=== PATIENT | female | born 1940 | race Caucasian/White ===

== ENCOUNTER 2018-04-26 06:10 | Day surgery (SDC) | payer MEDICARE, BC, SELFPAY ==
[2018-04-26] VITALS (10 sets, daily range): BP systolic 113–137; BP diastolic 56–103; PULSE 56–65; RESP 14–16; TEMP 36.3–37.1; O2SAT 93–100; BMI 11.2
[2018-04-26] MEDS: Cefazolin 2 GM in 0.9% Normal Saline 100 ML IV (07:30)
--- NOTE | 2018-04-26 07:42 | RAD_ITS ---
STUDY: X-RAY - RIGHT ANKLE REASON FOR EXAM: Female, 77 years old. [Reduction and internal fixation of the distal fibular fracture. TECHNIQUE: 8 intraoperative coned down view(s) of the ankle. COMPARISON: None. FINDINGS: Intraoperative fluoroscopic imaging provided for open reduction and fixation of the distal fibular fracture utilizing screws and sideplate fixation device. RAD/Ankle min 3 Views IMPRESSION: Status post open reduction and internal fixation of the distal fibular fracture with screw and sideplate fixation device. There is good alignment. Electronically Signed: Parminder Olivier MD at 10:58 EST Tel [phone], Service support ,
--- NOTE | 2018-04-26 09:19 | EKG12_ITS ---
Test Reason : PRE OP Blood Pressure : / mmHG Vent. Rate : 057 BPM Atrial Rate : 057 BPM P-R Int : 160 ms QRS Dur : 074 ms QT Int : 472 ms P-R-T Axes : 062 005 -07 degrees QTc Int : 459 ms Sinus bradycardia Nonspecific T wave abnormality Abnormal ECG When compared with ECG of 24-JAN-2004 13:45, No significant change was found Confirmed by ANUSHKA BUCK, BELKIS ([id number]), dictionary editor FREDDIE FERRERA ([id number]) on 04/29/2018 2:28:04 PM Referred By: Lavern Davis Confirmed By:BELKIS REVELES MD
--- NOTE | 2018-04-26 09:44 | PCM.IMDPSTOP ---
Immediate Post-Op Note Date of Procedure: 04/26/18 Primary Surgeon/Physician: Lavern Davis DPM honeycomb decapper: Marjan Anders Pre-Operative Diagnosis: R distal fibula fracture with syndesmotic dysruption Post-Operative Diagnosis: same Surgery/Procedure Performed:: R distal fibula ORIF and transyndesmotic fixation Description of Surgical Findings:: see dictation Estimated Blood Loss: minimal Specimen's removed: none Type of Anesthesia:: Spinal/Supplemental - Admit VTE Documentation VTE Present on Admission: No VTE Mechan Device Prophylaxis: SCD's, Knee High DIANE Hose VTE Pharm Prophylaxis ordered?: Yes
--- NOTE | 2018-04-26 09:50 | PCM.DC.ORTHO ---
Discharge Activity: May Not Drive, May Not Shower, Use Walker, Use Crutches Weight Bearing Status: No weight bearing Keep extremity elevated above heart level: Operative Extremity Call your doctor if your incision/area has: Sudden Increased Bleeding Call your doctor if you observe: Fever of 101 or Higher, Numbness or Tingling, Shortness of breath, Chest pain, Calf discomfort, Uncontrolled pain Cleanse incision/area with: Keep Dressing Clean & Dry Additional Dressing/Incision Instructions:: Will check in one week if still in-house, Acute REhab or TCU Additional Instructions: Strict NWB RLE, pt has dementia and forgets this. Has had difficulty remaining NWB RLE since injury, fell once per family. Ice behind R knee 20 minutes of each hour while awake, elevation when in bed/recliner. I will see her in one week in Acute Rehab or TCU. Recommend Lovenox for dvt prophylaxis, pain medication and bowel regimen per medicine. Please call with questions or concerns. Allergies/Adverse Reactions: Allergies No Known Allergies Allergy (Verified 04/22/18 13:09) Medications to take at Discharge Bupropion HCl [Bupropion HCl Sr] 150 mg PO DAILY 06/12/15 Duloxetine Hcl [Cymbalta] 20 mg PO DAILY 06/12/15 Gabapentin 100 mg PO DAILY 06/12/15 Lovastatin [Mevacor] 10 mg PO QHS 06/12/15 Acetaminophen [Tylenol Tablet] 650 mg PO Q6H PRN PRN #0 tablet 06/14/15 Aspirin 325 mg PO DAILY@0800 04/22/18 Famotidine [Pepcid] 20 mg PO BID 04/22/18 Metoprolol Succinate [Toprol Xl] 50 mg PO DAILY 04/22/18 Oxybutynin [Ditropan] 5 mg PO DAILY 04/22/18 levETIRAcetam tablet [Keppra tablet] 500 mg PO BID 04/22/18 Orders to be completed after discharge: 12 Lead EKG [CVS] Time Frame: 04/26/18, Location: None Selected Primary Care Physician: Pinky Smith [Primary Care Provider] - Test Results: Test results from this visit will be discussed in further detail at your follow-up appointment, if applicable. Proposed Discharge Date: 04/26/18
--- NOTE | 2018-04-26 09:54 | DCINST_ITS ---
Discharge Activity: May Not Drive, May Not Shower, Use Walker, Use Crutches Weight Bearing Status: No weight bearing Keep extremity elevated above heart level: Operative Extremity Call your doctor if your incision/area has: Sudden Increased Bleeding Call your doctor if you observe: Fever of 101 or Higher, Numbness or Tingling, Shortness of breath, Chest pain, Calf discomfort, Uncontrolled pain Cleanse incision/area with: Keep Dressing Clean & Dry Additional Dressing/Incision Instructions:: Will check in one week if still in- house, Acute REhab or TCU Additional Instructions: Strict NWB RLE, pt has dementia and forgets this. Has had difficulty remaining NWB RLE since injury, fell once per family. Ice behind R knee 20 minutes of each hour while awake, elevation when in bed/recliner. I will see her in one week in Acute Rehab or TCU. Recommend Lovenox for dvt prophylaxis, pain medication and bowel regimen per medicine. Please call with questions or concerns. Allergies/Adverse Reactions: Allergies No Known Allergies Allergy (Verified 04/22/18 13:09) Medications to take at Discharge Bupropion HCl [Bupropion HCl Sr] 150 mg PO DAILY 06/12/15 Duloxetine Hcl [Cymbalta] 20 mg PO DAILY 06/12/15 Gabapentin 100 mg PO DAILY 06/12/15 Lovastatin [Mevacor] 10 mg PO QHS 06/12/15 Acetaminophen [Tylenol Tablet] 650 mg PO Q6H PRN PRN #0 tablet 06/14/15 Aspirin 325 mg PO DAILY@0800 04/22/18 Famotidine [Pepcid] 20 mg PO BID 04/22/18 Metoprolol Succinate [Toprol Xl] 50 mg PO DAILY 04/22/18 Oxybutynin [Ditropan] 5 mg PO DAILY 04/22/18 levETIRAcetam tablet [Keppra tablet] 500 mg PO BID 04/22/18 Orders to be completed after discharge: 12 Lead EKG [CVS] Time Frame: 04/26/18, Location: None Selected Primary Care Physician: Pinky Smith [Primary Care Provider] - Test Results: Test results from this visit will be discussed in further detail at your follow- up appointment, if applicable. Proposed Discharge Date: 04/26/18
--- NOTE | 2018-04-26 10:05 | RAD_ITS ---
STUDY: X-RAY - RIGHT ANKLE REASON FOR EXAM: Female, 77 years old. ORIF of the distal fibula. TECHNIQUE: 3 view(s) of the ankle. COMPARISON: Comparison is made with prior study done earlier in the day. FINDINGS: The patient is status post open reduction and internal fixation of the distal fibular fracture with screws and sideplate fixation device. There is good alignment. Plantar spur. The visualized subtalar, talonavicular, calcaneocuboid and tarsal articulations are normal. Postoperative soft tissue swelling. RAD/Ankle min 3 Views IMPRESSION: Status post ORIF of the distal fibula. There is good alignment. Postoperative soft tissue changes. Electronically Signed: Parminder Olivier MD at 13:53 EST Tel [phone], Service support ,
--- NOTE | 2018-04-26 10:05 | PCM.OPRPT ---
Report of Operation Date of Procedure: 04/26/18 Pre-Operative Diagnosis: R distal fibula fracture with syndesmotic dysruption Post-Operative Diagnosis: same Surgery/Procedure Performed:: R distal fibula ORIF and transyndesmotic fixation, stress views of Right ankle Description of Surgical Findings:: see dictation underwriting service representative: Marjan Anders Type of Anesthesia:: Spinal/Supplemental Specimen's removed: none Estimated Blood Loss (mL): minimal Description of Procedure: Indications: Patient is a 77 yo F w/ PMH significant for dementia, who fell 04/16/2018 at the [facility] where she resides. She was seen in the [place] ER and radiograph revealed a Right distal fibula fracture. She presented to my office on 04/20/2018 for evaluation, stress gravity views demonstrated increased medial clear space and tibiofibular joint gapping. Surgical intervention was decided upon with her daughter present for an unstable ankle fracture. She was seen by the PCP at her community home. Per her daughter she has had difficulty remaining NWB RLE with a posterior splint since our office appointment and fell once. She will be admitted to the [facility] Acute Rehab post operatively. All risks, complications and alternatives were discussed with the patient and her family. An informed consent was signed for right ankle ORIF with possible external fixation application. No guarantees were given. Procedure: On 04/26/18, Ange Flores was visually and verbally identified in the pre operative holding area. Her son and daughter were both present. The consent form was again reviewed as were all risks, complications and alternatives. They wished to proceed with the proposed surgery. Given that she will be admitted to the Acute Rehab post operatively I felt that we should be able to proceed without external fixation and the need for a second surgery for removal. Everyone agreed with the surgical plan and post operative plan. The right ankle was marked as the correct operative extremity. The patient was brought to the operating room and placed on the operating room table. After spinal anesthesia was administered the patient was placed in a lazy lateral position. A surgical time out was performed and all present were in agreement. A well padded pneumatic thigh tourniquet was then placed to the E. The right lower extremity was the prepped and draped in the normal sterile fashion. After elevation an esmarch was applied and the tourniquet was inflated to 300mmHg. At this time attention was turned to the right ankle. Intraoperative fluoroscopy was utilized to obtain a new AP of the ankle given her fall since examination. The distal fibula fracture looked to have increased displacement but no new fractures were seen. Attention was then turned to the distal fibula where a #15 blade was used to make a curvilinear incision of the fracture. Blunt dissection was carried deep with careful attention paid to al bleeders which were tied or bovied as necessary. The peroneal tendons were retracted. The fracture line was visualized and using a #15 blade and curettes all soft tissue and hematoma was removed. The fracture was reduced and held in place with a bone reduction clamp. This was confirmed by direct visualization and intra operative fluoroscopy. A Adriana 2.7 interfragmentary screw was then placed perpendicular to the fracture per AO technique. Satisfactory placement of the screw was noted on intraoperative fluoroscopy and the bone reduction clamp was removed. A distal fibular plate was then placed with positioning and length of the plate and screws confirmed by direct visualization and on intraoperative fluoroscopy. An external rotation and cotton bone hook test was then performed under intra operative fluoroscopy, the stress views revealed increased medial clear space and syndesmotic gapping. A malleolar reduction clamp was then placed. A syndesmotic screw was then placed from the lateral fibula to the medial cortex of the tibia and parallel to the tibiotalar joint. The screw was placed as part of the plate construct. The malleolar reduction clamp was then removed and the stress exams were then repeated under intraoperative fluoroscopy. The medial clear space appeared to be within normal limits and there was no syndesmotic gapping noted. A second transyndesmotic screw not placed secondary to the fracture pattern and I felt the reduction was well maintained with one screw. The incision was then flushed with copious amounts of normal sterile saline and closure was initiated. 2.0 vicryl was used for deep tissue, 3. Vicryl for subcutaneous sutures and 3.0 prolene for skin. Adaptic and dry sterile dressings were applied along with a multilayer compressive dressing and a well padded posterior splint. Total tourniquet time was 72 minutes with immediate capillary refill noted to the all digits upon deflation. The patient tolerated the procedure and anesthesia well. The patient was transported to the post anesthesia care unit by myself and a member of the anesthesia team with all vital signs stable and with the RLE neurovascular status equal to pre-operative levels. Anesthesia will perform a R lower sciatic block in pacu once her spinal anesthesia begins to wear off. She will be admitted to Acute Rehab at [facility] post operatively. At the end of the case all sponges, needle and instrument counts were found to be correct. Intraoperative fluoroscopy was utilized throughout the procedure,for > 1 hours. Interpretation of the images was vital to my decision making process including fracture reduction, screw and plate placement and length, along with stress views. Grafts/Implants Used: Adriana Variax plate and screws - Complications none - Admit VTE Documentation VTE Present on Admission: No VTE Mechan Device Prophylaxis: SCD's, Knee High DIANE Hose VTE Pharm Prophylaxis ordered?: Yes
--- NOTE | 2018-04-26 10:11 | NURSING ---
toes warm with good cap refill, RLE, spinal anesthesia. not moving legs at this time
--- NOTE | 2018-04-26 10:35 | OP.PCM_ITS ---
Report of Operation Date of Procedure: 04/26/18 Pre-Operative Diagnosis: R distal fibula fracture with syndesmotic dysruption Post-Operative Diagnosis: same Surgery/Procedure Performed:: R distal fibula ORIF and transyndesmotic fixation, stress views of Right ankle Description of Surgical Findings:: see dictation field service consultant: Marjan Anders Type of Anesthesia:: Spinal/Supplemental Specimen's removed: none Estimated Blood Loss (mL): minimal Description of Procedure: Indications: Patient is a 77 yo F w/ PMH significant for dementia, who fell 04/16/2018 at the [facility] where she resides. She was seen in the [place] ER and radiograph revealed a Right distal fibula fracture. She presented to my office on 04/20/2018 for evaluation, stress gravity views demonstrated increased medial clear space and tibiofibular joint gapping. Surgical intervention was decided upon with her daughter present for an unstable ankle fracture. She was seen by the PCP at her community home. Per her daughter she has had difficulty remaining NWB RLE with a posterior splint since our office appointment and fell once. She will be admitted to the [facility] Acute Rehab post operatively. All risks, complications and alternatives were discussed with the patient and her family. An informed consent was signed for right ankle ORIF with possible external fixation application. No guarantees were given. Procedure: On 04/26/18, Ange Flores was visually and verbally identified in the pre operative holding area. Her son and daughter were both present. The consent form was again reviewed as were all risks, complications and alternatives. They wished to proceed with the proposed surgery. Given that she will be admitted to the Acute Rehab post operatively I felt that we should be able to proceed without external fixation and the need for a second surgery for removal. Everyone agreed with the surgical plan and post operative plan. The right ankle was marked as the correct operative extremity. The patient was brought to the operating room and placed on the operating room table. After spinal anesthesia was administered the patient was placed in a lazy lateral position. A surgical time out was performed and all present were in agreement. A well padded pneumatic thigh tourniquet was then placed to the E. The right lower extremity was the prepped and draped in the normal sterile fashion. After elevation an esmarch was applied and the tourniquet was inflated to 300mmHg. At this time attention was turned to the right ankle. Intraoperative fluoroscopy was utilized to obtain a new AP of the ankle given her fall since examination. The distal fibula fracture looked to have increased displacement but no new fractures were seen. Attention was then turned to the distal fibula where a #15 blade was used to make a curvilinear incision of the fracture. Blunt dissection was carried deep with careful attention paid to al bleeders which were tied or bovied as necessary. The peroneal tendons were retracted. The fracture line was visualized and using a #15 blade and curettes all soft tissue and hematoma was removed. The fracture was reduced and held in place with a bone reduction clamp. This was confirmed by direct visualization and intra operative fluoroscopy. A Adriana 2.7 interfragmentary screw was then placed perpendicular to the fracture per AO technique. Satisfactory placement of the screw was noted on intraoperative fluoroscopy and the bone reduction clamp was removed. A distal fibular plate was then placed with positioning and length of the plate and screws confirmed by direct visualization and on intraoperative fluoroscopy. An external rotation and cotton bone hook test was then performed under intra operative fluoroscopy, the stress views revealed increased medial clear space and syndesmotic gapping. A malleolar reduction clamp was then placed. A syndesmotic screw was then placed from the lateral fibula to the medial cortex of the tibia and parallel to the tibiotalar joint. The screw was placed as part of the plate construct. The malleolar reduction clamp was then removed and the stress exams were then repeated under intraoperative fluoroscopy. The medial clear space appeared to be within normal limits and there was no syndesmotic gapping noted. A second transyndesmotic screw not placed secondary to the fracture pattern and I felt the reduction was well maintained with one screw. The incision was then flushed with copious amounts of normal sterile saline and closure was initiated. 2.0 vicryl was used for deep tissue, 3. Vicryl for subcutaneous sutures and 3.0 prolene for skin. Adaptic and dry sterile dressings were applied along with a multilayer compressive dressing and a well padded posterior splint. Total tourniquet time was 72 minutes with immediate capillary refill noted to the all digits upon deflation. The patient tolerated the procedure and anesthesia well. The patient was transported to the post anesthesia care unit by myself and a member of the anesthesia team with all vital signs stable and with the RLE neurovascular status equal to pre-operative levels. Anesthesia will perform a R lower sciatic block in pacu once her spinal anesthesia begins to wear off. She will be admitted to Acute Rehab at [facility] post operatively. At the end of the case all sponges, needle and instrument counts were found to be correct. Intraoperative fluoroscopy was utilized throughout the procedure,for > 1 hours. Interpretation of the images was vital to my decision making process including fracture reduction, screw and plate placement and length, along with stress views. Grafts/Implants Used: Adriana Variax plate and screws - Complications none - Admit VTE Documentation VTE Present on Admission: No VTE Mechan Device Prophylaxis: SCD's, Knee High DIANE Hose VTE Pharm Prophylaxis ordered?: Yes
--- OUTSIDE RECORDS SUMMARY | 2018-07-28 11:20 | XMS RPT_ITS ---
:1940 Author Organization OHIP Support Name Relationship Address Phone RAMONAGREG ASHLEY Unavailable Unavailable + NOT GIVEN Unavailable Unavailable Unavailable BOALS, GREG Unavailable Unavailable + NOT GIVEN Unavailable Unavailable Unavailable BOALS, GREG Unavailable [id number] + [place] [address] BOALS MADDIE Unavailable [id number] + [place] [address] R Unavailable Unavailable Unavailable BOALS, GREG Unavailable [phone] + [place] [address] BOALS, MADDIE Unavailable [phone] + [place] [address] R Unavailable Unavailable Unavailable BOALS, GREG Unavailable [phone] + [place] [address] BOALS, MADDIE Unavailable [id number] + [place] [address] R Unavailable Unavailable Unavailable BOALS, GREG Unavailable [phone] + [place] [address] BOALS, MADDIE Unavailable [address] + [place] [address] R Unavailable Unavailable Unavailable BOALS, GREG Unavailable [phone] + [place] [address] BOALS, MADDIE Unavailable [address] + [place] [address] R Unavailable Unavailable Unavailable BOALS, GREG Unavailable [phone] + [place] [address] BOALS, MADDIE Unavailable [phone] + [place] [address] R Unavailable Unavailable Unavailable BOALS, GREG Unavailable Unavailable + NOT GIVEN Unavailable Unavailable Unavailable BOALS, GREG Unavailable Unavailable + NOT GIVEN Unavailable Unavailable Unavailable BOALS, GREG Unavailable Unavailable + NOT GIVEN Unavailable Unavailable Unavailable NOT GIVEN Unavailable Unavailable Unavailable BOALS, GREG Unavailable Unavailable + NOT GIVEN Unavailable Unavailable Unavailable Care Team Providers Name Role Phone EL HITTI, WASSIM A Admitting Unavailable EL HITTI, WASSIM A Attending Unavailable EL HITTI, WASSIM A Consulting Unavailable PINKY QUINN MD Admitting Unavailable PINKY QUINN MD Attending Unavailable PINKY QUINN MD Primary Care Unavailable PINKY QUINN MD Consulting Unavailable PROVIDER, UNKNOWN Consulting Unavailable PROVIDER, UNKNOWN Consulting Unavailable PROVIDER, UNKNOWN Consulting Unavailable PINKY QUINN MD Admitting Unavailable PINKY QUINN MD Attending Unavailable PINKY QUINN MD Primary Care Unavailable PINKY QUINN MD Consulting Unavailable PROVIDER, UNKNOWN Consulting Unavailable PROVIDER, UNKNOWN Consulting Unavailable PROVIDER, UNKNOWN Consulting Unavailable PINKY QUINN MD Admitting Unavailable PINKY QUINN MD Attending Unavailable PINKY QUINN MD Primary Care Unavailable PINKY QUINN MD Consulting Unavailable PROVIDER, UNKNOWN Consulting Unavailable PROVIDER, UNKNOWN Consulting Unavailable PROVIDER, UNKNOWN Consulting Unavailable PINKY QUINN MD Admitting Unavailable PINKY QUINN MD Attending Unavailable PINKY QUINN MD Primary Care Unavailable PINKY QUINN MD Consulting Unavailable PROVIDER, UNKNOWN Consulting Unavailable PROVIDER, UNKNOWN Consulting Unavailable PROVIDER, UNKNOWN Consulting Unavailable KATINA MONROY DO Admitting Unavailable KATINA MONROY DO Attending Unavailable PINKY QUINN MD Referring Unavailable KATINA MONROY DO Primary Care Unavailable PINKY QUINN MD Consulting Unavailable PROVIDER, UNKNOWN Consulting Unavailable PROVIDER, UNKNOWN Consulting Unavailable PROVIDER, UNKNOWN Consulting Unavailable LAVERN JONES DPM Admitting Unavailable LAVERN JONES DPM Attending Unavailable LAVERN JONESM Primary Care Unavailable PINKY QUINN MD Consulting Unavailable PROVIDER, UNKNOWN Consulting Unavailable PROVIDER, UNKNOWN Consulting Unavailable PROVIDER, UNKNOWN Consulting Unavailable ABDIRASHID AMBROSE MD Admitting Unavailable ABDIRASHID AMBROSE MD Attending Unavailable ABDIRASHID AMBROSE MD Primary Care Unavailable PINKY QUINN MD Consulting Unavailable PROVIDER, UNKNOWN Consulting Unavailable PROVIDER, UNKNOWN Consulting Unavailable PROVIDER, UNKNOWN Consulting Unavailable LAILA MORALES (WAVE SOLDERING MACHINE OPERATOR) Attending Unavailable Lavern Jones Attending Unavailable Lavern Jones Referring Unavailable OMRAN, YASSER Primary Care Unavailable Fabi, Oscar S. Admitting Unavailable Fabi, Oscar S. Referring Unavailable OMRAN, YASSER Primary Care Unavailable Leo Juarez Consulting Unavailable Anuel Doll Attending Unavailable Fabi, Oscar S. Admitting Unavailable Dallas Hazel Attending Unavailable Fabi, Oscar S. Referring Unavailable OMRAN, YASSER Primary Care Unavailable Leo Juarez Consulting Unavailable Fabi, Oscar S. Consulting Unavailable Fabi, Oscar S. Admitting Unavailable Anuel Doll Attending Unavailable Fabi, Oscar S. Referring Unavailable OMRAN, YASSER Primary Care Unavailable Leo Juarez Consulting Unavailable Anuel Doll Consulting Unavailable Fabi, Oscar S. Admitting Unavailable Anuel Doll Attending Unavailable Fabi, Oscar S. Referring Unavailable OMRAN, YASSER Primary Care Unavailable Leo Juarez Consulting Unavailable Anuel Doll Consulting Unavailable Thai Hines Attending Unavailable Lavern Jones Referring Unavailable PROBLEMS PROBLEMS DATE TYPE CONDITION / CODE ATTENDING STATUS SOURCE Admitting Other difficulties LATOUF, BUTROS Active Jun [place] 8 Diagnosis with micturition / [facility] [id number](ICD-10) Hospital Repository Principle Other difficulties LATOUF, BUTROS Active Jun [place] 8 Diagnosis with micturition / [facility] A81030(ICD-10) Hospital Repository Unknown R94.31 - Abnormal FloraCallum grecoril Active [place] 9 electrocardiogram Community [ECG] [EKG] / Hospital R94.31(ICD-10) Repository Principle Essential (primary) OMRAN YASSER Active Jun [place] 8 Diagnosis hypertension / [facility] I10(ICD-10) Hospital Repository Admitting Essential (primary) OMRAN, YASSER Active Jun [place] 8 Diagnosis hypertension / [facility] I10(ICD-10) Hospital Repository Secondary Hyperlipidemia, OMRAN, YASSER Active Jun [place] 8 Diagnosis unspecified / [facility] E785(ICD-10) Hospital Repository Secondary Dysuria / R300(ICD-10) OMTARIK NOLASCOER Active Jun [place] 8 Diagnosis [facility] Repository Active Disorientation, EL HITTI, Active [place] 8 unspecified / [facility] Other R41.0(ICD-10) [place] Repository Active Abnormal findings on EL CHELSEYTI, Active [place] 8 diagnostic imaging of [facility] Other skull and head, not [place] elsewhere classified / Repository 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, 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 / [facility] Other I63.8(ICD-10) [place] Repository Active Other speech EL HITTI, Active [place] 8 disturbances / [facility] Other R47.89(ICD-10) [place] Repository Active Essential (primary) EL HITTI, Active [place] 8 hypertension / [facility] Other I10(ICD-10) [place] Repository Active Encephalopathy, EL HITTI, Active [place] 8 unspecified / [facility] Other G93.40(ICD-10) [place] Repository Principle Pure PINKY QUINN Active Jun [place] 8 Diagnosis hypercholesterolemia, [facility] unspecified / Hospital E7800(ICD-10) Repository Secondary Hyperglycemia, PINKY QUINN Active Jun Menezes Diagnosis unspecified / [facility] R739(ICD-10) Hospital Repository PROCEDURES PROCEDURES No Procedure Records FoundRESULTS RESULTS URINALYSIS Collected: 05/08/2018 Status: F Source: JUN [place] 9:00 PM [facility] REPOSITORY TYPE CODE TESTS RESULT OUT OF REFERENCE UNITS RANGE LAB URINALYSIS (LOINC) URINALYSIS Result Comment: URINALYSIS LAB Specimen Type(LOINC) Specimen Type Clean catch LAB Color(LOINC) NORMAL: YELLOW Color alexey LAB Clarity(LOINC) NORMAL: CLEAR Clarity clear LAB ph(LOINC) NORMAL: 5.0-8.0 ph 5 LAB Protein(LOINC) NORMAL: NEGATIVE Protein Abnormal 15 LAB Glucose(LOINC) NORMAL: NORMAL Glucose NORM LAB Ketone(LOINC) NORMAL: NEGATIVE Ketone NEG LAB Bilirubin(LOINC) NORMAL: NEGATIVE Bilirubin NEG LAB Blood(LOINC) NORMAL: NEGATIVE Blood NEG LAB Urobilinog(LOINC) NORMAL: NORMAL Urobilinog NORM LAB Sp [place](LOINC) NORMAL: 1.010-1.030 Sp [place] 1.030 LAB Nitrite(LOINC) NORMAL: NEGATIVE Nitrite NEG LAB Leukocytes(LOINC) NORMAL: NEGATIVE Leukocytes Abnormal 25 LAB Microscopic(LOINC ) Microscopic SEE BELOW Result Comment: MICROSCOPIC LAB Wbc(LOINC) 0-5/hpf Wbc 1-5 LAB Rbc(LOINC) 0-3/hpf Rbc NONE LAB Casts(LOINC) Casts NONE LAB Crystals(LOINC) Crystals SEE BELOW LAB Calcium Ox(LOINC) NORMAL: NONE Calcium Ox 2+ LAB Amorphous(LOINC) Amorphous NONE LAB Bacteria(LOINC) Bacteria NONE LAB Epi Cells(LOINC) Epi Cells NONE LAB Mucous(LOINC) Mucous NONE LAB Yeast(LOINC) Yeast NONE Performed By: #### [id number] #### [facility],[address] [place] [address] Observed: 05/08/2018 Status: F Source: [facility] CULTURE URINE 9:00 PM [facility] REPOSITORY CULTURE URINE _URINE CULTURE_ M I C R O B I O L O G Y R E P O R T FINAL Antimicrobial Susceptibility and Organism Identification Report Specimen Number : [id number] Requested : 05/08/18 Specimen Source : URINE Collected : 05/08/18 21:00 Antoine of Isolation : Christos Denney Received : 05/08/18 21:00 Requesting Physician : ARNOL Patient/Specimen Tests and Comments Specimen Comments FINAL REPORT: NO GROWTH AT 48 HOURS Tech : Source : URINE ID # : [id number] FINAL Report Date : / / : Collected : 05/08/18 21:00 05/11/18.1000.BKO. 05/10/18.1033.BKO. 05/11/18.1000.BKO.COMPLETE Performed By: #### [id number] #### Jun [facility],[address] [place] [id number] DISCHARGE SUMMARY Observed: 04/29/2018 Status: C Source: [place] 3:36 PM [facility] REPOSITORY [facility] Medical Records Department [address] [place] [address] Discharge Summary 04/29/18 0911 MR#: [id number] Acct: [id number] Name: VIVIANA FLORES Rep #: [id number] : 1940 77 From: Nikki PORTILLO PCP: Pinky Quinn Status: DIS IN Y Location: [id number] ADDENDUM by Alyssa Dunlap MD on 04/29/18 at 1536 I have personally examined the patient at bedside. Please see WAVE SOLDERING MACHINE OPERATOR Nikki Alicea's note as below for further complete details. I have discussed the management plan for the patient in detail with KAEL Alicea and please see the plan as noted below. 77 yr CF with PMH HTN, HLD, Dementia, H/O seizure, Depression, macular degeneration, NH resident admitted to [facility] with debility s/p mechanical fall, closed right ankle fracture, s/p ORIF on 04/26/[address] Jones, for > 3 hrs therapy daily with a goal of returning back home/NH at or near her prior level of functional independence. Patient's course complicated by dementia, has episodes of confusion, had a fall following rehab admission, had right ankle xray following the fall which was reported stable, seen by her surgeon DR. Jones, Xray hip did not show any fracture, On Keppra for seizures, was treated at [facility] few months ago when she had initial seizures, is on Keppra with no further seizures per family, no records available, is on Wellbutrin for depression, discussed about avoiding the same due to possibility of lowering seizure threshold, but per family it is being given to her by her PCP who knows the patient for a long time and they do not want to make any changes to medications at present, again the seizure risk of Wellbutrin discussed in detail and family aware of the same. Will defer to PCP for making adjustments to her antidepressants. Recommend avoid using medications that can potentially lower seizure threshold. PT/OT, GI/DVT prophylaxis. Fall precautions. Further medical management per hospitalist recommendations. Patient being transferred to SNF. 04/29/18 1536 <Electronically signed by Oscar Dunlap MD> Date Oscar Dunlap MD cc: KAEL Alicea; Alyssa Dunlap MD; Pinky Quinn * Addendum Rehab Discharge Summary DATE OF ADMISSION: 04/26/18 DATE OF DISCHARGE: 04/29/18 - Rehab Diagnosis Right Ankle Fracture Patient Problems: Active and Suspected Problems Other specified noninfective disorders of lymphatic vessels and lymph nodes (Acute) Hx of falling (Acute) Localized edema (Acute) Closed right ankle fracture (Acute) - Physical Exam General: Alert, Oriented x3, Cooperative HEENT: Atraumatic, PERRLA, EOMI, Normocephalic Neck: Supple, No JVD, Negative Carotid Bruits Lungs: Clear to auscultation, Normal air movement Cardiovascular: Regular rate, No murmurs Abdomen: Bowel Sounds Present, Soft, Non Tender Extremities: No edema, Capillary Refill Less than 3 Seconds Skin: No rashes, No breakdown Musculoskeletal: No Tenderness to Palpation of Joints or Extremities Neurological: Cranial nerves II-XII grossly intact Psych/Mental Status: Normal Affect, Appropriate Comment: Alert and oriented to self, and place only Vital Signs Temp Pulse Resp BP Pulse Ox 98.4 F 90 18 114/75 96 04/29/18 07:26 04/29/18 08:58 04/29/18 07:26 04/29/18 07:26 04/29/18 07:26 Oxygen Delivery Method Room Air Weight: 61.689 kg Body Mass Index (BMI) 27.4 Intake and Output for Last 24 Hours Intake Total 940 / 940 720 / 720 240 / 240 Output Total 600 / 600 300 / 300 Balance 340 / 340 420 / 420 240 / 240 Active Medications Acetaminophen (Tylenol) 1,000 mg PO Q8 [facility] Last Admin: 04/29/18 06:56 Dose: 1,000 mg Aspirin (Aspirin) 325 mg PO DAILY@0800 [facility] Last Admin: 04/29/18 08:56 Dose: 325 mg Atorvastatin Calcium (Lipitor) 5 mg PO QHS [facility] Last Admin: 04/28/18 22:25 Dose: 5 mg Bisacodyl (Dulcolax) 10 mg RECTAL .PRN X 1 PRN PRN Reason: Constipation Bupropion HCl (Wellbutrin Sr (150mg Tablets)) 150 mg PO DAILY [facility] Last Admin: 04/29/18 08:56 Dose: 150 mg Duloxetine HCl (Cymbalta) 20 mg PO DAILY [facility] Last Admin: 04/29/18 08:57 Dose: 20 mg Enoxaparin Sodium (Lovenox) 40 mg SC DAILY@0600 [facility] Last Admin: 04/29/18 06:57 Dose: 40 mg Famotidine (Pepcid) 20 mg PO BID [facility] Last Admin: 04/29/18 08:56 Dose: 20 mg Gabapentin (Neurontin) 100 mg PO DAILY@0800 [facility] Last Admin: 04/29/18 08:56 Dose: 100 mg Levetiracetam (Keppra Tablet) 500 mg PO BID [facility] Last Admin: 04/29/18 08:56 Dose: 500 mg Magnesium Hydroxide (Milk Of Magnesia) 30 ml PO .PRN X 1 PRN PRN Reason: Constipation Melatonin (Melatonin) 3 mg PO QHS [facility] Last Admin: 04/28/18 22:25 Dose: 3 mg Metoprolol Succinate (Toprol Xl (Beta Rene)) 50 mg PO DAILY [facility] Last Admin: 04/29/18 08:58 Dose: 50 mg Nutritional Formula (Lactose Free) (Ensure Enlive) 120 ml PO 4X/DAY [facility] Last Admin: 04/28/18 22:25 Dose: 120 ml Senna/Docusate Sodium (Senokot-S, Una-Colace) 2 tablet PO BID [facility] Last Admin: 04/29/18 09:08 Dose: Not Given Tolterodine Tartrate (Detrol La) 2 mg PO DAILY [facility] Last Admin: 04/29/18 08:56 Dose: 2 mg Discharge Diet: No Restrictions Discharge Activity: May Not Drive, May Shower - cover the right ankle with a garbage bag to protect the soft cast, Use Walker, - - not soak in a Bath Tub Weight Bearing Status: No weight bearing Keep extremity elevated above heart level: Right Leg Call your doctor if your incision/area has: Increased Pain/ Swelling, Increased Redness, Foul Smelling Discharge, Swelling at the incision site Call your doctor if you observe: Fever of 101 or Higher, Coldness, Increased Pain, Numbness or Tingling, Change in Color, Inability to urinate, Inability to have a bowel movement, Using more than one pad per hour, Shortness of breath, Dizziness, Fainting spells, Swelling in the ankles, Chest pain, Prolonged hiccoughing, Increased palpitations (irregular heartbeat), Calf discomfort, Uncontrolled pain Home Medications: Medications to take at Discharge Bupropion HCl [Bupropion HCl Sr] 150 mg PO DAILY 06/12/15 Duloxetine Hcl [Cymbalta] 20 mg PO DAILY 06/12/15 Aspirin 325 mg PO DAILY@0800 04/22/18 Famotidine [Pepcid] 20 mg PO BID 04/22/18 Metoprolol Succinate [Toprol Xl] 50 mg PO DAILY 04/22/18 Oxybutynin [Ditropan] 5 mg PO DAILY 04/22/18 levETIRAcetam tablet [Keppra tablet] 500 mg PO BID 04/22/18 Acetaminophen [Tylenol] 1,000 mg PO Q8 tablet 04/28/18 Atorvastatin Calcium [Lipitor] 5 mg PO QHS tablet 04/28/18 Ensure Enlive 120 ml PO 4X/DAY liquid 04/28/18 Gabapentin [Neurontin] 100 mg PO DAILY@0800 #30 cap 04/28/18 Melatonin 3 mg PO QHS tablet 04/28/18 Following Prescrptions Were Given to Patient: Gabapentin [Neurontin] 100 mg PO DAILY@0800 #30 cap Primary Care Physician: Pinky Quinn [Primary Care Provider] - Please Follow Up With: Lavern Jones DPM Disposition: [facility] facility Minutes spent on discharge:: 40 Patient Condition:: Stable Rehab Course This is a 77-year-old right handed female who was admitted to the rehab unit for rehabilitation after under going a right ORIF and transsyndesmotic fixation on 04/26/[address] Jones, with no post-op complications noted. She has a PMH: of dementia, HTN, macular degeneration, depression, and seizure disorder currently she is controlled on Keppra. She is non-weight bearing on the right LE, has a splint in place which is C/D/I. She lives in a [place] [facility], she was able to do some of her personal care, but required assistance at times. She is alert and oriented x1, has difficulty remembering to follow her weight bearing instructions without cues. She is admitted to the unit in order to restore her previous level of functional independence. While in the Rehab unit (RU) her other medical conditions were monitored. While in the RU she improved with therapy and gained strength. During her stay she had a fall, x-rays where obtained of her hip and pelvics which showed no acute injury, and a repeat x-ray of her right ankle was done which showed the hardware was aligned and no fractures where noted. The following day she became very agitated and required a sitter at all times, the Hospitalist ordered Haldol which seem to help and she was able to get some rest. The rest of her stay on the unit was uncomplicated and she was able to be discharged on 04/29/18 to a [facility] Facility where she will complete the remainder of her therapy care. Summary of care: - Physical therapy for gait and balance - Occupational Therapy for ADLs - As needed analgesics - per family request they would like us to use Tylenol as the first line pain medication, narcotic causes confusion in the patient - Bowel protocol - DVT prophylaxis: SCDs, Diane hoses and Lovenox - Hx of Seizures continue on Keppra - Hx of depression - currently on Wellbutrin, was discussed with the family that this medication could lower the patient seizure threshold, the family would like for her to continue on the medication until she is able to follow up with her primary care doctor who started her on the medication. - HTN - stable,continue metoprolol - HLD - continue home dose of Lipitor - Hx of Dementia with acute agitation - baseline A AND O x1. - Fall risk - Patient requiring 1:1 sitter at all times, was given a dose of Haldol by the Hospitalist on 04/27 - Plan is for patient to transition [place] [facility] on 04/29 Meaningful Use Info Meaningful Use Diagnoses (Choose all that apply): None applicable 04/29/18 1157 <Electronically signed by Nikki Alicea WAVE SOLDERING MACHINE OPERATOR-C> Date Nikki Alicea WAVE SOLDERING MACHINE OPERATOR-C 04/29/18 1531<Electronically signed by Oscar Dunlap MD> Cosigner Signature (if applicable): Date Oscar Dunlap MD CC: WAVE SOLDERING MACHINE OPERATOR Nikki Alicea; Alyssa Dunlap MD; Pinky Quinn Addendum TRANSFER TO [facility] Observed: 04/29/2018 Status: F Source: [facility] 3:30 PM [facility] REPOSITORY [facility] Medical Records Department [address] [place] [address] Transfer to [facility] Care MR#: [id number] Acct: [id number] Name: VIVIANA FLORES Rep #: [id number] : 1940 77 From: Nikki PORTILLO PCP: Pinky Quinn Status: DIS IN VIVIANA FLORES [id number] (Patient) (Health Ins. Claim No.) (Day of Discharge to Facility) Certification of patient admission REQUIRED AT TIME OF ADMISSION. I CERTIFY THAT POST-HOSPITAL ECF SERVICES ARE REQUIRED TO BE GIVEN ON AN IN-PATIENT BASIS BECAUSE OF THE ABOVE NAMED PATIENT'S NEED FOR SNF CARE ON A CONTINUING BASIS FOR THE CONDITION(S) FOR WHICH HE/SHE WAS RECEIVING IN-PATIENT HOSPITAL SERVICES PRIOR TO HIS/HER TRANSFER TO THE F. 04/28/181643 <Electronically signed by Nikki PORTILLO> Date Nikki PORTILLO - Diet 04/26/18 14:26 Diet: Regular Diet - Wound(s) right ankle Wound Type: Surgical Incision - Therapies Weight Bearing: Non weight bearing Extremity Affected:: Right Lower Physical Therapy: Eval and Treat Occupational Therapy: Eval and Treat - Allergies/Procedures Done in Hospital Allergies/Adverse Reactions: Allergies No Known Allergies Allergy (Verified 04/22/18 13:09) - Type of Care/Length of Stay Estimated LOS: More Than 30 Days Type of Care Needed: Skilled Rehab Potential: Fair Prognosis: Fair - Additional Orders/Day of Discharge Day of Discharge: 04/29/18 - Follow Up Care Primary Care Physician: Pinky Quinn [Primary Care Provider] - Please Follow Up With: Lavern Jones DPM 04/28/181643 <Electronically signed by Nikki PORTILLO> Date Nikki PORTILLO CC: Leo Juarez DO; Pinky Quinn Signed 12 LEAD ELECTROCARDIOGRAM Observed: 04/29/2018 Status: F Source: [place] 2:28 PM [facility] REPOSITORY [facility] Cardiovascular Services [address] [place] [address] 12 Lead EKG 04/26/18 0643 MR#: [id number] Acct: [id number] Name: VIVIANA FLORES Rep #: [id number] : 1940 77 From: Thai Hines MD Attending Dr: Lavern Jones DPM Status: DEP SDC Ordering Dr: Austen Hess MD Date: 04/26/18 Location: [facility] – [place] Sex: F C Admitted: Test Reason : PRE OP Blood Pressure : / mmHG Vent. Rate : 057 BPM Atrial Rate : 057 BPM P-R Int : 160 ms QRS Dur : 074 ms QT Int : 472 ms P-R-T Axes : 062 005 -07 degrees QTc Int : 459 ms Sinus bradycardia Nonspecific T wave abnormality Abnormal ECG When compared with ECG of 24-JAN-2004 13:45, No significant change was found Confirmed by FLORA BUCK, THAI ([id number]), online content editor FREDDIE FERRERA ([id number]) on 04/29/2018 2:28:04 PM Referred By: Lavern Jones Confirmed By:THAI HINES MD 04/29/18 1428 Date Thai Hines MD CC: SHELBY Jones; Austen Hess MD; Pinky Quinn Signed DISCHARGE INSTRUCTION Observed: 04/29/2018 Status: F Source: [place] 11:56 AM COUNT INCLUDES THE [facility] REPOSITORY [facility] Medical Records Department [address] [place] [address] Instructions for Home/Discharge Instructions 04/29/18 0916 MR#: [id number] Acct: [id number] Name: VIVIANA FLORES Rep #: [id number] : 1940 77 From: Nikki Alicea WAVE SOLDERING MACHINE OPERATOR-C PCP: Pinky Quinn Status: ADM IN - Discharge Diagnoses Current Active Problems: Current Active and Chronic Problems Other specified noninfective disorders of lymphatic vessels and lymph nodes (Acute) Hx of falling (Acute) Localized edema (Acute) Closed right ankle fracture (Acute) Reason(s) for Visit for Discharge Instructions: Right Ankle Fracture You will use the following diet at home:: Regular Your food should be the consistency of: Regular Your liquids should be the consistency of: Regular/Thin Discharge Activity: May Not Drive, May Shower - cover the right ankle with a garbage bag to protect the soft cast, Use Walker, - - not soak in a Bath Tub Weight Bearing Status: No weight bearing Keep extremity elevated above heart level: Right Leg Call your doctor if your incision/area has: Increased Pain/ Swelling, Increased Redness, Foul Smelling Discharge, Swelling at the incision site Call your doctor if you observe: Fever of 101 or Higher, Coldness, Increased Pain, Numbness or Tingling, Change in Color, Inability to urinate, Inability to have a bowel movement, Using more than one pad per hour, Shortness of breath, Dizziness, Fainting spells, Swelling in the ankles, Chest pain, Prolonged hiccoughing, Increased palpitations (irregular heartbeat), Calf discomfort, Uncontrolled pain Allergies/Adverse Reactions: Allergies No Known Allergies Allergy (Verified 04/22/18 13:09) Medications to take at Discharge Bupropion HCl [Bupropion HCl Sr] 150 mg PO DAILY 06/12/15 Duloxetine Hcl [Cymbalta] 20 mg PO DAILY 06/12/15 Aspirin 325 mg PO DAILY@0800 04/22/18 Famotidine [Pepcid] 20 mg PO BID 04/22/18 Metoprolol Succinate [Toprol Xl] 50 mg PO DAILY 04/22/18 Oxybutynin [Ditropan] 5 mg PO DAILY 04/22/18 levETIRAcetam tablet [Keppra tablet] 500 mg PO BID 04/22/18 Acetaminophen [Tylenol] 1,000 mg PO Q8 tablet 04/28/18 Atorvastatin Calcium [Lipitor] 5 mg PO QHS tablet 04/28/18 Ensure Enlive 120 ml PO 4X/DAY liquid 04/28/18 Gabapentin [Neurontin] 100 mg PO DAILY@0800 #30 cap 04/28/18 Melatonin 3 mg PO QHS tablet 04/28/18 The following prescriptions were given: Gabapentin [Neurontin] 100 mg PO DAILY@0800 #30 cap Primary Care Physician: Pinky Quinn [Primary Care Provider] - Test Results: Test results from this visit will be discussed in further detail at your follow-up appointment, if applicable. Please Follow Up With: Lavern Jones DPM Proposed Discharge Date: 04/29/18 04/29/18 1156 <Electronically signed by Nikki Alicea WAVE SOLDERING MACHINE OPERATORZoila> Date Nikki SALAMANCAC CC: Leo Juarez DO; Pinky Quinn Signed H AND P W/ COSIGN Observed: 04/28/2018 Status: F Source: [place] 1:03 PM [facility] REPOSITORY [facility] Medical Records Department [address] [place] [address] H AND P w/ Cosign 04/26/18 1553 MR#: [id number] Acct: [id number] Name: VIVIANA FLORES Rep #: [id number] : 1940 77 From: Nikki PORTILLO PCP: Pinky Quinn Status: ADM IN Y Location: [place] [id number] ADDENDUM by Alyssa Dunlap MD on 04/28/18 at 1303 Code Visit I have personally examined the patient at bedside. Please see KAEL Alicea's note as below for further complete details. I have discussed the management plan for the patient in detail with KAEL Alicea and please see the plan as noted below. 77 yr CF with PMH HTN, HLD, Dementia, H/O seizure, Depression, macular degeneration, NH resident admitted to [facility] with debility s/p mechanical fall, closed right ankle fracture, s/p ORIF on 04/26/[address] Jones, for > 3 hrs therapy daily with a goal of returning back home/NH at or near her prior level of functional independence. Patient's course complicated by dementia, has episodes of confusion, had a fall following rehab admission, had right ankle xray following the fall which was reported stable, seen by her surgeon DR. Jones, Xray hip/plevis also done but reported awaited, On Keppra for seizures, was treated at [facility] few months ago when she had initial seizures, is on Keppra with no further seizures per family, no records available, is on Wellbutrin for depression, discussed about avoiding the same due to possibility of lowering seizure threshold, but per family it is being given to her by her PCP who knows the patient for a long time and they do not want to make any changes to medications at present, again the seizure risk of Wellbutrin discussed in detail and family aware of the same. Will defer to PCP for making adjustments to her antidepressants. Recommend avoid using medications that can potentially lower seizure threshold. PT/OT, GI/DVT prophylaxis. Fall precautions. Further medical management per hospitalist recommendations. Inpatient E AND M: [id number] Init Hosp L3 04/28/18 1303 <Electronically signed by Oscar Dunlap MD> Date Oscar Dunlap MD cc: KAEL Alicea; Alyssa Dunlap MD; Pinky Quinn * Signed History of Present Illness Date of Admission: 04/26/18 Chief Complaint: Right ORIF ankle This is a 77-year-old right handed female who was admitted to the rehab unit for rehabilitation after under going a right ORIF and transsyndesmotic fixation on 04/26/[address] Jones, with no post-op complications noted. She has a PMH: of dementia, HTN, macular degeneration, depression, and seizure disorder currently she is controlled on Keppra. She is non-weight bearing on the right LE, has a splint in place which is C/D/I. She lives in [place] [facility] [place], she was able to do some of her personal care, but required assistance at times. She is alert and oriented x1, has difficulty remembering to follow her weight bearing instructions without cues. She is admitted to the unit in order to restore her previous level of functional independence. Past Medical History Allergies No Known Allergies Allergy (Verified 04/22/18 13:09) Home Medications: Ambulatory Orders Medication Instructions Recorded Bupropion HCl [Bupropion HCl Sr] 150 mg PO DAILY 06/12/15 Duloxetine Hcl [Cymbalta] 20 mg PO DAILY 06/12/15 Gabapentin 100 mg PO DAILY 06/12/15 Surgical History: no surgical history Psychiatric History: Depression [facility] Smoking Status: Never smoker Alcohol: None Drugs: None Review of Systems Constitutional: Denies: Chills, Fever, Weight Change HEENT: Denies: Head Aches, Sinus Congestion, Sinus Drainage Cardiovascular: Denies: Chest Pain, Palpitations Respiratory: Denies: Cough, Shortness of breath at rest, Sputum production Gastrointestinal: Denies: Abdominal Pain, Nausea, Vomiting Genitourinary: Denies: Dysuria Musculoskeletal: Denies: Joint Pain, Joint Tenderness Skin: Denies: Rash, Wounds Neurological: Denies: Numbness, Tingling, Focal weakness Psychiatric: Denies: Anxiety, Depression, Homicidal Ideations, Suicidal Ideations Hematologic/ Lymphatic: Denies: Easy Bruising, Easy Bleeding VTE Information - Inpt Only VTE Present on Admission: No VTE Mechan Device Prophylaxis: SCD's - left only, Knee High DIANE Hose VTE Pharm Prophylaxis ordered?: Yes - Physical Exam General: Alert, Oriented x3, Cooperative HEENT: Atraumatic, PERRLA, EOMI, Normocephalic Neck: Supple, No JVD, Negative Carotid Bruits Lungs: Clear to auscultation, Normal air movement Cardiovascular: Regular rate, No murmurs Abdomen: Bowel Sounds Present, Soft, Non Tender Extremities: No edema, Capillary Refill Less than 3 Seconds, - - Splint Right leg Skin: No rashes, No breakdown Musculoskeletal: No Tenderness to Palpation of Joints or Extremities Neurological: Cranial nerves II-XII grossly intact Psych/Mental Status: Normal Affect, Appropriate, Alert and oriented to time, place, person, mood and affect Weight: 61.689 kg Body Mass Index (BMI) 27.4 Active Medications Acetaminophen (Tylenol) 650 mg PO Q6H PRN PRN PRN Reason: PAIN Last Admin: 04/26/18 14:57 Dose: 650 mg Aspirin (Aspirin) 325 mg PO DAILY@0800 PATRICIA Atorvastatin Calcium (Lipitor) 5 mg PO QHS PATRICIA Bisacodyl (Dulcolax) 10 mg RECTAL .PRN X 1 PRN PRN Reason: Constipation Bupropion HCl (Wellbutrin Sr (150mg Tablets)) 150 mg PO DAILY PATRICIA Duloxetine HCl (Cymbalta) 20 mg PO DAILY PATRICIA Enoxaparin Sodium (Lovenox) 40 mg SC DAILY@0600 PATRICIA Famotidine (Pepcid) 20 mg PO BID PATRICIA Gabapentin (Neurontin) 100 mg PO DAILY@0800 PATRICIA Levetiracetam (Keppra Tablet) 500 mg PO BID PATRICIA Magnesium Hydroxide (Milk Of Magnesia) 30 ml PO .PRN X 1 PRN PRN Reason: Constipation Metoprolol Succinate (Toprol Xl (Beta Rene)) 50 mg PO DAILY PATRICIA Senna/Docusate Sodium (Senokot-S, Una-Colace) 2 tablet PO BID PATRICIA Tolterodine Tartrate (Detrol La) 2 mg PO DAILY PATRICIA Assessment/Plan Debility s/p ORIF right ankle, complicated by dementia, depression, and seizures. goal of rehab is confucianism of functional independence. Plan: - Physical therapy for gait and balance - Occupational Therapy for ADLs - As needed analgesics - per family request they would like us to use Tylenol as the first line pain medication, narcotic causes confusion in the patient - Bowel protocol - DVT prophylaxis: SCDs, Diane hoses and Lovenox - Hx of Seizures continue on Keppra - Hx of depression - currently on Wellbutrin, was discussed with the family that this medication could lower the patient seizure threshold, the family would like for her to continue on the medication until she is able to follow up with her primary care doctor who started her on the medication. - HTN - stable,continue metoprolol - HLD - continue home dose of Lipitor - Hx of Dementia with acute agitation - baseline A AND O x1. - Fall risk 04/27/18 1622 <Electronically signed by Nikki Alicea WAVE SOLDERING MACHINE OPERATOR-C> Date Nikki Alicea WAVE SOLDERING MACHINE OPERATOR-C 04/27/182043<Electronically signed by Oscar Dunlap MD> Cosigner Signature (if applicable): Date Oscar Dunlap MD CC: KAEL Alicea; Alyssa Dunlap MD; Pniky Quinn Signed ANKLE MIN 3 VIEWS Observed: 04/27/2018 Status: F Source: [place] 2:32 PM [facility] REPOSITORY [facility] Imaging Services [address] [place] [address] Ankle min 3 Views MR#: [id number] Acct: [id number] Name: VIVIANA FLORES Rep #: [id number] : 1940 F 77 From: Cyndie Nieto MD PCP: Pinky Quinn Status: ADM IN Study: Ankle min 3 Views Date of Exam: 04/27/18 Exam# [id number] Ordering Dr: Lavern Jones DPM STUDY: X-RAY - RIGHT ANKLE REASON FOR EXAM: Female, 77 years old. Pain after fall, recent surgery TECHNIQUE: Three view(s) of the ankle were obtained. COMPARISON: April 26, 2018 FINDINGS: Bones: A plate and screws are again seen over the distal fibula and lateral malleolus. A syndesmotic screw is again seen through the distal fibula and tibia. A moderate spur is again seen off the inferior calcaneus. Joints: The visualized joints are unremarkable. Soft tissues: Soft tissue swelling and soft tissue air are again seen laterally. RAD/Ankle min 3 Views IMPRESSION: There are stable surgical changes in the distal fibula and lateral malleolus. Hardware is intact. There are no acute fractures. Electronically Signed: Cyndie Nieto MD at 19:38 EST Tel Direct: [phone], Service support , CC: SHELBY Jones; Pinky Quinn Heeler Machine: Signed HIPS B/L MIN 2 Observed: 04/27/2018 Status: F Source: [place] VIEWS W/ PELVIS 12:36 PM [facility] REPOSITORY [facility] Imaging Services [address] [place] [address] Hips B/L min 2 views w/ Pelvis MR#: [id number] Acct: [id number] Name: VIVIANA FLORES Rep #: [id number] : 1940 F 77 From: Keith Patel MD PCP: Pinky Quinn Status: ADM IN Study: Hips B/L min 2 views w/ Pelvis Date of Exam: 04/27/18 Exam# [id number] Ordering Dr: Oscar Dunlap MD STUDY: X-RAY - BILATERAL HIPS WITHOUT PELVIS REASON FOR EXAM: Female, 77 years old. Fell and injured pelvis TECHNIQUE: 2 views of the right hip, and 2 views of the left hip were obtained. COMPARISON: None. FINDINGS: Right Hip: Normal right femoral head, neck, intertrochanteric region and visualized proximal femur. Normal right acetabulum. Normal right hip joint. Left Hip: Normal left femoral head, neck, intertrochanteric region and visualized proximal femur. Normal left acetabulum. Normal left hip joint. Normal bilateral superior and inferior pubic rami , ischial tuberosities and pubic symphysis. RAD/Hips B/L min 2 views w/ Pelvis IMPRESSION: Normal x-ray examination of the right hip. Normal x-ray examination of the left hip. Electronically Signed: Keith Patel MD at 17:10 EST , Service support , CC: Alyssa Dunlap MD; Pinky Quinn Heeler Machine: Signed CBC-COMPLETE BLOOD CNT Collected: 04/27/2018 Status: F Source: [place] NO DIFF 5:30 AM [facility] REPOSITORY TYPE CODE TESTS RESULT OUT OF RANGE REFERENCE UNITS LAB L100.1000 4.4-11.0 K/mm3 Normal WBC 7.1 LAB L100.1200 4.2-5.4 M/mm3 Low RBC 4.05 LAB L100.1300 12.0-15.0 g/dl Low HGB 11.9 LAB L100.1400 37-47 % Low HCT 36.3 LAB L100.1500 81-99 fL Normal MCV 89.6 LAB L100.1600 27.0-32.0 pg Normal MCH 29.4 LAB L100.1700 32-36 g/gl Normal MCHC 32.8 LAB L100.1810 11.6-14.6 % Normal RDW CV 13.2 LAB L100.1820 35.1-43.9 fl Normal RDW SD 42.7 LAB L100.1900 150-450 K/mm3 Normal PLT 227 LAB L100.2000 6.2-12.0 fl Normal MPV 9.7 Performed By: #### L100.0500 #### [facility] [place], [address] COMPREHENSIVE METABOLIC Collected: 04/27/2018 Status: F Source: [place] PEREZ 5:30 AM [facility] REPOSITORY TYPE CODE TESTS RESULT OUT OF RANGE REFERENCE UNITS LAB L501.0100 74-106 mg/dL High GLU 127 Result Comment: Fasting Glucose result greater than or equal to 126 mg/dL suggests DIABETES MELLITUS per A.D.A. criteria. Please note revised GLUCOSE reference range effective 2017. LAB L501.1000 7-18 mg/dL Normal BUN 7 LAB L501.1100 0.55-1.02 mg/dL Low CREAT,SERUM 0.48 Result Comment: The validity of the calculated GFR AND GFRAA in patients over 70 years has not been determined. Clinical correlation is essential. LAB L501.1110 >60 mL/min Normal EST GFR 132 Result Comment: Non- GFR Calc LAB L501.1115 >60 mL/min Normal EST GFR - AA 160 Result Comment: GFR Calc LAB L501.1255 ml/min Normal Estimated CRCL 20.45 LAB L501.1300 10-20 RATIO Normal BUN/CRE 14.5 LAB L501.1500 6.4-8. g/dL Normal 2 T PROT 6.5 LAB L501.1800 3.2-5. g/dL Low 0 ALB 3.0 LAB L501.1950 2.2-4. g/dL Normal 2 GLOB 3.5 LAB L501.2000 0.9-2. RATIO Normal 4 A/G 0.9 LAB L501.2200 8.5-10 mg/dL Normal .1 CA 8.8 LAB L501.4100 15-37 U/L Normal AST 18 LAB L501.4305 45-117 U/L Normal ALK P 77 LAB L501.4405 13-56 U/L Normal ALT 15 LAB L501.4600 0.20-1 mg/dL Normal .00 T BILI 0.80 LAB L501.5300 136-14 mmol/L Normal 5 NA 140 LAB L501.5600 3.5-5. mmol/L Normal 1 K 3.6 LAB L501.5900 98-107 mmol/L Normal CL 105 LAB L501.6100 21.0-3 mmol/L Normal 2.0 CO2 26.0 LAB L501.6200 5-15 Normal GAP 9 Performed By: #### L500.4050 #### [facility] [address] [place], [address] BEDSIDE GLUCOSE Collected: 04/27/2018 Status: F Source: [place] 1:51 AM [facility] REPOSITORY TYPE CODE TESTS RESULT OUT OF REFERENCE UNITS RANGE LAB L501.080 70-110 mg/dL High BEDSIDE GLU 127 Result Comment: MANAGEMENT OF PATIENT CARE PER NURSING PROTOCOL Performed By: #### L501.080 #### [facility] Point of Care [address] [place] [address] OPERATIVE REPORT Observed: 04/26/2018 Status: F Source: [place] 10:36 AM [facility] REPOSITORY [facility] Medical Records Department [address] [facility] [place] [address] Operative Report 04/26/18 1005 MR#: [id number] Acct: [id number] Name: VIVIANA FLORES Rep #: [id number] : 1940 77 From: Lavern Jones DPM PCP: Pinky Quinn Status: REG SDC Y Location: [place] [address] Report of Operation Date of Procedure: 04/26/18 Pre-Operative Diagnosis: R distal fibula fracture with syndesmotic dysruption Post-Operative Diagnosis: same Surgery/Procedure Performed:: R distal fibula ORIF and transyndesmotic fixation, stress views of Right ankle Description of Surgical Findings:: see dictation it senior software engineer java: Marjan Anders Type of Anesthesia:: Spinal/Supplemental Specimen's removed: none Estimated Blood Loss (mL): minimal Description of Procedure: Indications: Patient is a 77 yo F w/ PMH significant for dementia, who fell 04/16/2018 at the [facility] where she resides. She was seen in the [facility] and radiograph revealed a Right distal fibula fracture. She presented to my office on 04/20/2018 for evaluation, stress gravity views demonstrated increased medial clear space and tibiofibular joint gapping. Surgical intervention was decided upon with her daughter present for an unstable ankle fracture. She was seen by the PCP at her community home. Per her daughter she has had difficulty remaining NWB RLE with a posterior splint since our office appointment and fell once. She will be admitted to the [facility] Acute Rehab post operatively. All risks, complications and alternatives were discussed with the patient and her family. An informed consent was signed for right ankle ORIF with possible external fixation application. No guarantees were given. Procedure: On 04/26/18, Viviana Flores was visually and verbally identified in the pre operative holding area. Her son and daughter were both present. The consent form was again reviewed as were all risks, complications and alternatives. They wished to proceed with the proposed surgery. Given that she will be admitted to the Acute Rehab post operatively I felt that we should be able to proceed without external fixation and the need for a second surgery for removal. Everyone agreed with the surgical plan and post operative plan. The right ankle was marked as the correct operative extremity. The patient was brought to the operating room and placed on the operating room table. After spinal anesthesia was administered the patient was placed in a lazy lateral position. A surgical time out was performed and all present were in agreement. A well padded pneumatic thigh tourniquet was then placed to the RLE. The right lower extremity was the prepped and draped in the normal sterile fashion. After elevation an esmarch was applied and the tourniquet was inflated to 300mmHg. At this time attention was turned to the right ankle. Intraoperative fluoroscopy was utilized to obtain a new AP of the ankle given her fall since examination. The distal fibula fracture looked to have increased displacement but no new fractures were seen. Attention was then turned to the distal fibula where a #15 blade was used to make a curvilinear incision of the fracture. Blunt dissection was carried deep with careful attention paid to al bleeders which were tied or bovied as necessary. The peroneal tendons were retracted. The fracture line was visualized and using a #15 blade and curettes all soft tissue and hematoma was removed. The fracture was reduced and held in place with a bone reduction clamp. This was confirmed by direct visualization and intra operative fluoroscopy. A Adriana 2.7 interfragmentary screw was then placed perpendicular to the fracture per AO technique. Satisfactory placement of the screw was noted on intraoperative fluoroscopy and the bone reduction clamp was removed. A distal fibular plate was then placed with positioning and length of the plate and screws confirmed by direct visualization and on intraoperative fluoroscopy. An external rotation and cotton bone hook test was then performed under intra operative fluoroscopy, the stress views revealed increased medial clear space and syndesmotic gapping. A malleolar reduction clamp was then placed. A syndesmotic screw was then placed from the lateral fibula to the medial cortex of the tibia and parallel to the tibiotalar joint. The screw was placed as part of the plate construct. The malleolar reduction clamp was then removed and the stress exams were then repeated under intraoperative fluoroscopy. The medial clear space appeared to be within normal limits and there was no syndesmotic gapping noted. A second transyndesmotic screw not placed secondary to the fracture pattern and I felt the reduction was well maintained with one screw. The incision was then flushed with copious amounts of normal sterile saline and closure was initiated. 2.0 vicryl was used for deep tissue, 3. Vicryl for subcutaneous sutures and 3.0 prolene for skin. Adaptic and dry sterile dressings were applied along with a multilayer compressive dressing and a well padded posterior splint. Total tourniquet time was 72 minutes with immediate capillary refill noted to the all digits upon deflation. The patient tolerated the procedure and anesthesia well. The patient was transported to the post anesthesia care unit by myself and a member of the anesthesia team with all vital signs stable and with the RLE neurovascular status equal to pre- operative levels. Anesthesia will perform a R lower sciatic block in pacu once her spinal anesthesia begins to wear off. She will be admitted to Acute Rehab at [facility] post operatively. At the end of the case all sponges, needle and instrument counts were found to be correct. Intraoperative fluoroscopy was utilized throughout the procedure,for > 1 hours. Interpretation of the images was vital to my decision making process including fracture reduction, screw and plate placement and length, along with stress views. Grafts/Implants Used: [place] Variax plate and screws - Complications none - Admit VTE Documentation VTE Present on Admission: No VTE Mechan Device Prophylaxis: SCD's, Knee High DIANE Hose VTE Pharm Prophylaxis ordered?: Yes 04/26/18 1036 <Electronically signed by Lavern Jones DPM> Date Lavern Jones DPM CC: SHELBY Jones; Pinky Quinn Signed DISCHARGE INSTRUCTION Observed: 04/26/2018 Status: F Source: [place] 9:54 AM [facility] REPOSITORY [facility] Medical Records Department [address] [place] [address] Instructions for Home/Discharge Instructions 04/26/18 0950 MR#: [id number] Acct: [id number] Name: RAMONAGABIVIVIANA J Rep #: [id number] : 1940 77 From: Lavern Jones DPM PCP: Pinky Quinn Status: REG [facility] [place] Discharge Activity: May Not Drive, May Not Shower, Use Walker, Use Crutches Weight Bearing Status: No weight bearing Keep extremity elevated above heart level: Operative Extremity Call your doctor if your incision/area has: Sudden Increased Bleeding Call your doctor if you observe: Fever of 101 or Higher, Numbness or Tingling, Shortness of breath, Chest pain, Calf discomfort, Uncontrolled pain Cleanse incision/area with: Keep Dressing Clean AND Dry Additional Dressing/Incision Instructions:: Will check in one week if still in-house, Acute REhab or TCU Additional Instructions: Strict NWB RLE, pt has dementia and forgets this. Has had difficulty remaining NWB RLE since injury, fell once per family. Ice behind R knee 20 minutes of each hour while awake, elevation when in bed/recliner. I will see her in one week in Acute Rehab or TCU. Recommend Lovenox for dvt prophylaxis, pain medication and bowel regimen per medicine. Please call with questions or concerns. Allergies/Adverse Reactions: Allergies No Known Allergies Allergy (Verified 04/22/18 13:09) Medications to take at Discharge Bupropion HCl [Bupropion HCl Sr] 150 mg PO DAILY 06/12/15 Duloxetine Hcl [Cymbalta] 20 mg PO DAILY 06/12/15 Gabapentin 100 mg PO DAILY 06/12/15 Lovastatin [Mevacor] 10 mg PO QHS 06/12/15 Acetaminophen [Tylenol Tablet] 650 mg PO Q6H PRN PRN #0 tablet 06/14/15 Aspirin 325 mg PO DAILY@0800 04/22/18 Famotidine [Pepcid] 20 mg PO BID 04/22/18 Metoprolol Succinate [Toprol Xl] 50 mg PO DAILY 04/22/18 Oxybutynin [Ditropan] 5 mg PO DAILY 04/22/18 levETIRAcetam tablet [Keppra tablet] 500 mg PO BID 04/22/18 Orders to be completed after discharge: 12 Lead EKG [CVS] Time Frame: 04/26/18, Location: None Selected Primary Care Physician: Pinky Quinn [Primary Care Provider] - Test Results: Test results from this visit will be discussed in further detail at your follow-up appointment, if applicable. Proposed Discharge Date: 04/26/18 04/26/18 0954 <Electronically signed by Lavern Jones DPM> Date Lavern Jones DPM CC: Pinky Quinn ANKLE MIN 3 VIEWS Observed: 04/26/2018 Status: F Source: [place] 9:50 AM [facility] Imaging Services [address] [place] [address] Ankle min 3 Views MR#: [id number] Acct: [id number] Name: VIVIANA FLORES Rep #: [id number] : 1940 F 77 From: Parminder Olivier MD PCP: Pinky Quinn Status: REG [facility] [place] Study: Ankle min 3 Views Date of Exam: 04/26/18 Exam# [id number] Ordering Dr: Lavern Jones DPM STUDY: X-RAY - RIGHT ANKLE REASON FOR EXAM: Female, 77 years old. ORIF of the distal fibula. TECHNIQUE: 3 view(s) of the ankle. COMPARISON: Comparison is made with prior study done earlier in the day. FINDINGS: The patient is status post open reduction and internal fixation of the distal fibular fracture with screws and sideplate fixation device. There is good alignment. Plantar spur. The visualized subtalar, talonavicular, calcaneocuboid and tarsal articulations are normal. Postoperative soft tissue swelling. RAD/Ankle min 3 Views IMPRESSION: Status post ORIF of the distal fibula. There is good alignment. Postoperative soft tissue changes. Electronically Signed: Parminder Olivier MD at 13:53 EST Tel [phone], Service support , CC: SHELBY Quinn Heeler Machine: Signed ANKLE MIN 3 VIEWS Observed: 04/26/2018 Status: F Source: [place] 12:15 AM COUNT INCLUDES THE [facility] REPOSITORY [facility] Imaging Services [address] [place] [address] Ankle min 3 Views MR#: [id number] Acct: [id number] Name: VIVIANA FLORES Rep #: [id number] : 1940 F 77 From: Parminder Olivier MD PCP: Pinky Quinn Status: REG SDC Study: Ankle min 3 Views Date of Exam: 04/26/18 Exam# [id number] Ordering Dr: Lavern Jones DPM STUDY: X-RAY - RIGHT ANKLE REASON FOR EXAM: Female, 77 years old. [Reduction and internal fixation of the distal fibular fracture. TECHNIQUE: 8 intraoperative coned down view(s) of the ankle. COMPARISON: None. FINDINGS: Intraoperative fluoroscopic imaging provided for open reduction and fixation of the distal fibular fracture utilizing screws and sideplate fixation device. RAD/Ankle min 3 Views IMPRESSION: Status post open reduction and internal fixation of the distal fibular fracture with screw and sideplate fixation device. There is good alignment. Electronically Signed: Parminder Olivier MD at 10:58 EST Tel [phone], Service support , CC: SHELBY Jones; Pinky Quinn Heeler Machine: Signed CHEST 2 VIEWS Observed: 04/21/2018 Status: F Source: [facility] 10:58 [place] [id number] Patient: VIVIANA FLORES Phone#: : 1940 Age: 77 Gender: F Pt. Type: Out Account: [id number] Location: [facility] Ordering: LAVERN JONES Exam Date: 04/21/2018/10:31 Family Phys: PINKY QUINN Charge Code: [id number] Physician: Baraga Order #: [id number] DLP Dose#: PROCEDURE: X-RAY CHEST 2 VIEWS COMPARISON: [facility], CT, ABDOMEN/PELVIS W CON, 12/19/2016, 13:06. [facility], XR, CHEST 2 VIEWS, 04/17/2018, 7:05. INDICATIONS: Preoperative FINDINGS: LUNGS: Mild hyperaeration of the lung velarde. No significant pulmonary parenchymal abnormalities. VASCULATURE: Normal. Unremarkable pulmonary vasculature. CARDIAC: Normal. No cardiac silhouette abnormality or cardiomegaly. MEDIASTINUM: On the lateral view the ascending aorta appears enlarged measuring 4.6 cm. PLEURA: Normal. No effusion or pleural thickening. BONES: Degenerative changes of the spine. Vertebral body superior endplate lower thoracic spine. Degenerative changes of the acromioclavicular joint. OTHER: Negative. CONCLUSION: 1. Mild hyperaeration of the lung velarde, correlate for COPD. 2. Possible enlargement of the ascending aorta, seen on the lateral view. Dictated by: Cherise Bond MD on 04/21/2018 at 11:55 Approved by: Cherise Bond MD on 04/21/2018 at 11:55 CBC Collected: 04/21/2018 Status: F Source: [facility] 10:25 AM [facility] REPOSITORY TYPE CODE TESTS RESULT OUT OF RANGE REFERENCE UNITS LAB CBC(LOINC) CBC Result Comment: CBC-COMPLETE BLOOD COUNT LAB WBC(LOINC) 4.5 - 10.8 x 10EE3/UL WBC 7.5 LAB RBC(LOINC) 4.10 - x 10EE6/UL 5.30 RBC 4.66 LAB HEMOGLOBIN(LOINC) 12.0 - g/dl 16.0 HEMOGLOBIN 14.0 LAB HEMATOCRIT(LOINC) 34.0 - % 46.0 HEMATOCRIT 41.3 LAB MCV(LOINC) 80 - 99 fl MCV 89 LAB MCH(LOINC) 27 - 33 pg MCH 30 LAB MCHC(LOINC) 32 - 36 X10 3 MCHC 34 LAB RDW/CV(LOINC) 12.0 - % 15.6 RDW/CV 14.0 LAB PLATELET(LOINC) 150 - 450 x10EE3/UL PLATELET 285 LAB MPV(LOINC) 6.6 - 10.5 fl MPV 8.3 Result Comment: AUTOMATED DIFFERENTIAL LAB NEUT %(LOINC) 46.0 - 76.0 % NEUT % 57.3 LAB LYMPH %(LOINC) 20.0 - 45.0 % LYMPH % 32.9 LAB MONOS %(LOINC) 0.0 - 10.0 % MONOS % 6.9 LAB EO %(LOINC) 0.0 - 7.0 % EO % 2.1 LAB BASO %(LOINC) 0.0 - 2.0 % BASO % 0.8 LAB Lymph #(LOINC) 0.80 - 2.80 x10EE3/U L Lymph # 2.50 LAB Neut #(LOINC) 1.50 - 7.10 x10EE3/U L Neut # 4.30 LAB Yancey #(LOINC) 0.20 - 1.00 x10EE3/U L Yancey # 0.50 LAB EO #(LOINC) 0.00 - 0.50 x10EE3/U L EO # 0.20 LAB Baso #(LOINC) 0.00 - 0.10 x10EE3/U L Baso # 0.10 LAB MANUAL DIFF(LOINC) MANUAL DIFF N/A LAB MORPHOLOGY(INC ) MORPHOLOGY N/A Result Comment: {CD] Performed By: #### [id number] #### [place] [id number] APTT Collected: 04/21/2018 Status: F Source: [facility] 10:25 [facility] REPOSITORY TYPE CODE TESTS RESULT OUT OF RANGE REFERENCE UNITS LAB PTT(INC) 25.4 - 38.4 sec PTT 29.9 Performed By: #### [id number] #### [place] [id number] BMP WITH EGFR Collected: 04/21/2018 Status: F Source: [facility] 10:25 [facility] REPOSITORY TYPE CODE TESTS RESULT OUT OF RANGE REFERENCE UNITS LAB BMP with eGFR(LOINC) BMP with eGFR Result Comment: BASIC METABOLIC PANEL LAB SODIUM(LOINC) 136 - 145 mmol/l SODIUM 139 LAB POTASSIUM(LOINC) 3.5 - 5.1 mmol/L POTASSIUM 3.7 LAB CHLORIDE(LOINC) 98 - 107 mmol/L CHLORIDE 103 LAB CO2(LOINC) 21.0 - mmol/L 31.0 CO2 28.7 LAB GLUCOSE(LOINC) 74 - 106 mg/dl GLUCOSE 106 LAB BUN(LOINC) 6 - 20 mg/dl BUN 9 LAB CREATININE(LOINC) 0.6 - 1.2 mg/dl Low CREATININE 0.5 LAB CALCIUM(LOINC) 8.6 - mg/dl 10.2 CALCIUM 9.5 LAB ANION GAP(LOINC) 10 - 20 mmol/L ANION GAP 11 LAB AGE(LOINC) years AGE 77 LAB eGFR(LOINC) 60 - 999 ML/MINUTE eGFR >60 LAB eGFR(AA)(LOINC) 60 - 999 ML/MINUTE eGFR(AA) >60 Result Comment: ACCORDING TO THE NATIONAL KIDNEY DISEASE EDUCATION PROGRAM(NKDE), A NORMAL eGFR IS A VALUE GREATER THAN OR EQUAL TO 60 ML/MIN/1.73 SQ METERS. CHRONIC KIDNEY DISEASE: <60mL/MIN/1.73 SQ METERS KIDNEY FAILURE: <15mL/MIN/1.73 SQ METERS THIS TEST SHOULD ONLY BE USED FOR PATIENTS 18 YEARS OF AGE AND OLDER. Performed By: #### [id number] #### [facility],[address] [place] [address] CBC Collected: 04/21/2018 Status: F Source: [facility] 3:20 AM [facility] REPOSITORY TYPE CODE TESTS RESULT OUT OF RANGE REFERENCE UNITS LAB CBC(LOINC) CBC Result Comment: CBC-COMPLETE BLOOD COUNT LAB WBC(LOINC) 4.5 - 10.8 x 10EE3/UL WBC 6.4 LAB RBC(LOINC) 4.10 - x 10EE6/UL 5.30 RBC 4.43 LAB HEMOGLOBIN(LOINC) 12.0 - g/dl 16.0 HEMOGLOBIN 13.1 LAB HEMATOCRIT(LOINC) 34.0 - % 46.0 HEMATOCRIT 39.5 LAB MCV(LOINC) 80 - 99 fl MCV 89 LAB MCH(LOINC) 27 - 33 pg MCH 30 LAB MCHC(LOINC) 32 - 36 X10 3 MCHC 33 LAB RDW/CV(LOINC) 12.0 - % 15.6 RDW/CV 13.7 LAB PLATELET(LOINC) 150 - 450 x10EE3/UL PLATELET 253 LAB MPV(LOINC) 6.6 - 10.5 fl MPV 8.2 Result Comment: AUTOMATED DIFFERENTIAL LAB NEUT %(LOINC) 46.0 - 76.0 % NEUT % 47.5 LAB LYMPH %(LOINC) 20.0 - 45.0 % LYMPH % 39.3 LAB MONOS %(LOINC) 0.0 - 10.0 % MONOS % 8.9 LAB EO %(LOINC) 0.0 - 7.0 % EO % 3.5 LAB BASO %(LOINC) 0.0 - 2.0 % BASO % 0.8 LAB Lymph #(LOINC) 0.80 - 2.80 x10EE3/U L Lymph # 2.50 LAB Neut #(LOINC) 1.50 - 7.10 x10EE3/U L Neut # 3.00 LAB Yancey #(LOINC) 0.20 - 1.00 x10EE3/U L Yancey # 0.60 LAB EO #(LOINC) 0.00 - 0.50 x10EE3/U L EO # 0.20 LAB Baso #(LOINC) 0.00 - 0.10 x10EE3/U L Baso # 0.00 LAB MANUAL DIFF(LOINC) MANUAL DIFF N/A LAB MORPHOLOGY(INC ) MORPHOLOGY N/A Result Comment: {CD] Performed By: #### [id number] #### [place] [id number] APTT Collected: 04/21/2018 Status: F Source: [facility] 3:20 [facility] REPOSITORY TYPE CODE TESTS RESULT OUT OF RANGE REFERENCE UNITS LAB PTT(INC) 25.4 - 38.4 sec PTT 29.6 Performed By: #### [id number] #### [place] [address] BMP WITH EGFR Collected: 04/21/2018 Status: F Source: [facility] 3:20 [facility] REPOSITORY TYPE CODE TESTS RESULT OUT OF RANGE REFERENCE UNITS LAB BMP with eGFR(LOINC) BMP with eGFR Result Comment: BASIC METABOLIC PANEL LAB SODIUM(LOINC) 136 - 145 mmol/l SODIUM 140 LAB POTASSIUM(LOINC) 3.5 - 5.1 mmol/L POTASSIUM 4.2 LAB CHLORIDE(LOINC) 98 - 107 mmol/L CHLORIDE 105 LAB CO2(LOINC) 21.0 - mmol/L 31.0 CO2 28.2 LAB GLUCOSE(LOINC) 74 - 106 mg/dl GLUCOSE High 109 LAB BUN(LOINC) 6 - 20 mg/dl BUN 10 LAB CREATININE(LOINC) 0.6 - 1.2 mg/dl Low CREATININE 0.5 LAB CALCIUM(LOINC) 8.6 - mg/dl 10.2 CALCIUM 9.0 LAB ANION GAP(LOINC) 10 - 20 mmol/L ANION GAP 11 LAB AGE(LOINC) years AGE 77 LAB eGFR(LOINC) 60 - 999 ML/MINUTE eGFR >60 LAB eGFR(AA)(LOINC) 60 - 999 ML/MINUTE eGFR(AA) >60 Result Comment: ACCORDING TO THE NATIONAL KIDNEY DISEASE EDUCATION PROGRAM(NKDE), A NORMAL eGFR IS A VALUE GREATER THAN OR EQUAL TO 60 ML/MIN/1.73 SQ METERS. CHRONIC KIDNEY DISEASE: <60mL/MIN/1.73 SQ METERS KIDNEY FAILURE: <15mL/MIN/1.73 SQ METERS THIS TEST SHOULD ONLY BE USED FOR PATIENTS 18 YEARS OF AGE AND OLDER. Performed By: #### [id number] #### [facility],[address] [place] [address] Observed: 04/17/2018 Status: F Source: [facility] CULTURE URINE 8:14 AM [facility] REPOSITORY CULTURE URINE _URINE CULTURE_ M I C R O B I O L O G Y R E P O R T FINAL Antimicrobial Susceptibility and Organism Identification Report Specimen Number : [id number] Requested : 04/17/18 Specimen Source : URINE Collected : 04/17/18 08:14 Antoine of Isolation : Emergency Room Received : 04/17/18 08:14 Requesting Physician : PORFIRIO HALL Patient/Specimen Tests and Comments Specimen Comments FINAL REPORT: URINE COLONY COUNT: [id number] CFU/CC >OR=TO 3 COLONY TYPES PROBABLE CONTAMINATION Tech : Source : URINE ID # : [id number] FINAL Report Date : / / : Collected : 04/17/18 08:14 04/19/18.BKO. 04/18/18.BKO. 04/19/18.BKO.COMPLETE Performed By: #### [id number] #### [facility],[address] [place] [address] URINALYSIS Collected: 04/17/2018 Status: F Source: [facility] 8:09 AM [facility] REPOSITORY TYPE CODE TESTS RESULT OUT OF REFERENCE UNITS RANGE LAB URINALYSIS (LOINC) URINALYSIS Result Comment: URINALYSIS LAB Specimen Type(LOINC) Specimen Type Void LAB Color(LOINC) NORMAL: YELLOW Color p.yel LAB Clarity(LOINC) NORMAL: CLEAR Clarity clear LAB ph(LOINC) NORMAL: 5.0-8.0 ph 8 LAB Protein(LOINC) NORMAL: NEGATIVE Protein NEG LAB Glucose(LOINC) NORMAL: NORMAL Glucose NORM LAB Ketone(LOINC) NORMAL: NEGATIVE Ketone NEG LAB Bilirubin(LOINC) NORMAL: NEGATIVE Bilirubin NEG LAB Blood(LOINC) NORMAL: NEGATIVE Blood NEG LAB Urobilinog(LOINC) NORMAL: NORMAL Urobilinog NORM LAB Sp [place](LOINC) NORMAL: 1.010-1.030 Sp [place] 1.010 LAB Nitrite(LOINC) NORMAL: NEGATIVE Nitrite NEG LAB Leukocytes(LOINC) NORMAL: NEGATIVE Leukocytes Abnormal 100 LAB Microscopic(LOINC ) Microscopic SEE BELOW Result Comment: MICROSCOPIC LAB Wbc(LOINC) 0-5/hpf Wbc 6-10 LAB Rbc(LOINC) 0-3/hpf Rbc NONE LAB Casts(LOINC) Casts NONE LAB Crystals(LOINC) Crystals NONE LAB Amorphous(INC) Amorphous NONE LAB Bacteria(LOINC) Bacteria TRACE LAB Epi Cells(LOINC) Epi Cells OCC LAB Mucous(LOINC) Mucous NONE LAB Yeast(INC) Yeast NONE Performed By: #### [id number] #### [place] [id number] PELVIS 1 OR 2 VIEWS Observed: 04/17/2018 Status: F Source: [facility] 7:21 AM [place] [id number] Patient: VIVIANA FLORES Phone#: : [phone] Age: 77 Gender: F Pt. Type: ER Account: [id number] Location: [facility] Ordering: DR. KATINA MONROY Exam Date: 04/17/2018/7:03 Family Phys: PINKY QUINN Charge Code: [id number] Physician: Baraga Order #: [id number] DLP Dose#: PROCEDURE: X-RAY PELVIS AP COMPARISON: None. INDICATIONS: Pain. FINDINGS: BONES: Degenerative changes of both hips are present. The superior joint spaces are narrowed. There is no evidence of acute bone abnormality. SOFT TISSUES: Negative. No visible soft tissue swelling. EFFUSION: None visible. OTHER: Negative. CONCLUSION: 1. There is no evidence of acute abnormality. Mild degenerative changes are present. Dictated by: Juliana Dorsey MD on 04/17/2018 at 17:20 Approved by: Juliana Dorsey MD on 04/17/2018 at 17:20 CHEST 2 VIEWS Observed: 04/17/2018 Status: F Source: [facility] 7:20 AM [place] [id number] Patient: VIVIANA FLORES Phone#: : 1940 Age: 77 Gender: F Pt. Type: ER Account: [id number] Location: 052 Ordering: DR. KATINA MONROY Exam Date: 04/17/2018/7:05 Family Phys: PINKY QUINN Charge Code: [id number] Physician: Baraga Order #: [id number] DLP Dose#: PROCEDURE: X-RAY CHEST 2 VIEWS COMPARISON: [facility], XR, CHEST AP, 12/21/2016, 4:33. INDICATIONS: Cough. FINDINGS: LUNGS: The lungs are mildly hyperinflated. No significant pulmonary parenchymal abnormalities. VASCULATURE: Normal. Unremarkable pulmonary vasculature. CARDIAC: Normal. No cardiac silhouette abnormality or cardiomegaly. MEDIASTINUM: Aorta is ectatic. PLEURA: Normal. No effusion or pleural thickening. BONES: Degenerative changes of the spine and shoulders are present. Degenerative shoulder changes are greater on the right than the left. OTHER: Negative. CONCLUSION: No acute disease. No significant change has occurred. Dictated by: Juliana Dorsey MD on 04/17/2018 at 17:21 Approved by: Juliana Dorsey MD on 04/17/2018 at 17:21 ANKLE COMPLETE RT Observed: 04/17/2018 Status: F Source: [facility] 7:[address] [address] Patient: VIVIANA FLORES Phone#: : 1940 Age: 77 Gender: F Pt. Type: ER Account: [id number] Location: 052 Ordering: DR. KATINA MONROY Exam Date: 04/17/2018/6:55 Family Phys: PINKY KABARAN Charge Code: [id number] Physician: Baraga Order #: [id number] DLP Dose#: PROCEDURE: X-RAY ANKLE COMPLETE RT MIN 3 VIEWS COMPARISON: None. INDICATIONS: Swelling. FINDINGS: BONES: Minimally displaced oblique fracture of the distal fibula is present. The ankle mortise is maintained. Calcaneal spur is present. SOFT TISSUES: Negative. No visible soft tissue swelling. EFFUSION: None visible. OTHER: Negative. CONCLUSION: 1. Minimally displaced oblique fracture the distal fibula. Dictated by: Juliana Dorsey MD on 04/17/2018 at 17:19 Approved by: Juliana Dorsey MD on 04/17/2018 at 17:19 KNEE COMPLETE RT MIN Observed: 04/17/2018 Status: F [facility] 7:18 AM [place] [address] Patient: VIVIANA FLORES Phone#: : 1940 Age: 77 Gender: F Pt. Type: ER Account: [id number] Location: [facility] Ordering: DR. KATINA MONROY Exam Date: 04/17/2018/6:59 Family Phys: PINKY QUINN Charge Code: [id number] Physician: Baraga Order #: [id number] DLP Dose#: PROCEDURE: X-RAY KNEE RT COMPLETE 4 VIEWS COMPARISON: None. INDICATIONS: Pain. FINDINGS: BONES: Moderate degenerative changes of the knee are present SOFT TISSUES: Negative. No visible soft tissue swelling. EFFUSION: None visible. OTHER: Negative. CONCLUSION: 1. Moderate degenerative changes of the knee are present. There is no evidence of acute abnormality. Dictated by: Juliana Dorsey MD on 04/17/2018 at 17:19 Approved by: Juliana Dorsey MD on 04/17/2018 at 17:19 CT BRAIN W/O CONTRAST Observed: 04/17/2018 Status: F Source: [facility] 7:05 AM [place] [address] Patient: VIVIANA FLORES Phone#: : 1940 Age: 77 Gender: F Pt. Type: ER Account: [id number] Location: 052 Ordering: DR. KATINA MONROY Exam Date: 04/17/2018/6:56 Family Phys: PINKY QUINN Charge Code: [id number] Physician: Baraga Order #: [id number] DLP Dose#: 57.50 PROCEDURE: CT BRAIN WITHOUT CONTRAST COMPARISON: None. INDICATIONS: Confusion. TECHNIQUE: CT images were obtained without contrast material. All CT scans at this facility use dose modulation, iterative reconstruction, and/or weight based dosing when appropriate to reduce radiation dose to as low as reasonably achievable. IV CONTRAST: No IV contrast used,0ml TOTAL DOSE: 57.50 CTDIvol(mGy) FINDINGS: CEREBRUM: Age-appropriate atrophy is present, without visible acute hemorrhage or lesion. Deep white matter small vessel disease changes are present. Calcifications are present in the basal ganglia. Carotid artery calcifications are present.Remote left lacunar infarct is present CEREBELLUM: No edema, hemorrhage, mass, acute infarction, or inappropriate atrophy. BRAINSTEM: No edema, hemorrhage, mass, acute infarction, or inappropriate atrophy. CSF SPACES: Ventricles, cisterns, and sulci are appropriate for age. No hydrocephalus, subarachnoid hemorrhage, or mass. SKULL: No mass or other significant visible lesion. SINUSES: Fluid levels are present in the maxillary sinuses bilaterally. The right mastoid or cells are opacified. ORBITS: Limited views are unremarkable. OTHER: Negative. CONCLUSION: 1. Fluid is present in the maxillary sinuses. There is opacification of right mastoid air cells. Continued Report - Page 2 of 2 Patient: VIVIANA FLORES Phone#: : 1940 Age: 77 Gender: F Pt. Type: ER Account: [id number] Location: 052 Ordering: DR. KATINA MONROY Exam Date: 04/17/2018/6:56 Family Phys: PINKY QUINN Charge Code: [id number] Physician: Baraga Order #: [id number] DLP Dose#: 57.50 2. There is no evidence of acute intracranial abnormality. Dictated by: Juliana Dorsey MD on 04/17/2018 at 18:10 Approved by: Juliana Dorsey MD on 04/17/2018 at 18:10 CBC Collected: 04/17/2018 Status: F Source: [facility] 6:47 AM [facility] REPOSITORY TYPE CODE TESTS RESULT OUT OF RANGE REFERENCE UNITS LAB CBC(LOINC) CBC Result Comment: CBC-COMPLETE BLOOD COUNT LAB WBC(LOINC) 4.5 - 10.8 x 10EE3/UL WBC 7.1 LAB RBC(LOINC) 4.10 - x 10EE6/UL 5.30 RBC 4.34 LAB HEMOGLOBIN(LOINC) 12.0 - g/dl 16.0 HEMOGLOBIN 12.7 LAB HEMATOCRIT(LOINC) 34.0 - % 46.0 HEMATOCRIT 38.3 LAB MCV(LOINC) 80 - 99 fl MCV 88 LAB MCH(LOINC) 27 - 33 pg MCH 29 LAB MCHC(LOINC) 32 - 36 X10 3 MCHC 33 LAB RDW/CV(LOINC) 12.0 - % 15.6 RDW/CV 13.6 LAB PLATELET(LOINC) 150 - 450 x10EE3/UL PLATELET 221 LAB MPV(LOINC) 6.6 - 10.5 fl MPV 8.0 Result Comment: AUTOMATED DIFFERENTIAL LAB NEUT %(LOINC) 46.0 - 76.0 % NEUT % 66.2 LAB LYMPH %(LOINC) 20.0 - 45.0 % LYMPH % 21.8 LAB MONOS %(LOINC) 0.0 - 10.0 % MONOS % 7.8 LAB EO %(LOINC) 0.0 - 7.0 % EO % 3.2 LAB BASO %(LOINC) 0.0 - 2.0 % BASO % 1.0 LAB Lymph #(LOINC) 0.80 - 2.80 x10EE3/U L Lymph # 1.60 LAB Neut #(LOINC) 1.50 - 7.10 x10EE3/U L Neut # 4.70 LAB Yancey #(LOINC) 0.20 - 1.00 x10EE3/U L Yancey # 0.60 LAB EO #(LOINC) 0.00 - 0.50 x10EE3/U L EO # 0.20 LAB Baso #(LOINC) 0.00 - 0.10 x10EE3/U L Baso # 0.10 LAB MANUAL DIFF(LOINC) MANUAL DIFF N/A LAB MORPHOLOGY(LOINC ) MORPHOLOGY N/A Result Comment: {CD] Performed By: #### [id number] #### [facility],[address] [place], [place] [id number] CMP WITH EGFR Collected: 04/17/2018 Status: F Source: [facility] 6:47 AM [facility] REPOSITORY TYPE CODE TESTS RESULT OUT OF RANGE REFERENCE UNITS LAB CMP with eGFR(LOINC) CMP with eGFR Result Comment: COMPREHENSIVE METABOLIC PANEL LAB SODIUM(LOINC) 136 - 145 mmol/l SODIUM 141 LAB POTASSIUM(LOINC) 3.5 - 5.1 mmol/L POTASSIUM 4.3 LAB CHLORIDE(LOINC) 98 - 107 mmol/L CHLORIDE 105 LAB CO2(LOINC) 21.0 - mmol/L 31.0 CO2 28.5 LAB GLUCOSE(LOINC) 74 - 106 mg/dl GLUCOSE 99 LAB BUN(LOINC) 6 - 20 mg/dl BUN 9 LAB CREATININE(LOINC) 0.6 - 1.2 mg/dl Low CREATININE 0.5 LAB AST/SGOT(LOINC) 13 - 39 U/L AST/SGOT 14 LAB ALK PHOS(LOINC) 38 - 126 U/L ALK PHOS 64 LAB CALCIUM(LOINC) 8.6 - mg/dl 10.2 CALCIUM 8.9 LAB TOTAL PROTEIN(LOINC) 6.4 - 8.3 g/dl TOTAL PROTEIN 6.4 LAB ALBUMIN(LOINC) 3.4 - 4.8 g/dL ALBUMIN 3.8 LAB GLOBULIN(LOINC) 1.5 - 3.8 G/DL GLOBULIN 2.6 LAB A/G RATIO(LOINC) 0.9 - 1.6 A/G RATIO 1.5 LAB TOTAL BILI(LOINC) 0.0 - 1.5 mg/dl TOTAL BILI 0.6 LAB B/C RATIO(LOINC) 0 - 30 ratio B/C RATIO 18 LAB ALT/SGPT(LOINC) 8 - 35 U/L ALT/SGPT 9 LAB ANION GAP(LOINC) 10 - 20 mmol/L ANION GAP 12 LAB AGE(LOINC) years AGE 77 LAB eGFR(LOINC) 60 - 999 ML/MINUTE eGFR >60 LAB eGFR(AA)(LOINC) 60 - 999 ML/MINUTE eGFR(AA) >60 Result Comment: ACCORDING TO THE NATIONAL KIDNEY DISEASE EDUCATION PROGRAM(NKDE), A NORMAL eGFR IS A VALUE GREATER THAN OR EQUAL TO 60 ML/MIN/1.73 SQ METERS. CHRONIC KIDNEY DISEASE: <60mL/MIN/1.73 SQ METERS KIDNEY FAILURE: <15mL/MIN/1.73 SQ METERS THIS TEST SHOULD ONLY BE USED FOR PATIENTS 18 YEARS OF AGE AND OLDER. Performed By: #### [id number] #### [place] [id number] URINALYSIS Collected: 04/07/2018 Status: F Source: [facility] 1:00 PM [facility] REPOSITORY TYPE CODE TESTS RESULT OUT OF REFERENCE UNITS RANGE LAB URINALYSIS (LOINC) URINALYSIS Result Comment: URINALYSIS LAB Specimen Type(LOINC) Specimen Type Clean catch LAB Color(LOINC) NORMAL: YELLOW Color alexey LAB Clarity(LOINC) NORMAL: CLEAR Clarity clear LAB ph(LOINC) NORMAL: 5.0-8.0 ph 5 LAB Protein(LOINC) NORMAL: NEGATIVE Protein Abnormal 15 LAB Glucose(LOINC) NORMAL: NORMAL Glucose NORM LAB Ketone(LOINC) NORMAL: NEGATIVE Ketone NEG LAB Bilirubin(LOINC) NORMAL: NEGATIVE Bilirubin NEG LAB Blood(LOINC) NORMAL: NEGATIVE Blood Abnormal 25 LAB Urobilinog(LOINC) NORMAL: NORMAL Urobilinog NORM LAB Sp [place](LOINC) NORMAL: 1.010-1.030 Sp [place] 1.025 LAB Nitrite(LOINC) NORMAL: NEGATIVE Nitrite NEG LAB Leukocytes(LOINC) NORMAL: NEGATIVE Leukocytes Abnormal 100 LAB Microscopic(LOINC ) Microscopic SEE BELOW Result Comment: MICROSCOPIC LAB Wbc(LOINC) 0-5/hpf Wbc 6-10 LAB Rbc(LOINC) 0-3/hpf Rbc 0-5 LAB Casts(LOINC) Casts NONE LAB Crystals(LOINC) Crystals NONE LAB Amorphous(LOINC) Amorphous NONE LAB Bacteria(LOINC) Bacteria 1+ LAB Epi Cells(LOINC) Epi Cells NONE LAB Mucous(LOINC) Mucous NONE LAB Yeast(LOINC) Yeast NONE Performed By: #### [id number] #### [address] [address] Observed: 04/07/2018 Status: F Source: [facility] CULTURE URINE 1:00 PM [facility] REPOSITORY CULTURE URINE _URINE CULTURE_ M I C R O B I O L O G Y R E P O R T FINAL Antimicrobial Susceptibility and Organism Identification Report Specimen Number : [id number] Requested : 04/07/18 Specimen Source : URINE Collected : 04/07/18 13:00 Antoine of Isolation : [facility] Received : 04/07/18 13:00 Requesting Physician : DR. QUINN Patient/Specimen Tests and Comments Specimen Comments FINAL REPORT: NO GROWTH AT 48 HOURS Tech : Source : URINE ID # : [id number] FINAL Report Date : / / : Collected : 04/07/18 13:00 04/10/18.1047.KLS. 04/09/18.1501.KLS. 04/10/18.1048.KLS.COMPLETE Performed By: #### [id number] #### [facility],[address] [place] [address] CBC Collected: 02/08/2018 Status: F Source: [facility] 3:00 AM [facility] REPOSITORY TYPE CODE TESTS RESULT OUT OF RANGE REFERENCE UNITS LAB CBC(LOINC) CBC Result Comment: CBC-COMPLETE BLOOD COUNT LAB WBC(LOINC) 4.5 - 10.8 x 10EE3/UL WBC 5.4 LAB RBC(LOINC) 4.10 - x 10EE6/UL 5.30 RBC 4.11 LAB HEMOGLOBIN(LOINC) 12.0 - g/dl 16.0 HEMOGLOBIN 12.5 LAB HEMATOCRIT(LOINC) 34.0 - % 46.0 HEMATOCRIT 36.5 LAB MCV(LOINC) 80 - 99 fl MCV 89 LAB MCH(LOINC) 27 - 33 pg MCH 30 LAB MCHC(LOINC) 32 - 36 X10 3 MCHC 34 LAB RDW/CV(LOINC) 12.0 - % 15.6 RDW/CV 14.4 LAB PLATELET(LOINC) 150 - 450 x10EE3/UL PLATELET 189 LAB MPV(LOINC) 6.6 - 10.5 fl MPV 8.5 Result Comment: AUTOMATED DIFFERENTIAL LAB NEUT %(LOINC) 46.0 - 76.0 % NEUT % Low 42.8 LAB LYMPH %(LOINC) 20.0 - 45.0 % LYMPH % 44.0 LAB MONOS %(LOINC) 0.0 - 10.0 % MONOS % 8.8 LAB EO %(LOINC) 0.0 - 7.0 % EO % 3.3 LAB BASO %(LOINC) 0.0 - 2.0 % BASO % 1.1 LAB Lymph #(LOINC) 0.80 - 2.80 x10EE3/U L Lymph # 2.40 LAB Neut #(LOINC) 1.50 - 7.10 x10EE3/U L Neut # 2.30 LAB Yancey #(LOINC) 0.20 - 1.00 x10EE3/U L Yancey # 0.50 LAB EO #(LOINC) 0.00 - 0.50 x10EE3/U L EO # 0.20 LAB Baso #(LOINC) 0.00 - 0.10 x10EE3/U L Baso # 0.10 LAB MANUAL DIFF(LOINC) MANUAL DIFF N/A LAB MORPHOLOGY(INC ) MORPHOLOGY N/A Result Comment: {CD] Performed By: #### [id number] #### [facility],[address] [place] [address] CMP WITH EGFR Collected: 02/08/2018 Status: F Source: [facility] 3:00 AM [facility] REPOSITORY TYPE CODE TESTS RESULT OUT OF RANGE REFERENCE UNITS LAB CMP with eGFR(INC) CMP with eGFR Result Comment: COMPREHENSIVE METABOLIC PANEL LAB SODIUM(LOINC) 136 - 145 mmol/l SODIUM 143 LAB POTASSIUM(LOINC) 3.5 - 5.1 mmol/L POTASSIUM 3.9 LAB CHLORIDE(LOINC) 98 - 107 mmol/L CHLORIDE High 108 LAB CO2(LOINC) 21.0 - mmol/L 31.0 CO2 26.6 LAB GLUCOSE(LOINC) 74 - 106 mg/dl GLUCOSE 78 LAB BUN(LOINC) 6 - 20 mg/dl BUN 10 LAB CREATININE(LOINC) 0.6 - 1.2 mg/dl Low CREATININE 0.5 LAB AST/SGOT(LOINC) 13 - 39 U/L AST/SGOT 15 LAB ALK PHOS(LOINC) 38 - 126 U/L ALK PHOS 52 LAB CALCIUM(LOINC) 8.6 - mg/dl 10.2 CALCIUM 9.0 LAB TOTAL 6.4 - 8.3 g/dl PROTEIN(LOINC) TOTAL Low PROTEIN 6.2 LAB ALBUMIN(LOINC) 3.4 - 4.8 g/dL ALBUMIN 3.7 LAB GLOBULIN(LOINC) 1.5 - 3.8 G/DL GLOBULIN 2.5 LAB A/G RATIO(LOINC) 0.9 - 1.6 A/G RATIO 1.5 LAB TOTAL BILI(LOINC) 0.0 - 1.5 mg/dl TOTAL BILI 0.5 LAB B/C RATIO(LOINC) 0 - 30 ratio B/C RATIO 20 LAB ALT/SGPT(LOINC) 8 - 35 U/L ALT/SGPT 8 LAB ANION GAP(LOINC) 10 - 20 mmol/L ANION GAP 12 LAB AGE(LOINC) years AGE 77 LAB eGFR(LOINC) 60 - 999 ML/MINUTE eGFR >60 LAB eGFR(AA)(LOINC) 60 - 999 ML/MINUTE eGFR(AA) >60 Result Comment: ACCORDING TO THE NATIONAL KIDNEY DISEASE EDUCATION PROGRAM(NKDE), A NORMAL eGFR IS A VALUE GREATER THAN OR EQUAL TO 60 ML/MIN/1.73 SQ METERS. CHRONIC KIDNEY DISEASE: <60mL/MIN/1.73 SQ METERS KIDNEY FAILURE: <15mL/MIN/1.73 SQ METERS THIS TEST SHOULD ONLY BE USED FOR PATIENTS 18 YEARS OF AGE AND OLDER. Performed By: #### [id number] #### [place] [id number] LIPID PROFILE Collected: 02/08/2018 Status: F Source: [facility] 3:00 AM [facility] REPOSITORY TYPE CODE TESTS RESULT OUT OF REFERENCE UNITS RANGE LAB LIPID PROFILE(LOIN C) LIPID PROFILE Result Comment: LIPID PROFILE LAB TRIGLYCERIDE(LOINC) 0 - 150 mg/dl TRIGLYCERIDE 72 LAB CHOLESTEROL(LOINC) 0 - 200 mg/dl CHOLESTEROL 167 LAB HDL(LOINC) 40 - 60 mg/dl HDL 54 LAB CHOL/HDL(LOINC) 0.0 - 5.0 CHOL/HDL 3.1 LAB LDL(LOINC) 0 - 129 mg/dl LDL 99 Performed By: #### [id number] #### [place] [id number] NURSING PROG Observed: 12/03/2017 Status: COMPLETED Source: [facility] 4:52 PM CLINIC OTHER CAMPUS REPOSITORY O ID: [id number] Author: Bettie (Rn) Óscar RN Service: Nursing Author Type: Registered Nurse Type: Nursing Progress Note Filed: 12/03/2017 4:59 PM Note Text: Nursing Progress Note Patient Name: Viviana Flores Patient Location: [facility] Daily Note: 1647: Pt left unit and was discharge with [facility] in stable condition to [facility] ([facility]). Family to transport. Left with personal belongings and discharge instructions. No further needs at time of discharge. 1655: Called report to Earnestine at [facility]. Made aware that family was transporting and planning to stop for dinner before arriving. This note was completed by: Bettie Cantrell RN CASE MANAGEM Observed: 12/03/2017 Status: COMPLETED Source: [facility] 4:31 PM CLINIC OTHER CAMPUS REPOSITORY O ID: [id number] Author: Cyndie (Rn) CHICHO Maria Service: Care Management Author Type: Registered Nurse Type: Care Mgt Progress Note Filed: 12/03/2017 4:38 PM Note Text: CARE MANAGEMENT PROGRESS NOTE SERVICE DATE: 12/03/2017 SERVICE TIME: 4:31 PM LOS: 3 days Admission Date: 11/30/2017 DISCHARGE ARRANGEMENT (list agency and phone number) assisted facility: Was an expedited discharge program used? No Provider: [employer] CAREGIVER ASSESSMENT: Caregiver is ready, willing and able to meet the patient's needs as recommended by the inter-professional team? Yes Patient's transition needs and plan for meeting these needs: yes Does the patient have an acute stroke diagnosis, or has the patient had a stroke during this admission? Yes HANDOFF COMMUNICATION: RN to RN report TRANSPORTATION ARRANGEMENTS: Car family ADDITIONAL CONTACT RESOURCES: na Discharge Information Row Name ED to Hosp-Admission (Current) from 11/30/2017 in [facility] Facility Agency [facility] Rehab Needs Prior to Discharge: Ready for Discharge Patient medically cleared for discharge today to transition to [facility] in [place], [place]. Patient's sons Munir and Greg and dtr in law Maddie are here now. They have planned to transport patient to facility. fundraising coordinator, Rebeca at [facility] has been notified of 7:30pm arrival time. Bedside nurse given the report phone number. SIGNATURE: Cyndie Maria RN,BSN PATIENT NAME: Viviana Flores DATE: December 03, 2017 TIME: 4:31 PM PAGER/CONTACT #: [phone] CNDS Observed: 12/03/2017 Status: COMPLETED Source: [facility] 4:15 PM CLINIC OTHER CAMPUS REPOSITORY HNO ID: [id number] Author: Rubia Licea Service: General Internal Medicine Author Type: Physician Type: Discharge Summaries Filed: 12/10/2017 11:06 AM Note Text: DISCHARGE SUMMARY PATIENT NAME: Viviana Flores ADMISSION DATE: 11/30/2017 DISCHARGE DATE: 12/03/17 ATTENDING PHYSICIAN: Rubia Licea REASON FOR HOSPITALIZATION: confusion DIAGNOSIS: non-convulsive seizures OPERATIONS DURING HOSPITALIZATION: None PROCEDURES DURING HOSPITALIZATION: EEG HOSPITAL COURSE: Admitted with confusion, EEG shows cortical dysfunction in the left and right frontotemporal regions with potential epileptogenicities. Continuous video-EEG monitoring was suggestive of bilateral cortical dysfunction maximum in the left hemisphere. There is also evidence of a mild diffuse encephalopathy. No definite epileptiform discharges or EEG seizures were recorded. Patient was started on keppra 500mg id. LABS AND PROCEDURES PENDING AT DISCHARGE: No pending results. CONSULTING TEAMS DURING HOSPITALIZATION: Neurology: Kiya Awan PATIENT CONDITION AT DISCHARGE: Stable DISCHARGE DISPOSITION: [facility] Facility DISCHARGE MEDICATION: keppra 500mg po bid Aspirin 325mg po qday wellbutrin 150mg po qday oscal 1/2tablet po qday cymbalta 30mg po qday pepcid 20mg po bid neurontin 100mg po qday Ditropan cl 5mg po qday zocor 5mg po qhs FUTURE APPOINTMENTS: Follow Up with PCP: Pinky Quinn MD Discharge Information Row Name ED to Hosp-Admission (Current) from 11/30/2017 in [facility] Facility Agency [facility] TIME OF CARE (Use first blank if not applicable): TIME OF CARE: Discharge Management: I personally spent greater than 30 minutes involved in the discharge management of this patient. SIGNATURE: Rubia Licea MD PATIENT NAME: Viviana Flores DATE: December 03, 2017 TIME: 4:15 PM PAGER/CONTACT #: DISCHARGE SUMMARY PROGRESS Observed: 12/03/2017 Status: COMPLETED Source: [facility] 4:12 PM CLINIC OTHER CAMPUS REPOSITORY O ID: [id number] Author: Rubia Licea Service: General Internal Medicine Author Type: Physician Type: Progress Notes Filed: 12/03/2017 4:14 PM Note Text: CONSULT PROGRESS NOTE SERVICE DATE: 12/03/2017 SERVICE TIME: 4:12pm Subjective INTERVAL HPI: interval events reviewed, no new issues Current hospital medications: heparin 5,000 Units injection 5,000 Units SUBCUTANEOUS q 12 H famotidine 20 mg tab(s) (PEPCID) 20 mg ORAL BID perflutren lipid microspheres 1.1 mg/mL 1.3 mL injection (DEFINITY) 1.3 mL INTRAVENOUS PRN(NO DISPENSE) levETIRAcetam 500 mg tab(s) (KEPPRA) 500 mg ORAL BID simvastatin 5 mg tab(s) (ZOCOR) 5 mg ORAL AT BEDTIME twhyvpl-hedfmnuyi-wcucssf D3 500 mg(1,250mg) -200 unit 0.5 tablet 0.5 tablet ORAL DAILY buPROPion SR 150 mg tab(s) (ZYBAN SR; WELLBUTRIN SR) 150 mg ORAL DAILY oxybutynin XL 5 mg tab(s) (DITROPAN XL) 5 mg ORAL DAILY aspirin 325 mg tab(s) 325 mg ORAL/FEEDING TUBE DAILY aspirin 300 mg suppository 300 mg RECTAL DAILY labetalol 10 mg injection (NORMODYNE) 10 mg INTRAVENOUS q 10 MIN PRN acetaminophen 650 mg tab(s) (TYLENOL) 650 mg ORAL/FEEDING TUBE q 4 H PRN bisacodyl EC 10 mg tab(s) (DULCOLAX) 10 mg ORAL PRN gabapentin 100 mg cap(s) (NEURONTIN) 100 mg ORAL DAILY DULoxetine 30 mg cap(s) (CYMBALTA) 30 mg ORAL DAILY Objective PHYSICAL EXAM: Physical Exam Performed: Neck: supple Lung: no wheeze cV: [id number] Ext: no c/c BP 104/60 Pulse 75 Temp (Src) 97.5 (Temporal Artery) Resp 18 Ht 5' 0 (1.52m) Wt 132 lb 11.5 oz (60.2kg) SpO2 97% BMI 25.92 kg/(m2). DATA: Diagnostic tests reviewed for today's visit: CBC: Recent Labs 12/03/17 0617 WBC 5.95 RBC 4.51 HB 13.2 HCT 40.6 PLT 237 MCV 90.0 MCH 29.3 MPV 9.4 CMP: Recent Labs 12/03/17 0617 NA 142 K 3.9 CHLOR 105 CO2 23 BUN 14 CREAT 0.56* GLUC 102* CA 8.7 ANION 14 MG/PHOS: No results for input(s): MG, P in the last 24 hours. Impression/Recommendations 1. 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 Cognitive impairment 3. h/o HTN 4. h/o hyperlipidemia 5. dispo: plan for SNF SIGNATURE: Rubia Licea MD PATIENT NAME: Viviana Flores DATE: December 03, 2017 TIME: 4:12 PM PAGER: CASE MANAGEM Observed: 12/03/2017 Status: COMPLETED Source: [facility] 11:27 AM [facility] REPOSITORY HNO ID: [id number] Author: Cyndie KayRn) CHICHO Maria Service: Care Management Author Type: Registered Nurse Type: Care Mgt Progress Note Filed: 12/03/2017 11:30 AM Note Text: CARE MANAGEMENT PROGRESS NOTE SERVICE DATE: 12/03/2017 SERVICE TIME: 11:27 AM LOS: 3 days Needs Prior to Discharge: (medical clearance) Spoke to patient's son, Greg and his Maddie on phone and informed [facility] in [place]. Patient has traditional MCR and precert not needed. Family will transport when cleared for discharge. Bedside nurse updated. SIGNATURE: Cyndie Maria RN,BSN PATIENT NAME: Viviana Flores DATE: December 03, 2017 TIME: 11:27 AM PAGER/CONTACT #: [phone] NURSING PROG Observed: 12/03/2017 Status: COMPLETED Source: [facility] 10:08 AM [facility] REPOSITORY HNO ID: [id number] Author: Bettie KayRn) CHICHO Cantrell Service: Nursing Author Type: Registered Nurse Type: Nursing Progress Note Filed: 12/03/2017 10:21 AM Note Text: Nursing Progress Note Patient Name: Viviana Flores Patient Location: [place] [address]/[facility]-28 Daily Note: Patient a/ox2-3. Able to state name, , and that she is in a [facility] in [place]. Pt also stated the correct year. BEM was d/britta this morning. Assessment completed, see NPR flowsheet. Pt denies pain at this time. Call light within reach. Seizure precautions in place. Will continue to monitor. This note was completed by: Bettie Cantrell RN CONSULT PROG Observed: 12/03/2017 Status: COMPLETED Source: [facility] 8:47 AM [facility] OTHER CAMPUS REPOSITORY HNO ID: [id number] Author: Kiya Madison Service: Neurology Author Type: Physician Type: Consult Progress Note Filed: 12/03/2017 11:27 AM Note Text: [facility] Neurology Consult Progress Note Admitting Provider/Consulted by:Rubia Licea Time of Note:12/03/2017 Patient Name:Viviana Flores Admit Date:11/30/2017 Hospital Day:3 Subjectives Patient slept well. No more speech disturbances. Feels well. Current Inpatient Medications: Scheduled meds: Current Facility-Administered Medications: heparin 5,000 Units injection 5,000 Units SUBCUTANEOUS q 12 H Wassim A [place]itti 5,000 Units at 12/03/17 0843 famotidine 20 mg tab(s) (PEPCID) 20 mg ORAL BID Wassim A [place] 20 mg at 12/03/17 0843 perflutren lipid microspheres 1.1 mg/mL 1.3 mL injection (DEFINITY) 1.3 mL INTRAVENOUS PRN(NO DISPENSE) Kiya Madison levETIRAcetam 500 mg tab(s) (KEPPRA) 500 mg ORAL BID Kiya Madison 500 mg at 12/03/17 0843 simvastatin 5 mg tab(s) (ZOCOR) 5 mg ORAL AT BEDTIME Fatoumata Alcantar MD 5 mg at 12/03/17 0843 btncrca-gjmqcbubz-ctvbwxj D3 500 mg(1,250mg) -200 unit 0.5 tablet 0.5 tablet ORAL DAILY Fatoumata Alcantar MD 0.5 tablet at 12/03/17 08 buPROPion SR 150 mg tab(s) (ZYBAN SR; WELLBUTRIN SR) 150 mg ORAL DAILY Fatoumata Alcantar MD 150 mg at 12/03/17 08 oxybutynin XL 5 mg tab(s) (DITROPAN XL) 5 mg ORAL DAILY Fatoumata Alcantar MD 5 mg at 12/03/17 08 aspirin 325 mg tab(s) 325 mg ORAL/FEEDING TUBE DAILY Fatoumata Alcantar MD 325 mg at 12/03/17 08 Or aspirin 300 mg suppository 300 mg RECTAL DAILY Fatoumata Alcantar MD labetalol 10 mg injection (NORMODYNE) 10 mg INTRAVENOUS q 10 MIN PRN Fatoumata Alcantar MD acetaminophen 650 mg tab(s) (TYLENOL) 650 mg ORAL/FEEDING TUBE q 4 H PRN Fatoumata Alcantar MD bisacodyl EC 10 mg tab(s) (DULCOLAX) 10 mg ORAL PRN Fatoumata Alcantar MD gabapentin 100 mg cap(s) (NEURONTIN) 100 mg ORAL DAILY Cyndie (Matrix Supervisor) Shamhart 100 mg at 12/03/17 08 DULoxetine 30 mg cap(s) (CYMBALTA) 30 mg ORAL DAILY Cyndie (Matrix Supervisor) Shamhart 30 mg at 12/03/17 08 ALLERGIES No Known Allergies PHYSICAL EXAM: BP 101/63 Pulse 79 Temp 36.8 ?C (98.2 ?F) (Oral) Resp 16 Ht 152.4 cm (5') Wt 60.2 kg (132 lb 11.5 oz) SpO2 95% BMI 25.92 kg/m? General Appearance: Well appearing, alert, in no acute distress, well-hydrated, well nourished. Skin: Skin color, texture, turgor normal, no suspicious rashes or lesions Head: Normocephalic, no masses, lesions, tenderness or abnormalities Neck: Supple, no adenopathy; thyroid symmetric, normal size, no bruits Lhermitte's Phenomenon: Negative Lungs: Lungs clear to auscultation. No wheezing, rhonchi, rales Heart: RRR without murmur, gallop, or rubs. No ectopy Abdomen: Normal abdominal exam, Abdomen soft, non-tender. Bowel sounds normal. No masses, organomegaly Extremities: No deformities, edema, skin discoloration, clubbing or cyanosis. Good capillary refill. Musculoskeletal: No joint swelling, deformity, or tenderness Peripheral Pulses: Normal Neurological: ? Mental Status: Alert, with normal speech and language. Attention and concentration appeared normal. Oriented x 3. Cranial Nerves: CNII: Visual acuity normal, Visual velarde full to confrontation, Pupils OD 2-3mm, OS 2-3mm, equal, round and reactive to light, No APD noted on exam CNIII, IV, : full extraoccular movements, without nystagmus CN V: Facial sensation intact bilaterally to fine touch and pinprick, masseter 5/5 CN VII: Facial muscles symmetric and strong, No noted facial droop CN VIII: Hears finger rub well bilaterally CN IX: Gag Reflex Not examined CN X: Palate elevates symmetrically CN XI: Full strength shoulder shrug bilaterally CN XII: Tongue protrusion full and midline ? Motor Exam: Tone - Normal Bulk - no muscle atrophy Muscle strength medical research [place] scale MUSCLES Upper Extremity RIGHT LEFT Deltoid 5 5 Biceps 5 5 Triceps 5 5 Wrist Extension 5 5 Wrist Flexion 5 5 Finger Flexion 5 5 Finger Extension 5 5 MUSCLES Lower Extremity RIGHT LEFT Hip Flexion 5 5 Hip Extension 5 5 BiFem (Knee Flex) 5 5 Quads (Knee Ext) 5 5 Gastroc (Plantflx) 5 5 TibAnt (Dorsiflx) 5 5 ? Reflexes Right Left Bicep 2/4 2/4 Tricep 2/4 2/4 BrRad 2/4 2/4 Knee 2/4 2/4 Ankle 2/4 2/4 Clonus 0beats 0beats Plantar Response Downward response Downward response ? Complex motor and coordination: No resting, postural or action tremor. No asterixis. Finger-to- nose-finger intact bilaterally Errz-tn-hrps intact bilaterally. Rapid Alternating Movements: Normal bilaterally ? Sensory: Intact light touch/pin prick/ temperature/proprioception/vibration in upper and lower extremities bilaterally. Double simultaneous stimulation, graphesthesia and stereognosis intact. ? Gait: Normal base, stride, arm swing. 1 step to turn. Normal heel, toe and tandem gait. Rhomberg test negative, Pull Test negative. DATA: Diagnostic tests reviewed for today's visit, films/specimens were personally reviewed and interpreted by me: LABS: Lab Results Component Value Date PLT 270 12/01/2017 HB 12.8 12/01/2017 HCT 39.6 12/01/2017 ALB 3.7 12/01/2017 CA 9.2 12/01/2017 TBILI 0.8 12/01/2017 ALKPHOS 69 12/01/2017 AST 15 12/01/2017 GLUC 97 12/01/2017 BUN 7 12/01/2017 NA 142 12/01/2017 K 5.0 12/01/2017 CHLOR 106 12/01/2017 CO2 25 12/01/2017 ANION 11 12/01/2017 ALT 8 12/01/2017 WSR (mm/hr) Date Value 02/19/2012 19 CRP (mg/dL) Date Value 01/16/2013 0.5 No results found for: USCRP Cholesterol, Total (mg/dL) Date Value 12/01/2017 174 01/16/2013 229 09/29/2012 189 LDL Cholesterol (mg/dL) Date Value 01/16/2013 160 09/29/2012 120 LDL Calculated (mg/dL) Date Value 12/01/2017 107 HDL Cholesterol (mg/dL) Date Value 12/01/2017 53 01/16/2013 46 09/29/2012 47 Triglyceride (mg/dL) Date Value 12/01/2017 71 01/16/2013 117 09/29/2012 110 Hemoglobin A1C (%) Date Value 12/01/2017 5.7 IMAGING: MRI brain 12/02/2017 IMPRESSION: 1. ?No acute intracranial process 2. ?Grossly stable moderate nonspecific White matter change Portable EEG This EEG shows cortical dysfunction in the left and right frontotemporal ? regions with potential epileptogenicities. No EEG seizures were ? recorded. Seizure monitoring is needed in order to develop or modify ? treatment. [facility] Continuous video-EEG monitoring was reviewed from 05:38 on 12/01/17 until ? 05:39 on 12/02/17 and is suggestive of bilateral cortical dysfunction ? maximum in the left hemisphere. There is also evidence of a mild diffuse ? encephalopathy. No definite epileptiform discharges or EEG seizures were ? recorded. Assessment Viviana Flores is a 77 year old right handed female with a past medical history of hypertension, depression presented with spells of spells of confusion and speech disturbances. --Those spells could be nonconvulsive seizures. Started her on keppra 500mg bid. She tolerates it ok. --Cognitive impairment could be a contributing factor, in addition to medication that may have REFRACTORY TECHNICIAN suppression effect such as Wellbutrin, Cymbalta, and Neurontin. Wellbutrin may trigger seizure or lower seizure threshold Plan: 1. Recommend to discontinue wellbutrin 2. Continue keppra 500mg bid 3. discontinue EEG 4. Neuropsych evaluation as outpatient for cognitive function 5. Neurology will sign off for now. Please feel free to call us if needed. 6. Followup at neurology clinic 7. Seizure precaution: The patient should take the following precautions until at least 6 months seizure free: They should avoid all activities that may be hazardous to themselves or others in the context of a seizure, sudden loss of awareness or a fall, These include but are not limited to: No driving, no riding bicycles in traffic, no operating dangerous machinery,no engaging in activities at dangerous heights including using ladders , no taking baths unattended, no swimming, engaging in activities near fire unattended, caution or avoidance of cooking or using potentially dangerous objects such as knives. Thank you for allowing us to participate in this patient's care. To contact neurology consult service, please feel free to page [phone]. SIGNATURE: Kiya Madison MD PATIENT NAME: Viviana Flores DATE: December 02, 2017 TIME: 8:24 PM PAGER/CONTACT #: [phone] CBC Collected: 12/03/2017 Status: F Source: [facility] 6:17 AM CLINIC OTHER CAMPUS REPOSITORY TYPE CODE TESTS RESULT OUT OF REFERENCE UNITS RANGE LAB WBC 3.70-11.00 k/uL WBC 5.95 LAB RBC 3.90-5.20 m/uL RBC 4.51 LAB HGB 11.5-15.5 g/dL Hemoglobin 13.2 LAB HCT 36.0-46.0 % Hematocrit 40.6 LAB MCV 80.0-100.0 fL MCV 90.0 LAB MCH 26.0-34.0 pG MCH 29.3 LAB MCHC 30.5-36.0 g/dL MCHC 32.5 LAB RDWCV 11.5-15.0 % RDW-CV 14.0 LAB PLTCT 150-400 k/uL Platelet Count 237 LAB MPV 9.0-12.7 fL MPV 9.4 Performed By: #### ALICE, BMP #### [place] [id number] [place] [address] BASIC METABOLIC PANL Collected: 12/03/2017 Status: F Source: [facility] 6:17 AM [facility] REPOSITORY TYPE CODE TESTS RESULT OUT OF REFERENCE UNITS RANGE LAB GLU 65-100 mg/dL Glucose High 102 LAB BUN 8-25 mg/dL BUN 14 LAB CRET 0.70-1.40 mg/dL Low Creatinine 0.56 LAB NA 132-148 mmol/L Sodium 142 LAB K 3.5-5.0 mmol/L Potassium 3.9 LAB CL 98-110 mmol/L Chloride 105 LAB CO2 23-32 mmol/L CO2 23 LAB AGAP 9-18 mmol/L Anion Gap 14 LAB CA 8.5-10.5 mg/dL Calcium, Total 8.7 LAB GFRAA >60 eGFR- >60 Amer. LAB GFRNAA >60 . eGFR-All Other Races >60 Performed By: #### ALICE, BMP #### [place] [id number] [place] [address] NURSING PROG Observed: 12/02/2017 Status: COMPLETED Source: [facility] 11:00 PM [facility] REPOSITORY HNO ID: [id number] Author: Savannah (Rn) CHICHO Nguyen Service: Nursing Author Type: Registered Nurse Type: Nursing Progress Note Filed: 12/03/2017 5:59 AM Note Text: Nursing Progress Note Patient Name: Viviana Flores Patient Location: Daily Note: Seizure precautions in place. Instructed to call for assist when needed. Falls precautions in place. Call light within reach. Pt up with stand by assist to bathroom. Ongoing neuro assessment. BEM in place. Pt slept during night. This note was completed by: Savannah Nguyen RN CONSULT PROG Observed: 12/02/2017 Status: COMPLETED Source: [facility] 8:23 PM [facility] OTHER CAMPUS REPOSITORY HNO ID: [id number] Author: Kiya Madison Service: Neurology Author Type: Physician Type: Consult Progress Note Filed: 12/02/2017 8:34 PM Note Text: [facility] Neurology Consult Progress Note Admitting Provider/Consulted by:Rubia Licea Time of Note:12/02/2017 Patient Name:Viviana Flores Admit Date:11/30/2017 Hospital Day:2 Subjectives Patient slept well. No more speech disturbances. Feels well. Current Inpatient Medications: Scheduled meds: Current Facility-Administered Medications: heparin 5,000 Units injection 5,000 Units SUBCUTANEOUS q 12 H Wassim A [place] 5,000 Units at 12/02/17 1842 famotidine 20 mg tab(s) (PEPCID) 20 mg ORAL BID Wassim A [place] 20 mg at 12/02/172014 perflutren lipid microspheres 1.1 mg/mL 1.3 mL injection ([employer]) 1.3 mL INTRAVENOUS PRN(NO DISPENSE) Kiya Madison levETIRAcetam 500 mg tab(s) (KEPPRA) 500 mg ORAL BID Kiya Madison 500 mg at 12/02/172013 simvastatin 5 mg tab(s) (ZOCOR) 5 mg ORAL AT BEDTIME Fatoumata Alcantar MD 5 mg at 12/02/17 075 iideoda-zwnozboyr-yiufuzu D3 500 mg(1,250mg) -200 unit 0.5 tablet 0.5 tablet ORAL DAILY Fatoumata Alcantar MD 0.5 tablet at 12/02/17 075 buPROPion SR 150 mg tab(s) (ZYBAN SR; WELLBUTRIN SR) 150 mg ORAL DAILY Fatoumata Alcantar MD 150 mg at 12/02/17 075 oxybutynin XL 5 mg tab(s) (DITROPAN XL) 5 mg ORAL DAILY Fatoumataanthony Alcantar MD 5 mg at 12/02/17 075 aspirin 325 mg tab(s) 325 mg ORAL/FEEDING TUBE DAILY Fatoumata Alcantar MD 325 mg at 12/02/17749 Or aspirin 300 mg suppository 300 mg RECTAL DAILY Fatoumata Alcantar MD labetalol 10 mg injection (NORMODYNE) 10 mg INTRAVENOUS q 10 MIN PRN Fatoumata Alcantar MD acetaminophen 650 mg tab(s) (TYLENOL) 650 mg ORAL/FEEDING TUBE q 4 H PRN Fatoumata Alcantar MD bisacodyl EC 10 mg tab(s) (DULCOLAX) 10 mg ORAL PRN Fatoumata Alcantar MD gabapentin 100 mg cap(s) (NEURONTIN) 100 mg ORAL DAILY Cyndie (Matrix Supervisor) Shamhart 100 mg at 12/02/17750 DULoxetine 30 mg cap(s) (CYMBALTA) 30 mg ORAL DAILY Cyndie (Matrix Supervisor) Shamhart 30 mg at 12/02/17749 ALLERGIES No Known Allergies PHYSICAL EXAM: BP 112/59 Pulse 78 Temp 36.4 ?C (97.6 ?F) (Oral) Resp 16 Ht 152.4 cm (5') Wt 60.2 kg (132 lb 11.5 oz) SpO2 93% BMI 25.92 kg/m? General Appearance: Well appearing, alert, in no acute distress, well-hydrated, well nourished. Skin: Skin color, texture, turgor normal, no suspicious rashes or lesions Head: Normocephalic, no masses, lesions, tenderness or abnormalities Neck: Supple, no adenopathy; thyroid symmetric, normal size, no bruits Lhermitte's Phenomenon: Negative Lungs: Lungs clear to auscultation. No wheezing, rhonchi, rales Heart: RRR without murmur, gallop, or rubs. No ectopy Abdomen: Normal abdominal exam, Abdomen soft, non-tender. Bowel sounds normal. No masses, organomegaly Extremities: No deformities, edema, skin discoloration, clubbing or cyanosis. Good capillary refill. Musculoskeletal: No joint swelling, deformity, or tenderness Peripheral Pulses: Normal Neurological: ? Mental Status: Alert, with normal speech and language. Attention and concentration appeared normal. Oriented x 3. Cranial Nerves: CNII: Visual acuity normal, Visual velarde full to confrontation, Pupils OD 2-3mm, OS 2-3mm, equal, round and reactive to light, No APD noted on exam CNIII, IV, : full extraoccular movements, without nystagmus CN V: Facial sensation intact bilaterally to fine touch and pinprick, masseter 5/5 CN VII: Facial muscles symmetric and strong, No noted facial droop CN VIII: Hears finger rub well bilaterally CN IX: Gag Reflex Not examined CN X: Palate elevates symmetrically CN XI: Full strength shoulder shrug bilaterally CN XII: Tongue protrusion full and midline ? Motor Exam: Tone - Normal Bulk - no muscle atrophy Muscle strength medical research [place] scale MUSCLES Upper Extremity RIGHT LEFT Deltoid 5 5 Biceps 5 5 Triceps 5 5 Wrist Extension 5 5 Wrist Flexion 5 5 Finger Flexion 5 5 Finger Extension 5 5 MUSCLES Lower Extremity RIGHT LEFT Hip Flexion 5 5 Hip Extension 5 5 BiFem (Knee Flex) 5 5 Quads (Knee Ext) 5 5 Gastroc (Plantflx) 5 5 TibAnt (Dorsiflx) 5 5 ? Reflexes Right Left Bicep 2/4 2/4 Tricep 2/4 2/4 BrRad 2/4 2/4 Knee 2/4 2/4 Ankle 2/4 2/4 Clonus 0beats 0beats Plantar Response Downward response Downward response ? Complex motor and coordination: No resting, postural or action tremor. No asterixis. Finger-to- nose-finger intact bilaterally Wojx-kz-tllr intact bilaterally. Rapid Alternating Movements: Normal bilaterally ? Sensory: Intact light touch/pin prick/ temperature/proprioception/vibration in upper and lower extremities bilaterally. Double simultaneous stimulation, graphesthesia and stereognosis intact. ? Gait: Normal base, stride, arm swing. 1 step to turn. Normal heel, toe and tandem gait. Rhomberg test negative, Pull Test negative. DATA: Diagnostic tests reviewed for today's visit, films/specimens were personally reviewed and interpreted by me: LABS: Lab Results Component Value Date PLT 270 12/01/2017 HB 12.8 12/01/2017 HCT 39.6 12/01/2017 ALB 3.7 12/01/2017 CA 9.2 12/01/2017 TBILI 0.8 12/01/2017 ALKPHOS 69 12/01/2017 AST 15 12/01/2017 GLUC 97 12/01/2017 BUN 7 12/01/2017 NA 142 12/01/2017 K 5.0 12/01/2017 CHLOR 106 12/01/2017 CO2 25 12/01/2017 ANION 11 12/01/2017 ALT 8 12/01/2017 WSR (mm/hr) Date Value 02/19/2012 19 CRP (mg/dL) Date Value 01/16/2013 0.5 No results found for: USCRP Cholesterol, Total (mg/dL) Date Value 12/01/2017 174 01/16/2013 229 09/29/2012 189 LDL Cholesterol (mg/dL) Date Value 01/16/2013 160 09/29/2012 120 LDL Calculated (mg/dL) Date Value 12/01/2017 107 HDL Cholesterol (mg/dL) Date Value 12/01/2017 53 01/16/2013 46 09/29/2012 47 Triglyceride (mg/dL) Date Value 12/01/2017 71 01/16/2013 117 09/29/2012 110 Hemoglobin A1C (%) Date Value 12/01/2017 5.7 IMAGING: MRI brain 12/02/2017 IMPRESSION: 1. ?No acute intracranial process 2. ?Grossly stable moderate nonspecific White matter change Portable EEG This EEG shows cortical dysfunction in the left and right frontotemporal ? regions with potential epileptogenicities. No EEG seizures were ? recorded. Seizure monitoring is needed in order to develop or modify ? treatment. [facility] Continuous video-EEG monitoring was reviewed from 05:38 on 12/01/17 until ? 05:39 on 12/02/17 and is suggestive of bilateral cortical dysfunction ? maximum in the left hemisphere. There is also evidence of a mild diffuse ? encephalopathy. No definite epileptiform discharges or EEG seizures were ? recorded. Assessment Viviana Flores is a 77 year old right handed female with a past medical history of hypertension, depression presented with spells of spells of confusion and speech disturbances. --Those spells could be nonconvulsive seizures. Started her on keppra 500mg bid. She tolerates it ok. --Cognitive impairment could be a contributing factor, in addition to medication that may have REFRACTORY TECHNICIAN suppression effect such as Wellbutrin, Cymbalta, and Neurontin. Wellbutrin may trigger seizure or lower seizure threshold Plan: 1. Recommend to discontinue wellbutrin 2. May discontinue EEG tomorrow if no seizures overnight 3. Neuropsych evaluation as outpatient 4. Followup at neurology clinic Thank you for allowing us to participate in this patient's care. To contact neurology consult service, please feel free to page [phone]. SIGNATURE: Kiya Madison MD PATIENT NAME: Viviana Flores DATE: December 02, 2017 TIME: 8:24 PM PAGER/CONTACT #: [phone] PROGRESS Observed: 12/02/2017 Status: COMPLETED Source: [facility] 4:57 PM CLINIC OTHER CAMPUS REPOSITORY [facility] ID: [id number] Author: Rubia Licea Service: General Internal Medicine Author Type: Physician Type: Progress Notes Filed: 12/03/2017 4:14 PM Note Text: PROGRESS NOTE SERVICE DATE: 12/02/2017 SERVICE TIME: 4:58pm Subjective INTERVAL HPI: undergoig EEG, did not offer new comaplints Current hospital medications: perflutren lipid microspheres 1.1 mg/mL 1.3 mL injection (DEFINITY) 1.3 mL INTRAVENOUS PRN(NO DISPENSE) levETIRAcetam 500 mg tab(s) (KEPPRA) 500 mg ORAL BID simvastatin 5 mg tab(s) (ZOCOR) 5 mg ORAL AT BEDTIME tcayxeo-bzfywhkrr-asqzsbu D3 500 mg(1,250mg) -200 unit 0.5 tablet 0.5 tablet ORAL DAILY buPROPion SR 150 mg tab(s) (ZYBAN SR; WELLBUTRIN SR) 150 mg ORAL DAILY oxybutynin XL 5 mg tab(s) (DITROPAN XL) 5 mg ORAL DAILY aspirin 325 mg tab(s) 325 mg ORAL/FEEDING TUBE DAILY aspirin 300 mg suppository 300 mg RECTAL DAILY labetalol 10 mg injection (NORMODYNE) 10 mg INTRAVENOUS q 10 MIN PRN acetaminophen 650 mg tab(s) (TYLENOL) 650 mg ORAL/FEEDING TUBE q 4 H PRN bisacodyl EC 10 mg tab(s) (DULCOLAX) 10 mg ORAL PRN gabapentin 100 mg cap(s) (NEURONTIN) 100 mg ORAL DAILY DULoxetine 30 mg cap(s) (CYMBALTA) 30 mg ORAL DAILY Objective PHYSICAL EXAM: Physical Exam Performed: No edema BP 107/71 Pulse 68 Temp (Src) 97.5 (Temporal Artery) Resp 16 Ht 5' 0 (1.52m) Wt 132 lb 11.5 oz (60.2kg) SpO2 100% BMI 25.92 kg/(m2). DATA: Diagnostic tests reviewed for today's visit: CBC: No results for input(s): WBC, RBC, HB, HCT, PLT, MCV, MCH, MPV, RDW in the last 24 hours. CMP: No results for input(s): NA, K, CHLOR, CO2, BUN, CREAT, GLUC, TPROT, CA, MG, ALBUMIN, TBILI, ALKPHOS, ALT, AST, ANION in the last 24 hours. MG/PHOS: No results for input(s): MG, P in the last 24 hours. Impression/Recommendations 1. Confusion MRI did not reveal acute infarct EEG - started on keppra Appreciate neurology input 2. h/o HTN 3. Hyperlipidemia 4. DVT prophylaxis - hepairn subq 5. GI prophylaxis - pepcid SIGNATURE: Rubia Lieca MD PATIENT NAME: Viviana Flores DATE: December 02, 2017 TIME: 4:57 PM PAGER: CASE MANAGEM Observed: 12/02/2017 Status: COMPLETED Source: [facility] 4:18 PM CLINIC OTHER CAMPUS REPOSITORY [facility] ID: [id number] Author: Cyndie (Rn) CHICHO Maria Service: Care Management Author Type: Registered Nurse Type: Care Mgt Progress Note Filed: 12/02/2017 4:20 PM Note Text: CARE MANAGEMENT PROGRESS NOTE SERVICE DATE: 12/02/2017 SERVICE TIME: 4:18 PM LOS: 2 days FREEDOM OF CHOICE GIVEN: Yes patient and patient's family Financial Disclosure Provided The patient and/or family has been given the Provider List: Yes Provider List: [facility] Facility Preference: [facility] in [place], [place] Patient and patient's son Munir and Greg are requesting SNF for transtional care. Patient has traditional MCR. No precert needed. Referral sent to first choice SNF. SIGNATURE: Cyndie Maria RN,BSN PATIENT NAME: Viviana Flores DATE: December 02, 2017 TIME: 4:18 PM PAGER/CONTACT #: [phone] THERAPY NT Observed: 12/02/2017 Status: COMPLETED Source: [facility] 4:18 PM CLINIC OTHER CAMPUS REPOSITORY [facility] ID: [id number] Author: Essence Deal (Armor Reconnaissance Vehicle Crewman) Andrew Service: Speech/Swallow Author Type: Speech Language Pathologist Type: Therapy (PT/OT/Speech/Resp) Filed: 12/02/2017 4:29 PM Note Text: Speech Therapy Speech Evaluation SERVICE DATE: 12/02/2017 SERVICE TIME: 1508 to 1535 ROOM: [place] [address] Nursing Recommendations: Reinforce use of white board in room Results and Recommendations Discussed With: Patient;Nurse Recommended Discharge Disposition: Outpatient Speech Therapy IMPRESSION: Patient demonstrates cognitive linguistic deficits which are negatively impacting the patient's ability to effectively communicate basic ADL medical and social wants/needs with familiar and unfamiliar communication partners. MOCA administered with patient scoring 18/30 (normal score 26 or greater). Patient with most deficits in the areas of visuospatial/executive functioning, attention, language, and delayed recall. Patient recalled 0/5 words which improved to 1/5 given categorical cue and 2/5 given three choices. Patient with mild problem solving deficits during informal testing. Speech and language skills WFL. Recommend initiation of speech therapy for cognitive-linguistic skills for a safe return home with maximum independence. Rehabilitation Precautions: Cognitive Linguistics Deficits Precaution/Activity Restriction Comments: seizure monitoring ASSESSMENT: Tolerated Full Session Goals for Plan of Care: Cognitive Goals: Patient will improve cognitive skills to 90% accuracy given min cues for a safe and independent return home. (Treatment objectives to include immediate and short term memory, problem solving, attention, language.) Patient /Caregiver Goals: Go Home Rehab Potential: Good PLAN: Treatment Frequency (times per week): 2 Current admission Treatment Interventions: Cognitive-Linguistic Management Plan of Care Developed with: Patient TREATMENT INTERVENTIONS: Therapy Diagnosis: Unspecified symbolic dysfunctions Interventions Provided: Speech Language Eval (81371) $ Speech Language Eval (11395) Billed Units: 1 unit Total Treatment Time (minutes): 27 FUNCTIONAL G CODE: G Code Functional Limitations: Memory (12/02/17 1508) Memory Current Status (G9168): CK - At least 40 percent but less than 60 percent impaired, limited or restricted (12/02/17 1508) Memory Goal Status (G9169): CJ - At least 20 percent but less than 40 percent impaired, limited or restricted (12/02/17 1508) Based on clinical assessment and the score on the Functional Communication Measure (FCM), the G code and corresponding severity modifiers are documented above. SUBJECTIVE: Current Hospital Course: Chart reviewed; Patient admitted for AMS while in town visiting relatives. BEM showing frequent bursts of epileptic discharges. Reason for Speech Therapy Consult: Cognitive eval due to confusion Relevant Past Medical History: headaches Patient Report: Per chart cognitive decline prior to admission. Patient stated she stopped driving 6 months ago but her license was taken away 2 years ago. (driving without license) Home Environment Lives alone with hired cleaning and cooking assistance and assistance from sons Prior Functional Level: Required Assistance Assistance Available: time analysis clerk Please see discipline specific clinical documentation flowsheet for complete details for this therapy evaluation/treatment. SIGNATURE: Essence Morales LORRY WEIGHER PATIENT NAME: Viviana Flores DATE: December 02, 2017 TIME: 4:18 PM PAGER: [phone] CASE MANAGEM Observed: 12/02/2017 Status: COMPLETED Source: [facility] 4:12 PM [facility] REPOSITORY [facility] ID: [id number] Author: Cyndie Maria RN Service: Care Management Author Type: Registered Nurse Type: Care Mgt Progress Note Filed: 12/02/2017 4:15 PM Note Text: CARE MANAGEMENT PROGRESS NOTE SERVICE DATE: 12/02/2017 SERVICE TIME: 4:12 PM LOS: 2 days Advanced Directives received advanced directives by fax received from patients family Faxed copy to registration and placed copy on patient's chart. SIGNATURE: Cyndie Maria RN,BSN PATIENT NAME: Viviana Flores DATE: December 02, 2017 TIME: 4:12 PM PAGER/CONTACT #: [phone] THERAPY NT Observed: 12/02/2017 Status: COMPLETED Source: [facility] 11:52 AM [facility] OTHER [facility] REPOSITORY [facility]NO ID: [id number] Author: Jose Antonio Barrera Service: Physical Therapy Author Type: Physical Therapist Type: Therapy (PT/OT/Speech/Resp) Filed: 12/02/2017 11:55 AM Note Text: Physical Therapy Treatment SERVICE DATE: 12/02/2017 SERVICE TIME: 1045 to 1110 ROOM: [place] [address] Recommended Discharge Disposition: Home PT Anticipated Discharge Needs: Supervision at Home Physical Assist at Home for: Cleaning;Laundry;Meals;Medication Management;Safety;Shopping;Transportation Supervision at Home due to: Decreased safety awareness Recommended Discharge Equipment: Wheeled Walker PT Recommendations to Nursing: Ambulate with device Device: Wheeled Walker PT 6 Clicks Score: 20 Precautions/Activity Restrictions: Fall Risk;Lines/Tubes/Drains Precaution/Activity Restriction Comments: seizure monitoring ASSESSMENT : Patient Disposition at Start of Session: Bed Alarm Patient Disposition at End of Session: Chair Alarm Tolerated Full Session Physical Therapy Problem List: Safety Deficits;Education Deficit;Impaired Self Care;Decreased Activity Tolerance;Decreased Strength;Functional Mobility Impairment;Balance Impaired Patient /Caregiver Goals: Go Home Goals for Plan of Care: Able to perform HEP with: Independent Ambulate with: Modified Independent Distance: 200 Device: Wheeled Walker Ambulate up and down steps with: Modified Independent Number of steps: 10 Device: Rail Progress Toward Goals: Progressing as expected Rehab Potential: Fair PLAN: Treatment Frequency (times per week): 2 Current admission Treatment Interventions: Energy Conservation Training;Strengthening;Functional Mobility Training;Balance Training;Neuromuscular Re-education;Education Plan of Care developed with: Patient;Family TREATMENT INTERVENTIONS: Therapy Diagnosis: Reduced mobility-other;Decreased activities of daily living (ADL);Muscle Weakness (generalized);Unsteadiness on feet;Abnormalities of gait and mobility-other Interventions Provided: Therapeutic Exercise (81325);Therapeutic Activity (22031) Therapeutic Exercise (10869) Treatment Minutes: 13 1 unit Skilled Intervention(s): Instruction in therapeutic exercise bilat LE's for strengthening and endurance training Verbal and tactile cuing provided for proper technique and tempo. Education in purpose and frequency to complete exercises. Cues given to pt to perform at slower speed to optimize muscular strengthening. Educated pt regarding role of PT, potential discharge options, and reasoning for discharge recommendation. Pt sits in chair with alarm in place, call light and phone near pt post treatment. Therapeutic Activity (27650) Treatment Minutes: 10 1 unit Skilled Intervention(s): Instructed patient in supine to sit pushing with upper extremities to sit up Instructed patient in sit to supine using safe, effective technique Instruction in sit to stand technique with proper hand placement and body positioning at edge of bed/chair Instruction in stand to sit technique with lower extremities touching chair/bed and reaching back for surface Education with ambulation(to inhibit postural sway and increase safety preferably by introducing WW) Total Timed Code Treatment Minutes: 23 Total Treatment Time (minutes): 25 FUNCTIONAL G CODE: PT 6 Clicks Score: 20 (12/02/17 1045) Mobility: Walking and Moving Around Current Status (G8978): CJ (12/01/17 1450) Mobility: Walking and Moving Around Goal Status (G8979): (12/01/17 1450) Based on clinical assessment and the score on the 6 Clicks Functional Assessment Tool, the G code and corresponding severity modifiers are documented above. SUBJECTIVE: Current Hospital Course: Chart reviewed and no significant medical updates relevant to therapy were noted Reason for Physical Therapy Consult : CVA Relevant Past Medical History: HTN,hyperlipidemia Patient Report: I'm little tired and sleepy today Home Environment Patient Lives With: Self/Alone Assistance Available: time analysis clerk Entry To Home: Stairs;With Rail (has ZAPR alert device; son and neighbors come daily) Number Of Stairs Into Home: 10 Number Of Stairs To Bed/Bath: 0 Tub/Shower Type: tub shower Laundry: first floor Equipment Owned: Cane;Commode-Raised;Wheeled Walker;Shower Chair Prior Functional Level: Required Assistance Assistance Required With: Cleaning;Meals;Medication Management;Safety;Shopping;Transportation Prior Functional Level Comments: Pt was indep with self care OBJECTIVE: Mini Cog Score: 0 (12/01/17 1357) CURRENT FUNCTIONAL STATUS: Current Functional Mobility Assist Level Additional Information Rolling Supervision Supine to Sit Supervision Sit to Supine Supervision Scooting Supervision Sit to Stand Supervision Stand to Sit Supervision Bed to Chair Toilet/Commode Gait Minimal Assistance Gait Device: Hand Held Assist Gait Distance (feet): 45 (short distance 2* monitoring seizure activity) Stairs Curb Step Car Transfer General Gait Deviations: Vanessa decreased;Lateral sway increased;Step length decreased;Narrow Base of Support Balance: Dynamic Standing Dynamic Standing Balance: Minimal Assistance Activity Tolerance: Standing Activity Standing Activity: amb Standing Activity Tolerance (in minutes): 4 Please see discipline specific clinical documentation flowsheet for complete details for this therapy evaluation/treatment. SIGNATURE: Jose Antonio Barrera PT PATIENT NAME: Viviana Flores DATE: December 02, 2017 TIME: 11:52 AM NURSING PROG Observed: 12/02/2017 Status: COMPLETED Source: [facility] 11:17 AM [facility] REPOSITORY [facility] ID: [id number] Author: Qing KayRn) CHICHO Carvajal Service: (none) Author Type: Registered Nurse Type: Nursing Progress Note Filed: 12/02/2017 11:21 AM Note Text: Nursing Progress Note Patient Name: Viviana Flores Patient Location: /[facility] Daily Note: AANDOx3. BEM in progress. Denies pain. Safety and seizure precautions maintained, call light and possessions within reach. Will continue to monitor. This note was completed by: QING CARVAJAL RN NURSING PROG Observed: 12/01/2017 Status: COMPLETED Source: [facility] 10:01 PM [facility] REPOSITORY [facility] ID: [id number] Author: Bettie KayRn) CHICHO Armstrong Service: (none) Author Type: Registered Nurse Type: Nursing Progress Note Filed: 12/02/2017 6:55 AM Note Text: Nursing Progress Note Patient Name: Viviana Flores Patient Location: [facility]/ Daily Note:2144 Transfer Note: Patient transferred into room/unit [id number] in stable condition. Actions taken: Bed in low locked position, call light within reach with teaching, oriented pt to room and unit. Will continue to monitor. 2200 patient a/ox2, disoriented to place. Patient on the BEM, no activity noted at this time. No neuro deficits noted. Seizure precautions in place. Currently in bed, call light in reach, bed alarm on. This note was completed by: Bettie Armstrong RN NURSING PROG Observed: 12/01/2017 Status: COMPLETED Source: [facility] 8:34 PM [facility] REPOSITORY [facility] ID: [id number] Author: Sidra KayRn) Geoffrey, RN Service: (none) Author Type: Registered Nurse Type: Nursing Progress Note Filed: 12/01/2017 8:36 PM Note Text: Nursing Progress Note Patient Name: Viviana Flores Patient Location: /[facility]- Daily Note: Pt assessed, pt is A/Ox2, not oriented to place. Pt is denying pain at this time, stat Keppra given. Belongings and call light in reach, tele monitor applied, EEG applied. Will continue to monitor. This note was completed by: Sidra Hale RN CONSULT PROG Observed: 12/01/2017 Status: COMPLETED Source: [facility] 7:07 PM [facility] REPOSITORY [facility] ID: [id number] Author: Kiya Madison Service: Neurology Author Type: Physician Type: Consult Progress Note Filed: 12/01/2017 7:09 PM Note Text: I was paged by epilepsy fellow about the frequent burst of epileptic discharges on BEM. I will give keppra 1000mg iv stat now, followed by 500mg bid po from tomorrow. Kiya Madison MD NURSING PROG Observed: 12/01/2017 Status: COMPLETED Source: [facility] 6:40 PM [facility] REPOSITORY [facility] ID: [id number] Author: Carissa KayRn) CHICHO Raines Service: (none) Author Type: Registered Nurse Type: Nursing Progress Note Filed: 12/01/2017 6:44 PM Note Text: Nursing Progress Note Patient Name: Viviana Flores Patient Location: / Daily Note:AANDOx3 this morning. Speech clear. NIH 0. Family at bedside most of day. MRI and Echo completed. EEG electrodes placed late this afternoon. [address] and situation able to re-orient patient. Bed/chair alarm in place. Per family patient does have intermittent confusion. This note was completed by: Carissa Raines RN CASE MANAGEM Observed: 12/01/2017 Status: COMPLETED Source: [facility] 4:31 PM [facility] OTHER CAMPUS REPOSITORY [facility] ID: [id number] Author: Cyndie (Rn) CHICHO Maria Service: Care Management Author Type: Registered Nurse Type: Care Mgt Progress Note Filed: 12/01/2017 4:34 PM Note Text: CARE MANAGEMENT PROGRESS NOTE SERVICE DATE: 12/01/2017 SERVICE TIME: 1:30PM LOS: 1 day FREEDOM OF CHOICE GIVEN: Yes patient Financial Disclosure Provided The patient and/or family has been given the Provider List: Yes Provider List: Home Care Preference: [facility] Ne[facility] Prior to Discharge: Home Care Order OT recommends home therapy. Patient agrees and referral sent to first choice. Patient's PCP in [place] is Dr. Pinky Quinn. SIGNATURE: Cyndie Maria RN,BSN PATIENT NAME: Viviana Flores DATE: December 01, 2017 TIME: 4:31 PM PAGER/CONTACT #: [phone] MRI BRAIN WO IVCON Observed: 12/01/2017 Status: F Source: [facility] 3:50 PM [facility] OTHER CAMPUS REPOSITORY * * *Final Report* * * DATE OF EXAM: Dec 01 2017 3:50PM [facility] 0294 - MRI BRAIN WO IVCON / PROCEDURE REASON: Confusion, acute, unexplained * * * * Physician Interpretation * * * * EXAMINATION: MRI BRAIN WO IVCON CLINICAL HISTORY: Confusion, acute, unexplained TECHNIQUE: Routine noncontrast MRI protocol including diffusion images. MQ: [id number] COMPARISON: Brain attack CT yesterday 11/30/2017, with concern for infarction right internal capsule. Also CTA head and neck 11/30/2017, brain MRI 09/22/2012 RESULT: Acute Change: There is no evidence of restricted diffusion to suggest an acute infarct. Hemorrhage: No evidence of prior parenchymal hemorrhage on the gradient echo images. Mass Lesion/ Mass Effect: No evidence of an intracranial mass or extra-axial fluid collection. No significant mass effect. Chronic Change: Scattered patchy and confluent areas of increased T2 and FLAIR signal are present in the supratentorial white matter which is nonspecific but likely represents chronic microvascular ischemia, grossly unchanged since 2012. Parenchyma: No significant volume loss for age. The brain parenchyma is otherwise within normal limits of signal intensity and morphology. Ventricles: Normal caliber and morphology. Skull Base: Redemonstrated are remote postsurgical changes of a right mastoidectomy, unchanged since 2012. Hypothalamic and pituitary region are grossly normal. Craniocervical junction is normal. No significant marrow replacement process. Vasculature: Major intracranial arterial structures, and dural venous sinuses show typical flow void, suggesting patency by spin echo criteria. Other: The visualized paranasal sinuses and mastoid air cells are clear. The orbits and extracranial soft tissues are unremarkable. IMPRESSION: 1. No acute intracranial process 2. Grossly stable moderate nonspecific White matter change 3. Stable right mastoidectomy Heeler Machine: [facility] Transcribe Date/Time: Dec 01 2017 4:05P Dictated by : ANDREI MCCORD MD This examination was interpreted and the report reviewed and electronically signed by: ANDREI MCCORD MD on Dec 01 2017 4:11PM EST [id number] [id number] HEALTH Observed: 12/01/2017 Status: COMPLETED Source: [facility] 3:46 PM CLINIC OTHER CAMPUS REPOSITORY [facility] ID: [id number] Author: Jessica Arenas (Rt) Service: Radiology Author Type: Jewel Gauger Type: Allied Health Filed: 12/01/2017 3:47 PM Note Text: Radiology Service Progress Note PATIENT NAME: Viviana Flores DATE OF SERVICE: December 01, 2017 TIME: 3:46 PM PATIENT IDENTITY VERIFICATION COMPLETED USING TWO (2) METHODS: Patient confirmed name verbally and ID band matches.. PATIENT GENDER DATA: Female. status: : No status: NO. PATIENT RELEVANT IMPLANT DATA REVIEWED: Yes RADIOLOGY DEPARTMENT: MR; Exam(s) Completed: Head: Routine Brain PERIPHERAL IV DATA: Not applicable SIGNED BY: RT Deepa December 01, 2017 3:46 PM THERAPY NT Observed: 12/01/2017 Status: COMPLETED Source: [facility] 3:35 PM CLINIC OTHER CAMPUS REPOSITORY [facility] ID: [id number] Author: Jose Antonio (Pt) Holly Service: Physical Therapy Author Type: Physical Therapist Type: Therapy (PT/OT/Speech/Resp) Filed: 12/01/2017 3:39 PM Note Text: Physical Therapy Evaluation SERVICE DATE: 12/01/2017 SERVICE TIME: 1450 to 1505 ROOM: [place] [address] ([facility] MRI 2) Recommended Discharge Disposition: Home PT Anticipated Discharge Needs: Supervision at Home Physical Assist at Home for: Cleaning;Laundry;Meals;Medication Management;Safety;Shopping;Transportation Supervision at Home due to: Decreased safety awareness Recommended Discharge Equipment: Wheeled Walker PT Recommendations to Nursing: Ambulate with device Device: Wheeled Walker PT 6 Clicks Score: 20 Precautions/Activity Restrictions: Fall Risk;Lines/Tubes/Drains ASSESSMENT : 77 yo patient admitted to the hospital for increased confusion. Patient's pertinent PMHx includes HTN,hyperkalemia. Patient's impairments as related to PT include decreased strength/endurance, impaired balance, functional mobility and self care performance. Patient may benefit from Home PT in order to continue to progress functional mobility and ADL skills. Patient has adequate support and social structure for reasonably safe discharge home at current level. . Patient Disposition at Start of Session: Supine in Bed Patient Disposition at End of Session: Supine in Bed Tolerated Full Session Physical Therapy Problem List: Safety Deficits;Impaired Self Care;Decreased Activity Tolerance;Functional Mobility Impairment;Balance Impaired Patient /Caregiver Goals: Go Home Goals for Plan of Care: Able to perform HEP with: Independent Ambulate with: Modified Independent Distance: 200 Device: Wheeled Walker Ambulate up and down steps with: Modified Independent Number of steps: 10 Device: Rail Progress Toward Goals: Progressing as expected Rehab Potential: Fair PLAN: Treatment Frequency (times per week): 2 Current admission Treatment Interventions: Energy Conservation Training;Strengthening;Functional Mobility Training;Balance Training;Neuromuscular Re-education;Education Plan of Care developed with: Patient;Family TREATMENT INTERVENTIONS: Therapy Diagnosis: Reduced mobility-other;Decreased activities of daily living (ADL);Muscle Weakness (generalized);Unsteadiness on feet Interventions Provided: Evaluation $ Evaluation-Low (50756) Billed Units: 1 unit -pt exercises interrupted by transporter for MRI Total Treatment Time (minutes): 15 FUNCTIONAL G CODE: PT 6 Clicks Score: 20 (12/01/17 1450) Mobility: Walking and Moving Around Current Status (G8978): CJ (12/01/17 1450) Mobility: Walking and Moving Around Goal Status (G8979): CJ (12/01/17 1450) Based on clinical assessment and the score on the 6 Clicks Functional Assessment Tool, the G code and corresponding severity modifiers are documented above. 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 Entry To Home: Stairs;With Rail (has med alert device; son and neighbors come daily) Number Of Stairs Into Home: 10 Number Of Stairs To Bed/Bath: 0 Tub/Shower Type: tub shower Laundry: first floor Equipment Owned: Cane;Commode-Raised;Wheeled Walker;Shower Chair Prior Functional Level: Required Assistance Assistance Required With: Cleaning;Meals;Medication Management;Safety;Shopping;Transportation Prior Functional Level Comments: Pt was indep with self care OBJECTIVE: Mini Cog Score: 0 (12/01/17 4313) CURRENT FUNCTIONAL STATUS: Current Functional Mobility Assist Level Additional Information Rolling Supervision Supine to Sit Supervision Sit to Supine Supervision Scooting Supervision Sit to Stand Supervision Stand to Sit Supervision Bed to Chair Toilet/Commode Gait Contact Guard Assistance Gait Device: None Gait Distance (feet): 120 Stairs Curb Step Car Transfer General Gait Deviations: Lateral sway increased;Narrow Base of Support;Step length decreased Balance: Dynamic Standing Dynamic Standing Balance: Contact Guard Assistance Activity Tolerance: Standing Activity Standing Activity: amb Standing Activity Tolerance (in minutes): 5 Please see discipline specific clinical documentation flowsheet for complete details for this therapy evaluation/treatment. SIGNATURE: Jose Antonio Barrera PT PATIENT NAME: Viviana Flores DATE: December 01, 2017 TIME: 3:35 PM THERAPY NT Observed: 12/01/2017 Status: COMPLETED Source: [facility] 2:33 PM CLINIC OTHER CAMPUS REPOSITORY HNO ID: [id number] Author: Genevieve (Ot) DOUGLAS Moscoso Service: Occupational Therapy Author Type: Occupational Therapist Type: Therapy (PT/OT/Speech/Resp) Filed: 12/01/2017 2:36 PM Note Text: Occupational Therapy Evaluation SERVICE DATE: 12/01/2017 SERVICE TIME: 1357 to 1420 ROOM: [place] [address] Recommended Discharge Disposition: Home OT Recommended Discharge Disposition Comments: Home safety assessment Anticipated Discharge Needs: Physical Assist at Home;Supervision at Home Physical Assist at Home for: Cleaning;Laundry;Meals;Medication Management;Safety;Shopping;Transportation Supervision at Home due to: Impaired cognition OT Recommendations to Nursing: Passive lift to/from the chair OT 6 Clicks Score: 23 Precautions/Activity Restrictions: Fall Risk ASSESSMENT: 77 yo patient admitted to the hospital for TIA. Patient's impairments as related to Occupational Therapy include impaired balance, functional mobility and impaired cognition which could affect safety and independence with self care performance. Patient may benefit from Home OT in order to continue to progress functional mobility and ADL skills. Patient has adequate support and social structure for reasonably safe discharge home at current level. Patient Disposition at Start of Session: Supine in Bed;Family Present;Bed Alarm Patient Disposition at End of Session: OOB in Chair;Family Present Tolerated Full Session Occupational Therapy Problem List: Cognitive Deficit;Safety Deficits;Impaired Self Care;Functional Mobility Impairment Patient /Caregiver Goals: Go Home Goals for Plan of Care: Upper Body Dressing with: Modified Independent Lower Body Bathing with: Modified Independent Lower Body Dressing with: Modified Independent Toilet Hygiene with: Modified Independent Toilet Transfer with: Modified Independent Demonstrate Competence With Education with: Independent Progress Toward Goals: Progressing as expected Rehab Potential: Good PLAN: Treatment Frequency (times per week): 1 Current admission Treatment Interventions: Education;Self Care / Home Management;Functional Mobility Training;Balance Training Plan of Care developed with: Patient;Caregiver TREATMENT INTERVENTIONS: Therapy Diagnosis: Reduced mobility-other;Decreased activities of daily living (ADL) Interventions Provided: Evaluation;Therapeutic Activity (31301) $ Evaluation-Low (92436) Billed Units: 1 unit Therapeutic Activity (44213) Treatment Minutes: 8 1 unit Skilled Intervention(s): Instruction in sit to stand technique with proper hand placement and body positioning at edge of bed/chair Instruction in stand to sit technique with lower extremities touching chair/bed and reaching back for surface Education with safety recommendations for ambulation at home: using walker initially; slowing down movements, keeping pathways clear. Total Timed Code Treatment Minutes: 8 Total Treatment Time (minutes): 23 FUNCTIONAL G CODE: OT 6 Clicks Score: 23 (12/01/17 8829) Self Care Current Status (G8987): CI (12/01/17 276) Self Care Goal Status (G8988): CH (12/01/17 578) Based on clinical assessment and the score on the 6 Clicks Functional Assessment Tool, the G code and corresponding severity modifiers are documented above. SUBJECTIVE: Current Hospital Course: Chart reviewed; see below Reason for Occupational Therapy Consult: safety assessmwnt Relevant Past Medical History: TIA; OA; asthma and early onset dementia per dtr in laws report Patient Report: I feel good. Home Environment Patient Lives With: Self/Alone Assistance Available: time analysis clerk Entry To Home: Stairs;With Rail (has ZAPR alert device; son and neighbors come daily) Number Of Stairs Into Home: 10 Number Of Stairs To Bed/Bath: 0 Tub/Shower Type: tub shower Laundry: first floor Equipment Owned: Cane;Commode-Raised;Wheeled Walker;Shower Chair Prior Functional Level: Required Assistance Assistance Required With: Cleaning;Meals;Medication Management;Safety;Shopping;Transportation Prior Functional Level Comments: Pt was indep with self care OBJECTIVE: Orientation Deficits: Other: See Comment (pone episode of disorientation to place; redirected) Follows Commands: 1-step Commands;2-step Commands Memory Deficits: Short Term;Combat Information Center Officer Mini Cog Score: 0 (12/01/17 345) CURRENT FUNCTIONAL STATUS: Current Activities of Daily Living Assist Level Feeding Independent Grooming Independent Bathing Upper Body Independent Bathing Lower Body Set Up Dressing Upper Body Independent Dressing Lower Body Supervision Toileting Supervision Instrumental Activities of Daily Living Assist Level Meal/Beverage Prep Light Cleaning Laundry Medication Management with Strategies Functional Mobility Assist Level Rolling Supine to Sit Independent Sit to Supine Independent Scooting Sit to Stand Supervision Stand to Sit Supervision Bed to Chair Toilet/Commode Supervision Functional Mobility Balance: Static Standing;Dynamic Standing Static Standing Balance: Independent Dynamic Standing Balance: Stand By Assistance Please see discipline specific clinical documentation flowsheet for complete details for this therapy evaluation/treatment. SIGNATURE: Genevieve Moscoso OTR/L PATIENT NAME: Viviana Flores DATE: December 01, 2017 TIME: 2:33 PM CONSULT Observed: 12/01/2017 Status: COMPLETED Source: [facility] 2:29 PM CLINIC OTHER CAMPUS REPOSITORY HNO ID: [id number] Author: Kiya Madison Service: Neurology Author Type: Physician Type: Consults Filed: 12/01/2017 2:45 PM Note Text: [facility] Neurology Consult Note Admitting Provider/Consulted by:Rubia Licea Time of Note:12/01/2017 Patient Name:Viviana Flores Admit Date:11/30/2017 Hospital Day:1 CC: Episodes of Confusion History of Present Illness: Viviana Flores is a 77 year old right handed female with a past medical history of hypertension, depression presented with spells of confusion and speech disturbances. History was provided by the patient as well as her family at bedside. Per family, patient has been having episodes of speech disturbances and confusion quite frequently in the past a year. Patient has slow but progressive memory decline in the past a few years but still living alone. Family has her neighbors came in to check on her and help her every day. Yesterday she was talking with her family, she said something apparently inappropriate for the conversation which surprised her family and for which she was brought to the ER. It last for a few minutes. Her family said this has been occurring quite frequently in the past year including this morning. She Is asking for her purse despite that family has explained to her. Patient doesn't recall of these events but if she feels embarrassed with family described to her what happened. Family do not observe any seizure-like activities, staring, loss of consciousness, urinary incontinence or tongue biting. She did not have trouble walking during these spells. She denied focal weakness or numbness. patient's mother has Alzheimer's disease. Patient herself was not diagnosed right her cognition has been declining over time.. REVIEW OF SYSTEMS: GENERAL: Normal sleep, appetite and activity, No fevers. HEENT: Negative for headaches, No problems with hearing or vision, no nose bleeds or other nasal problems NECK: Negative for stiffness, lumps or significant neck swelling RESPIRATORY: Negative for cough, wheezing or respiratory distress CARDIOVASCULAR: Negative for chest pain, syncope, lightheadness or heart racing GI: No nausea, vomiting, or diarrhea : No history of dysuria, frequency or incontinence MUSCULOSKELETAL: Negative for joint pain or swelling, back pain or muscle pain SKIN: Negative for lesions, rash, and itching Depression or other psychiatric disease: yes NEURO: See HPI Prior to Admission medications : Medication metoprolol succinate ER (TOPROL XL) 50 mg 24 hr tablet, Sig Take 50 mg by mouth once daily., Start Date , End Date , Taking? Yes, Authorizing Provider [facility] Provider Medication DULoxetine (CYMBALTA) 30 mg capsule, Sig Take 30 mg by mouth once daily., Start Date , End Date , Taking? Yes, Authorizing Provider [facility] Provider Medication gabapentin (NEURONTIN) 100 mg capsule, Sig Take 100 mg by mouth once daily., Start Date , End Date , Taking? Yes, Authorizing Provider [facility] Provider Medication lovastatin (MEVACOR) 10 mg tablet, Sig Take 10 mg by mouth daily at bedtime., Start Date , End Date , Taking? Yes, Authorizing Provider [facility] Provider Medication oxybutynin XL (DITROPAN XL) 5 mg 24 hr tablet, Sig Take by mouth., Start Date 08/26/09, End Date , Taking? Yes, Authorizing Provider Rajinder Villareal Medication buPROPion SR (WELLBUTRIN SR) 150 mg ORAL 12 hr tablet, Sig Take 1 tablet by mouth once daily., Start Date 08/07/11, End Date , Taking? Yes, Authorizing Provider May Vides Current Inpatient Medications: Scheduled meds: Current Facility-Administered Medications: perflutren lipid microspheres 1.1 mg/mL 1.3 mL injection (DEFINITY) 1.3 mL INTRAVENOUS PRN(NO DISPENSE) Shumei Man iv contrast (radiology procedure) INTRAVENOUS DIRECTED PRN Trenton Engel (Pa-C) Dolenc simvastatin 5 mg tab(s) (ZOCOR) 5 mg ORAL AT BEDTIME Fatoumataanthony Alcantar MD 5 mg at 12/01/17 0815 ukzyvvu-zirvwbedv-wxsqdys D3 500 mg(1,250mg) -200 unit 0.5 tablet 0.5 tablet ORAL DAILY Fatoumata Alcantar MD 0.5 tablet at 12/01/17 0817 buPROPion SR 150 mg tab(s) (ZYBAN SR; WELLBUTRIN SR) 150 mg ORAL DAILY Fatoumata Alcantar MD 150 mg at 12/01/17 0815 oxybutynin XL 5 mg tab(s) (DITROPAN XL) 5 mg ORAL DAILY Fatoumataanthony Alcantar MD 5 mg at 12/01/17813 aspirin 325 mg tab(s) 325 mg ORAL/FEEDING TUBE DAILY Fatoumata Alcantar MD 325 mg at 12/01/17813 Or aspirin 300 mg suppository 300 mg RECTAL DAILY Fatoumata Alcantar MD labetalol 10 mg injection (NORMODYNE) 10 mg INTRAVENOUS q 10 MIN PRN Fatoumata Alcantar MD acetaminophen 650 mg tab(s) (TYLENOL) 650 mg ORAL/FEEDING TUBE q 4 H PRN Fatoumata Alcantar MD bisacodyl EC 10 mg tab(s) (DULCOLAX) 10 mg ORAL PRN Fatoumata Alcantar MD gabapentin 100 mg cap(s) (NEURONTIN) 100 mg ORAL DAILY Cyndie (Matrix Supervisor) Shamhart 100 mg at 12/01/17814 DULoxetine 30 mg cap(s) (CYMBALTA) 30 mg ORAL DAILY Cyndie (Matrix Supervisor) Shamhart 30 mg at 12/01/17814 PAST MEDICAL HISTORY Diagnosis Date - Abdominal pain, right upper quadrant - Acute gastritis without mention of hemorrhage - Asthma - Back pain - Benign neoplasm of colon - Blood in stool - Chest pain, unspecified - Chest pain, unspecified - Cramp of limb - Depression - Diarrhea - Essential hypertension, benign - Generalized osteoarthrosis, unspecified site - Headache(784.0) - Hemorrhage of gastrointestinal tract, unspecified - Hemorrhage of rectum and anus - Osteoarthrosis, unspecified whether generalized or localized, other specified sites - PMH - PAST MEDICAL HISTORY OF 04/14/07 broken left ankle - Pure hypercholesterolemia - Retinal hemorrhage of right eye - Stroke (HCC) 11/30/2017 - Ulcerative colitis, unspecified - Unspecified adjustment reaction PAST SURGICAL HISTORY Procedure Laterality Date - CARPAL TUNNEL RIGHT WRIST - COLONOSCOP W/ OR W/O [facility] SPEC 03/08/2002 Colonoscopy - COLONOSCOPY W/BX 07/20/06 - EGD W/O BRS SPECIMEN W/BX 05/31/09 - LIGATE FALLOPIAN TUBE - PAST SURGICAL HISTORY OF 1997 right ear canal - SIGMOIDOSCOPY FLEX DIAG 06/01/07 - VAGINAL HYSTERECTOMY Social History Marital status: Spouse name: Years of education: Number of children: 2 Occupational History Occupation Employer [employer] Social History Main Topics Smoking status: Never Smoker Smokeless tobacco: Never Used Alcohol use: No Drug use: No Sexual activity: No FAMILY HISTORY Problem Relation Age of Onset - Heart Father of heart attack/diabetic - Heart Brother diabetic - Heart Brother diabetic - None Mother ALLERGIES No Known Allergies PHYSICAL EXAM: BP 137/71 Pulse 64 Temp 37.4 ?C (99.3 ?F) (Temporal Artery) Resp 16 Ht 152.4 cm (5') Wt 60.2 kg (132 lb 11.5 oz) SpO2 96% BMI 25.92 kg/m? General Appearance: Well appearing, alert, in no acute distress, well-hydrated, well nourished. Skin: Skin color, texture, turgor normal, no suspicious rashes or lesions Head: Normocephalic, no masses, lesions, tenderness or abnormalities Ears: External ears normal, canals clear Nose/Sinuses: Nares normal, septum midline, mucosa normal, no drainage or sinus tenderness Oropharynx: Lips, mucosa, and tongue normal, teeth and gums normal, oropharynx normal Neck: Supple, no adenopathy; thyroid symmetric, normal size, no bruits Lhermitte's Phenomenon: Negative Lungs: Lungs clear to auscultation. No wheezing, rhonchi, rales Heart: RRR without murmur, gallop, or rubs. No ectopy Carotid Auscultation: Without bruits Abdomen: Normal abdominal exam, Abdomen soft, non-tender. Bowel sounds normal. No masses, organomegaly Extremities: No deformities, edema, skin discoloration, clubbing or cyanosis. Good capillary refill. Musculoskeletal: No joint swelling, deformity, or tenderness Peripheral Pulses: Normal Neurological: ? Mental Status: Alert, with normal speech and language. Attention and concentration appeared normal. Oriented x 3. Cranial Nerves: CNII: Visual acuity normal, Visual velarde full to confrontation, Pupils OD 2-3mm, OS 2-3mm, equal, round and reactive to light, No APD noted on exam CNIII, IV, : full extraoccular movements, without nystagmus CN V: Facial sensation intact bilaterally to fine touch and pinprick, masseter 5/5 CN VII: Facial muscles symmetric and strong, No noted facial droop CN VIII: Hears finger rub well bilaterally CN IX: Gag Reflex Not examined CN X: Palate elevates symmetrically CN XI: Full strength shoulder shrug bilaterally CN XII: Tongue protrusion full and midline ? Non-Dilated Fundiscopic Examination: Disc sharp bilaterally, no papilledema ? ? Motor Exam: Tone - Normal Bulk - no muscle atrophy Muscle strength medical research [place] scale MUSCLES Upper Extremity RIGHT LEFT Deltoid 5 5 Biceps 5 5 Triceps 5 5 Wrist Extension 5 5 Wrist Flexion 5 5 Finger Flexion 5 5 Finger Extension 5 5 MUSCLES Lower Extremity RIGHT LEFT Hip Flexion 5 5 Hip Extension 5 5 BiFem (Knee Flex) 5 5 Quads (Knee Ext) 5 5 Gastroc (Plantflx) 5 5 TibAnt (Dorsiflx) 5 5 ? Reflexes Right Left Bicep 2/ 2/ Tricep 2/ 2/4 BrRad 2/ 2/4 Knee 2/ 2/4 Ankle / 2/4 Clonus 0beats 0beats Plantar Response Downward response Downward response ? Complex motor and coordination: No resting, postural or action tremor. No asterixis. Finger-to- nose-finger intact bilaterally Zdiu-ku-yevo intact bilaterally. Rapid Alternating Movements: Normal bilaterally ? Sensory: Intact light touch/pin prick/ temperature/proprioception/vibration in upper and lower extremities bilaterally. Double simultaneous stimulation, graphesthesia and stereognosis intact. ? Gait: Normal base, stride, arm swing. 1 step to turn. Normal heel, toe and tandem gait. Rhomberg test negative, Pull Test negative. DATA: Diagnostic tests reviewed for today's visit, films/specimens were personally reviewed and interpreted by me: LABS: Lab Results Component Value Date PLT 270 12/01/2017 HB 12.8 12/01/2017 HCT 39.6 12/01/2017 ALB 3.7 12/01/2017 CA 9.2 12/01/2017 TBILI 0.8 12/01/2017 ALKPHOS 69 12/01/2017 AST 15 12/01/2017 GLUC 97 12/01/2017 BUN 7 12/01/2017 NA 142 12/01/2017 K 5.0 12/01/2017 CHLOR 106 12/01/2017 CO2 25 12/01/2017 ANION 11 12/01/2017 ALT 8 12/01/2017 WSR (mm/hr) Date Value 02/19/2012 19 CRP (mg/dL) Date Value 01/16/2013 0.5 No results found for: USCRP Cholesterol, Total (mg/dL) Date Value 12/01/2017 174 01/16/2013 229 09/29/2012 189 LDL Cholesterol (mg/dL) Date Value 01/16/2013 160 09/29/2012 120 HDL Cholesterol (mg/dL) Date Value 01/16/2013 46 09/29/2012 47 Triglyceride (mg/dL) Date Value 12/01/2017 71 01/16/2013 117 09/29/2012 110 No results found for: HBA1C IMAGING: Ct Brain Attack Wo Ivcon Result Date: 11/30/2017 IMPRESSION: 1. Interval progression of chronic senescent changes. 2. Concerning for acute/subacute right anterior limb internal capsule nonhemorrhagic lacunar infarct. 3. No transcortical infarct or intracranial hemorrhage. CRITICAL TEST/RESULTS: Notification initiated at 3:[address] Emelia MD on 11/30/2017 at 3:25 PM. CR_1 Heeler Machine: [facility] Transcribe Date/Time: Nov 30 2017 3:26P Dictated by : BILLY MINER MD This examination was interpreted and the report reviewed and electronically signed by: BILLY MINER MD on Nov 30 2017 3:30PM EST Cta Head Wo/w Ivcon Result Date: 11/30/2017 IMPRESSION: No evidence of arterial occlusion or significant stenosis in the head or neck. Heeler Machine: [facility] Transcribe Date/Time: Nov 30 2017 3:37P Dictated by : ALLI HERNANDEZ MD This examination was interpreted and the report reviewed and electronically signed by: ALLI HERNANDEZ MD on Nov 30 2017 3:41PM EST Cta Neck W Ivcon Result Date: 11/30/2017 IMPRESSION: No evidence of arterial occlusion or significant stenosis in the head or neck. Heeler Machine: [facility] Transcribe Date/Time: Nov 30 2017 3:37P Dictated by : ALLI HERNANDEZ MD This examination was interpreted and the report reviewed and electronically signed by: ALLI HERNANDEZ MD on Nov 30 2017 3:41PM EST Assessment Viviana Flores is a 77 year old right handed female with a past medical history of hypertension, depression presented with spells of spells of confusion and speech disturbances. --spells of confusion and speech disturbances: This occurs in the elderly who has been having memory and cognitive decline, depression, now multiple medications for her depression. I suspect that this is multifactorial: Underlying dementia, medication that may have REFRACTORY TECHNICIAN suppression effect such as Wellbutrin, Cymbalta, and Neurontin. We'll do continuous EEG to capture one of these spells to rule out seizures. Wellbutrin may trigger seizures. Plan: 1. MRI brain 2. Check a vitamin B1 and B12 level 3. Continuous EEG 4. Recommend primary team and PCP to reduce medications that may cause altered mental status or trigger seizures 5. PT/OT/and cognitive evaluation Thank you for allowing us to participate in this patient's care. To contact neurology consult service, please feel free to page [phone]. SIGNATURE: Kiya Madison MD PATIENT NAME: Viviana Flores DATE: December 01, 2017 TIME: 2:29 PM PAGER/CONTACT #: [id number] VITAMIN B12 Collected: 12/01/2017 Status: F Source: [facility] 2:18 PM CLINIC OTHER CAMPUS REPOSITORY TYPE CODE TESTS RESULT OUT OF REFERENCE UNITS RANGE LAB B12 232-1245 pg/mL Vitamin B12 570 Performed By: #### B12 #### [facility] [address] [address] #### PVITB1 #### [facility] [address] [place] [id number] [phone] VITAMIN B1, PLASMA Collected: 12/01/2017 Status: F Source: [facility] 2:18 PM [facility] OTHER [facility] REPOSITORY TYPE CODE TESTS RESULT OUT OF REFERENCE UNITS RANGE LAB B1PLS 4-15 nmol/L Vitamin B1, 6 plasma Result Comment: (NOTE) INTERPRETIVE DATA: Vitamin B1, Plasma Thiamine (vitamin B1) is reported. However, thiamine diphosphate (TDP), the biologically active form of thiamine, is not found in measurable concentrations in plasma, and is best determined in whole blood specimens. Plasma thiamine concentration reflects recent intake rather than body stores. Test developed and characteristics determined by [facility]. See Compliance Statement B: [facility] Performed by [facility], [address] [place] [id number] [email or web address], Brent Cornejo MD, Lab. Director Performed By: #### B12 #### [facility] [address] [place], [place] [address] #### PVITB1 #### [facility] [address] [place] [address] [phone] CASE MGT INIT Observed: 12/01/2017 Status: COMPLETED [facility] HNO ID: [id number] Author: Cyndie (Rn) CHICHO Maria Service: Care Management Author Type: Registered Nurse Type: Care Mgt Initial Assessment Filed: 12/01/2017 1:46 PM Note Text: CARE MANAGEMENT: ASSESSMENT AND DISCHARGE PLAN SERVICE DATE: 12/01/2017 SERVICE TIME: 11:30AM PRIMARY CARE PHYSICIAN: Pinky Quinn MD ADMISSION STATUS: Inpatient Needs Prior to Discharge: None 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 Health Issues Impacting Discharge Plan: Newly diagnosed lacunar infarct Last Admission Date: Previous admit date: 02/22/2009 Is this Within the Past 30 days? No Advance Directive:no Health Literacy: 1. How often do you need to have someone help you when you read instructions, pamphlets, or other written material from your doctor or pharmacy? Sometimes - 3 2. How confident are you filling out medical forms by yourself? A little bit - 4 If Patient scores > 3 on either question, the following interventions were put into place: Use of plain language and active listening with Patient and family, Teach back methods employed to ensure comprehension, Sit with Patient and Gave Patient the opportunity to ask questions FUNCTIONAL AND COGNITIVE/BEHAVIORAL PRIOR TO ADMISSION: Baseline Mental Status: Alert AND Oriented, Person, Place , Time and Situation Functional Status: Needs Assistance Does Patient Currently Receive Any Community Services or Home Care? None house cleaning 2x weekly for 3 hours Equipment Prior to Admission: Tub bench/chair Has the Patient Been in a [facility] Facility in the Past 30 days? No SOCIAL: Living Arrangement: Home Lives With: Alone Financial Resources: Retired Primary Contact: Extended Emergency Contact Information Primary Emergency Contact: Greg Flores Mobile Relation: Son Secondary Emergency Contact: Munir Flores Relation: Son Supportive: Yes Other Important Patient Contacts: None Caregiver Assessment: Caregiver is ready, willing and able to meet the patient's needs as recommended by the inter-professional team? Yes Patient's transition needs and plan for meeting these needs: follow appt with PCP Does the patient have an acute stroke diagnosis, or has the patient had a stroke during this admission? Yes Medication Adherence: I am convinced of the importance of my prescription medication: Agree completely - 0 I worry that my prescription medication will do more harm than good to me Disagree completely - 0 I feel financially burdened by my [id number] expenses for my prescription medication: Disagree completely - 0 Patient is categorized as low risk < 2 Are you interested in bedside delivery of your medications? No Food Concerns: In the Last Month, Have You had Trouble Getting Food? No trouble getting food During the Last Month, Have You Worried Whether Your Food Would Run Out Before You Had Enough Money to Buy More? No Is the Patient Psychosocially Complex? No ASSESSMENT AND PLAN: Medical Needs: 2 or more chronic diseases asthma, HTN, GI hemorrhage OA Psychosocial Needs: None FREEDOM OF CHOICE EXPLAINED: N/A POTENTIAL TRANSITION PLANS Home TCC met with patient at bedside, pleasant alert and oriented x3. Presented to ER accompanied with family who stated patient was acting confused and having inappropriate speech. CT shows lacunar infarct. Patient reports her confusion has resolved. She states she is ready to go home. She lives alone in her own home in [place] near [place], [place]. She states she is independent with her IADL's and relies on her crop puller 2x a week for 3 hours to assist with cleaning and meals. Both of her sons live within a mile from her home and they assist with transportation to shopping and medical appt.'s. Her son, Greg entered the room at the end of my interview and he said his , Maddie will remember the patient's PCP's name in [place]. Patient feels she is safe at home. She does not have an assistive device and feels she ambulates steady and denies falls. She has grab bars in her home. She wants to return home and declines any need for therapy or services at this time. TCC will continue to follow as needs arise. SIGNATURE: Cyndie Maria RN,BSN PATIENT NAME: Viivana Flores DATE: December 01, 2017 TIME: 1:30 PM PAGER/CONTACT #: [phone] HISTORY PHYSICAL Observed: 12/01/2017 Status: COMPLETED Source: [facility] 10:15 AM [facility] OTHER CAMPUS REPOSITORY HNO ID: [id number] Author: Rubia Licea Service: General Internal Medicine Author Type: Physician Type: HANDP Filed: 12/01/2017 10:20 AM Note Text: HANDP NOTE SERVICE DATE: 12/01/2017 SERVICE TIME: 10:16am Patient seen and examined, note dictated#[id number] Assessment 1. TIA/CVA 2. Confusion 3. h/o HTN 4. Hyperlipidemia Plan Neurology eval MRI PT/OT/speech eval SIGNATURE: Rubia Licea MD PATIENT NAME: Viviana Flores DATE: December 01, 2017 TIME: 10:15 AM PAGER: CBC AND DIFFERENTIAL Collected: 12/01/2017 Status: F Source: [facility] 6:53 AM [facility] OTHER CAMPUS REPOSITORY TYPE CODE TESTS RESULT OUT OF REFERENCE UNITS RANGE LAB WBC 3.70-11.00 k/uL WBC 6.23 LAB RBC 3.90-5.20 m/uL RBC 4.38 LAB HGB 11.5-15.5 g/dL Hemoglobin 12.8 LAB HCT 36.0-46.0 % Hematocrit 39.6 LAB MCV 80.0-100.0 fL MCV 90.4 LAB MCH 26.0-34.0 pG MCH 29.2 LAB MCHC 30.5-36.0 g/dL MCHC 32.3 LAB RDWCV 11.5-15.0 % RDW-CV 13.8 LAB PLTCT 150-400 k/uL Platelet Count 270 LAB MPV 9.0-12.7 fL MPV 9.5 LAB NEUTS % Neut% 53.9 LAB AANEUT 1.45-7.50 k/uL Abs Neut 3.36 LAB LYMPHS % Lymph% 35.5 LAB AALYMP 1.00-4.00 k/uL Abs Lymph 2.21 LAB MONOS % Yancey% 8.2 LAB AAMONO <0.87 k/uL Abs Yancey 0.51 LAB EOS % Eosin% 1.6 LAB AAEOS <0.46 k/uL Abs Eosin 0.10 LAB BASOS % Baso% 0.8 LAB AABASO <0.11 k/uL Abs Baso 0.05 LAB DTYP DTYPE Auto Diff Performed By: #### CBCDIF, CMP, MG1, TSH #### [place] [phone] #### HBA1C, LIPB #### [facility] [address] [id number] COMP METABOLIC PANEL Collected: 12/01/2017 Status: F Source: [facility] 6:53 AM [facility] OTHER CAMPUS REPOSITORY TYPE CODE TESTS RESULT OUT OF REFERENCE UNITS RANGE LAB TP 6.0-8.4 g/dL Protein, Total 6.9 LAB ALB 3.5-5.0 g/dL Albumin 3.7 LAB CA 8.5-10.5 mg/dL Calcium, Total 9.2 LAB TBIL 0.0-1.5 mg/dL Bilirubin, Total 0.8 LAB ALKP 40-150 U/L Alkaline Phosphatase 69 LAB AST 7-40 U/L AST 15 LAB GLU 65-100 mg/dL Glucose 97 LAB BUN 8-25 mg/dL Low BUN 7 LAB CRET 0.70-1.40 mg/dL Low Creatinine 0.56 LAB NA 132-148 mmol/L Sodium 142 LAB K 3.5-5.0 mmol/L Potassium 5.0 Result Comment: Reviewed LAB CL 98-110 mmol/L Chloride 106 LAB CO2 23-32 mmol/L CO2 25 LAB AGAP 9-18 mmol/L Anion Gap 11 LAB ALT 0-45 U/L ALT 8 LAB GFRAA >60 eGFR- >60 Amer. LAB GFRNAA >60 . eGFR-All Other Races >60 Performed By: #### CBCDIF, CMP, MG1, TSH #### [place] [address] #### HBA1C, LIPB #### [facility] [address] [id number] MAGNESIUM Collected: 12/01/2017 Status: F Source: [facility] 6:53 AM [facility] REPOSITORY TYPE CODE TESTS RESULT OUT OF REFERENCE UNITS RANGE LAB MG 1.7-2.6 mg/dL Magnesium 2.1 Performed By: #### CBCDIF, CMP, MG1, TSH #### [place] [phone] #### HBA1C, LIPB #### [place] [phone] TSH Collected: 12/01/2017 Status: F Source: [facility] 6:53 AM [facility] OTHER CAMPUS REPOSITORY TYPE CODE TESTS RESULT OUT OF RANGE REFERENCE UNITS LAB TSH 0.400-5.500 uU/mL TSH 1.460 Performed By: #### CBCDIF, CMP, MG1, TSH #### [place] [phone] #### HBA1C, LIPB #### [place] [phone] HEMOGLOBIN A1C Collected: 12/01/2017 Status: F Source: [facility] 6:53 AM [facility] REPOSITORY TYPE CODE TESTS RESULT OUT OF REFERENCE UNITS RANGE LAB HGBA1C 4.3-5.6 % High Hemoglobin A1c 5.7 LAB HBA0 mg/dL Est. Average Glucose 117 Result Comment: eAG: (Estimated average glucose) is a calculated value from HgbA1c and is real estate representative of the average blood glucose level in the last 2-3 month period. Performed By: #### CBCDIF, CMP, MG1, TSH #### [place] [phone] #### HBA1C, LIPB #### [place] [phone] LIPID PANEL, BASIC Collected: 12/01/2017 Status: F Source: [facility] 6:53 AM [facility] REPOSITORY TYPE CODE TESTS RESULT OUT OF REFERENCE UNITS RANGE LAB CHOL <200 mg/dL Cholesterol 174 Result Comment: <200 mg/dL, Desirable 200-239 mg/dL, Borderline high >239 mg/dL, High LAB TRIGLY <150 mg/dL Triglyceride 71 Result Comment: <150 mg/dL, Normal 150-199 mg/dL, Borderline high 200-499 mg/dL, High >499 mg/dL, Very high LAB HDL >39 mg/dL HDL-Cholesterol 53 Result Comment: 40-59 mg/dL, Acceptable >59 mg/dL, High: Negative risk factor for coronary heart disease <40 mg/dL, Low: Positive risk factor for coronary heart disease LAB LDL <100 mg/dL LDL-Cholesterol High 107 Result Comment: <100 mg/dL, Optimal 100-129 mg/dL, Near optimal/above optimal 130-159 mg/dL, Borderline high 160-189 mg/dL, High >189 mg/dL, Very high Secondary prevention optimal LDL Cholesterol levels are recommended to be < 70 mg/dL LAB NONHDL <130 mg/dL Non HDL Cholesterol 121 Result Comment: <130 mg/dL, Optimal 130-159 mg/dL, Near optimal/above optimal 160-189 mg/dL, Borderline high 190-219 mg/dL, High >219 mg/dL, Very high Secondary prevention optimal non HDL Cholesterol levels are recommended to be < 100 mg/dL LAB VLDL <30 mg/dL VLDL Cholesterol 14 LAB TCHDL <5.10 TC:HDL Ratio 3.28 LAB LDLHDL <2.54 LDL:HDL Ratio 2.02 Result Comment: Reference: 1. National Cholesterol Education Program ATP III Guideline At-A-Glance Quick Desk Reference: National Heart, Lung, and Blood [place]. National Institutes of Health. 2001: NIH Publication No. 01-3305. 2. An International Atherosclerosis Society position paper: global recommendations for the management of dyslipidemia: executive summary, Atherosclerosis. 2014: 232(2):410-413. Performed By: #### CBCDIF, CMP, MG1, TSH #### [place] [address] #### HBA1C, LIPB #### [facility] [address] [place], [place] [address] TROPONIN T Collected: 11/30/2017 Status: F Source: [facility] 8:57 PM [facility] OTHER CAMPUS REPOSITORY TYPE CODE TESTS RESULT OUT OF REFERENCE UNITS RANGE LAB TROPT 0.000-0.029 ng/mL Troponin T <0.010 Performed By: #### LAKEISHA #### [place] [address] PROGRESS Observed: 11/30/2017 Status: COMPLETED Source: [facility] 7:56 PM [facility] REPOSITORY HNO ID: [id number] Author: Ab Ren Service: (none) Author Type: Physician Type: Progress Notes Filed: 11/30/2017 8:02 PM Note Text: TELESTROKE DOCUMENTATION Name: Viviana Flores : 1940 Site: [facility] Dr. Gerardo Last Known Well (Date/Time): 11/30/17 1045 Neurologist Evaluation (Date/Time): 11/30/17 1530 Chief Complaint: Confusion HPI: 77 year old female,Noted by family to be confused, making nonsence words this morning at 10:45 AM. She is visiting her niece here in [place]. History of UTI w/ confusion. Family took her to urgent care to be assessed for UTI. She was then sent to the ED to be assessed for stroke Pertinent History ? Stroke Risk Factors Hypertension ? Current Anticoagulant Not Applicable Vitals BP: 140/72 HR: NIHSS Site Reported NIHSS: 1 (Missing 1 orientation questions) Neurologist Performed NIHSS Details Total Score: N/A LOC N/A LOC Questions N/A LOC Commands N/A Horizontal Gaze N/A Visual Velarde N/A Facial Palsy N/A Motor Left Arm N/A Motor Right Arm N/A Motor Left Leg N/A Motor Right Leg N/A Limb Ataxia N/A Sensory N/A Langauge N/A Dysarthria N/A Extinction/Neglect N/A Labs Glucose: [address] Imaging reviewed, NO acute infarct/hemorrhage seen on my review. Report: concerning for acute/subacute anterior limb internal capsule no hemorrhagic lacunar infarcts. CTA Imaging reviewed, NO large vessel occlusion or severe stenosis seen Summary Suspected TIA or non-disabling stroke - the risks of IV tPA outweigh the benefits of treatment Disposition Thank you for contacting the [facility]. I appreciate the opportunity for allowing me to participate in Viviana Flores's care. Please feel free to contact me and/or the [facility] at any time if you have any further questions or need additional assistance. Ab Ren MD November 30, 2017 7:56 PM NURSING PROG Observed: 11/30/2017 Status: COMPLETED Source: [facility] 7:42 PM [facility] OTHER [facility]AMP[facility] REPOSITORY HNO ID: [id number] Author: Otis KayRn) CHICHO Witt Service: Nursing Author Type: Registered Nurse Type: Nursing Progress Note Filed: 12/01/2017 1:52 AM Note Text: Nursing Progress Note Patient Name: Viviana Flores Patient Location: / Daily Note: 1940 Patient sitting up in bed eating dinner. Admitted for: Stroke History of: Asthma, Back pain, Depression, Osteoarthritis, Rectum/Anus hemorrhage, Retinal hemorrhage R eye, Ulcerative colitis Nursing Focus Today: Neuromonitoring ? Neuro- AO x 1-2 Speech - Clear and coherent Numbness, Tingling - Denies Mood - Pleasant but mildly anxious Headache? Denies Dizziness? Denies Skin- Edema - N/a Wounds - N/a Turns - Independent w/ turning Lungs - Clear, no spontaneous cough O2 - RA GI - Meds - Pills whole with water Feed - Independent with food and ordering Abdomen - Soft/nontender BM - No BM this admission thus far - Continent Musculoskeletal - Up with 1 assist and a walker Therapy - No orders Compression stockings - Applied Cardiac - SR On tele, denies CP Safety - Call light within reach, side rails up x 3, bed locked and low, bed alarm on. Precautions - Falls, Aspiration Pain - Denies Lines - 18 R AC, flushed AND patent IV meds - Normal Saline Telemetry - SR Labs and Tests - CT concerning for acute/subacute R anterior limb internal capsule nonhemorrhagic lacunar infarct. CBC, CMP, Lipid Panel, A1c, MG, TSH in AM. Code status: Full Code Discharge plan: TBD This note was completed by: Otis Witt RN NURSING PROG Observed: 11/30/2017 Status: COMPLETED Source: [facility] 7:33 PM [facility] OTHER [facility] REPOSITORY HNO ID: [id number] Author: Janet KayRn) CHICHO Kramer Service: (none) Author Type: Registered Nurse Type: Nursing Progress Note Filed: 11/30/2017 7:34 PM Note Text: Nursing Progress Note Patient Name: Viviana Flores Patient Location: / Transfer Note: Patient transferred into room/unit Pkt11 @ 1815 in stable condition. Actions taken: Pt assisted to bathroom, ua/ culture obtained. Pt is a/ox1-2. Medications updated with daughter in law, maddie who manages medications at home. Falls precautions in place, safety maintained. This note was completed by: Janet Kramer RN TROPONIN T Collected: 11/30/2017 Status: F Source: [facility] 6:58 PM [facility] REPOSITORY TYPE CODE TESTS RESULT OUT OF REFERENCE UNITS RANGE LAB TROPT 0.000-0.029 ng/mL Troponin T <0.010 Performed By: #### LAKEISHA #### [place] [address] URINALYSIS WITH Collected: 11/30/2017 Status: F Source: [facility] 6:45 PM CLINIC OTHER CAMPUS REPOSITORY TYPE CODE TESTS RESULT OUT OF RANGE REFERENCE UNITS LAB UCOL Yellow Color Abnormal Straw Alert LAB [facility] Clear Clarity Clear LAB UGLUC Negative mg/dL Glucose, Urine Negative LAB UBIL Negative Bilirubin, Urine Negative LAB UKET Negative Ketones, Abnormal Urine Trace Alert LAB USPG 1.005-1.030 Specific [place], Ur 1.030 LAB UHGB Negative Abnormal Hemoglobin/Blood, Small Alert Ur LAB UPH 5.0-8.0 pH 8.0 LAB UPROT Negative mg/dL Protein, Urine Negative LAB UUROB <2.0 Urobilinogen <2.0 LAB UNITR Negative Nitrites Negative LAB ULKEST Negative Leukest Abnormal Trace Alert LAB UCOM Comments SEE COMMENT Result Comment: Microscopic Examination Performed LAB UWBC Negative /HPF Abnormal WBC Alert 0-5 LAB URBC Negative /HPF Abnormal RBC Alert 0-5 LAB UBACT Negative /HPF Abnormal Bacteria Alert Rare LAB UEPI Negative /HPF Abnormal Alert Epithelial Cells SEE COMMENT Result Comment: Rare Squamous Epithelial Cells Performed By: #### UAWMIC #### [place] [id number] [place] [address] Observed: 11/30/2017 Status: F Source: [facility]INE CULT[facility] 6:45 PM [facility] REPOSITORY Sp. Request/Comment: - Specimen received in preservative Culture Result - <10,000 CFU/ml Lactose positive gram negative bacilli --> ABNORMAL ALERT Insignificant colony count. No further workup. --> ABNORMAL ALERT Performed By: #### URCUL #### [place] [address] [facility] [address] [place] [address] ED NOTE Observed: 11/30/2017 Status: COMPLETED Source: [facility] 5:15 PM [facility] REPOSITORY HNO ID: [id number] Author: Leonarda Lovell (Pharmacist) Service: Pharmacy Author Type: Pharmacist Type: ED Notes Filed: 11/30/2017 5:16 PM Note Text: Pharmacy Brain Attack Review PATIENT NAME: Viviana Flores SERVICE DATE: 11/30/2017 SERVICE TIME: 5:15 PM Pharmacy was notified of a Brain Attack on 11/30/2017 at 1509. I arrived to the ED and began reviewing Ms. Flores's history to determine the eligibility to receive thrombolytic therapy. The case was discussed with Dr. Gerardo. The time of last known well was 104 and the NIH Stroke Scale score was determined to be 1. Alteplase was not given due to duration since onset of symptoms. No additional recommendations at this time. Please call with any further issues or questions. Electronic Signature: Leonarda Lovell Pharmacist Pager/Extension: [phone] [facility] Observed: 11/30/2017 Status: COMPLETED Source: [facility] 3:48 PM [facility] REPOSITORY HNO ID: [id number] Author: Veronica (Rt) Jessica Schultz Service: Radiology Author Type: Jewel Gauger Type: Allied Health Filed: 11/30/2017 3:48 PM Note Text: Radiology Service Progress Note PATIENT NAME: Viviana Flores DATE OF SERVICE: November 30, 2017 TIME: 3:48 PM PATIENT IDENTITY VERIFICATION COMPLETED USING TWO (2) METHODS: Patient confirmed name verbally and ID band matches.. PATIENT GENDER DATA: Female. status: : No status: N/A PATIENT RELEVANT IMPLANT DATA REVIEWED: Not Applicable RADIOLOGY DEPARTMENT: General X-ray: Exam(s) Completed: Chest X-Ray PERIPHERAL IV DATA: Not applicable SIGNED BY: RT Charleen November 30, 2017 3:48 PM XR CHEST 1V FRONTAL Observed: 11/30/2017 Status: F Source: [facility] 3:46 PM [facility] REPOSITORY * * *Final Report* * * DATE OF EXAM: Nov 30 2017 3:46PM FVX [id number] - XR CHEST 1V FRONTAL PORT / PROCEDURE REASON: Fatigue and malaise * * * * Physician Interpretation * * * * EXAMINATION: CHEST RADIOGRAPH (PORTABLE SINGLE VIEW AP) Exam Date/Time: 11/30/2017 3:46 PM Clinical History: Fatigue and malaise MQ: XCPR_5 Comparison: None RESULT: Lines, tubes, and devices: None. Lungs and pleura: Mild hyperinflation. No acute process Cardiomediastinal silhouette: Normal Other: . IMPRESSION: MILD HYPERINFLATION, NO ACUTE PROCESS Heeler Machine: MARCO Transcribe Date/Time: Nov 30 2017 3:54P Dictated by : DAYNE CARO MD This examination was interpreted and the report reviewed and electronically signed by: DAYNE CARO MD on Nov 30 2017 3:55PM EST [id number] ED NOTE Observed: 11/30/2017 Status: COMPLETED Source: [facility] 3:38 PM [facility] HNO ID: [id number] Author: Stephania (Ct) BLAINE Chicas Service: (none) Author Type: Clinical Jewel Gauger Type: ED Notes Filed: 11/30/2017 3:38 PM Note Text: Glucose 80 CTA HEAD WO/W IVCON Observed: 11/30/2017 Status: F Source: [facility] 3:37 PM [facility] REPOSITORY * * *Final Report* * * DATE OF EXAM: Nov 30 2017 3:37PM FVC 0023 - CTA HEAD WO/W IVCON / PROCEDURE REASON: Focal neuro deficit, new, fixed or worsening, <6 hours * * * * Physician Interpretation * * * * EXAMINATION: CTA NECK W IVCON, CTA HEAD WO/W IVCON CLINICAL HISTORY: TIA, initial exam. Aphasia. TECHNIQUE: Spiral high resolution axial images were obtained through the head, neck and superior mediastinum following bolus administration of intravenous contrast for CT angiography. The data was subsequently post-processed utilizing 3D multi-planar reconstructions, 3D maximum intensity projections, and a tissue segmentation algorithm at a separate workstation under physician supervision. MQ: CTAHN_3 Contrast: 80 mL Omnipaque 350 IV Dose-Length Product (DLP): 576 mGy*cm. CT Dose Reduction Employed: Automated exposure control (AEC) COMPARISON: None. RESULT: BRAIN: Noncontrast CT brain is dictated separately. Evaluation of the individual slices of the CTA demonstrates no evidence of an acute stroke. ASPECT Score = 10 Hemorrhage: No evidence of acute intracranial hemorrhage. ECASS hemorrhagic transformation score: Not Applicable Spot Sign Presence: Not Applicable Spot Sign Number: Not Applicable NECK: Soft tissues: The soft tissue planes are maintained throughout. No evidence of a soft tissue mass in the neck or superior mediastinum. No significant lymphadenopathy is seen. Spine: Alignment is normal. Mild degenerative changes are present. Lung apices: The visualized lung apices are clear. Degenerative changes of the right glenohumeral and acromioclavicular joints. CT ARTERIOGRAM: Extracranial Circulation: Aortic Arch: There is a normal branching pattern from the aortic arch.. There is no significant stenosis in the proximal brachiocephalic vessels. Carotid Stenosis: Right Common: No significant stenosis. Right Internal Carotid Plaque: No significant plaque formation. Right Internal Carotid Stenosis (% by NASCET Criteria): 0 Left Common: No significant stenosis. Left Internal Carotid Plaque: No significant plaque formation. Left Internal Carotid Stenosis (% by NASCET Criteria): 0 Cervical Vertebral Arteries: Patency: Bilateral Dominance: Codominant CTA HEAD: Relatively prominent caliber of the intracranial arterial system could reflect chronic hypertension, in the appropriate clinical setting. Anterior Circulation: The internal carotid arteries, anterior cerebral arteries, and middle cerebral arteries are patent. There is no evidence of significant stenosis or arterial occlusion. There is no evidence of aneurysm or vascular malformation. Hypoplastic right A1 segment. Vertebrobasilar Circulation: Mild atherosclerotic irregularity of the left vertebral artery without significant stenosis. The bilateral vertebral arteries, basilar artery and branches and posterior cerebral arteries are patent. There is no evidence of significant stenosis or arterial occlusion. There is no evidence of aneurysm or vascular malformation. IMPRESSION: No evidence of arterial occlusion or significant stenosis in the head or neck. Heeler Machine: MARCO Transcribe Date/Time: Nov 30 2017 3:37P Dictated by : ALLI HERNANDEZ MD This examination was interpreted and the report reviewed and electronically signed by: ALLI HERNANDEZ MD on Nov 30 2017 3:41PM EST [id number] CTA NECK W IVCON Observed: 11/30/2017 Status: F Source: [facility] 3:37 PM [facility] OTHER CAMPUS REPOSITORY * * *Final Report* * * DATE OF EXAM: Nov 30 2017 3:37PM FVC 0024 - CTA NECK W IVCON / PROCEDURE REASON: TIA, initial exam * * * * Physician Interpretation * * * * EXAMINATION: CTA NECK W IVCON, CTA HEAD WO/W IVCON CLINICAL HISTORY: TIA, initial exam. Aphasia. TECHNIQUE: Spiral high resolution axial images were obtained through the head, neck and superior mediastinum following bolus administration of intravenous contrast for CT angiography. The data was subsequently post-processed utilizing 3D multi-planar reconstructions, 3D maximum intensity projections, and a tissue segmentation algorithm at a separate workstation under physician supervision. MQ: CTAHN_3 Contrast: 80 mL Omnipaque 350 IV Dose-Length Product (DLP): 576 mGy*cm. CT Dose Reduction Employed: Automated exposure control (AEC) COMPARISON: None. RESULT: BRAIN: Noncontrast CT brain is dictated separately. Evaluation of the individual slices of the CTA demonstrates no evidence of an acute stroke. ASPECT Score = 10 Hemorrhage: No evidence of acute intracranial hemorrhage. ECASS hemorrhagic transformation score: Not Applicable Spot Sign Presence: Not Applicable Spot Sign Number: Not Applicable NECK: Soft tissues: The soft tissue planes are maintained throughout. No evidence of a soft tissue mass in the neck or superior mediastinum. No significant lymphadenopathy is seen. Spine: Alignment is normal. Mild degenerative changes are present. Lung apices: The visualized lung apices are clear. Degenerative changes of the right glenohumeral and acromioclavicular joints. CT ARTERIOGRAM: Extracranial Circulation: Aortic Arch: There is a normal branching pattern from the aortic arch.. There is no significant stenosis in the proximal brachiocephalic vessels. Carotid Stenosis: Right Common: No significant stenosis. Right Internal Carotid Plaque: No significant plaque formation. Right Internal Carotid Stenosis (% by NASCET Criteria): 0 Left Common: No significant stenosis. Left Internal Carotid Plaque: No significant plaque formation. Left Internal Carotid Stenosis (% by NASCET Criteria): 0 Cervical Vertebral Arteries: Patency: Bilateral Dominance: Codominant CTA HEAD: Relatively prominent caliber of the intracranial arterial system could reflect chronic hypertension, in the appropriate clinical setting. Anterior Circulation: The internal carotid arteries, anterior cerebral arteries, and middle cerebral arteries are patent. There is no evidence of significant stenosis or arterial occlusion. There is no evidence of aneurysm or vascular malformation. Hypoplastic right A1 segment. Vertebrobasilar Circulation: Mild atherosclerotic irregularity of the left vertebral artery without significant stenosis. The bilateral vertebral arteries, basilar artery and branches and posterior cerebral arteries are patent. There is no evidence of significant stenosis or arterial occlusion. There is no evidence of aneurysm or vascular malformation. IMPRESSION: No evidence of arterial occlusion or significant stenosis in the head or neck. Heeler Machine: MARCO Transcribe Date/Time: Nov 30 2017 3:37P Dictated by : ALLI HERNANDEZ MD This examination was interpreted and the report reviewed and electronically signed by: ALLI HERNANDEZ MD on Nov 30 2017 3:41PM EST [id number] ED NOTE Observed: 11/30/2017 Status: COMPLETED Source: [facility] 3:36 PM [facility] REPOSITORY HNO ID: [id number] Author: Donna (Rn) CHICHO Moreno Service: (none) Author Type: Registered Nurse Type: ED Notes Filed: 11/30/2017 3:36 PM Note Text: Pt returned to ED, Xray at bedside. [facility] Observed: 11/30/2017 Status: COMPLETED Source: [facility] 3:31 PM [facility] OTHER [facility]AMP[facility] REPOSITORY HNO ID: [id number] Author: BLAINE Esparza (Ct) Service: Radiology Author Type: Jewel Gauger Type: Allied Health Filed: 11/30/2017 3:32 PM Note Text: Radiology Service Progress Note PATIENT NAME: Viviana Flores DATE OF SERVICE: November 30, 2017 TIME: 3:31 PM PATIENT IDENTITY VERIFICATION COMPLETED USING TWO (2) METHODS: Patient confirmed name verbally and ID band matches.. PATIENT GENDER DATA: Female. status: : No status: NO. PATIENT RELEVANT IMPLANT DATA REVIEWED: Not Applicable CONTRAST INDUCED NEPHROPATHY RISK FACTORS: Patient age > 60 years CREATININE: Creatinine Date Value Ref Range Status 01/16/2013 0.46 (L) 0.70 - 1.40 mg/dL Final 09/05/2012 0.49 (L) 0.70 - 1.40 mg/dL Final 08/07/2011 0.56 (L) 0.70 - 1.40 mg/dL Final Creatinine (POCT) Date Value Ref Range Status 11/30/2017 0.50 (A) 0.7 - 1.4 mg/dL Final eGFR-All Other Races Date Value Ref Range Status 01/16/2013 >60 . Final Comment: eGFR (Estimated GFR) Units of measure: mL/min/1.73 meters squared eGFR is derived from the reexpressed MDRD Study equation using the following parameters: serum creatinine, age, gender and race. The creatinine assay has been calibrated to be traceable to IDMS. An eGFR <60 mL/min/1.73m2 for >3 months is consistent with chronic kidney disease. Refer to KDOQI guidelines for clinical interpretation. eGFR-All Other Races (POCT) Date Value Ref Range Status 11/30/2017 >60 mL/min/1.73 m2 Final eGFR- Date Value Ref Range Status 01/16/2013 >60 Final eGFR- (POCT) Date Value Ref Range Status 11/30/2017 >60 mL/min/1.73 m2 Final P.O.C.T. RESULTS: POC done: Yes, See Lab Tab November 30, 2017 RADIOLOGIST NOTIFIED?: No ALLERGIES: Reviewed and unchanged CONTRAST ALLERGY: NO. PERIPHERAL IV ACCESS: Ambulatory: IV type: Existing peripheral IV utilized, Site assessment: Clean,Dry and Intact, Site disposition Left in for next appointment RADIOLOGY DEPARTMENT: CT; Exam(s) Completed: Brain , CTA Brain and CTA Neck SIGNED BY: BLAINE Esparza November 30, 2017 3:31 PM ED PROV NOTE Observed: 11/30/2017 Status: COMPLETED Source: [facility] 3:26 PM [facility] OTHER [facility] REPOSITORY HNO ID: [id number] Author: Frank Gerardo MD Service: Emergency Medicine Author Type: Physician Type: ED Provider Notes Filed: 12/01/2017 12:44 AM Note Text: ED Provider Note Patient Name: Viviana Flores SERVICE DATE: 11/30/17 History Patient presents with: Mental Status Changes: visiting from out of town; niece took to [facility] for confusion; patient AxO 1-2 denies any complaints History provided by: Patient and relative parts interpreter used: No 77-year-old female presents to ED for reported confusion. Last known well 10:45 AM. Patient visiting from [place], [place]. Has been staying with her niece for a few days. I spoke with niece on the phone who states that patient appeared normal yesterday and this morning. While in store patient appeared somewhat confused with intermittent nonsensical speech. No slurred speech or focal weakness. Niece states that patient may seem off when she has UTIs. She has no urinary complaints. No previous history of stroke. Is not anticoagulated. No reported fall or trauma to the head. Patient AAOx2 on arrival. Somewhat of a poor historian but answers all questions appropriately. Does recall feeling somewhat confused and dizzy this morning. Has no symptoms currently. She denies vision changes, slurred speech or focal weakness to arms or legs. No reported cough. No urinary complaints. Vitals stable with no clear infectious source. No other associated symptoms. PAST MEDICAL HISTORY Diagnosis Date - Abdominal pain, right upper quadrant - Acute gastritis without mention of hemorrhage - Asthma - Back pain - Benign neoplasm of colon - Blood in stool - Chest pain, unspecified - Chest pain, unspecified - Cramp of limb - Depression - Diarrhea - Essential hypertension, benign - Generalized osteoarthrosis, unspecified site - Headache(784.0) - Hemorrhage of gastrointestinal tract, unspecified - Hemorrhage of rectum and anus - Osteoarthrosis, unspecified whether generalized or localized, other specified sites - PMH - PAST MEDICAL HISTORY OF 04/14/07 broken left ankle - Pure hypercholesterolemia - Retinal hemorrhage of right eye - Ulcerative colitis, unspecified - Unspecified adjustment reaction PAST SURGICAL HISTORY Procedure Laterality Date - CARPAL TUNNEL RIGHT WRIST - COLONOSCOP W/ OR W/O BRSH SPEC 03/08/2002 Colonoscopy - COLONOSCOPY W/BX 07/20/06 - EGD W/O BRS SPECIMEN W/BX 05/31/09 - LIGATE FALLOPIAN TUBE - PAST SURGICAL HISTORY OF 1997 right ear canal - SIGMOIDOSCOPY FLEX DIAG 06/01/07 - VAGINAL HYSTERECTOMY FAMILY HISTORY Problem Relation Age of Onset - Heart Father of heart attack/diabetic - Heart Brother diabetic - Heart Brother diabetic - None Mother Social History Social History Main Topics - Smoking status: Never Smoker - Smokeless tobacco: Never Used - Alcohol use No - Drug use: No - Sexual activity: No ALLERGIES No Known Allergies Review of Systems Constitutional: Negative for chills and fever. HENT: Negative for congestion and sore throat. Eyes: Negative for visual disturbance. Respiratory: Negative for cough and shortness of breath. Cardiovascular: Negative for chest pain and palpitations. Gastrointestinal: Negative for abdominal pain, nausea and vomiting. Genitourinary: Negative for dysuria and hematuria. Musculoskeletal: Negative for myalgias. Skin: Negative for rash. Neurological: Negative for light-headedness and headaches. Psychiatric/Behavioral: Positive for confusion. Physical Exam BP 141/72 Pulse 69 Resp 16 Ht 5' 0 (1.52m) Wt 133 lb (60.3kg) SpO2 98% BMI 25.97 kg/(m2). Physical Exam General : Alert, well-appearing, in no distress Speaking full sentences without difficulty Skin: No rash, wounds or other skin color changes Head: Atraumatic, no scalp tenderness, temporal arteries nontender Neck: Supple, no nuchal rigidity, no meningeal signs No midline cervical spine tenderness ENT: Normal conjunctivae TM visualized bilaterally with normal landmarks No hemotympanum Mouth: Oropharynx is clear and moist Heart: Regular rate and rhythm 2+ R/U/DP/PT pulses equal and symmetric bilaterallyuit Lungs: Clear lung sounds bilaterally GI: Abdomen is soft and nontender Extremities: Limited range of motion R arm 2/2 to previous injury This is chronic, unchanged per patient Moving all other extremities without pain or deformity Neurological: Mental Status: Alert, oriented to person and place only Follows commands Cranial Nerves: CNII: Visual velarde full to confrontation CNIII, IV, : Pupils equal, round and reactive to light Full EOM without nystagmus CN V: Facial sensation intact bilaterally to fine touch CN VII: Facial muscles symmetric and strong CN VIII: Hears finger rub well bilaterally CN IX: Gag Reflex Intact CN X: Palate elevates symmetrically CN XI: Full strength shoulder shrug bilaterally CN XII: Tongue protrusion full and midline Motor Exam: Tone is normal throughout, no muscle atrophy Limited range of motion right arms eater to previous injury Able to lift each arm and leg off bed and hold without drift 5/5 strength throughout Reflexes: not assessed Sensation: Intact to light touch in upper and lower extremities. Coordination: Finger-to- nose intact bilaterally. Gait: Ataxic gait toward left ED STROKE DOCUMENTATION (last 48 hours) Stroke Care Path Flowsheet Row Name 11/30/17 1512 Last Known Well Date Patient Last Known Well 11/30/17 -AD Time Patient Last Known Well 1045 -AD Is Date or Time of Last Known Well Unknown ? Reason Last Known Well Date/Time Not Given ? NIHSS NIHSS - Initial or Subsequent? Initial -AD NIHSS Initial - LIP ENTRY ONLY !!!!! REMEMBER TO VALIDATE DATE AND TIME !!!!! LOC 0 - alert and responsive -AD LOC Questions 0 - both correct -AD LOC Commands 0 - both correct -AD LOC Normal Gaze 0 - normal gaze -AD Visual Velarde 0 - no visual loss -AD Facial Palsy 0 - normal -AD Motor Left Arm 0 - no drift -AD Motor Right Arm 0 - no drift -AD Motor Left Leg 0 - no drift -AD Motor Right Leg 0 - no drift -AD Limb Ataxia 1 - ataxia in upper or lower extremity -AD Sensory 0 - normal -AD Language 0 - normal -AD Dysarthria 0 - normal -AD Extinction/Neglect 0 - normal, none detected (or visual loss alone) -AD Initial NIHSS 1 -AD REQUIRED CLINICAL IMAGING INDICATORS Imaging Ordered Today: CT -AD Select CT: CT Brain Attack;CTA Head AND Neck -AD Please Document REQUIRED Indications CT Brain Attack Indications Neuro Deficits < 8 hours of Symptom Onset -AD CTA Head AND Neck Indications Fluctuating Stroke/TIA Symptoms -AD Stroke Documentation Impression Clinical Impression: Stroke Type? ? User Sweeney (r) = Recorded By, (t) = Taken By, (c) = Cosigned By Initials Name LUIS MANUEL Engel (Javid) Emelia Diagnostic Testing ED Labs Ordered and Reviewed CREATININE, BLOOD (POC) - Abnormal; Notable for the following: Result Value Ref Range Creatinine (POCT) 0.50 (*) 0.7 - 1.4 mg/dL All other components within normal limits Narrative: Meter ID:[id number] Location:ED [facility], [address] [place] [address], [address] CBC + AUTO DIFF (AK,AV,EU,FV,HL,LAINE,MM,SP) COMPREHENSIVE METABOLIC PANEL (AK,AV,EU,FV,HL,LAINE,MM,SP) TROPONIN T (AV,EU,FV,HL,LAINE,MM,SP) ACTIVATED PTT (AK,AV,EU,FV,HL,LAINE,MM,SP) PROTHROMBIN TIME / PT (AK,AV,EU,FV,HL,LAINE,MM,SP) TROPONIN T (AV,EU,FV,HL,LAINE,MM,SP) TROPONIN T (AV,EU,FV,HL,LAINE,MM,SP) URINALYSIS WITH MICROSCOPIC (AK,AV,EU,FV,HL,LAINE,MM,SP) GLUCOSE - ED(POC) URINE CULTURE (AK,AV,EU,FV,HL,LAINE,MM,SP) Procedures ED Course / Clinical Impression The attending who evaluated and managed this patient: Dr. Gerardo. Triage records were reviewed Medical records were reviewed Nursing notes were reviewed and incorporated EKG Review/Interpretation: The patient's EKG was reviewed and demonstrated a normal sinus rhythm at 67 beats per minute, normal axis, normal intervals, reviewed and interpreted by Dr. Gerardo. No additional acute changes are noted. ED Medications: Medications iv contrast (radiology procedure) (not administered) NaCl 0.9% 1,000 mL iv bolus (not administered) aspirin 324 mg chewable tab(s) (324 mg ORAL Given 11/30/17 1647) Radiology Results: CT BRAIN ATTACK WO IVCON Final Result Abnormal IMPRESSION: 1. Interval progression of chronic senescent changes. 2. Concerning for acute/subacute right anterior limb internal capsule nonhemorrhagic lacunar infarct. 3. No transcortical infarct or intracranial hemorrhage. CRITICAL TEST/RESULTS: Notification initiated at 3:[address] Emelia MD on 11/30/2017 at 3:25 PM. CR_1 CTA NECK W IVCON Final Result IMPRESSION: No evidence of arterial occlusion or significant stenosis in the head or neck. CTA HEAD WO/W IVCON Final Result IMPRESSION: No evidence of arterial occlusion or significant stenosis in the head or neck. XR CHEST 1V FRONTAL PORT Final Result IMPRESSION: MILD HYPERINFLATION, NO ACUTE PROCESS Assessment/Plan: BP 131/81 Pulse 72 Temp 37.2 ?C (98.9 ?F) (Oral) Resp 18 Ht 152.4 cm (5') Wt 60.3 kg (133 lb) SpO2 99% BMI 25.97 kg/m? 77 -year-old female with reported confusion beginning this morning. Admits to feeling somewhat confused this morning with dizziness. States that symptoms have completely resolved. Patient AAO ?2 on arrival with no focal neurological deficits on initial exam. Normal finger to nose and heel to mullins bilaterally. After standing patient up I noted that she appeared unsteady, drifting slightly to the left Brain attack initiated. CT brain suggestive of acute/subacute right lacunar infarct. These results were discussed between Dr. Gerardo and the neurologist who does not feel this is consistent with patient exam in the setting of no left-sided weakness. Advises dose of aspirin, admission for neurology consult. Plan to admit for neurology consult and to rule out UTI. Urine not yet obtained in ED. Will require treatment if positive. She denies any urinary complaints. Does not appear septic. Afebrile. No leukocytosis. Other labwork unremarkable. 4:54 PM Case discussed with Dr. Garza, from an on-call who agrees to admit patient to his service with neurology on consult Clinical Impressions as of Nov 30 [address] MDM / Disposition / Plan MDM The patient was ADMITTED TO: Regular nursing floor. Condition at time of disposition: stable SIGNATURE: JAVID Rivera Pa-C 11/30/171703 ATTENDING ATTESTATION NOTE: I have personally performed a face to face assessment of the patient and have reviewed the PA/ORDER PROCESSOR note. My sweeney findings include: History: Report confusion, difficulty speaking and dysequilibrium, denies MICHEL, chest pain, paresthesia, family questions UTI, no report of fall Exam: AFVSS, NAD, PERRL, EOMI, no nystagmus, neck supple, no bruit, no facial droop or slurred speech, heart reg, lung clear, abd s, nt, nd, no focal neuro deficit Assessment/Plan: Brain attack Critical Care I spent a total of 40 minutes of critical care time in the evaluation and management of this patient. 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 The patient received frequent neuro checks and Consultation by stroke neurology during the time that critical care was provided. Critical care time excludes separately billed procedures. MD Frank Cabrera MD 12/01/[address] BRAIN ATTACK WO Observed: 11/30/2017 Status: F Source: [facility] 3:25 PM [facility] OTHER [facility] REPOSITORY * * *Final Report* * * DATE OF EXAM: Nov 30 2017 3:25PM [facility] 0502 - CT BRAIN ATTACK WO IVCON / PROCEDURE REASON: Confusion, acute, unexplained * * * * Physician Interpretation * * * * EXAMINATION: CT BRAIN ATTACK WO IVCON CLINICAL HISTORY: Confusion, acute, unexplained Brain attack. TECHNIQUE: Routine CT of the brain without IV contrast. MQ: CTBA_4 CT Dose-Length Product (DLP): 753 mGy*cm CT Dose Reduction Employed: No dose reduction techniques were required COMPARISON: MRI brain from 09/22/2012. RESULT: Acute ischemic change: New areas of low-attenuation are identified with the most significant being in the anterior limb of right internal capsule. This may represent an subacute to an acute ischemia but without any transcortical extension. No hemorrhage is identified. If this fits with patient's clinical symptoms MRI may be of value for further characterization. ASPECT Score = 10 Hemorrhage: No evidence of acute intracranial hemorrhage. ECASS Hemorrhagic Transformation Score = Not Applicable Mass Lesion / Mass Effect: There is no evidence of an intracranial mass or extraaxial fluid collection. No significant mass effect. Chronic change: Allowing for change in modality slight progression of senescent volume loss, microvascular ischemia, accentuation of CSF spaces and ventricular dilation. Parenchyma: There is no significant volume loss. The brain parenchyma is otherwise within normal limits for age. Ventricles: Normal caliber and morphology. Other: Prior right mastoidectomy without any acute disease. The visualized calvarium, skull base, orbits and extracranial soft tissues are normal. IMPRESSION: 1. Interval progression of chronic senescent changes. 2. Concerning for acute/subacute right anterior limb internal capsule nonhemorrhagic lacunar infarct. 3. No transcortical infarct or intracranial hemorrhage. CRITICAL TEST/RESULTS: Notification initiated at 3:[address] Emelia MD on 11/30/2017 at 3:25 PM. CR_1 Heeler Machine: MARCO Transcribe Date/Time: Nov 30 2017 3:26P Dictated by : BILLY MINER MD This examination was interpreted and the report reviewed and electronically signed by: BILLY MINER MD on Nov 30 2017 3:30PM EST [id number] ED NOTE Observed: 11/30/2017 Status: COMPLETED Source: [facility] 3:23 PM [facility] OTHER [facility] REPOSITORY HNO ID: [id number] Author: Donna (Rn) Tiffanie, RN Service: (none) Author Type: Registered Nurse Type: ED Notes Filed: 11/30/2017 3:23 PM Note Text: Cr 0.5 per jessica Cat. ED NOTE Observed: 11/30/2017 Status: COMPLETED Source: [facility] 3:07 PM [facility] REPOSITORY HNO ID: [id number] Author: Donna (Rn) Tiffanie, RN Service: (none) Author Type: Registered Nurse Type: ED Notes Filed: 11/30/2017 3:08 PM Note Text: Bedside report from CHICHO Puckett. Assumed care of pt at this time, blood work drawn and sent. CBC AND DIFFERENTIAL Collected: 11/30/2017 Status: F Source: [facility] 3:02 PM [facility] REPOSITORY TYPE CODE TESTS RESULT OUT OF REFERENCE UNITS RANGE LAB WBC 3.70-11.00 k/uL WBC 7.01 LAB RBC 3.90-5.20 m/uL RBC 4.69 LAB HGB 11.5-15.5 g/dL Hemoglobin 13.6 LAB HCT 36.0-46.0 % Hematocrit 42.9 LAB MCV 80.0-100.0 fL MCV 91.5 LAB MCH 26.0-34.0 pG MCH 29.0 LAB MCHC 30.5-36.0 g/dL MCHC 31.7 LAB RDWCV 11.5-15.0 % RDW-CV 13.9 LAB PLTCT 150-400 k/uL Platelet Count 303 LAB MPV 9.0-12.7 fL MPV 9.7 LAB NEUTS % Neut% 68.8 LAB AANEUT 1.45-7.50 k/uL Abs Neut 4.82 LAB LYMPHS % Lymph% 22.8 LAB AALYMP 1.00-4.00 k/uL Abs Lymph 1.60 LAB MONOS % Yancey% 7.0 LAB AAMONO <0.87 k/uL Abs Yancey 0.49 LAB EOS % Eosin% 1.0 LAB AAEOS <0.46 k/uL Abs Eosin 0.07 LAB BASOS % Baso% 0.4 LAB AABASO <0.11 k/uL Abs Baso 0.03 LAB DTYP DTYPE Auto Diff Performed By: #### CBCFAIZA, CMP, LAKEISHA #### [id number] [place] [address] COMP METABOLIC PANEL Collected: 11/30/2017 Status: F Source: [facility] 3:02 PM [facility] OTHER CAMPUS REPOSITORY TYPE CODE TESTS RESULT OUT OF REFERENCE UNITS RANGE LAB TP 6.0-8.4 g/dL Protein, Total 7.9 LAB ALB 3.5-5.0 g/dL Albumin 4.2 LAB CA 8.5-10.5 mg/dL Calcium, Total 9.5 LAB TBIL 0.0-1.5 mg/dL Bilirubin, Total 0.5 LAB ALKP 40-150 U/L Alkaline Phosphatase 84 LAB AST 7-40 U/L AST 18 LAB GLU 65-100 mg/dL Glucose 90 LAB BUN 8-25 mg/dL BUN 9 LAB CRET 0.70-1.40 mg/dL Creatinine Low 0.53 LAB NA 132-148 mmol/L Sodium 140 LAB K 3.5-5.0 mmol/L Potassium 3.8 LAB CL 98-110 mmol/L Chloride 102 LAB CO2 23-32 mmol/L CO2 24 LAB AGAP 9-18 mmol/L Anion Gap 14 LAB ALT 0-45 U/L ALT 10 LAB GFRAA >60 eGFR- >60 Amer. LAB GFRNAA >60 . eGFR-All Other Races >60 Performed By: #### CBCNYDIAF, CMP, LAKEISHA #### [place] [address] TROPONIN T Collected: 11/30/2017 Status: F Source: [facility] 3:02 PM [facility] OTHER [facility] REPOSITORY TYPE CODE TESTS RESULT OUT OF REFERENCE UNITS RANGE LAB TROPT 0.000-0.029 ng/mL Troponin T <0.010 Performed By: #### CBCDIF, CMP, LAKEISHA #### [place] [address] PROTIME Collected: 11/30/2017 Status: F Source: [facility] 3:02 PM [facility] OTHER [facility] REPOSITORY TYPE CODE TESTS RESULT OUT OF RANGE REFERENCE UNITS LAB PSEC 9.7-13.0 sec PT Sec 11.0 LAB INR 0.9-1.3 PT INR 1.1 Result Comment: Vitamin K Antagonist (VKA) Therapeutic Range: INR 2 to 3 (Target INR of 2.5) Note: For patients treated with VKA drugs, such as warfarin, the [place] [employer] 2012 Guideline recommends a therapeutic INR range of 2 to 3 (target INR of 2.5). This recommendation includes high-risk patients with antiphospholipid syndrome with previous arterial or venous thromboembolism, current-generation mechanical or bioprosthetic aortic heart valve replacement. Note: Patients with mechanical aortic valve replacement and additional risk factors for thromboembolic events (atrial fibrillation, previous thromboembolism, LV dysfunction, hypercoagulable conditions) or an older generation mechanical AVR (i.e., ball in-Cage) or any mechanical MVR should have a INR therapeutic range of 2.5 to 3.5 (target INR of 3). Susan GH, et al. Chest 2012, 141:7S-47S Ivnaia RA, et al. [facility] 2017, 70: 252-289 Performed By: #### PT, PTT #### [id number] [place] [address] APTT Collected: 11/30/2017 Status: F Source: [facility] 3:02 [facility] REPOSITORY TYPE CODE TESTS RESULT OUT OF RANGE REFERENCE UNITS LAB APTT 23.0-32.4 sec APTT 26.4 Result Comment: Unfractionated Heparin Therapeutic Ranges: Standard Heparin Nomogram: 53 to 78 seconds (anti-Xa level of 0.3 to 0.7 U/ml) Low Dose/ACS Nomogram: 49 to 67 seconds (anti-Xa level of 0.2 to 0.5 U/ml) Stroke Treatment Nomogram: 49 to 67 seconds (anti-Xa level of 0.2 to 0.5 U/ml) Note: The APTT therapeutic range has been determined for the current lot of laboratory APTT reagent in use throughout the [facility]. Performed By: #### PT, PTT #### [id number] [place] [address] EKG (AK,AV,EU,FV,HL,LAINE,MM,SP) Observed: Status: F Source: [facility] 11/30/2017 2:55 PM CLINIC OTHER CAMPUS REPOSITORY NAME : VIVIANA FLORES PID : [id number] : 1940 Gender : Female Race : ORD : [id number] Procedure Date : Nov 30 2017 14:55:35 Edit Date : Nov 30 2017 23:06:53 Diagnosis:SINUS RHYTHM 1537 Normal ECG Confirmed by MD AKIN, FRANK ([id number]), online content editor OTIS TAYLOR ([id number]) on 11/30/2017 11:06:46 PM Ventricular Rate : 67 BPM Atrial Rate : 67 BPM P-R Interval : 156 ms QRS Duration : 76 ms Q-T Interval : 436 ms QTC Calculation(Bezet) : 460 ms P [place] : 0 degrees R [place] : 46 degrees T [place] : 38 degrees Test Reason : Chest Pain Location : 402 : FVED 55 Overread By : MD GERARDO ERIN Edited By : OTIS TAYLOR Referred By : , Acquired by : AB, ED NOTE Observed: 11/30/2017 Status: COMPLETED Source: [facility] 2:44 PM [facility] REPOSITORY HNO ID: [id number] Author: Alli KayRn) CHICHO Scott Service: (none) Author Type: Registered Nurse Type: ED Notes Filed: 11/30/2017 2:44 PM Note Text: Bed: 55-ED Expected date: Expected time: Means of arrival: Comments: [place] [age]F PERIOD OF CONFUSION AT 11AM, NOW NORMAL FROM [facility], UTI WORK UP NEGATIVE 136/79, 64, 20, 100% PRENOTIFICATION PROGRESS Observed: 11/30/2017 Status: COMPLETED Source: [facility] 2:28 PM [facility] REPOSITORY HNO ID: [id number] Author: Laila Ness) [place] Service: (none) Author Type: Nurse Practitioner Type: Progress Notes Filed: 11/30/2017 2:40 PM Note Text: [facility]. Per pt, she is here to have blood drawn to see what is going on. Pt states she is in [place] with her [id number] and the month is either January or February. Pt is oriented to herself and date. Per her niece, pt started to become confused at 1100 this AM; pt told niece that she didn't feel right and didn't recognize her. Niece reports she did a stroke assessment at home and it was negative. Reports pt did eat today. Upon assessment, no drifts noted to bilat upper or lower extremities; push/pulls of upper and lower extremities are equal. Hand grasps are equal. Face, smile, and tongue are midline and symmetrical. Due to pt's condition, EMS called and transported to [facility]. CNOV Observed: 11/30/2017 Status: COMPLETED Source: [facility] 1:35 PM [facility] REPOSITORY Office Visit (EXPNOL) VIVIANA FLORES ([id number]) 1940 F Date Time Provider Department 11/30/17 1:35 PM LAILA MORALES (KAEL) EXPNOL During your visit today, we recorded the following information about you: Temperature Pulse Respiration Blood pressure 98.3 degrees 64/minute 18/minute 125/67 Weight 60.9 kg Laila Morales APRN.CNP 11/30/2017 2:27 PM Addendum Laila Morales APRN.CNP 11/30/2017 2:40 PM Signed [facility] to [facility] with c/o confusion. Per pt, she is here to have blood drawn to see what is going on. Pt states she is in [place] with her [id number] and the month is either January or February. Pt is oriented to herself and date. Per her niece, pt started to become confused at 1100 this AM; pt told niece that she didn't feel right and didn't recognize her. Niece reports she did a stroke assessment at home and it was negative. Reports pt did eat today. Upon assessment, no drifts noted to bilat upper or lower extremities; push/pulls of upper and lower extremities are equal. Hand grasps are equal. Face, smile, and tongue are midline and symmetrical. Due to pt's condition, EMS called and transported to [facility]. Referring Provider: SELF [200] Allergies As of Date: 11/30/2017 (No Known Allergies) Date Reviewed: 11/30/2017 Reviewed by: Janet (Rn) CHICHO Kramer - Fully Assessed Reason for Visit: Dysuria [1085] Cmt: Occasional burning x 2 days Reason For Visit History Recorded Primary Visit Diagnosis:Confusion [R41.0] Order(s):UA DIP, URINE (POC) [7419950] Order #: [id number]. #:[id number] Prescriptions as of 11/30/2017 Sig: X DICLOFENAC 1 % TOPICAL GEL Apply 2 g to affected area tw* LOVASTATIN 10 MG TABLET Take 10 mg by mouth daily at * X ETODOLAC 400 MG TABLET X ATENOLOL 25 MG TABLET Take 25 mg by mouth once otilia* X DULOXETINE 60 MG CAPSULE,SCOTT* OXYBUTYNIN CHLORIDE ER 5 MG T* Take by mouth. X GABAPENTIN 100 MG CAPSULE Take one(2) tablet in the mor* BUPROPION HCL SR 150 MG TABLE* Take 1 tablet by mouth once d* X MULTIVITAMIN TABLET Take one(1) tablet daily. X CALCIUM 500 + D 500 MG (1,250* Take half(1/2) tablet daily. 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] INVALID FOR* Enthesopathy of hip region [M76.899] INVALID FOR* Lumbago [M54.5] INVALID FOR* Myalgia [M79.1] INVALID FOR* Lumbosacral spondylosis without myelopathy [M47*INVALID FOR* Degeneration of lumbar or lumbosacral intervert*INVALID FOR* History of mastoidectomy [Z98.890] INVALID FOR* Stroke (HCC) [I63.9] INVALID FOR* Other instructions from your clinician: Encounter Status:Closed by LAILA MORALES CNP on 11/30/17 HISTORY PHYSICAL Observed: 11/30/2017 Status: COMPLETED Source: [facility] 12:00 AM CLINIC OTHER CAMPUS REPOSITORY [facility] ID: [id number] Author: Rubia Licea Service: Nephrology Author Type: Physician Type: HANDP Filed: 12/04/2017 6:38 PM Note Text: [facility] - History and Physical VIVIANA FLORES : 1940 AGE: 77 SEX: F CSN: [id number] [facility]: [facility] LOCATION: [facility] ATTENDING PHYSICIAN: RUBIA LICEA ADMIT DATE: 11/30/2017 REASON FOR ADMISSION: Altered mental status. HISTORY: A 77-year-old white female with a prior history of hypertension, osteoarthritis, who presents with confusion noted by her family. The patient did not know where she was at that time. No history of weakness or slurred speech. A CT scan of the head in the emergency room revealed changes concerning for acute/subacute right anterior limb internal capsule nonhemorrhagic lacunar infarct, and the patient was admitted for further evaluation and treatment. Neurology was consulted from the Emergency Room and did not deem her a tPA candidate. PAST MEDICAL AND SURGICAL HISTORY: Asthma, depression, hypertension, osteoarthritis, hysterectomy, right carpal tunnel release, history of UTI. SOCIAL HISTORY: Lives alone. Denied any tobacco or alcohol use. 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 ALLERGIES: No known drug allergies. FAMILY HISTORY: Noncontributory. CURRENT MEDICATIONS: Wellbutrin 150 mg everyday, Cymbalta 30 mg daily, Neurontin 100 mg daily, metoprolol 50 mg daily, Ditropan XL 5 mg daily, Mevacor 10 mg p.o. at bedtime. PHYSICAL EXAMINATION: Temperature 36.9, pulse 64, respiratory rate 16, blood pressure 114/57, 99% on room air. General appearance: Not in any acute distress. Head Exam: Oral mucosa moist and pink. Neck: Supple. Lungs: No wheeze. Cardiac: Regular rate. S1, S2. Abdomen: Soft, nontender. Extremities: No edema. LABORATORY DATA: Sodium 142, potassium 5, chloride 106, bicarb 25, BUN 7, creatinine 0.56, glucose 97, calcium 9.2, magnesium 2.1, albumin 3.7. White blood cell count 6.23, hemoglobin 12.8, hematocrit 39.6, platelets 270. ASSESSMENT: 1. Transient ischemic attack/cerebrovascular accident. 2. Confusion. 3. Hypertension. 4. Hyperlipidemia. PLAN: Neurology consult, MRI, PT/OT and speech eval. Rubia Garza M.D. Nephrology WE:[id number] /[id number] CBC Collected: 08/04/2017 Status: F Source: [facility] 10:18 AM [facility] REPOSITORY TYPE CODE TESTS RESULT OUT OF RANGE REFERENCE UNITS LAB CBC(LOINC) CBC Result Comment: CBC-COMPLETE BLOOD COUNT LAB WBC(LOINC) 4.5 - 10.8 x 10EE3/UL WBC 6.9 LAB RBC(LOINC) 4.10 - x 10EE6/UL 5.30 RBC 4.33 LAB HEMOGLOBIN(LOINC) 12.0 - g/dl 16.0 HEMOGLOBIN 13.0 LAB HEMATOCRIT(LOINC) 34.0 - % 46.0 HEMATOCRIT 39.0 LAB MCV(LOINC) 80 - 99 fl MCV 90 LAB MCH(LOINC) 27 - 33 pg MCH 30 LAB MCHC(LOINC) 32 - 36 X10 3 MCHC 33 LAB RDW/CV(LOINC) 12.0 - % 15.6 RDW/CV 14.4 LAB PLATELET(LOINC) 150 - 450 x10EE3/UL PLATELET 264 LAB MPV(LOINC) 6.6 - 10.5 fl MPV 8.0 Result Comment: AUTOMATED DIFFERENTIAL LAB NEUT %(LOINC) 46.0 - 76.0 % NEUT % 60.8 LAB LYMPH %(LOINC) 20.0 - 45.0 % LYMPH % 29.1 LAB MONOS %(LOINC) 0.0 - 10.0 % MONOS % 7.8 LAB EO %(LOINC) 0.0 - 7.0 % EO % 1.6 LAB BASO %(LOINC) 0.0 - 2.0 % BASO % 0.7 LAB Lymph #(LOINC) 0.80 - 2.80 x10EE3/U L Lymph # 2.00 LAB Neut #(LOINC) 1.50 - 7.10 x10EE3/U L Neut # 4.20 LAB Yancey #(LOINC) 0.20 - 1.00 x10EE3/U L Yancey # 0.50 LAB EO #(LOINC) 0.00 - 0.50 x10EE3/U L EO # 0.10 LAB Baso #(LOINC) 0.00 - 0.10 x10EE3/U L Baso # 0.00 LAB MANUAL DIFF([facility]) MANUAL DIFF N/A LAB MORPHOLOGY([facility] ) MORPHOLOGY N/A Result Comment: {CD] Performed By: #### [id number] #### [facility],[address] [place] [address] CMP WITH EGFR Collected: 08/04/2017 Status: F Source: [facility] 10:18 AM [facility] REPOSITORY TYPE CODE TESTS RESULT OUT OF RANGE REFERENCE UNITS LAB CMP with eGFR([facility]) CMP with eGFR Result Comment: COMPREHENSIVE METABOLIC PANEL LAB SODIUM(LOINC) 136 - 145 mmol/l SODIUM 141 LAB POTASSIUM(INC) 3.5 - 5.1 mmol/L POTASSIUM 4.1 LAB CHLORIDE(LOINC) 98 - 107 mmol/L CHLORIDE 105 LAB CO2(INC) 21.0 - mmol/L 31.0 CO2 30.3 LAB GLUCOSE(LOINC) 74 - 106 mg/dl GLUCOSE 87 LAB BUN(INC) 6 - 20 mg/dl BUN 10 LAB CREATININE(LOINC) 0.6 - 1.2 mg/dl Low CREATININE 0.5 LAB AST/SGOT(LOINC) 13 - 39 U/L AST/SGOT 17 LAB ALK PHOS(LOINC) 38 - 126 U/L ALK PHOS 59 LAB CALCIUM(LOINC) 8.6 - mg/dl 10.2 CALCIUM 9.0 LAB TOTAL PROTEIN(LOINC) 6.4 - 8.3 g/dl TOTAL PROTEIN 6.8 LAB ALBUMIN(LOINC) 3.4 - 4.8 g/dL ALBUMIN 3.9 LAB GLOBULIN(LOINC) 1.5 - 3.8 G/DL GLOBULIN 2.9 LAB A/G RATIO(LOINC) 0.9 - 1.6 A/G RATIO 1.3 LAB TOTAL BILI(LOINC) 0.0 - 1.5 mg/dl TOTAL BILI 0.4 LAB B/C RATIO(LOINC) 0 - 30 ratio B/C RATIO 20 LAB ALT/SGPT(LOINC) 8 - 35 U/L ALT/SGPT 12 LAB ANION GAP(LOINC) 10 - 20 mmol/L ANION GAP 10 LAB AGE(LOINC) years AGE 77 LAB eGFR(LOINC) 60 - 999 ML/MINUTE eGFR >60 LAB eGFR(AA)(LOINC) 60 - 999 ML/MINUTE eGFR(AA) >60 Result Comment: ACCORDING TO THE NATIONAL KIDNEY DISEASE EDUCATION PROGRAM(NKDE), A NORMAL eGFR IS A VALUE GREATER THAN OR EQUAL TO 60 ML/MIN/1.73 SQ METERS. CHRONIC KIDNEY DISEASE: <60mL/MIN/1.73 SQ METERS KIDNEY FAILURE: <15mL/MIN/1.73 SQ METERS THIS TEST SHOULD ONLY BE USED FOR PATIENTS 18 YEARS OF AGE AND OLDER. Performed By: #### [id number] #### [place] [address] LIPID PROFILE Collected: 08/04/2017 Status: F Source: [facility] 10:18 [facility] REPOSITORY TYPE CODE TESTS RESULT OUT OF REFERENCE UNITS RANGE LAB LIPID PROFILE(LOIN C) LIPID PROFILE Result Comment: LIPID PROFILE LAB TRIGLYCERIDE(LOINC) 0 - 150 mg/dl TRIGLYCERIDE 71 LAB CHOLESTEROL(LOINC) 0 - 200 mg/dl CHOLESTEROL 194 LAB HDL(LOINC) 40 - 60 mg/dl HDL High 69 LAB CHOL/HDL(LOINC) 0.0 - 5.0 CHOL/HDL 2.8 LAB LDL(LOINC) 0 - 129 mg/dl LDL 111 Performed By: #### [id number] #### [place] [address] HGB A1C Collected: 08/04/2017 Status: F Source: [facility] 10:18 [facility] REPOSITORY TYPE CODE TESTS RESULT OUT OF RANGE REFERENCE UNITS LAB HGB 4.4 - 6.4 % A1C(LOINC) HGB A1C 5.8 Result Comment: {HB] {A1] Performed By: #### [id number] #### [address] [address] ALLERGIES ALLERGIES DATE TYPE / CODE NAME / CODE REACTION SEVERITY SOURCE 04/22/2018 Drug No Known Unknown Gracie Allergy/986899245(S Allergies/F0019 [facility] NOMED CT) [address](RXNORM) Hospital Repository Drug NO KNOWN [place] Class/333465334(SNO ALLERGIES Clinic Other MED CT) [place] Repository Miscellaneous No Known Drug Moderate Jun Pomerene Allergy/614728890(S Allergies ([facility] NOM[facility]) Modifier) Hospital (Qualifier Repository Value) ENCOUNTERS ENCOUNTERS ADMIT/DISCHARGE ACCOUNT ADMITTING ENCOUNTER LOCATION SOURCE NUMBER CLASS 05/10/2018 [id number] [facility] 05/09/2018 [id number] ARNOL [facility] Repository 04/26/2018/04/29/20 [id number] Fabi, Inpatient [place] [address] Oscar Grier. Encounter [facility] ing:RURoom: Repository [id number]: 1 04/26/2018 [id number] Fabi, Ambulatory BMSBuilding:Yi Siddiqi [facility] Repository 04/26/2018 [id number] Fabi, Ambulatory BMSBuilding:Yi Grier. [facility] Repository 04/26/2018 [id number] Fabi, Ambulatory BMSBuilding:Yi Grier. [facility] Repository 04/26/2018/04/26/20 [id number] Ambulatory [address] ing:SDCRoom: Repository AC04 04/26/2018 [id number] Ambulatory BMSBuilding:[facility] Repository 04/21/2018/04/21/20 [id number] DIANAK, Ambulatory [address] Repository 04/17/2018/04/17/20 [id number] PORFIRIO, Emergency Buildin[address] [place] [address] KATINA DO oom: ERBed: [facility] Repository 02/08/2018/05/09/20 [id number] PINKY QUINN Ambulatory [address] Repository 11/30/2017/12/04/19 [id number] FARHEEN LICEA, Inpatient [place] [address] WASSIM A Encounter [facility] Other [place] Repository 11/30/2017/12/04/19 [id number] Ambulatory [address] Main [place] Repository 08/16/2017 [id number] PINKY QUINN Ambulatory Jun Shepard [facility] Repository 08/04/2017/08/05/19 [id number] PINKY QUINN Ambulatory Jun Shepard [address] [place] [address] Repository PAYERS PAYERS ENCOUNTER GUARANTOR PAYER SUBSCRIBER SOURCE 05/10/2018 VIVIANA Engel Primary VIVIANA Shepard BOALSDOB: Insurance:MEDICARE BOALSDOB: [facility] RECURRING / REFERENCE [id number] RT 83%[place] LABPolicy Number: [id number] TR Repository [facility] [id number] [address] [place] [address] [id number]: Date:Plan Name:[facility] [id number] () 05/10/2018 Secondary VIVIANA Shepard Insurance:ANTHEM BLUE BOALSDOB: [facility] [id number] Hospital RECURRINGPolicy [address] Repository Number: [id number] [address] [place] [address], [place]: [place] [id number] 05/09/2018 VIVIANA Engel Primary VIVIANA Shepard BOALSDOB: Insurance:MEDICARE BOALSDOB: [facility] RECURRING / REFERENCE [id number] Hospital RT 83%[place] LABPolicy Number: [id number] TR Repository [facility] [id number] [id number]: Date:Plan Name:[facility] [id number] () 05/09/2018 Secondary VIVIANA Shepard Insurance:ANTHEM BLUE BOALSDOB: [facility] [id number] Hospital RECURRINGPolicy [address] Repository Number: [facility] [id number] Id [id number] Date: 04/26/2018 VIVIANA Engel Primary VIVIANA Engel [place] BOALSHOLMES Insurance:MEDICARE BOALSDOB: [place] [address] PART A BPolicy Number: [id number], [id number] [place]ository [place] [address]Juw: Date:2018-04-26 () 04/26/2018 Secondary VIVIANA J Gracie Insurance:ANTHEMPolicy BOALSDOB: Community Number: [id number] Hospital [id number] Repository Date:7630-69-50OU [address] [place] [address]DR: 04/26/2018 Tertiary NOT GIVENUNK Gracie Insurance:SELF PAY [facility] Number: Effective Repository Date:2018-04-26 04/26/2018 VIVIANA J Primary VIVIANA J Kend[place] BOALSHOLMES Insurance:MEDICARE BOALSDOB: [place] [address] PART A BPolicy Number: [id number], [id number] [place]ository [place] [address]Cex: Date:2018-04-26 () 04/26/2018 Secondary VIVIANA Engel Gracie Insurance:ANTHEMPolicy BOALSDOB: Community Number: [id number] Hospital [id number] Repository Date:5225-36-76KF [address] [place] [address]OQ: 04/26/2018 Tertiary NOT GIVENUNK [place] Insurance:SELF PAY [facility] Number: Effective Repository Date:2018-04-26 04/26/2018 VIVIANA J Primary VIVIANA J Gracie BOALSHOLMES Insurance:MEDICARE BOALSDOB: [place] [address] PART A BPolicy Number: [id number], [id number] [place]ository [place] [address]Sbb: Date:2018-04-26 () 04/26/2018 Secondary VIVIANA J [place] Insurance:ANTHEMPolicy BOALSDOB: Community Number: [id number] Hospital [id number] Repository Date:2396-80-00GA [address] [place] [address]NH: 04/26/2018 Tertiary NOT GIVENUNK Gracie Insurance:SELF PAY [facility] Number: Effective Repository Date:2018-04-26 04/26/2018 VIVIANA Engel Primary VIVIANA J Kend[place] BOALSHOLMES Insurance:MEDICARE BOALSDOB: [place] [address] PART A BPolicy Number: [id number], [id number] [place]ository [place] [address]Fwc: Date:2018-04-26 (hp) 04/26/2018 Secondary VIVIANA J [place] Insurance:ANTHEMPolicy BOALSDOB: Community Number: [id number] Hospital [id number] Repository Date:2504-76-52QQ [address] [place] [address]NU: 04/26/2018 Tertiary NOT GIVENUNK [place] Insurance:SELF PAY [facility] Number: Effective Repository Date:2018-04-26 04/26/2018 VIVIANA Engel Primary VIVIANA Engel [place] BOALSHOLMES Insurance:MEDICARE BOALSDOB: [place] [address] PART A BPolicy Number: [id number], [id number] [place]ository [place] [address]Kkb: Date:2018-04-20 (UX) 04/26/2018 Secondary VIVIANA J [place] Insurance:ANTHEMPolicy BOALSDOB: Community Number: [id number] Hospital [id number] Repository Date:1288-66-49WH [address] [place] [address]VV: 04/26/2018 Tertiary NOT GIVENUNK [place] Insurance:SELF PAY [facility] Number: Effective Repository Date:2018-04-20 04/26/2018 VIVIANA Engel Primary VIVIANA J Gracie BOALSHOLMES Insurance:MEDICARE BOALSDOB: [place] [address] PART A BPolicy Number: [id number] 83RUSSELL, [id number] Repository [place] [address]Zdo: Date:2018-04-20 (HP) 04/26/2018 Secondary VIVIANA Bowman Insurance:ANTHEMPolicy BOALSDOB: [facility] Number: [id number] Hospital [id number] Repository Date:0404-31-05NP [address] [address]IL: 04/26/2018 Tertiary NOT GIVENUNK [place] Insurance:SELF PAY [facility] Number: Effective Repository Date:2018-04-26 04/21/2018 VIVIANA Engel Primary Insurance:500 VIVIANA Engel Jun Angelaanjali BOALSDOB: MEDICARE BOALSDOB: [facility] [address] [facility] [id number] Hospital [address] Number: [id number] TR Repository [address] [place] [id number] [address]Wsm: (419) Date:Plan Name:[facility] [id number] () 04/21/2018 Secondary VIVIANA Junfarheen Forbesmiatash Insurance:BLUE CROSS BOALSDOB: [address] [id number] Hospital OUTPATIENTPoly [address] Repository Number: [id number] TR [id number] [address] [place] [address], Date:Plan Name:[facility] [address] 04/17/2018 VIVIANA J Primary Insurance:500 VIVIANA Engel Junfarheen Forbesanjali BOALSDOB: MEDICARE BOALSDOB: [facility] [address] [facility] [id number] Hospital [id number] Number: [address] TR Repository [address] [place] [id number] [address]Vhg: (419) Date:Plan Name:[facility] [id number] () 04/17/2018 Secondary VIVIANA J Jun Angelaanjali Insurance:BLUE CROSS BOALSDOB: [address] [id number] Hospital OUTPATIENTPolicy [address] Repository [facility]: [facility] [id number] Id [id number] Date:Plan Name: 02/08/2018 VIVIANA Toro Primary VIVIANA Shepard BOALSDOB: Insurance:MEDICARE BOALSDOB: [facility] [id number] ST RECURRING / REFERENCE [id number] Hospital RT 83%[place] LABPolicy Number: [id number] TR Repository [facility], [id number] [address] [place] [address] [id number]: Date:Plan Name:[facility] [id number] () 02/08/2018 Secondary VIVIANA Shepard Insurance:ANTHEM BLUE BOALSDOB: [facility] COMMERCIAL [id number] Hospital RECURRINGPolicy [address] Repository Number: [id number] TR [id number] [address] [place] [address], [place]: [place] [address] 08/16/2017 VIVIANA Toro Primary Insurance:S VIVIANA Shepard BOALSDOB: - BOALSDOB: [facility] TR MEDICARE-[facility] [id number] Hospital 1056 PO [id number] Number: 0 TR 1056 PO Repository TR [address] [place] [address] [id number] [facility] [address]Jll: Date:1838-29-92Vbdi 01882 Name: () 08/16/2017 Secondary VIVIANA Shepard Insurance:ANTHEMPolicy BOALSDOB: [facility] Number: [id number] [facility] [id number] 0 TR 1056 PO Repository Date:Plan Name:[place] [address] 08/04/2017 VIVIANA Toro Primary Insurance:[facility] VIVIANA Arizatash BOALSDOB: MEDICARE BOALSDOB: [facility] [id number] BOX OUTPATIENTPol[facility] [id number] Hospital 055157 TR Number: [id number] TR Repository [address] [place] [address] [id number] 1056[facility] [address]Htm: 419) Date:Plan Name:[facility] [id number] () 08/04/2017 Secondary VIVIANA Shepard [facility] [address] [id number] Hospital [facility]IENTBrad[facility] Cent[facility] [address] TR Repository Number: 1056LAKELACI, [id number] Id [id number] Date:
== END 2018-04-26 11:30 ==
LOC: SDC 06:11 → AC 06:12
PROVIDERS: Family Provider Internal Medicine Infectious Disease; PCP Internal Medicine Infectious Disease; Referring Provider Podiatrist Foot & Ankle Surgery; Visit Provider Podiatrist Foot & Ankle Surgery
PROC: (CPT 27792; principal; 2018-04-26 07:10)
DX: S82.61XA Displaced fracture of lateral malleolus of right fibula, initial encounter for closed fracture (principal); F03.90 Unspecified dementia, unspecified severity, without behavioral disturbance, psychotic disturbance, mood disturbance, and anxiety; I10 Essential (primary) hypertension; E66.3 Overweight; R60.0 Localized edema; I89.8 Other specified noninfective disorders of lymphatic vessels and lymph nodes; M25.571 Pain in right ankle and joints of right foot; S93.431A Sprain of tibiofibular ligament of right ankle, initial encounter; S93.421A Sprain of deltoid ligament of right ankle, initial encounter; Z68.27 Body mass index [BMI] 27.0-27.9, adult; W19.XXXA Unspecified fall, initial encounter; Y93.9 Activity, unspecified; Y92.199 Unspecified place in other specified residential institution as the place of occurrence of the external cause; Y99.9 Unspecified external cause status
CPT/HCPCS: 01480; 27792; 73610; 76000; 93005; C1713; J7120

== ENCOUNTER 2018-04-26 13:39 | Inpatient (IN) | payer MEDICARE, BC, SELFPAY ==
[2018-04-26 06:54] VITALS: BMI 11.2
[2018-04-26 14:00] VITALS: BP 121/72; PULSE 76; RESP 18; TEMP 36.7; O2SAT 96; BMI 27.4; BMI 61.6
--- NOTE | 2018-04-26 14:00 | NURSING ---
Patient and family aware of patient being a fall risk and must ask for staff assist with transfers and patient demonstrated call clarke use with instruct.
--- NOTE | 2018-04-26 14:42 | PCM.RU.PYE ---
Admission Information Status Changes from Prescreening?: No changes Identified Actual Problem List:: Falls, Mobility Impaired, Self Care Deficit Potential Problem List:: DVT, Bleeding, Infection, UTI, Aspiration, Falls, Skin Integrity, Depression Risk of Complications DVT: LMWH, DIANE Hose, Sequential Compression Device Bleeding: Monitor Lab Values, Nursing to Teach Precautions for anti-coagulation therapy., Wound, if applicable, to be assessed every shift., Stroke patients assessed for lethargy or change in status. Infection: Clinical Staff to Monitor for S/S of infection:, S/S of infection include fever, redness, warmth, etc. Urinary Tract Infection: Monitor for frequency, burning, discomfort, or incontinence., Nursing will obtain urine sample for urinalysis and C&S when ordered. Aspiration: Clinical staff will monitor for coughing, drooling, congestion., Speech will evaluate swallowing and dsyphasia., Nursing will monitor patient swallowing during meals. Falls: Patient will be evaluated for Fall Precautions, Patient will be placed on Fall Precautions as indicated per protocol. Skin Breakdown: Nursing will assess skin daily using assessment tool., Nursing will place on Skin Breakdown Precautions as indicated. Pain: Clinical staff will assess patient's pain level per protocol., Medications will be given, if needed, and the pain level reassessed., Other methods: Massage, distraction, decrease stimulus, etc. used PRN. Plan of Care Patient requires physician specializing in physical medicine and rehab oversight to provide close medical supervision of rehab issues including: Pain Management, Sleep Problems, Bowel and Bladder, Medical and co-morbidity Management, DVT prophylaxis, Rehabilitation Leadership, Coordination of treatment team Patient needs Physical Therapy: For a minimum of 1 hour, At least 5 out of 7 days Patient needs Physical Therapy to improve:: Mobility, Mobility, Mobility, Strengthening, Transfers, Stretching, ROM, Endurance, Stairs, Gait, Balance Patient needs Occupational Therapy: For a minimum of 1 hour, At least 5 out of 7 days Patient needs Occupational Therapy to improve ADL's incl.: Eating, Grooming, Bathing, Dressing, Toileting, Toilet transfers, Community Reintegration, Higher functioning activities, Household tasks, Adaptive Equipment, Splinting, Other activities as determined Patient requires speech therapy: For a minimum of 1 hour, At least 5 out of 7 days Patient requires speech therapy for: Swallowing, Cognition, Language Skills, Compensatory Strategies Patient requires / Rehabilitation Nursing for: Pain Issues, Identifying and preventing risk factors, Monitoring and reporting current medical conditions, Assisting with ambulation, transfer, and all ADL's, Teaching patients about disease process and medications, Family teaching, Providing safe environment, Bowel and Bladder Issues, Skin integrity, Medication Management Patient needs Research And Development Manager/ Case Management for: Discharge Planning, Arranging Home Equipment or Services, Family Interventions Patient needs Dietary and Nutrition Services for: Adequate Nutrition, Nutritional Supplements, Nutritional Education Goals Patient will remain: free from falls, or injury at time of discharge. Patient will perform bed mobility at: MOD I level of assist. Patient will complete transfers from bed to chair at: MOD I level of assist. Patient will ambulate: 100 feet, with MOD I assist, with LRD Patient will complete upper body dressing at: MOD I level of assist. Patient will complete lower body dressing at: MOD I level of assist. Patient will complete toileting at: MOD I level of assist. Patient will perform bathing at: MOD I level of assist. Patient will complete grooming at: MOD I level of assist. Patient will complete home management skills at: MOD I level of assist. Patient will achieve: 12 stairs, at MOD I assist Patient will have pain level of: of 3 or less Patient's skin will: remain intact, free from infection. Patient will receive: adequate nutrition. Discharge Planning Pt Prognosis for Sig. Practical Improv. w/in Reasonable Time: Good Estimated Length of stay (days): 16 Anticipated D/C Destination: Home Was Preadmission Assessment Accurate?: Yes
[2018-04-26] MEDS: Acetaminophen 325 MG Tablet 650 MG PO ×2 (14:57→22:25)
--- NOTE | 2018-04-26 15:54 | HP.PCM.COS_ITS ---
History of Present Illness Date of Admission: 04/26/18 Chief Complaint: Right ORIF ankle This is a 77-year-old right handed female who was admitted to the rehab unit for rehabilitation after under going a right ORIF and transsyndesmotic fixation on 04/26/[address] Davis, with no post-op complications noted. She has a PMH: of dementia, HTN, macular degeneration, depression, and seizure disorder currently she is controlled on Keppra. She is non-weight bearing on the right LE, has a splint in place which is C/D/I. She lives in a retirement facility, she was able to do some of her personal care, but required assistance at times. She is alert and oriented x1, has difficulty remembering to follow her weight bearing instructions without cues. She is admitted to the unit in order to restore her previous level of functional independence. Past Medical History Allergies No Known Allergies Allergy (Verified 04/22/18 13:09) Home Medications: Ambulatory Orders Medication Instructions Recorded Bupropion HCl [Bupropion HCl Sr] 150 mg PO DAILY 06/12/15 Duloxetine Hcl [Cymbalta] 20 mg PO DAILY 06/12/15 Gabapentin 100 mg PO DAILY 06/12/15 Lovastatin [Mevacor] 10 mg PO QHS 06/12/15 Acetaminophen [Tylenol Tablet] 650 mg PO Q6H PRN PRN #0 tablet 06/14/15 Aspirin 325 mg PO DAILY@0800 04/22/18 Famotidine [Pepcid] 20 mg PO BID 04/22/18 Metoprolol Succinate [Toprol Xl] 50 mg PO DAILY 04/22/18 Oxybutynin [Ditropan] 5 mg PO DAILY 04/22/18 levETIRAcetam tablet [Keppra 500 mg PO BID 04/22/18 tablet] Surgical History: no surgical history Psychiatric History: Depression Lives: Detention Smoking Status: Never smoker Alcohol: None Drugs: None Review of Systems Constitutional: Denies: Chills, Fever, Weight Change HEENT: Denies: Head Aches, Sinus Congestion, Sinus Drainage Cardiovascular: Denies: Chest Pain, Palpitations Respiratory: Denies: Cough, Shortness of breath at rest, Sputum production Gastrointestinal: Denies: Abdominal Pain, Nausea, Vomiting Genitourinary: Denies: Dysuria Musculoskeletal: Denies: Joint Pain, Joint Tenderness Skin: Denies: Rash, Wounds Neurological: Denies: Numbness, Tingling, Focal weakness Psychiatric: Denies: Anxiety, Depression, Homicidal Ideations, Suicidal Ideations Hematologic/ Lymphatic: Denies: Easy Bruising, Easy Bleeding VTE Information - Inpt Only VTE Present on Admission: No VTE Mechan Device Prophylaxis: SCD's - left only, Knee High DIANE Hose VTE Pharm Prophylaxis ordered?: Yes - Physical Exam General: Alert, Oriented x3, Cooperative HEENT: Atraumatic, PERRLA, EOMI, Normocephalic Neck: Supple, No JVD, Negative Carotid Bruits Lungs: Clear to auscultation, Normal air movement Cardiovascular: Regular rate, No murmurs Abdomen: Bowel Sounds Present, Soft, Non Tender Extremities: No edema, Capillary Refill Less than 3 Seconds, - - Splint Right leg Skin: No rashes, No breakdown Musculoskeletal: No Tenderness to Palpation of Joints or Extremities Neurological: Cranial nerves II-XII grossly intact Psych/Mental Status: Normal Affect, Appropriate, Alert and oriented to time, place, person, mood and affect Weight: 61.689 kg Body Mass Index (BMI) 27.4 Active Medications Acetaminophen (Tylenol) 650 mg PO Q6H PRN PRN PRN Reason: PAIN Last Admin: 04/26/18 14:57 Dose: 650 mg Aspirin (Aspirin) 325 mg PO DAILY@0800 [facility] Atorvastatin Calcium (Lipitor) 5 mg PO QHS [facility] Bisacodyl (Dulcolax) 10 mg RECTAL .PRN X 1 PRN PRN Reason: Constipation Bupropion HCl (Wellbutrin Sr (150mg Tablets)) 150 mg PO DAILY [facility] Duloxetine HCl (Cymbalta) 20 mg PO DAILY [facility] Enoxaparin Sodium (Lovenox) 40 mg SC DAILY@0600 [facility] Famotidine (Pepcid) 20 mg PO BID [facility] Gabapentin (Neurontin) 100 mg PO DAILY@0800 [facility] Levetiracetam (Keppra Tablet) 500 mg PO BID [facility] Magnesium Hydroxide (Milk Of Magnesia) 30 ml PO .PRN X 1 PRN PRN Reason: Constipation Metoprolol Succinate (Toprol Xl (Beta Rene)) 50 mg PO DAILY [facility] Senna/Docusate Sodium (Senokot-S, Una-Colace) 2 tablet PO BID [facility] Tolterodine Tartrate (Detrol La) 2 mg PO DAILY [facility] Assessment/Plan Debility s/p ORIF right ankle, complicated by dementia, depression, and seizures. goal of rehab is sikhism of functional independence. Plan: - Physical therapy for gait and balance - Occupational Therapy for ADLs - As needed analgesics - per family request they would like us to use Tylenol as the first line pain medication, narcotic causes confusion in the patient - Bowel protocol - DVT prophylaxis: SCDs, Diane hoses and Lovenox - Hx of Seizures continue on Keppra - Hx of depression - currently on Wellbutrin, was discussed with the family that this medication could lower the patient seizure threshold, the family would like for her to continue on the medication until she is able to follow up with her primary care doctor who started her on the medication. - HTN - stable,continue metoprolol - HLD - continue home dose of Lipitor - Hx of Dementia with acute agitation - baseline A&O x1. - Fall risk
--- NOTE | 2018-04-26 17:30 | NURSING ---
Patient found up in room walking around, alert x1 per baseline. Patient immediately given chair to sit in. Patient reminded of nwb precautions and use of call light and questionable results of 1:1. Patient reported she needed to use the bathroom. Staff assisted patient appropriately and patient maintained nwb precautions with staff instruct. Staff reapplied PA that patient had taken off and bed alarm in place. Denies pain.
--- NOTE | 2018-04-26 18:19 | PCM.PROGNOTE ---
Subjective: This is a 77-year-old female with a past medical history of dementia, long-term sniffed resident, hypertension, macular degeneration, seizure disorder, depression, who underwent a right ORIF with Dr. Davis today and was subsequently transferred to the rehab unit for physical therapy and stabilization prior to returning to her senior care facility. She is currently resting in bed with 10 out of 10 pain in the right ankle. She did however just ambulate on her foot even though she is nonweightbearing. She is very confused and at baseline alert and oriented x1 only. Aside from the pain she is feeling well. No nausea, vomiting, shortness of breath, cough. - Physical Exam General: Alert, Oriented x3, Cooperative HEENT: Atraumatic, PERRLA, EOMI, Normocephalic Neck: Supple, No JVD, Negative Carotid Bruits Lungs: Clear to auscultation, Normal air movement Cardiovascular: Regular rate, No murmurs Abdomen: Bowel Sounds Present, Soft, Non Tender Extremities: No edema, Capillary Refill Less than 3 Seconds Skin: No rashes, No breakdown Musculoskeletal: No Tenderness to Palpation of Joints or Extremities Neurological: Cranial nerves II-XII grossly intact Psych/Mental Status: Normal Affect, Appropriate Weight: 136 lb Body Mass Index (BMI) 27.4 Medical Necessity - Tobacco Use Smoking Status: Never smoker Assessment/Plan 1. Hypertension-stable, metoprolol 2. Seizure disorder-Keppra 3. Hyperlipidemia-atorvastatin 4. Dementia-baseline A&O x1. 5. Fracture of the right ankle-status post mechanical fall at the snf-status post ORIF postop day #0-patient is supposed to be nonweightbearing however due to her confusion and dementia she has been ambulatory already. Her recovery is going to be very difficult if this continues. Reportedly the family does not want her to have anything for pain other than Tylenol. At this point her pain is a 10 out of 10 and she may require something additional. Further discussion should be had with the family is immediately postop she may have severe pain requirements. DVT prophylaxis: Lovenox, SCDs, and DIANE mederos This patient was seen by Dallas Hazel PA-C under the supervision of Doctor Juarez Thank you for the opportunity to participate in the care of this patient.
--- NOTE | 2018-04-26 18:25 | PN_ITS ---
Subjective: This is a 77-year-old female with a past medical history of dementia, long-term sniffed resident, hypertension, macular degeneration, seizure disorder, depression, who underwent a right ORIF with Dr. Davis today and was subsequently transferred to the rehab unit for physical therapy and stabilization prior to returning to her assisted facility. She is currently resting in bed with 10 out of 10 pain in the right ankle. She did however just ambulate on her foot even though she is nonweightbearing. She is very confused and at baseline alert and oriented x1 only. Aside from the pain she is feeling well. No nausea, vomiting, shortness of breath, cough. - Physical Exam General: Alert, Oriented x3, Cooperative HEENT: Atraumatic, PERRLA, EOMI, Normocephalic Neck: Supple, No JVD, Negative Carotid Bruits Lungs: Clear to auscultation, Normal air movement Cardiovascular: Regular rate, No murmurs Abdomen: Bowel Sounds Present, Soft, Non Tender Extremities: No edema, Capillary Refill Less than 3 Seconds Skin: No rashes, No breakdown Musculoskeletal: No Tenderness to Palpation of Joints or Extremities Neurological: Cranial nerves II-XII grossly intact Psych/Mental Status: Normal Affect, Appropriate Weight: 136 lb Body Mass Index (BMI) 27.4 Medical Necessity - Tobacco Use Smoking Status: Never smoker Assessment/Plan 1. Hypertension-stable, metoprolol 2. Seizure disorder-Keppra 3. Hyperlipidemia-atorvastatin 4. Dementia-baseline A&O x1. 5. Fracture of the right ankle-status post mechanical fall at the long-term- status post ORIF postop day #0-patient is supposed to be nonweightbearing however due to her confusion and dementia she has been ambulatory already. Her recovery is going to be very difficult if this continues. Reportedly the family does not want her to have anything for pain other than Tylenol. At this point her pain is a 10 out of 10 and she may require something additional. Further discussion should be had with the family is immediately postop she may have severe pain requirements. DVT prophylaxis: Lovenox, SCDs, and DIANE mederos This patient was seen by Dallas Hazel PA-C under the supervision of Doctor Juarez Thank you for the opportunity to participate in the care of this patient.
[2018-04-26 19:40] VITALS: PULSE 71; RESP 18; O2SAT 98
[2018-04-26 19:45] VITALS: BP 142/73; PULSE 71; RESP 18; TEMP 36.7; O2SAT 98
[2018-04-26] MEDS: Famotidine 20 MG Tablet PO (19:58)
[2018-04-26] MEDS: Atorvastatin Calcium 10 MG Tablet 5 MG PO (19:58)
[2018-04-26] MEDS: Senna/Docusate Sodium 1 Tablet 2 TABLET PO (19:58)
[2018-04-26] MEDS: levETIRAcetam 500 MG Tablet PO (19:59)
--- NOTE | 2018-04-26 21:52 | NURSING ---
Dr Hodges saw pt in room
[2018-04-26 23:16] VITALS: O2SAT 98
[2018-04-27 02:06] LABS: Bedside Glucose 127 mg/dL (70-110)
--- NOTE | 2018-04-27 02:08 | NURSING ---
Addendum entered by Ann-Marie Montelongo 04/27/18 03:31: Pt is a/o x2 with hx of dementia. Pt brought to nurses station for 1:1 observation. Physician notified at 02:20 and awaiting response. Answering service notified a second and third time. Original Note: Addendum entered by Ann-Marie Montelongo 04/27/18 02:11: spO2 96% on room arir. BS- 127. A/O x2. Tylenol provided hs. No abrasions noted. Nursing Outbound Sales Agent alerted. Original Note: Pt found on floor in room at 01:43. Pt has hi/lo bed, Pa removed, scds removed, and laying on floor mat. Pt denies hitting head. VS WNL. BP 113/55, HR 73, sPo
--- NOTE | 2018-04-27 02:26 | NURSING ---
0140 staff had just finished taking 402 to the br and was looking in on pt when she was found on the floor, on her back. pt smiled and said vanesa. this worker went to get rn. pt then proceeded to roll to her side and get to her knees and attempted to get back on the bed, before staff could assist her and assess pt for possible injury. vs taken as well as blood sugar and all were within normal limits. pt had removed alarms and taken scd off her lt lle. pt was in a high low bed and her call light had been in reach;mats were on the floor. pt denied any injury and no abrasions, or bruising were noted on pt at this time. rn to notify the doctor and salon supervisor is aware. pt had surya trying to get out oob early several times, wanting to go home and see family. pt is alert and oriented t o self. pt had been offered the toilet earlier and had stated that she didn't to go.
--- NOTE | 2018-04-27 03:29 | NURSING ---
Physician called x3 and awaiting response.
--- NOTE | 2018-04-27 03:44 | NURSING ---
client delivery manager, Patty Nathan, notified of pt fall and that pt is stable.
--- NOTE | 2018-04-27 03:54 | NURSING ---
Dr Yu returned page. Physician was apprised of pt fall and update. NNOs at this time and staff is monitoring for any changes. Family will be notified at a more reasonable hour as there was no injury to pt.
--- NOTE | 2018-04-27 04:29 | NURSING ---
Reviewed and agree with CLINICAL RESOURCE NURSE documentation and FIMs charting.
[2018-04-27] MEDS: Acetaminophen 325 MG Tablet 650 MG PO (04:34)
[2018-04-27] MEDS: Enoxaparin 40 MG/0.4 ML Syringe SC (05:11)
[2018-04-27 05:48] LABS: Hematocrit 36.3 % (37-47); Hemoglobin 11.9 g/dl (12.0-15.0); Mean Corp Hgb Conc 32.8 g/gl (32-36); Mean Corpuscular Hgb 29.4 pg (27.0-32.0); Mean Corpuscular Volume 89.6 fL (81-99); Mean Platelet Vol. 9.7 fl (6.2-12.0); Platelet Count 227 K/mm3 (150-450); RBC Distribution Width CV 13.2 % (11.6-14.6); RBC Distribution Width SD 42.7 fl (35.1-43.9); Red Blood Count 4.05 M/mm3 (4.2-5.4); White Blood Count 7.1 K/mm3 (4.4-11.0)
[2018-04-27 05:59] LABS: Scan Indicated on CBC? Y/N NO
[2018-04-27 06:05] LABS: ALB/GLOB Ratio 0.9 RATIO (0.9-2.4); AST(SGOT) 18 U/L (15-37); Alanine Aminotransfer ALT/SGPT 15 U/L (13-56); Alkaline Phosphatase 77 U/L (45-117); Anion Gap 9 (5-15); BUN 7 mg/dL (7-18); BUN/Creat Ratio 14.5 RATIO (10-20); Calcium,Total 8.8 mg/dL (8.5-10.1); Chloride 105 mmol/L (98-107); Creatinine, Serum 0.48 mg/dL (0.55-1.02); EST Glomerular Filtration Rate 132 mL/min (>60); Est Glom Filt Rate - Afr Amer 160 mL/min (>60); Estimated Creatinine Clearance 20.45 ml/min; Globulin 3.5 g/dL (2.2-4.2); Glucose 127 mg/dL (74-106); Potassium 3.6 mmol/L (3.5-5.1); Protein, Total 6.5 g/dL (6.4-8.2); Sodium Level 140 mmol/L (136-145)
[2018-04-27 06:30] VITALS: O2SAT 96
--- NOTE | 2018-04-27 06:36 | NURSING ---
Addendum entered by Ann-Marie Montelongo 04/27/18 06:59: son, jasson Original Note: nos, jasson, attempted to notify by phone re: pt fall. Phone rang x12 but no answer or answering machine picked up to leave message. Will try again.
[2018-04-27 07:01] VITALS: BP 128/75; PULSE 69; RESP 18; TEMP 36.7; O2SAT 69
[2018-04-27] MEDS: Tolterodine Tartrate 2 MG CAP.SA PO (07:29)
[2018-04-27] MEDS: buPROPion (SR) 150 MG Tablet.SA PO (07:29)
[2018-04-27] MEDS: DULoxetine Hcl 20 MG Capsule PO (07:29)
[2018-04-27] MEDS: levETIRAcetam 500 MG Tablet PO ×2 (07:29→22:16)
[2018-04-27] MEDS: Famotidine 20 MG Tablet PO ×2 (07:29→22:16)
[2018-04-27] MEDS: Senna/Docusate Sodium 1 Tablet 2 TABLET PO ×2 (07:29→22:15)
[2018-04-27] MEDS: Gabapentin 100 MG Capsule PO (07:29)
[2018-04-27 07:30] VITALS: BP 128/75; PULSE 69
[2018-04-27] MEDS: Aspirin 325 MG Tablet PO (07:30)
[2018-04-27] MEDS: Metoprolol(XL)Succ 50 MG Tablet PO (07:30)
[2018-04-27 08:29] VITALS: BP 123/71; PULSE 72; RESP 16; TEMP 36.6; O2SAT 98
--- NOTE | 2018-04-27 11:38 | NS ---
Pt needs funeral director's assistant: cannot open up pkg-ed food. Please uncover food for pt to see that there is food under the doom.
[2018-04-27] MEDS: Acetaminophen 500 MG Tablet 1000 MG PO ×2 (13:13→22:15)
--- NOTE | 2018-04-27 13:50 | RAD_ITS ---
STUDY: X-RAY - BILATERAL HIPS WITHOUT PELVIS REASON FOR EXAM: Female, 77 years old. Fell and injured pelvis TECHNIQUE: 2 views of the right hip, and 2 views of the left hip were obtained. COMPARISON: None. FINDINGS: Right Hip: Normal right femoral head, neck, intertrochanteric region and visualized proximal femur. Normal right acetabulum. Normal right hip joint. Left Hip: Normal left femoral head, neck, intertrochanteric region and visualized proximal femur. Normal left acetabulum. Normal left hip joint. Normal bilateral superior and inferior pubic rami , ischial tuberosities and pubic symphysis. RAD/Hips B/L min 2 views w/ Pelvis IMPRESSION: Normal x-ray examination of the right hip. Normal x-ray examination of the left hip. Electronically Signed: Keith Patel MD at 17:10 EST , Service support ,
--- NOTE | 2018-04-27 14:31 | RAD_ITS ---
STUDY: X-RAY - RIGHT ANKLE REASON FOR EXAM: Female, 77 years old. Pain after fall, recent surgery TECHNIQUE: Three view(s) of the ankle were obtained. COMPARISON: April 26, 2018 FINDINGS: Bones: A plate and screws are again seen over the distal fibula and lateral malleolus. A syndesmotic screw is again seen through the distal fibula and tibia. A moderate spur is again seen off the inferior calcaneus. Joints: The visualized joints are unremarkable. Soft tissues: Soft tissue swelling and soft tissue air are again seen laterally. RAD/Ankle min 3 Views IMPRESSION: There are stable surgical changes in the distal fibula and lateral malleolus. Hardware is intact. There are no acute fractures. Electronically Signed: Cyndie Nieto MD at 19:38 EST Tel Direct: [phone], Service support ,
--- NOTE | 2018-04-27 15:25 | NURSING ---
PRN Haldol given x1 to right buttock for agitation. Daughter in law present and patient attempting self transfers and unable to be redirected. Dr Doll came to see patient. Patient alert x 1. Food/fluids offered, toileting done, repositioning in bed performed, pain assessed and patient denies, TV placed on, and all ineffective.
[2018-04-27] MEDS: Haloperidol Lactate 5 MG/ML Vial 2 MG IM (15:30)
--- NOTE | 2018-04-27 15:38 | PN_ITS ---
Subjective: Patient is a 77-year-old lady with history of dementia resident of an assisted living facility who underwent right ORIF on account of R distal fibula fracture with syndesmotic dysruption patient was transferred to the inpatient rehab unit to continue with her recuperation Seen patient is very delirious with a sitter by the side and order was given for patient to receive IM Haldol Objective: GENERAL: Delirious HEENT: Atraumatic; moist oral mucosa EYES; Anicteric, Normal Conjunctiva NECK; supple, normal thyroid, no distended JVD. RESPIRATORY: Diminished to auscultation bilaterally, CARDIOVASCULAR: Regular S1 S2, no audible murmurs GI: soft, non-tender, normoactive bowel sounds, : No Renal angle tenderness; EXTREMITIES: No edema, no clubbing, no cyanosis. MUSCULOSKELETAL: Right ankle in a surgical dressing NEURO: Awake; no lateralizing signs. SKIN: No Rash PSYCH; delirious Vitals/I&O's: Vital Signs Temp Pulse Resp BP Pulse Ox 97.9 F 72 16 123/71 H 98 04/27/18 08:29 04/27/18 08:29 04/27/18 08:29 04/27/18 08:29 04/27/18 08:29 Oxygen Delivery Method Room Air Weight: 61.689 kg Body Mass Index (BMI) 27.4 Intake and Output for Last 24 Hours 04/25/18 04/26/18 04/27/18 23:59 23:59 23:59 Intake Total 500 / 500 Output Total 300 / 300 600 / 600 Balance -300 / -300 -100 / -100 Laboratory Results 04/27/18 01:51: POC Glucose 127 H 04/27/18 05:30: WBC 7.1, RBC 4.05 L, Hgb 11.9 L, Hct 36.3 L, MCV 89.6, MCH 29.4, MCHC 32.8, RDW 13.2, RDW Differential 42.7, Plt Count 227, MPV 9.7 04/27/18 05:30: Sodium 140, Potassium 3.6, Chloride 105, Carbon Dioxide 26.0, Anion Gap 9, BUN 7, Creatinine 0.48 L, Estim Creat Clear Calc 20.45, Est GFR (MDRD) Af Amer 160, Est GFR (MDRD) Non-Af 132, BUN/Creatinine Ratio 14.5, Glucose 127 H, Calcium 8.8, Total Bilirubin 0.80, AST 18, ALT 15, Alkaline Phosphatase 77, Total Protein 6.5, Albumin 3.0 L, Globulin 3.5, Albumin/Globulin Ratio 0.9 Current Medications Acetaminophen (Tylenol) 1,000 mg PO Q8 [facility] Last Admin: 04/27/18 13:13 Dose: 1,000 mg Aspirin (Aspirin) 325 mg PO DAILY@0800 [facility] Last Admin: 04/27/18 07:30 Dose: 325 mg Atorvastatin Calcium (Lipitor) 5 mg PO QHS [facility] Last Admin: 04/26/18 19:58 Dose: 5 mg Bisacodyl (Dulcolax) 10 mg RECTAL .PRN X 1 PRN PRN Reason: Constipation Bupropion HCl (Wellbutrin Sr (150mg Tablets)) 150 mg PO DAILY [facility] Last Admin: 04/27/18 07:29 Dose: 150 mg Duloxetine HCl (Cymbalta) 20 mg PO DAILY [facility] Last Admin: 04/27/18 07:29 Dose: 20 mg Enoxaparin Sodium (Lovenox) 40 mg SC DAILY@0600 [facility] Last Admin: 04/27/18 05:11 Dose: 40 mg Famotidine (Pepcid) 20 mg PO BID [facility] Last Admin: 04/27/18 07:29 Dose: 20 mg Gabapentin (Neurontin) 100 mg PO DAILY@0800 [facility] Last Admin: 04/27/18 07:29 Dose: 100 mg Levetiracetam (Keppra Tablet) 500 mg PO BID [facility] Last Admin: 04/27/18 07:29 Dose: 500 mg Magnesium Hydroxide (Milk Of Magnesia) 30 ml PO .PRN X 1 PRN PRN Reason: Constipation Melatonin (Melatonin) 3 mg PO QHS [facility] Metoprolol Succinate (Toprol Xl (Beta Rene)) 50 mg PO DAILY [facility] Last Admin: 04/27/18 07:30 Dose: 50 mg Nutritional Formula (Lactose Free) (Ensure Enlive) 120 ml PO 4X/DAY [facility] Last Admin: 04/27/18 14:35 Dose: 120 ml Senna/Docusate Sodium (Senokot-S, Una-Colace) 2 tablet PO BID [facility] Last Admin: 04/27/18 07:29 Dose: 2 tablet Tolterodine Tartrate (Detrol La) 2 mg PO DAILY [facility] Last Admin: 04/27/18 07:29 Dose: 2 mg Medical Necessity - Tobacco Use Smoking Status: Never smoker Assessment/Plan Patient is a 77-year-old lady with history of dementia resident of an assisted living facility who underwent right ORIF on account of R distal fibula fracture with syndesmotic dysruption patient was transferred to the inpatient rehab unit to continue with her recuperation 1. Status post right ORIF on account of R distal fibula fracture with syndesmotic dysruption on 04/26/2018. Admitted to the rehab unit for subsequent treatment 2. Dementia with behavioral agitation patient currently has a sitter by her be dside. Did receive IM Haldol 3. Macular degeneration per history 4. Hypertension-blood pressure controlled, home medications continued with dose adjustment as needed 5. Seizure disorder patient is on Keppra 6. Depression: Hold Wellbutrin and Cymbalta 7. Dyslipidemia-patient is on statin therapy, continued at home dose 8. DVT prophylaxis; enoxaparin 40 mg SC daily Active Medications Acetaminophen (Tylenol) 1,000 mg PO Q8 [facility] Last Admin: 04/27/18 13:13 Dose: 1,000 mg Aspirin (Aspirin) 325 mg PO DAILY@0800 [facility] Last Admin: 04/27/18 07:30 Dose: 325 mg Atorvastatin Calcium (Lipitor) 5 mg PO QHS [facility] Last Admin: 04/26/18 19:58 Dose: 5 mg Bisacodyl (Dulcolax) 10 mg RECTAL .PRN X 1 PRN PRN Reason: Constipation Bupropion HCl (Wellbutrin Sr (150mg Tablets)) 150 mg PO DAILY [facility] Last Admin: 04/27/18 07:29 Dose: 150 mg Duloxetine HCl (Cymbalta) 20 mg PO DAILY [facility] Last Admin: 04/27/18 07:29 Dose: 20 mg Enoxaparin Sodium (Lovenox) 40 mg SC DAILY@0600 [facility] Last Admin: 04/27/18 05:11 Dose: 40 mg Famotidine (Pepcid) 20 mg PO BID [facility] Last Admin: 04/27/18 07:29 Dose: 20 mg Gabapentin (Neurontin) 100 mg PO DAILY@0800 [facility] Last Admin: 04/27/18 07:29 Dose: 100 mg Levetiracetam (Keppra Tablet) 500 mg PO BID [facility] Last Admin: 04/27/18 07:29 Dose: 500 mg Magnesium Hydroxide (Milk Of Magnesia) 30 ml PO .PRN X 1 PRN PRN Reason: Constipation Melatonin (Melatonin) 3 mg PO QHS [facility] Metoprolol Succinate (Toprol Xl (Beta Rene)) 50 mg PO DAILY [facility] Last Admin: 04/27/18 07:30 Dose: 50 mg Nutritional Formula (Lactose Free) (Ensure Enlive) 120 ml PO 4X/DAY [facility] Last Admin: 04/27/18 14:35 Dose: 120 ml Senna/Docusate Sodium (Senokot-S, Una-Colace) 2 tablet PO BID [facility] Last Admin: 04/27/18 07:29 Dose: 2 tablet Tolterodine Tartrate (Detrol La) 2 mg PO DAILY [facility] Last Admin: 04/27/18 07:29 Dose: 2 mg Code Visit Inpatient E&M: 24930 [facility] L[facility]
--- NOTE | 2018-04-27 16:48 | CASEMGMT ---
Social Work Team communicating that patient needs are greater then floor is able to meet at this time. Spoke with patient son, Greg. This outreach and education social worker communicating above team information. Greg voicing understanding and agreeable. Greg requesting for patient to transition to [facility]. Proposed discharge date is: 04/29/18. Greg is agreeable to discharge date. Support given. Telephone call to [facility]. Rebeca voicing to have openings and to be able to review case. Clinical information faxed. Transfer form initiated. Proposed discharge date: 04/29/18 PLAN: Discharge to [facility], pending approval. SPENCER WhiteW, DISC RULER OPERATOR
--- NOTE | 2018-04-27 19:09 | PN.ORTHO_ITS ---
Patient Problems: Active and Suspected Problems Closed right ankle fracture (Acute) Localized edema (Acute) Hx of falling (Acute) Other specified noninfective disorders of lymphatic vessels and lymph nodes (Acute) Subjective: Pt evaluated at bedside. Denies pain. Vaguely remembers fall last night. Drowsy at times but recognizes me as her surgeon. Objective: RLE: Vasc: crf < 3 seconds, nontender to calf compression Neuro: light touch sensation intact Derm: surgical dressings intact, posterior splint and outer layers of compressive dressing intact and without strikethrough, did not break down sterile dressings at bedside MS: posterior splint intake Radiographs: repeat films of her R ankle were obtained after her fall: hardware appears intact, good surgical alignment, no new fractures noted. - Physical Exam General: Cooperative Vital Signs Temp Pulse Resp BP Pulse Ox 97.9 F 72 16 123/71 H 98 04/27/18 08:29 04/27/18 08:29 04/27/18 08:29 04/27/18 08:29 04/27/18 08:29 Oxygen Delivery Method Room Air Weight: 136 lb 0.015 oz Body Mass Index (BMI) 27.4 Intake and Output for Last 24 Hours 04/25/18 04/26/18 04/27/18 23:59 23:59 23:59 Intake Total 500 / 500 Output Total 300 / 300 600 / 600 Balance -300 / -300 -100 / -100 Laboratory Tests Past 24 Hrs 04/27/18 04/27/18 05:30 05:30 WBC 7.1 RBC 4.05 L Hgb 11.9 L Hct 36.3 L MCV 89.6 MCH 29.4 MCHC 32.8 RDW 13.2 RDW Differential 42.7 Plt Count 227 MPV 9.7 Sodium 140 Potassium 3.6 Chloride 105 Carbon Dioxide 26.0 Anion Gap 9 BUN 7 Creatinine 0.48 L Estim Creat Clear Calc 20.45 Est GFR (MDRD) Af Amer 160 Est GFR (MDRD) Non-Af 132 BUN/Creatinine Ratio 14.5 Glucose 127 H Calcium 8.8 Total Bilirubin 0.80 AST 18 ALT 15 Alkaline Phosphatase 77 Total Protein 6.5 Albumin 3.0 L Globulin 3.5 Albumin/Globulin Ratio 0.9 POC Glucose 04/27/18 01:51 POC Glucose 127 H Medical Necessity - Tobacco Use Smoking Status: Never smoker Assessment/Plan All Active Problems Closed right ankle fracture (Acute) Localized edema (Acute) Hx of falling (Acute) Other specified noninfective disorders of lymphatic vessels and lymph nodes (Acute) 77 yo F s/p ORIF R ankle fracture with transyndesmotic screw fixation POD #1, post op course c/b dementia and overnight fall -Pt evaluated at bedside -labs, studies and notes reviewed -Radiographs reviewed, appear unchanged -posterior splint and outer layers of compressive dressing removed. A well padded SLC was applied at bedside. -Visual signs placed at the end of bed to remind patient to remain nonweightbearing RLE and keep leg elevated. -Pt will be transferred to a facility, likely Wednesday, that can provide both rehab and a one to one as her dementia complicates her post operative course. -pain medication, bowel regimen, and dvt prophylaxis per medicine -Keep RLE elevated to reduce edema, apply ice behind right knee 20 minutes of each hour while awake -Strict NWB RLE, SLC is not a walking cast, however, I feel it will provide her more stability if she does forget to keep weight off of it or has another fall. -Pt has a follow up appointment with me next week at [facility]. Will need to keep appointment. -Please call with any questions or concerns. Please notify me with any falls as we will need repeat films to confirm no broken hardware or new fractures.
[2018-04-27 22:00] VITALS: BP 113/67; PULSE 74; RESP 16; TEMP 36.8; O2SAT 95
[2018-04-27] MEDS: Atorvastatin Calcium 10 MG Tablet 5 MG PO (22:16)
[2018-04-27] MEDS: MELATONIN 3 MG TABLET PO (22:16)
[2018-04-28] MEDS: Enoxaparin 40 MG/0.4 ML Syringe SC (06:10)
[2018-04-28] MEDS: Acetaminophen 500 MG Tablet 1000 MG PO ×3 (06:10→22:24)
[2018-04-28] MEDS: levETIRAcetam 500 MG Tablet PO ×2 (08:29→22:25)
[2018-04-28] MEDS: buPROPion (SR) 150 MG Tablet.SA PO (08:29)
[2018-04-28] MEDS: DULoxetine Hcl 20 MG Capsule PO (08:30)
[2018-04-28] MEDS: Famotidine 20 MG Tablet PO ×2 (08:30→22:24)
[2018-04-28] MEDS: Tolterodine Tartrate 2 MG CAP.SA PO (08:30)
[2018-04-28] MEDS: Gabapentin 100 MG Capsule PO (08:30)
[2018-04-28] MEDS: Aspirin 325 MG Tablet PO (08:31)
[2018-04-28 08:32] VITALS: BP 106/61; PULSE 72
[2018-04-28] MEDS: Metoprolol(XL)Succ 50 MG Tablet PO (08:32)
[2018-04-28 08:33] VITALS: BP 106/61; PULSE 72; RESP 16; TEMP 36.6; O2SAT 98
--- NOTE | 2018-04-28 11:06 | NURSING ---
SPOKE WITH DR PRICILLA BYERS CLINICAL REHAB OFFICE COORDINATOR AND PER HER KEEP APPOINTMENT FOR 05/04.
--- NOTE | 2018-04-28 12:41 | CASEMGMT ---
Social Work Telephone call to [facility]. [facility] is able to accept patient on 04/29/18 under skilled services. Will fax discharge information when obtained. Spoke with patient and patient son, this social work therapist communicating above information. Patient and patient son are agreeable to discharge plan and date. Patient son requesting for transportation to be set up via wheelchair van. Support given. Telephone call to [facility] Transportation set up for 04/29/18 @ 1:00pm. Transportation form completed and placed with patient discharge information. PASRR completed in [facility] and results faxed to [facility]. Proposed discharge date: 04/29/18 PLAN: Discharge to [facility] - Skilled. SPENCER WhiteW, [employer]ITION AND EXPLOSIVES HANDLER
[2018-04-28 14:00] VITALS: O2SAT 95
--- NOTE | 2018-04-28 16:28 | PCM.PN.NEU ---
Patient Problems: Active and Suspected Problems Other specified noninfective disorders of lymphatic vessels and lymph nodes (Acute) Hx of falling (Acute) Localized edema (Acute) Closed right ankle fracture (Acute) Subjective: patient still requiring a sitter at all times, she becomes very confused as evening approaches. Pain is controlled, and she is tolerating therapy. The plan is for the patient to go to a [facility] on 04/29. - Physical Exam General: Alert, Oriented x3, Cooperative HEENT: Atraumatic, PERRLA, EOMI, Normocephalic Neck: Supple, No JVD, Negative Carotid Bruits Lungs: Clear to auscultation, Normal air movement Cardiovascular: Regular rate, No murmurs Abdomen: Bowel Sounds Present, Soft, Non Tender Extremities: No edema, Capillary Refill Less than 3 Seconds Skin: No rashes, No breakdown Musculoskeletal: No Tenderness to Palpation of Joints or Extremities Neurological: Cranial nerves II-XII grossly intact Psych/Mental Status: Normal Affect, Appropriate Vital Signs Temp Pulse Resp BP Pulse Ox 97.9 F 72 16 106/61 95 04/28/18 08:33 04/28/18 08:33 04/28/18 08:33 04/28/18 08:33 04/28/18 14:00 Oxygen Delivery Method Room Air Weight: 61.689 kg Body Mass Index (BMI) 27.4 Intake and Output for Last 24 Hours 04/26/18 04/27/18 04/28/18 23:59 23:59 23:59 Intake Total 940 / 940 480 / 480 Output Total 300 / 300 600 / 600 Balance -300 / -300 340 / 340 480 / 480 Active Medications Acetaminophen (Tylenol) 1,000 mg PO Q8 [facility] Last Admin: 04/28/18 13:56 Dose: 1,000 mg Aspirin (Aspirin) 325 mg PO DAILY@0800 [facility] Last Admin: 04/28/18 08:31 Dose: 325 mg Atorvastatin Calcium (Lipitor) 5 mg PO QHS [facility] Last Admin: 04/27/18 22:16 Dose: 5 mg Bisacodyl (Dulcolax) 10 mg RECTAL .PRN X 1 PRN PRN Reason: Constipation Bupropion HCl (Wellbutrin Sr (150mg Tablets)) 150 mg PO DAILY [facility] Last Admin: 04/28/18 08:29 Dose: 150 mg Duloxetine HCl (Cymbalta) 20 mg PO DAILY [facility] Last Admin: 04/28/18 08:30 Dose: 20 mg Enoxaparin Sodium (Lovenox) 40 mg SC DAILY@0600 [facility] Last Admin: 04/28/18 06:10 Dose: 40 mg Famotidine (Pepcid) 20 mg PO BID [facility] Last Admin: 04/28/18 08:30 Dose: 20 mg Gabapentin (Neurontin) 100 mg PO DAILY@0800 [facility] Last Admin: 04/28/18 08:30 Dose: 100 mg Levetiracetam (Keppra Tablet) 500 mg PO BID [facility] Last Admin: 04/28/18 08:29 Dose: 500 mg Magnesium Hydroxide (Milk Of Magnesia) 30 ml PO .PRN X 1 PRN PRN Reason: Constipation Melatonin (Melatonin) 3 mg PO QHS [facility] Last Admin: 04/27/18 22:16 Dose: 3 mg Metoprolol Succinate (Toprol Xl (Beta Rene)) 50 mg PO DAILY [facility] Last Admin: 04/28/18 08:32 Dose: 50 mg Nutritional Formula (Lactose Free) (Ensure Enlive) 120 ml PO 4X/DAY [facility] Last Admin: 04/28/18 13:55 Dose: 120 ml Senna/Docusate Sodium (Senokot-S, Una-Colace) 2 tablet PO BID [facility] Last Admin: 04/28/18 00:55 Dose: Not Given Tolterodine Tartrate (Detrol La) 2 mg PO DAILY [facility] Last Admin: 04/28/18 08:30 Dose: 2 mg Medical Necessity - Tobacco Use Smoking Status: Never smoker Assessment/Plan All Active Problems Other specified noninfective disorders of lymphatic vessels and lymph nodes (Acute) Hx of falling (Acute) Localized edema (Acute) Closed right ankle fracture (Acute) Debility s/p ORIF right ankle, complicated by dementia, depression, and seizures. goal of rehab is scientology of functional independence. Plan: - Physical therapy for gait and balance - Occupational Therapy for ADLs - As needed analgesics - per family request they would like us to use Tylenol as the first line pain medication, narcotic causes confusion in the patient - Bowel protocol - DVT prophylaxis: SCDs, Homer hoses and Lovenox - Hx of Seizures continue on Keppra - Hx of depression - currently on Wellbutrin, was discussed with the family that this medication could lower the patient seizure threshold, the family would like for her to continue on the medication until she is able to follow up with her primary care doctor who started her on the medication. - HTN - stable,continue metoprolol - HLD - continue home dose of Lipitor - Hx of Dementia with acute agitation - baseline A&O x1. - Fall risk - Patient requiring 1:1 sitter at all times - Plan is [facility]
--- NOTE | 2018-04-28 16:33 | PN.NEURO_ITS ---
Patient Problems: Active and Suspected Problems Other specified noninfective disorders of lymphatic vessels and lymph nodes (Acute) Hx of falling (Acute) Localized edema (Acute) Closed right ankle fracture (Acute) Subjective: patient still requiring a sitter at all times, she becomes very confused as evening approaches. Pain is controlled, and she is tolerating therapy. The plan is for the patient to go to a [facility] on 04/29. - Physical Exam General: Alert, Oriented x3, Cooperative HEENT: Atraumatic, PERRLA, EOMI, Normocephalic Neck: Supple, No JVD, Negative Carotid Bruits Lungs: Clear to auscultation, Normal air movement Cardiovascular: Regular rate, No murmurs Abdomen: Bowel Sounds Present, Soft, Non Tender Extremities: No edema, Capillary Refill Less than 3 Seconds Skin: No rashes, No breakdown Musculoskeletal: No Tenderness to Palpation of Joints or Extremities Neurological: Cranial nerves II-XII grossly intact Psych/Mental Status: Normal Affect, Appropriate Vital Signs Temp Pulse Resp BP Pulse Ox 97.9 F 72 16 106/61 95 04/28/18 08:33 04/28/18 08:33 04/28/18 08:33 04/28/18 08:33 04/28/18 14:00 Oxygen Delivery Method Room Air Weight: 61.689 kg Body Mass Index (BMI) 27.4 Intake and Output for Last 24 Hours 04/26/18 04/27/18 04/28/18 23:59 23:59 23:59 Intake Total 940 / 940 480 / 480 Output Total 300 / 300 600 / 600 Balance -300 / -300 340 / 340 480 / 480 Active Medications Acetaminophen (Tylenol) 1,000 mg PO Q8 [facility] Last Admin: 04/28/18 13:56 Dose: 1,000 mg Aspirin (Aspirin) 325 mg PO DAILY@0800 [facility] Last Admin: 04/28/18 08:31 Dose: 325 mg Atorvastatin Calcium (Lipitor) 5 mg PO QHS [facility] Last Admin: 04/27/18 22:16 Dose: 5 mg Bisacodyl (Dulcolax) 10 mg RECTAL .PRN X 1 PRN PRN Reason: Constipation Bupropion HCl (Wellbutrin Sr (150mg Tablets)) 150 mg PO DAILY [facility] Last Admin: 04/28/18 08:29 Dose: 150 mg Duloxetine HCl (Cymbalta) 20 mg PO DAILY [facility] Last Admin: 04/28/18 08:30 Dose: 20 mg Enoxaparin Sodium (Lovenox) 40 mg SC DAILY@0600 [facility] Last Admin: 04/28/18 06:10 Dose: 40 mg Famotidine (Pepcid) 20 mg PO BID [facility] Last Admin: 04/28/18 08:30 Dose: 20 mg Gabapentin (Neurontin) 100 mg PO DAILY@0800 [facility] Last Admin: 04/28/18 08:30 Dose: 100 mg Levetiracetam (Keppra Tablet) 500 mg PO BID [facility] Last Admin: 04/28/18 08:29 Dose: 500 mg Magnesium Hydroxide (Milk Of Magnesia) 30 ml PO .PRN X 1 PRN PRN Reason: Constipation Melatonin (Melatonin) 3 mg PO QHS [facility] Last Admin: 04/27/18 22:16 Dose: 3 mg Metoprolol Succinate (Toprol Xl (Beta Rene)) 50 mg PO DAILY [facility] Last Admin: 04/28/18 08:32 Dose: 50 mg Nutritional Formula (Lactose Free) (Ensure Enlive) 120 ml PO 4X/DAY [facility] Last Admin: 04/28/18 13:55 Dose: 120 ml Senna/Docusate Sodium (Senokot-S, Una-Colace) 2 tablet PO BID [facility] Last Admin: 04/28/18 00:55 Dose: Not Given Tolterodine Tartrate (Detrol La) 2 mg PO DAILY [facility] Last Admin: 04/28/18 08:30 Dose: 2 mg Medical Necessity - Tobacco Use Smoking Status: Never smoker Assessment/Plan All Active Problems Other specified noninfective disorders of lymphatic vessels and lymph nodes (Acute) Hx of falling (Acute) Localized edema (Acute) Closed right ankle fracture (Acute) Debility s/p ORIF right ankle, complicated by dementia, depression, and seizures. goal of rehab is religion of functional independence. Plan: - Physical therapy for gait and balance - Occupational Therapy for ADLs - As needed analgesics - per family request they would like us to use Tylenol as the first line pain medication, narcotic causes confusion in the patient - Bowel protocol - DVT prophylaxis: SCDs, Homer hoses and Lovenox - Hx of Seizures continue on Keppra - Hx of depression - currently on Wellbutrin, was discussed with the family that this medication could lower the patient seizure threshold, the family would like for her to continue on the medication until she is able to follow up with her primary care doctor who started her on the medication. - HTN - stable,continue metoprolol - HLD - continue home dose of Lipitor - Hx of Dementia with acute agitation - baseline A&O x1. - Fall risk - Patient requiring 1:1 sitter at all times - Plan is for patient to transition to senior living Facility on 04/29
--- NOTE | 2018-04-28 16:41 | PCM.TXEXTCAR ---
- Diet 04/26/18 14:26 Diet: Regular Diet - Wound(s) right ankle Wound Type: Surgical Incision - Therapies Weight Bearing: Non weight bearing Extremity Affected:: Right Lower Physical Therapy: Eval and Treat Occupational Therapy: Eval and Treat - Allergies/Procedures Done in Hospital Allergies/Adverse Reactions: Allergies No Known Allergies Allergy (Verified 04/22/18 13:09) - Type of Care/Length of Stay Estimated LOS: More Than 30 Days Type of Care Needed: Skilled Rehab Potential: Fair Prognosis: Fair - Additional Orders/Day of Discharge Day of Discharge: 04/29/18 - Follow Up Care Primary Care Physician: Pinky Smith [Primary Care Provider] - Please Follow Up With: Lavern Davis DPM
--- NOTE | 2018-04-28 16:42 | PN_ITS ---
Patient Problems: Active and Suspected Problems Other specified noninfective disorders of lymphatic vessels and lymph nodes (Acute) Hx of falling (Acute) Localized edema (Acute) Closed right ankle fracture (Acute) Subjective: Patient still remains delirious requiring a sitter plan is for patient to be discharged to a intermediate facility on 04/10/2018 Objective: GENERAL: Delirious HEENT: Atraumatic; moist oral mucosa EYES; Anicteric, Normal Conjunctiva NECK; supple, normal thyroid, no distended JVD. RESPIRATORY: Diminished to auscultation bilaterally, CARDIOVASCULAR: Regular S1 S2, no audible murmurs GI: soft, non-tender, normoactive bowel sounds, : No Renal angle tenderness; EXTREMITIES: No edema, no clubbing, no cyanosis. MUSCULOSKELETAL: Right ankle in a surgical dressing NEURO: Awake; no lateralizing signs. SKIN: No Rash PSYCH; delirious Vitals/I&O's: Vital Signs Temp Pulse Resp BP Pulse Ox 97.9 F 72 16 106/61 95 04/28/18 08:33 04/28/18 08:33 04/28/18 08:33 04/28/18 08:33 04/28/18 14:00 Oxygen Delivery Method Room Air Weight: 61.689 kg Body Mass Index (BMI) 27.4 Intake and Output for Last 24 Hours 04/26/18 04/27/18 04/28/18 23:59 23:59 23:59 Intake Total 940 / 940 480 / 480 Output Total 300 / 300 600 / 600 Balance -300 / -300 340 / 340 480 / 480 Current Medications Acetaminophen (Tylenol) 1,000 mg PO Q8 [facility] Last Admin: 04/28/18 13:56 Dose: 1,000 mg Aspirin (Aspirin) 325 mg PO DAILY@0800 [facility] Last Admin: 04/28/18 08:31 Dose: 325 mg Atorvastatin Calcium (Lipitor) 5 mg PO QHS [facility] Last Admin: 04/27/18 22:16 Dose: 5 mg Bisacodyl (Dulcolax) 10 mg RECTAL .PRN X 1 PRN PRN Reason: Constipation Bupropion HCl (Wellbutrin Sr (150mg Tablets)) 150 mg PO DAILY [facility] Last Admin: 04/28/18 08:29 Dose: 150 mg Duloxetine HCl (Cymbalta) 20 mg PO DAILY [facility] Last Admin: 04/28/18 08:30 Dose: 20 mg Enoxaparin Sodium (Lovenox) 40 mg SC DAILY@0600 [facility] Last Admin: 04/28/18 06:10 Dose: 40 mg Famotidine (Pepcid) 20 mg PO BID [facility] Last Admin: 04/28/18 08:30 Dose: 20 mg Gabapentin (Neurontin) 100 mg PO DAILY@0800 [facility] Last Admin: 04/28/18 08:30 Dose: 100 mg Levetiracetam (Keppra Tablet) 500 mg PO BID [facility] Last Admin: 04/28/18 08:29 Dose: 500 mg Magnesium Hydroxide (Milk Of Magnesia) 30 ml PO .PRN X 1 PRN PRN Reason: Constipation Melatonin (Melatonin) 3 mg PO QHS [facility] Last Admin: 04/27/18 22:16 Dose: 3 mg Metoprolol Succinate (Toprol Xl (Beta Rene)) 50 mg PO DAILY [facility] Last Admin: 04/28/18 08:32 Dose: 50 mg Nutritional Formula (Lactose Free) (Ensure Enlive) 120 ml PO 4X/DAY [facility] Last Admin: 04/28/18 13:55 Dose: 120 ml Senna/Docusate Sodium (Senokot-S, Una-Colace) 2 tablet PO BID [facility] Last Admin: 04/28/18 00:55 Dose: Not Given Tolterodine Tartrate (Detrol La) 2 mg PO DAILY [facility] Last Admin: 04/28/18 08:30 Dose: 2 mg Medical Necessity - Tobacco Use Smoking Status: Never smoker Assessment/Plan All Active Problems Other specified noninfective disorders of lymphatic vessels and lymph nodes (Acute) Hx of falling (Acute) Localized edema (Acute) Closed right ankle fracture (Acute) Patient is a 77-year-old lady with history of dementia resident of an assisted living facility who underwent right ORIF on account of R distal fibula fracture with syndesmotic dysruption patient was transferred to the inpatient rehab unit to continue with her recuperation 1. Status post right ORIF on account of R distal fibula fracture with syndesmotic dysruption on 04/26/2018. Admitted to the rehab unit for subsequent treatment 2. Dementia with behavioral agitation patient currently has a sitter by her bedside. Did receive IM Haldol on 04/27/2018: Patient still requires a sitter as of 04/28/2018 plan is for patient to be discharged to intermediate [facility] on 04/10/2018 3. Macular degeneration per history 4. Hypertension-blood pressure controlled, home medications continued with dose adjustment as needed 5. Seizure disorder patient is on Keppra 6. Depression: Hold Wellbutrin and Cymbalta 7. Dyslipidemia-patient is on statin therapy, continued at home dose 8. DVT prophylaxis; enoxaparin 40 mg SC daily Code Visit Inpatient E&M: 40095 Subs Hosp L2
[2018-04-28 19:22] VITALS: BP 109/77; PULSE 76; RESP 16; TEMP 36.8; O2SAT 97
[2018-04-28] MEDS: Atorvastatin Calcium 10 MG Tablet 5 MG PO (22:25)
[2018-04-28] MEDS: MELATONIN 3 MG TABLET PO (22:25)
[2018-04-29] MEDS: Acetaminophen 500 MG Tablet 1000 MG PO ×2 (06:56→13:10)
[2018-04-29] MEDS: Enoxaparin 40 MG/0.4 ML Syringe SC (06:57)
[2018-04-29 07:26] VITALS: BP 114/75; PULSE 90; RESP 18; TEMP 36.9; O2SAT 96
[2018-04-29] MEDS: Gabapentin 100 MG Capsule PO (08:56)
[2018-04-29] MEDS: Famotidine 20 MG Tablet PO (08:56)
[2018-04-29] MEDS: levETIRAcetam 500 MG Tablet PO (08:56)
[2018-04-29] MEDS: buPROPion (SR) 150 MG Tablet.SA PO (08:56)
[2018-04-29] MEDS: Tolterodine Tartrate 2 MG CAP.SA PO (08:56)
[2018-04-29] MEDS: Aspirin 325 MG Tablet PO (08:56)
[2018-04-29] MEDS: DULoxetine Hcl 20 MG Capsule PO (08:57)
[2018-04-29 08:58] VITALS: PULSE 90
[2018-04-29] MEDS: Metoprolol(XL)Succ 50 MG Tablet PO (08:58)
--- NOTE | 2018-04-29 09:11 | PCM.RU.DC ---
Rehab Discharge Summary DATE OF ADMISSION: 04/26/18 DATE OF DISCHARGE: 04/29/18 - Rehab Diagnosis Right Ankle Fracture Patient Problems: Active and Suspected Problems Other specified noninfective disorders of lymphatic vessels and lymph nodes (Acute) Hx of falling (Acute) Localized edema (Acute) Closed right ankle fracture (Acute) - Physical Exam General: Alert, Oriented x3, Cooperative HEENT: Atraumatic, PERRLA, EOMI, Normocephalic Neck: Supple, No JVD, Negative Carotid Bruits Lungs: Clear to auscultation, Normal air movement Cardiovascular: Regular rate, No murmurs Abdomen: Bowel Sounds Present, Soft, Non Tender Extremities: No edema, Capillary Refill Less than 3 Seconds Skin: No rashes, No breakdown Musculoskeletal: No Tenderness to Palpation of Joints or Extremities Neurological: Cranial nerves II-XII grossly intact Psych/Mental Status: Normal Affect, Appropriate Comment: Alert and oriented to self, and place only Vital Signs Temp Pulse Resp BP Pulse Ox 98.4 F 90 18 114/75 96 04/29/18 07:26 04/29/18 08:58 04/29/18 07:26 04/29/18 07:26 04/29/18 07:26 Oxygen Delivery Method Room Air Weight: 61.689 kg Body Mass Index (BMI) 27.4 Intake and Output for Last 24 Hours 04/27/18 04/28/18 04/29/18 23:59 23:59 23:59 Intake Total 940 / 940 720 / 720 240 / 240 Output Total 600 / 600 300 / 300 Balance 340 / 340 420 / 420 240 / 240 Active Medications Acetaminophen (Tylenol) 1,000 mg PO Q8 [facility] Last Admin: 04/29/18 06:56 Dose: 1,000 mg Aspirin (Aspirin) 325 mg PO DAILY@0800 [facility] Last Admin: 04/29/18 08:56 Dose: 325 mg Atorvastatin Calcium (Lipitor) 5 mg PO QHS [facility] Last Admin: 04/28/18 22:25 Dose: 5 mg Bisacodyl (Dulcolax) 10 mg RECTAL .PRN X 1 PRN PRN Reason: Constipation Bupropion HCl (Wellbutrin Sr (150mg Tablets)) 150 mg PO DAILY [facility] Last Admin: 04/29/18 08:56 Dose: 150 mg Duloxetine HCl (Cymbalta) 20 mg PO DAILY [facility] Last Admin: 04/29/18 08:57 Dose: 20 mg Enoxaparin Sodium (Lovenox) 40 mg SC DAILY@0600 [facility] Last Admin: 04/29/18 06:57 Dose: 40 mg Famotidine (Pepcid) 20 mg PO BID [facility] Last Admin: 04/29/18 08:56 Dose: 20 mg Gabapentin (Neurontin) 100 mg PO DAILY@0800 [facility] Last Admin: 04/29/18 08:56 Dose: 100 mg Levetiracetam (Keppra Tablet) 500 mg PO BID [facility] Last Admin: 04/29/18 08:56 Dose: 500 mg Magnesium Hydroxide (Milk Of Magnesia) 30 ml PO .PRN X 1 PRN PRN Reason: Constipation Melatonin (Melatonin) 3 mg PO QHS [facility] Last Admin: 04/28/18 22:25 Dose: 3 mg Metoprolol Succinate (Toprol Xl (Beta Rene)) 50 mg PO DAILY [facility] Last Admin: 04/29/18 08:58 Dose: 50 mg Nutritional Formula (Lactose Free) (Ensure Enlive) 120 ml PO 4X/DAY [facility] Last Admin: 04/28/18 22:25 Dose: 120 ml Senna/Docusate Sodium (Senokot-S, Una-Colace) 2 tablet PO BID [facility] Last Admin: 04/29/18 09:08 Dose: Not Given Tolterodine Tartrate (Detrol La) 2 mg PO DAILY [facility] Last Admin: 04/29/18 08:56 Dose: 2 mg Discharge Diet: No Restrictions Discharge Activity: May Not Drive, May Shower - cover the right ankle with a garbage bag to protect the soft cast, Use Walker, - - not soak in a Bath Tub Weight Bearing Status: No weight bearing Keep extremity elevated above heart level: Right Leg Call your doctor if your incision/area has: Increased Pain/ Swelling, Increased Redness, Foul Smelling Discharge, Swelling at the incision site Call your doctor if you observe: Fever of 101 or Higher, Coldness, Increased Pain, Numbness or Tingling, Change in Color, Inability to urinate, Inability to have a bowel movement, Using more than one pad per hour, Shortness of breath, Dizziness, Fainting spells, Swelling in the ankles, Chest pain, Prolonged hiccoughing, Increased palpitations (irregular heartbeat), Calf discomfort, Uncontrolled pain Home Medications: Medications to take at Discharge Bupropion HCl [Bupropion HCl Sr] 150 mg PO DAILY 06/12/15 Duloxetine Hcl [Cymbalta] 20 mg PO DAILY 06/12/15 Aspirin 325 mg PO DAILY@0800 04/22/18 Famotidine [Pepcid] 20 mg PO BID 04/22/18 Metoprolol Succinate [Toprol Xl] 50 mg PO DAILY 04/22/18 Oxybutynin [Ditropan] 5 mg PO DAILY 04/22/18 levETIRAcetam tablet [Keppra tablet] 500 mg PO BID 04/22/18 Acetaminophen [Tylenol] 1,000 mg PO Q8 tablet 04/28/18 Atorvastatin Calcium [Lipitor] 5 mg PO QHS tablet 04/28/18 Ensure Enlive 120 ml PO 4X/DAY liquid 04/28/18 Gabapentin [Neurontin] 100 mg PO DAILY@0800 #30 cap 04/28/18 Melatonin 3 mg PO QHS tablet 04/28/18 Following Prescrptions Were Given to Patient: Gabapentin [Neurontin] 100 mg PO DAILY@0800 #30 cap Primary Care Physician: Pinky Smith [Primary Care Provider] - Please Follow Up With: Lavern Davis DPM Disposition: Halfway facility Minutes spent on discharge:: 40 Patient Condition:: Stable Rehab Course This is a 77-year-old right handed female who was admitted to the rehab unit for rehabilitation after under going a right ORIF and transsyndesmotic fixation on 04/26/[address] Davis, with no post-op complications noted. She has a PMH: of dementia, HTN, macular degeneration, depression, and seizure disorder currently she is controlled on Keppra. She is non-weight bearing on the right LE, has a splint in place which is C/D/I. [facility] in a [facility], she was able to do some of her personal care, but required assistance at times. She is alert and oriented x1, has difficulty remembering to follow her weight bearing instructions without cues. She is admitted to the unit in order to restore her previous level of functional independence. While in the Rehab unit (RU) her other medical conditions were monitored. While in the RU she improved with therapy and gained strength. During her stay she had a fall, x-rays where obtained of her hip and pelvics which showed no acute injury, and a repeat x-ray of her right ankle was done which showed the hardware was aligned and no fractures where noted. The following day she became very agitated and required a sitter at all times, the Hospitalist ordered Haldol which seem to help and she was able to get some rest. The rest of her stay on the unit was uncomplicated and she was able to be discharged on 04/29/18 to a Halfway Facility where she will complete the remainder of her therapy care. Summary of care: - Physical therapy for gait and balance - Occupational Therapy for ADLs - As needed analgesics - per family request they would like us to use Tylenol as the first line pain medication, narcotic causes confusion in the patient - Bowel protocol - DVT prophylaxis: SCDs, Homer hoses and Lovenox - Hx of Seizures continue on Keppra - Hx of depression - currently on Wellbutrin, was discussed with the family that this medication could lower the patient seizure threshold, the family would like for her to continue on the medication until she is able to follow up with her primary care doctor who started her on the medication. - HTN - stable,continue metoprolol - HLD - continue home dose of Lipitor - Hx of Dementia with acute agitation - baseline A&O x1. - Fall risk - Patient requiring 1:1 sitter at all times, was given a dose of Haldol by the Hospitalist on 04/27 - Plan is for patient to transition to [facility] Facility on 04/29 Meaningful Use Info Meaningful Use Diagnoses (Choose all that apply): None applicable
--- NOTE | 2018-04-29 09:16 | DS.PCM_ITS ---
Rehab Discharge Summary DATE OF ADMISSION: 04/26/18 DATE OF DISCHARGE: 04/29/18 - Rehab Diagnosis Right Ankle Fracture Patient Problems: Active and Suspected Problems Other specified noninfective disorders of lymphatic vessels and lymph nodes (Acute) Hx of falling (Acute) Localized edema (Acute) Closed right ankle fracture (Acute) - Physical Exam General: Alert, Oriented x3, Cooperative HEENT: Atraumatic, PERRLA, EOMI, Normocephalic Neck: Supple, No JVD, Negative Carotid Bruits Lungs: Clear to auscultation, Normal air movement Cardiovascular: Regular rate, No murmurs Abdomen: Bowel Sounds Present, Soft, Non Tender Extremities: No edema, Capillary Refill Less than 3 Seconds Skin: No rashes, No breakdown Musculoskeletal: No Tenderness to Palpation of Joints or Extremities Neurological: Cranial nerves II-XII grossly intact Psych/Mental Status: Normal Affect, Appropriate Comment: Alert and oriented to self, and place only Vital Signs Temp Pulse Resp BP Pulse Ox 98.4 F 90 18 114/75 96 04/29/18 07:26 04/29/18 08:58 04/29/18 07:26 04/29/18 07:26 04/29/18 07:26 Oxygen Delivery Method Room Air Weight: 61.689 kg Body Mass Index (BMI) 27.4 Intake and Output for Last 24 Hours 04/27/18 04/28/18 04/29/18 23:59 23:59 23:59 Intake Total 940 / 940 720 / 720 240 / 240 Output Total 600 / 600 300 / 300 Balance 340 / 340 420 / 420 240 / 240 Active Medications Acetaminophen (Tylenol) 1,000 mg PO Q8 [facility] Last Admin: 04/29/18 06:56 Dose: 1,000 mg Aspirin (Aspirin) 325 mg PO DAILY@0800 [facility] Last Admin: 04/29/18 08:56 Dose: 325 mg Atorvastatin Calcium (Lipitor) 5 mg PO QHS [facility] Last Admin: 04/28/18 22:25 Dose: 5 mg Bisacodyl (Dulcolax) 10 mg RECTAL .PRN X 1 PRN PRN Reason: Constipation Bupropion HCl (Wellbutrin Sr (150mg Tablets)) 150 mg PO DAILY [facility] Last Admin: 04/29/18 08:56 Dose: 150 mg Duloxetine HCl (Cymbalta) 20 mg PO DAILY [facility] Last Admin: 04/29/18 08:57 Dose: 20 mg Enoxaparin Sodium (Lovenox) 40 mg SC DAILY@0600 [facility] Last Admin: 04/29/18 06:57 Dose: 40 mg Famotidine (Pepcid) 20 mg PO BID [facility] Last Admin: 04/29/18 08:56 Dose: 20 mg Gabapentin (Neurontin) 100 mg PO DAILY@0800 [facility] Last Admin: 04/29/18 08:56 Dose: 100 mg Levetiracetam (Keppra Tablet) 500 mg PO BID [facility] Last Admin: 04/29/18 08:56 Dose: 500 mg Magnesium Hydroxide (Milk Of Magnesia) 30 ml PO .PRN X 1 PRN PRN Reason: Constipation Melatonin (Melatonin) 3 mg PO QHS [facility] Last Admin: 04/28/18 22:25 Dose: 3 mg Metoprolol Succinate (Toprol Xl (Beta Rene)) 50 mg PO DAILY [facility] Last Admin: 04/29/18 08:58 Dose: 50 mg Nutritional Formula (Lactose Free) (Ensure Enlive) 120 ml PO 4X/DAY [facility] Last Admin: 04/28/18 22:25 Dose: 120 ml Senna/Docusate Sodium (Senokot-S, Una-Colace) 2 tablet PO BID [facility] Last Admin: 04/29/18 09:08 Dose: Not Given Tolterodine Tartrate (Detrol La) 2 mg PO DAILY [facility] Last Admin: 04/29/18 08:56 Dose: 2 mg Discharge Diet: No Restrictions Discharge Activity: May Not Drive, May Shower - cover the right ankle with a garbage bag to protect the soft cast, Use Walker, - - not soak in a Bath Tub Weight Bearing Status: No weight bearing Keep extremity elevated above heart level: Right Leg Call your doctor if your incision/area has: Increased Pain/ Swelling, Increased Redness, Foul Smelling Discharge, Swelling at the incision site Call your doctor if you observe: Fever of 101 or Higher, Coldness, Increased Pain, Numbness or Tingling, Change in Color, Inability to urinate, Inability to have a bowel movement, Using more than one pad per hour, Shortness of breath, Dizziness, Fainting spells, Swelling in the ankles, Chest pain, Prolonged hiccoughing, Increased palpitations (irregular heartbeat), Calf discomfort, Uncontrolled pain Home Medications: Medications to take at Discharge Bupropion HCl [Bupropion HCl Sr] 150 mg PO DAILY 06/12/15 Duloxetine Hcl [Cymbalta] 20 mg PO DAILY 06/12/15 Aspirin 325 mg PO DAILY@0800 04/22/18 Famotidine [Pepcid] 20 mg PO BID 04/22/18 Metoprolol Succinate [Toprol Xl] 50 mg PO DAILY 04/22/18 Oxybutynin [Ditropan] 5 mg PO DAILY 04/22/18 levETIRAcetam tablet [Keppra tablet] 500 mg PO BID 04/22/18 Acetaminophen [Tylenol] 1,000 mg PO Q8 tablet 04/28/18 Atorvastatin Calcium [Lipitor] 5 mg PO QHS tablet 04/28/18 Ensure Enlive 120 ml PO 4X/DAY liquid 04/28/18 Gabapentin [Neurontin] 100 mg PO DAILY@0800 #30 cap 04/28/18 Melatonin 3 mg PO QHS tablet 04/28/18 Following Prescrptions Were Given to Patient: Gabapentin [Neurontin] 100 mg PO DAILY@0800 #30 cap Primary Care Physician: Pinky Smith [Primary Care Provider] - Please Follow Up With: Lavern Dvais DPM Disposition: Intermediate facility Minutes spent on discharge:: 40 Patient Condition:: Stable Rehab Course This is a 77-year-old right handed female who was admitted to the rehab unit for rehabilitation after under going a right ORIF and transsyndesmotic fixation on 04/26/[address] Davis, with no post-op complications noted. She has a PMH: of dementia, HTN, macular degeneration, depression, and seizure disorder currently she is controlled on Keppra. She is non-weight bearing on the right LE, has a splint in place which is C/D/I. She lives in a halfway facility, she was able to do some of her personal care, but required assistance at times. She is alert and oriented x1, has difficulty remembering to follow her weight bearing instructions without cues. She is admitted to the unit in order to restore her previous level of functional independence. While in the Rehab unit (RU) her other medical conditions were monitored. While in the RU she improved with therapy and gained strength. During her stay she had a fall, x- rays where obtained of her hip and pelvics which showed no acute injury, and a repeat x-ray of her right ankle was done which showed the hardware was aligned and no fractures where noted. The following day she became very agitated and required a sitter at all times, the Hospitalist ordered Haldol which seem to help and she was able to get some rest. The rest of her stay on the unit was uncomplicated and she was able to be discharged on 04/29/18 to a Intermediate Facility where she will complete the remainder of her therapy care. Summary of care: - Physical therapy for gait and balance - Occupational Therapy for ADLs - As needed analgesics - per family request they would like us to use Tylenol as the first line pain medication, narcotic causes confusion in the patient - Bowel protocol - DVT prophylaxis: SCDs, Homer hoses and Lovenox - Hx of Seizures continue on Keppra - Hx of depression - currently on Wellbutrin, was discussed with the family that this medication could lower the patient seizure threshold, the family would like for her to continue on the medication until she is able to follow up with her primary care doctor who started her on the medication. - HTN - stable,continue metoprolol - HLD - continue home dose of Lipitor - Hx of Dementia with acute agitation - baseline A&O x1. - Fall risk - Patient requiring 1:1 sitter at all times, was given a dose of Haldol by the Hospitalist on 04/27 - Plan is for patient to transition to halfway Facility on 04/29 Meaningful Use Info Meaningful Use Diagnoses (Choose all that apply): None applicable
--- NOTE | 2018-04-29 09:17 | DCINST_ITS ---
- Discharge Diagnoses Current Active Problems: Current Active and Chronic Problems Other specified noninfective disorders of lymphatic vessels and lymph nodes (Acute) Hx of falling (Acute) Localized edema (Acute) Closed right ankle fracture (Acute) Reason(s) for Visit for Discharge Instructions: Right Ankle Fracture You will use the following diet at home:: Regular Your food should be the consistency of: Regular Your liquids should be the consistency of: Regular/Thin Discharge Activity: May Not Drive, May Shower - cover the right ankle with a garbage bag to protect the soft cast, Use Walker, - - not soak in a Bath Tub Weight Bearing Status: No weight bearing Keep extremity elevated above heart level: Right Leg Call your doctor if your incision/area has: Increased Pain/ Swelling, Increased Redness, Foul Smelling Discharge, Swelling at the incision site Call your doctor if you observe: Fever of 101 or Higher, Coldness, Increased Pain, Numbness or Tingling, Change in Color, Inability to urinate, Inability to have a bowel movement, Using more than one pad per hour, Shortness of breath, Dizziness, Fainting spells, Swelling in the ankles, Chest pain, Prolonged hiccoughing, Increased palpitations (irregular heartbeat), Calf discomfort, Uncontrolled pain Allergies/Adverse Reactions: Allergies No Known Allergies Allergy (Verified 04/22/18 13:09) Medications to take at Discharge Bupropion HCl [Bupropion HCl Sr] 150 mg PO DAILY 06/12/15 Duloxetine Hcl [Cymbalta] 20 mg PO DAILY 06/12/15 Aspirin 325 mg PO DAILY@0800 04/22/18 Famotidine [Pepcid] 20 mg PO BID 04/22/18 Metoprolol Succinate [Toprol Xl] 50 mg PO DAILY 04/22/18 Oxybutynin [Ditropan] 5 mg PO DAILY 04/22/18 levETIRAcetam tablet [Keppra tablet] 500 mg PO BID 04/22/18 Acetaminophen [Tylenol] 1,000 mg PO Q8 tablet 04/28/18 Atorvastatin Calcium [Lipitor] 5 mg PO QHS tablet 04/28/18 Ensure Enlive 120 ml PO 4X/DAY liquid 04/28/18 Gabapentin [Neurontin] 100 mg PO DAILY@0800 #30 cap 04/28/18 Melatonin 3 mg PO QHS tablet 04/28/18 The following prescriptions were given: Gabapentin [Neurontin] 100 mg PO DAILY@0800 #30 cap Primary Care Physician: Pinky Smith [Primary Care Provider] - Test Results: Test results from this visit will be discussed in further detail at your follow- up appointment, if applicable. Please Follow Up With: Lavern Davis DPM Proposed Discharge Date: 04/29/18
--- NOTE | 2018-04-29 11:54 | CASEMGMT ---
Social Work Discharge information faxed to [facility]. Proposed discharge date: 04/29/18 PLAN: Discharge to [facility] - Yuri. WOLF White, SOIL SPECIALIST
--- NOTE | 2018-04-29 13:15 | NURSING ---
Report given to [facility] and son aware of discharge at this time and Elise here for transport.
--- OUTSIDE RECORDS SUMMARY | 2018-07-29 01:15 | XMS RPT_ITS ---
:1940 Author Organization OHIP Support Name Relationship Address Phone RAMONAGREG ASHLEY Unavailable Unavailable + NOT GIVEN Unavailable Unavailable Unavailable BOALS, GREG Unavailable Unavailable + NOT GIVEN Unavailable Unavailable Unavailable BOALS, GREG Unavailable [id number] + [place] [address] BOALS MADDIE Unavailable [address] + [place] [address] R Unavailable Unavailable Unavailable BOALS, GREG Unavailable [id number] + [place] [address] BOALS, MADDIE Unavailable [address] + [place] [address] R Unavailable Unavailable Unavailable BOALS, GREG Unavailable [id number] + [place] [address] BOALS, MADDIE Unavailable [address] + [place] [address] R Unavailable Unavailable Unavailable BOALS, GREG Unavailable [address] + [place] [address] BOALS, MADDIE Unavailable [address] + [place] [address] R Unavailable Unavailable Unavailable BOALS, GREG Unavailable [address] + [place] [address] BOALS, MADDIE Unavailable [address] + [place] [address] R Unavailable Unavailable Unavailable BOALS, GREG Unavailable [address] + [place] [address] BOALS, MADDIE Unavailable [address] + [place] [address] R Unavailable Unavailable Unavailable BOALS, GREG Unavailable [...] Unavailable PROVIDER, UNKNOWN Consulting Unavailable LAILA MORALES (SENIOR PROJECT MANAGER) Attending Unavailable Lavern Jones Attending Unavailable Lavern Jones Referring Unavailable OMRAN, YASSER Primary Care Unavailable Fabi, Oscar S. Admitting Unavailable Fabi, Oscar S. Referring Unavailable OMRAN, YASSER Primary Care Unavailable Leo Juarez Consulting Unavailable Aunel Doll Attending Unavailable Fabi, Oscar S. Admitting [...] Jun [place] 8 Diagnosis with micturition / [facility] G82548(ICD-10) Hospital Repository Principle Other difficulties LATOUF, BUTROS Active Jun [place] 8 Diagnosis with micturition / [facility] G88736(ICD-10) Hospital Repository Unknown R94.31 - Abnormal FloraCallum grecoril Active [place] 9 electrocardiogram Community [ECG] [EKG] / Hospital R94.31(ICD-10) Repository Principle Essential (primary) OMRAN YASSER Active Jun [place] 8 Diagnosis hypertension / [facility] I10(ICD-10) Hospital Repository Admitting Essential (primary) OMRAN, YASSER Active Jun [place] 8 Diagnosis hypertension / [facility] I10(ICD-10) Hospital Repository Secondary Hyperlipidemia, OMRAN, YASSER Active Jun P[place] 8 Diagnosis unspecified / [facility] E785(ICD-10) Hospital Repository Secondary Dysuria / R300(ICD-10) OMTARIK NOLASCOER Active Jun [place] 8 Diagnosis [facility] Repository Active Disorientation, EL HITTI, Active [place] 8 unspecified / [facility] Other R41.0(ICD-10) [place] Repository Active Abnormal findings on EL CHELSEYTI, Active [place] 8 diagnostic imaging of [facility] Other skull and head, not [place] elsewhere classified / Repository 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, 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 / [facility] Other I63.8(ICD-10) [place] Repository Active Other speech EL HITTI, Active [place] 8 disturbances / [facility] Other R47.89(ICD-10) [place] Repository Active Essential (primary) EL HITTI, Active [place] 8 hypertension / [facility] Other I10(ICD-10) [place] Repository Active Encephalopathy, EL HITTI, Active [place] 8 unspecified / [facility] Other G93.40(ICD-10) [place] Repository Principle Pure PINKY QUINN Active Jun [place] 8 Diagnosis hypercholesterolemia, [facility] unspecified / Hospital E7800(ICD-10) Repository Secondary Hyperglycemia, PINKY QUINN Active Jun Menezes Diagnosis unspecified / [facility] R739(ICD-10) Hospital Repository PROCEDURES PROCEDURES No Procedure Records FoundRESULTS RESULTS URINALYSIS Collected: 05/08/2018 Status: F Source: JUN S[place] 9:00 PM [facility] REPOSITORY TYPE CODE TESTS RESULT OUT [...] Urobilinog(LOINC) NORMAL: NORMAL Urobilinog NORM LAB [place](LOINC) NORMAL: 1.010-1.030 [place] 1.030 LAB Nitrite(LOINC) NORMAL: NEGATIVE Nitrite NEG [...] LAB Yeast(LOINC) Yeast NONE Performed By: #### [id number] #### [facility],[address] [place] [address] Observed: 05/08/2018 Status: F Source: [facility] CULTURE URINE 9:00 PM [facility] REPOSITORY CULTURE URINE _URINE CULTURE_ M I C R O B I O L O G Y R E P O R T FINAL Antimicrobial Susceptibility and Organism Identification Report Specimen Number : [id number] Requested : 05/08/18 Specimen Source : URINE Collected : 05/08/18 21:00 [place]ine of [place] : Christos Denney Received : 05/08/18 21:00 Requesting Physician : ARNOL Patient/Specimen Tests and Comments Specimen Comments FINAL REPORT: NO GROWTH AT 48 HOURS Tech : Source : URINE ID # : [id number] FINAL Report Date : / / : Collected : 05/08/18 21:00 05/11/18.1000.BKO. 05/10/18.1033.BKO. 05/11/18.1000.BKO.COMPLETE Performed By: #### [id number] #### Jun [facility],[address] [place] [address] DISCHARGE SUMMARY Observed: 04/29/2018 Status: C Source: [place] 3:36 PM [facility] REPOSITORY [facility] Medical Records Department [address] [place] [address] Discharge Summary 04/29/18 0911 MR#: [id number] Acct: [id number] Name: VIVIANA FLORES Rep #: [id number] : 1940 77 From: Nikki PORTILLO PCP: Pinky Quinn Status: DIS IN Y Location: [id number] ADDENDUM by Alyssa Dunlap MD on 04/29/18 at 1536 I have personally examined the patient at bedside. Please see SENIOR PROJECT MANAGER Nikki Alicea's note as below for further complete details. I have discussed the management plan for the patient in detail with KAEL Alicea and please see the plan as noted below. 77 yr CF with PMH HTN, HLD, Dementia, H/O seizure, Depression, macular degeneration, [place] resident admitted to [facility] with debility s/p mechanical fall, closed right [...] On Keppra for seizures, was treated at [place] few months ago when she had initial [...] Medications Acetaminophen (Tylenol) 1,000 mg PO Q8 [facility] Last Admin: 04/29/18 06:56 Dose: 1,000 mg Aspirin (Aspirin) 325 mg PO DAILY@0800 [facility] Last Admin: 04/29/18 08:56 Dose: 325 mg Atorvastatin Calcium (Lipitor) 5 mg PO QHS [facility] Last Admin: 04/28/18 22:25 Dose: 5 mg Bisacodyl (Dulcolax) 10 mg RECTAL .PRN X 1 PRN PRN Reason: Constipation Bupropion HCl (Wellbutrin Sr (150mg Tablets)) 150 mg PO DAILY [facility] Last Admin: 04/29/18 08:56 Dose: 150 mg Duloxetine HCl (Cymbalta) 20 mg PO DAILY [facility] Last Admin: 04/29/18 08:57 Dose: 20 mg Enoxaparin Sodium (Lovenox) 40 mg SC DAILY@0600 [facility] Last Admin: 04/29/18 06:57 Dose: 40 mg Famotidine (Pepcid) 20 mg PO BID [facility] Last Admin: 04/29/18 08:56 Dose: 20 mg Gabapentin (Neurontin) 100 mg PO DAILY@0800 [facility] Last Admin: 04/29/18 08:56 Dose: 100 mg Levetiracetam (Keppra Tablet) 500 mg PO BID [facility] Last Admin: 04/29/18 08:56 Dose: 500 mg Magnesium Hydroxide (Milk Of Magnesia) 30 ml PO .PRN X 1 PRN PRN Reason: Constipation Melatonin (Melatonin) 3 mg PO QHS [facility] Last Admin: 04/28/18 22:25 Dose: 3 mg Metoprolol Succinate (Toprol Xl (Beta Rene)) 50 mg PO DAILY [facility] Last Admin: 04/29/18 08:58 Dose: 50 mg Nutritional Formula (Lactose Free) (Ensure Enlive) 120 ml PO 4X/DAY [facility] Last Admin: 04/28/18 22:25 Dose: 120 ml Senna/Docusate Sodium (Senokot-S, Una-Colace) 2 tablet PO BID [facility] Last Admin: 04/29/18 09:08 Dose: Not Given Tolterodine Tartrate (Detrol La) 2 mg PO DAILY [facility] Last Admin: 04/29/18 08:56 Dose: 2 mg [...] Follow Up With: Lavern Jones DPM Disposition: Prison facility Minutes spent on discharge:: 40 Patient [...] which is C/D/I. She lives in a residential facility, she was able to do some [...] to be discharged on 04/29/18 to a Prison Facility where she will complete the remainder [...] Plan is for patient to transition to residential Facility on 04/29 Meaningful Use Info Meaningful Use Diagnoses (Choose all that apply): None applicable 04/29/18 1157 <Electronically signed by Nikki Alicea SENIOR PROJECT MANAGER-C> Date Nikki Alicea SENIOR PROJECT MANAGER-C 04/29/18 1531<Electronically signed by Oscar Dunlap MD> Cosigner Signature (if applicable): Date Oscar Dunlap MD CC: SENIOR PROJECT MANAGER Nikki Alicea; Alyssa Dunlap MD; Pinky Quinn Addendum TRANSFER TO [facility] Observed: 04/29/2018 Status: F Source: [facility] 3:30 PM [facility] REPOSITORY [facility] Medical Records Department [address] [place] [address] Transfer to [facility] Care MR#: [id number] Acct: [id number] Name: VIVIANA FLORES Rep #: [id number] : 1940 77 From: Nikki PORTILLO PCP: Pinky Quinn Status: DIS IN VIVIANA FLORES [id number] (Patient) (Health Ins. Claim No.) (Day of [...] 04/29/2018 Status: F Source: [place] 2:28 PM [facility] REPOSITORY [facility] Cardiovascular Services [address] [place] [address] 12 Lead EKG 04/26/18 0643 MR#: [id number] Acct: [id number] Name: VIVIANA FLORES Rep #: [id number] : 1940 77 From: Thai Hines MD Attending Dr: Lavern Jones DPM Status: DEP SDC Ordering Dr: Austen Hess MD Date: 04/26/18 Location: [facility] Sex: F C Admitted: Test Reason : [...] found Confirmed by FLORA BUCK, THAI ([id number]), image editor FREDDIE FERRERA ([id number]) on 04/29/2018 2:28:04 PM Referred By: Lavern Jones Confirmed By:HTAI HINES MD 04/29/18 1428 Date Thai Hines MD CC: SHELBY Jones; Austen Hess MD; Pinky Quinn Signed DISCHARGE INSTRUCTION Observed: 04/29/2018 Status: F Source: [place] 11:56 AM [facility] REPOSITORY [facility] Medical Records Department [address] [place] [address] Instructions for Home/Discharge Instructions 04/29/18 0916 MR#: [id number] Acct: [id number] Name: VIVIANA FLORES Rep #: [id number] : 1940 77 From: Nikki Alicea SENIOR PROJECT MANAGER-C PCP: Pinky Quinn Status: ADM IN - [...] 04/29/18 1156 <Electronically signed by Nikki Alicea SENIOR PROJECT MANAGERZoila> Date Nikki SALAMANCAC CC: Leo Juarez DO; Pinky Quinn Signed H AND P W/ COSIGN Observed: 04/28/2018 Status: F Source: [place] 1:03 PM [facility] REPOSITORY [facility] Medical Records Department [address] [place] [address] H AND P w/ Cosign 04/26/18 1553 MR#: [id number] Acct: [id number] Name: VIVIANA FLORES Rep #: [id number] : 1940 77 From: Nikki PORTILLO PCP: Pinky Quinn Status: ADM IN Y Location: [place] [address]-1 ADDENDUM by Alyssa Dunlap MD on 04/28/18 [...] Depression, macular degeneration, [place] resident admitted to [facility] with debility s/p mechanical fall, closed right [...] On Keppra for seizures, was treated at [place] few months ago when she had initial [...] per hospitalist recommendations. Inpatient E AND M: 15777 Init Hosp L3 04/28/18 1303 <Electronically signed [...] which is C/D/I. She lives in a residential facility, she was able to do some [...] no surgical history Psychiatric History: Depression Lives: Snf Smoking Status: Never smoker Alcohol: None Drugs: [...] 04/27/18 1622 <Electronically signed by Nikki Alicea SENIOR PROJECT MANAGER-C> Date Nikki Alicea SENIOR PROJECT MANAGER-C 04/27/182043<Electronically signed by Oscar Dunlap MD> Cosigner Signature (if applicable): Date Oscar Dunlap MD CC: KAEL Alicea; Alyssa Dunlap MD; Pinky Quinn Signed ANKLE MIN 3 VIEWS Observed: 04/27/2018 Status: F Source: [place] 2:32 PM [facility] REPOSITORY [facility] Imaging Services [address] [place] [address] Ankle min 3 Views MR#: [id number] Acct: [id number] Name: VIVIANA FLORES Rep #: [id number] : 1940 F 77 From: Cyndie Nieto MD PCP: Pinky Quinn Status: ADM IN Study: Ankle min 3 Views Date of Exam: 04/27/18 Exam# [id number] Ordering Dr: Lavern Jones DPM STUDY: X-RAY [...] Nieto MD at 19:38 EST Tel Direct: [phone], Service support , CC: SHELBY Jones; Pinky Quinn Dance Master: Signed HIPS B/L MIN 2 Observed: 04/27/2018 Status: F Source: [place] VIEWS W/ PELVIS 12:36 PM [facility] REPOSITORY [facility] Imaging Services [address] [place] [address] Hips B/L min 2 views w/ Pelvis MR#: [id number] Acct: [id number] Name: VIVAINA FLORES Rep #: [id number] : 1940 F 77 From: Keith Patel MD PCP: Pinky Quinn Status: ADM IN Study: Hips B/L min 2 views w/ Pelvis Date of Exam: 04/27/18 Exam# [id number] Ordering Dr: Oscar Dunlap MD STUDY: X-RAY [...] support , CC: Alyssa Dunlap MD; Pinky uQinn Dance Master: Signed CBC-COMPLETE BLOOD CNT Collected: 04/27/2018 Status: F Source: [place] NO DIFF 5:30 AM [facility] REPOSITORY TYPE CODE TESTS RESULT OUT OF [...] MPV 9.7 Performed By: #### L100.0500 #### [facility] [place], [address] COMPREHENSIVE METABOLIC Collected: 04/27/2018 Status: F Source: [place] PEREZ 5:30 AM [facility] REPOSITORY TYPE CODE TESTS RESULT OUT OF [...] GAP 9 Performed By: #### L500.4050 #### [facility] [address] [place], [address] BEDSIDE GLUCOSE Collected: 04/27/2018 Status: F Source: [place] 1:51 AM [facility] REPOSITORY TYPE CODE TESTS RESULT OUT OF REFERENCE UNITS RANGE LAB L501.080 70-110 mg/dL High BEDSIDE GLU 127 Result Comment: MANAGEMENT OF PATIENT CARE PER NURSING PROTOCOL Performed By: #### L501.080 #### [facility] Point of Care [address] [place] [address] OPERATIVE REPORT Observed: 04/26/2018 Status: F Source: [place] 10:36 AM [facility] REPOSITORY [facility] Medical Records Department [address] [facility] [place] [address] Operative Report 04/26/18 1005 MR#: [id number] Acct: [id number] Name: VIVIANA FLORES Rep #: [id number] : 1940 77 From: Lavern Jones DPM PCP: Pinky Quinn Status: REG SDC Y Location: [place] [address] Report of Operation Date of Procedure: 04/26/18 Pre-Operative Diagnosis: R distal fibula fracture with syndesmotic dysruption Post-Operative Diagnosis: same Surgery/Procedure Performed:: R distal fibula ORIF and transyndesmotic fixation, stress views of Right ankle Description of Surgical Findings:: see dictation medical records tech: Marjan Anders Type of Anesthesia:: Spinal/Supplemental Specimen's removed: none Estimated Blood Loss (mL): minimal Description of Procedure: Indications: Patient is a 77 yo F w/ PMH significant for dementia, who fell 04/16/2018 at the [facility] where she resides. She was seen in the [facility] and radiograph revealed a Right distal [...] once. She will be admitted to the [facility] Acute Rehab post operatively. All risks, complications [...] will be admitted to Acute Rehab at [facility] post operatively. At the end of the case all sponges, needle and instrument counts were found to be correct. Intraoperative fluoroscopy was utilized throughout the procedure,for > 1 hours. Interpretation of the images was vital to my decision making process including fracture reduction, screw and plate placement and length, along with stress views. Grafts/Implants Used: [place] Variax plate and screws - Complications none - Admit VTE Documentation VTE Present on Admission: No VTE Mechan Device Prophylaxis: SCD's, Knee High DIANE Hose VTE Pharm Prophylaxis ordered?: Yes 04/26/18 1036 <Electronically signed by Lavern Jones DPM> Date Lavern Jones DPM CC: SHELBY Jones; Pinky Quinn Signed DISCHARGE INSTRUCTION Observed: 04/26/2018 Status: F Source: [place] 9:54 AM [facility] REPOSITORY [facility] Medical Records Department [address] [place] [address] Instructions for Home/Discharge Instructions 04/26/18 0950 MR#: [id number] Acct: [id number] Name: RAMONAGABIVIVIANA J Rep #: [id number] : 1940 77 From: Lavern Jones DPM PCP: Pinky Quinn Status: REG [facility] Discharge Activity: May Not Drive, May Not [...] Source: [place] 9:50 AM [facility] Imaging Services [address] [place] [address] Ankle min 3 Views MR#: [id number] Acct: [id number] Name: VIVIANA FLORES Rep #: [id number] : 1940 F 77 From: Parminder Olivier MD PCP: Pinky Quinn Status: REG [facility] Study: Ankle min 3 Views Date of Exam: 04/26/18 Exam# [id number] Ordering Dr: Lavern Jones DPM STUDY: X-RAY [...] Parminder Olivier MD at 13:53 EST Tel [phone], Service support , CC: SHELBY Quinn Dance Master: Signed ANKLE MIN 3 VIEWS Observed: 04/26/2018 Status: F Source: [place] 12:15 AM [facility] REPOSITORY [facility] Imaging Services [address] [place] [address] Ankle min 3 Views MR#: [id number] Acct: [id number] Name: VIVIANA FLORES Rep #: [id number] : 1940 F 77 From: Parminder Olivier MD PCP: Pinky Quinn Status: REG SDC Study: Ankle min 3 Views Date of Exam: 04/26/18 Exam# [id number] Ordering Dr: Lavern Jones DPM STUDY: X-RAY [...] Parminder Olivier MD at 10:58 EST Tel [phone], Service support , CC: SHELBY Jones; Pinky Quinn Dance Master: Signed CHEST 2 VIEWS Observed: 04/21/2018 Status: F Source: [facility] 10:[address] [place] [address] Patient: VIVIANA FLORES Phone#: : 1940 Age: 77 Gender: F Pt. Type: Out Account: [id number] Location: [facility] Ordering: LAVERN JONES Exam Date: 04/21/2018/10:31 Family Phys: PINKY QUINN Charge Code: [id number] Physician: [place] Order #: [id number] DLP Dose#: PROCEDURE: X-RAY CHEST 2 VIEWS COMPARISON: [facility], CT, ABDOMEN/PELVIS W CON, 12/19/2016, 13:06. [facility], XR, CHEST 2 VIEWS, 04/17/2018, 7:05. [...] Status: F Source: [place]AL[place] 10:25 AM [facility] REPOSITORY TYPE CODE TESTS RESULT OUT [...] 7.10 x10EE3/U L Neut # 4.30 LAB [place] #(LOINC) 0.20 - 1.00 x10EE3/U L [place] # 0.50 LAB EO #(LOINC) 0.00 - 0.50 x10EE3/U L EO # 0.20 LAB Baso #(LOINC) 0.00 - 0.10 x10EE3/U L Baso # 0.10 LAB MANUAL DIFF(LOINC) MANUAL DIFF N/A LAB MORPHOLOGY(INC ) MORPHOLOGY N/A Result Comment: {CD] Performed By: #### [id number] #### [place] [address] APTT Collected: 04/21/2018 Status: F Source: [facility] 10:25 [facility] REPOSITORY TYPE CODE TESTS RESULT OUT OF RANGE REFERENCE UNITS LAB PTT(INC) 25.4 - 38.4 sec PTT 29.9 Performed By: #### [id number] #### [place] [address] BMP WITH EGFR Collected: 04/21/2018 Status: F Source: [facility] 10:25 [facility] REPOSITORY TYPE CODE TESTS RESULT OUT OF [...] OF AGE AND OLDER. Performed By: #### [id number] #### [facility],[address] [place] [address] CBC Collected: 04/21/2018 Status: F Source: [facility] 3:20 AM [facility] REPOSITORY TYPE CODE TESTS RESULT OUT [...] 7.10 x10EE3/U L Neut # 3.00 LAB [place] #(LOINC) 0.20 - 1.00 x10EE3/U L [place] # 0.60 LAB EO #(LOINC) 0.00 - 0.50 x10EE3/U L EO # 0.20 LAB Baso #(LOINC) 0.00 - 0.10 x10EE3/U L Baso # 0.00 LAB MANUAL DIFF(LOINC) MANUAL DIFF N/A LAB MORPHOLOGY(INC ) MORPHOLOGY N/A Result Comment: {CD] Performed By: #### [id number] #### [place] [address] APTT Collected: 04/21/2018 Status: F Source: [facility] 3:20 [facility] REPOSITORY TYPE CODE TESTS RESULT OUT OF RANGE REFERENCE UNITS LAB PTT(INC) 25.4 - 38.4 sec PTT 29.6 Performed By: #### [id number] #### [place] [address] BMP WITH EGFR Collected: 04/21/2018 Status: F Source: [facility] 3:20 [facility] REPOSITORY TYPE CODE TESTS RESULT OUT OF [...] OF AGE AND OLDER. Performed By: #### [id number] #### [facility],[address] [place] [address] Observed: 04/17/2018 Status: F Source: [facility] CULTURE URINE 8:14 AM [facility] REPOSITORY CULTURE URINE _URINE CULTURE_ M I C R O B I O L O G Y R E P O R T FINAL Antimicrobial Susceptibility and Organism Identification Report Specimen Number : [id number] Requested : 04/17/18 Specimen Source : URINE Collected : 04/17/18 08:14 Antoine of Isolation : Emergency Room Received : 04/17/18 08:14 Requesting Physician : PORFIRIO HALL Patient/Specimen Tests and Comments Specimen Comments FINAL REPORT: URINE COLONY COUNT: [id number] CFU/CC >OR=TO 3 COLONY TYPES PROBABLE CONTAMINATION Tech : Source : URINE ID # : [id number] FINAL Report Date : / / : Collected : 04/17/18 08:14 04/19/18.BKO. 04/18/18.BKO. 04/19/18.BKO.COMPLETE Performed By: #### [id number] #### [facility],[address] [place] [address] URINALYSIS Collected: 04/17/2018 Status: F Source: [facility] 8:09 AM [facility] REPOSITORY TYPE CODE TESTS RESULT OUT [...] Urobilinog(LOINC) NORMAL: NORMAL Urobilinog NORM LAB Sp [place](LOINC) NORMAL: 1.010-1.030 Sp [place] 1.010 LAB Nitrite(LOINC) NORMAL: NEGATIVE Nitrite NEG [...] LAB Yeast(INC) Yeast NONE Performed By: #### [id number] #### [place] [address] PELVIS 1 OR 2 VIEWS Observed: 04/17/2018 Status: F Source: [facility] 7:21 AM [place] [address] Patient: VIVIANA FLORES Phone#: : 1940 Age: 77 Gender: F Pt. Type: ER Account: [id number] Location: [facility] Ordering: DR. KATINA MONROY Exam Date: 04/17/2018/7:03 Family Phys: PINKY QUINN Charge Code: [id number] Physician: [place] Order #: [id number] DLP Dose#: PROCEDURE: X-RAY PELVIS AP COMPARISON: [...] Status: F Source: [place] 7:20 AM [place] [id number] Patient: VIVIANA FLORES Phone#: : 1940 Age: 77 Gender: F Pt. Type: ER Account: [id number] Location: 052 Ordering: DR. KATINA MONROY Exam Date: 04/17/2018/7:05 Family Phys: PINKY QUINN Charge Code: [id number] Physician: [place] Order #: [id number] DLP Dose#: PROCEDURE: X-RAY CHEST 2 VIEWS COMPARISON: [facility], XR, CHEST AP, 12/21/2016, 4:33. INDICATIONS: [...] Status: F Source: [place]UN FORB[place]ANJALI 7:[address] [address] Patient: VIVIANA FLORES Phone#: : 1940 Age: 77 Gender: F Pt. Type: ER Account: [id number] Location: 052 Ordering: DR. KATINA MONROY Exam Date: 04/17/2018/6:55 Family Phys: PINKY KABARAN Charge Code: [id number] Physician: [place] Order #: [id number] DLP Dose#: PROCEDURE: X-RAY ANKLE COMPLETE RT [...] RT MIN Observed: 04/17/2018 Status: F [facility] 7:18 AM [place] [address] Patient: VIVIANA FLORES Phone#: : 1940 Age: 77 Gender: F Pt. Type: ER Account: [id number] Location: [facility] Ordering: DR. KATINA MONROY Exam Date: 04/17/2018/6:59 Family Phys: PINKY QUINN Charge Code: [id number] Physician: [place] Order #: [id number] DLP Dose#: PROCEDURE: X-RAY KNEE RT COMPLETE [...] Status: F Source: [place] 7:05 AM [place] [address] Patient: VIVIANA FLORES Phone#: : 1940 Age: 77 Gender: F Pt. Type: ER Account: [id number] Location: 052 Ordering: DR. KATINA MONROY Exam Date: 04/17/2018/6:56 Family Phys: PINKY QUINN Charge Code: 246194 Physician: [place] Order #: [id number] DLP Dose#: 57.50 PROCEDURE: CT BRAIN WITHOUT [...] 77 Gender: F Pt. Type: ER Account: [id number] Location: 052 Ordering: DR. KATINA MONROY Exam Date: 04/17/2018/6:56 Family Phys: PINKY QUINN Charge Code: 380899 Physician: [place] Order #: [id number] DLP Dose#: 57.50 2. There is no evidence of acute intracranial abnormality. Dictated by: Juliana Doresy MD on 04/17/2018 at 18:10 Approved by: Juliana Dorsey MD on 04/17/2018 at 18:10 CBC Collected: 04/17/2018 Status: F Source: [place] 6:47 AM [facility] REPOSITORY TYPE CODE TESTS RESULT OUT [...] 7.10 x10EE3/U L Neut # 4.70 LAB [place] #(LOINC) 0.20 - 1.00 x10EE3/U L [place] # 0.60 LAB EO #(LOINC) 0.00 - 0.50 x10EE3/U L EO # 0.20 LAB Baso #(LOINC) 0.00 - 0.10 x10EE3/U L Baso # 0.10 LAB MANUAL DIFF(LOINC) MANUAL DIFF N/A LAB MORPHOLOGY(LOINC ) MORPHOLOGY N/A Result Comment: {CD] Performed By: #### [id number] #### [facility],[address] [place], [place] [id number] CMP WITH EGFR Collected: 04/17/2018 Status: F Source: [facility] 6:47 AM [facility] REPOSITORY TYPE CODE TESTS RESULT OUT [...] OF AGE AND OLDER. Performed By: #### [id number] #### [place] [id number] URINALYSIS Collected: 04/07/2018 Status: F Source: [place] 1:00 PM [facility] REPOSITORY TYPE CODE TESTS RESULT OUT [...] Urobilinog(LOINC) NORMAL: NORMAL Urobilinog NORM LAB Sp [place](LOINC) NORMAL: 1.010-1.030 [place] 1.025 LAB Nitrite(LOINC) NORMAL: NEGATIVE Nitrite NEG [...] LAB Yeast(LOINC) Yeast NONE Performed By: #### [id number] #### [address] [address] Observed: 04/07/2018 Status: F Source: [place] [facility] CULTURE URINE 1:00 PM [facility] REPOSITORY CULTURE URINE _URINE CULTURE_ M I C R O B I O L O G Y R E P O R T FINAL Antimicrobial Susceptibility and Organism Identification Report Specimen Number : [id number] Requested : 04/07/18 Specimen Source : URINE Collected : 04/07/18 13:00 [facility] [facility] Isolation : [facility] Received : 04/07/18 13:00 Requesting Physician : DR. QUINN Patient/Specimen Tests and Comments Specimen Comments FINAL REPORT: NO GROWTH AT 48 HOURS Tech : Source : URINE ID # : [id number] FINAL Report Date : / / : Collected : 04/07/18 13:00 04/10/18.1047.KLS. 04/09/18.1501.KLS. 04/10/18.1048.KLS.COMPLETE Performed By: #### [id number] #### [facility],[address] [place] [address] CBC Collected: 02/08/2018 Status: F Source: [facility] 3:00 AM [facility] REPOSITORY TYPE CODE TESTS RESULT OUT [...] 7.10 x10EE3/U L Neut # 2.30 LAB [place] #(LOINC) 0.20 - 1.00 x10EE3/U L [place] # 0.50 LAB EO #(LOINC) 0.00 - 0.50 x10EE3/U L EO # 0.20 LAB Baso #(LOINC) 0.00 - 0.10 x10EE3/U L Baso # 0.10 LAB MANUAL DIFF(LOINC) MANUAL DIFF N/A LAB MORPHOLOGY(INC ) MORPHOLOGY N/A Result Comment: {CD] Performed By: #### [id number] #### [facility],[address] [place] [address] CMP WITH EGFR Collected: 02/08/2018 Status: F Source: [facility] 3:00 AM [facility] REPOSITORY TYPE CODE TESTS RESULT OUT [...] OF AGE AND OLDER. Performed By: #### [id number] #### [place] [address] LIPID PROFILE Collected: 02/08/2018 Status: F Source: [facility] 3:00 AM [facility] REPOSITORY TYPE CODE TESTS RESULT OUT OF REFERENCE UNITS RANGE LAB LIPID PROFILE(LOIN C) LIPID PROFILE Result Comment: LIPID PROFILE LAB TRIGLYCERIDE(LOINC) 0 - 150 mg/dl TRIGLYCERIDE 72 LAB CHOLESTEROL(LOINC) 0 - 200 mg/dl CHOLESTEROL 167 LAB HDL(LOINC) 40 - 60 mg/dl HDL 54 LAB CHOL/HDL(LOINC) 0.0 - 5.0 CHOL/HDL 3.1 LAB LDL(LOINC) 0 - 129 mg/dl LDL 99 Performed By: #### [id number] #### [place] [id number] NURSING PROG Observed: 12/03/2017 Status: COMPLETED Source: [place] 4:52 PM [facility] OTHER [facility]AMPUS REPOSITORY O ID: [id number] Author: Bettie (Rn) Óscar RN Service: Nursing Author Type: Registered Nurse Type: Nursing Progress Note Filed: 12/03/2017 4:59 PM Note Text: Nursing Progress Note Patient Name: Viviana Flores [facility] Daily Note: 1647: Pt left unit and was discharge with [facility] in stable condition to [facility] ([facility]). Family to transport. Left with personal belongings and discharge instructions. No further needs at time of discharge. 1655: Called report to Earnestine at [facility]. Made aware that family was transporting and planning to stop for dinner before arriving. This note was completed by: Bettie Cantrell RN CASE MANAGEM Observed: 12/03/2017 Status: COMPLETED Source: [place] 4:31 PM CLINIC OTHER CAMPUS REPOSITORY O ID: [id number] Author: Cyndie (Rn) CHICHO Maria Service: Care Management Author Type: Registered Nurse Type: Care Mgt Progress Note Filed: 12/03/2017 4:38 PM Note Text: CARE MANAGEMENT PROGRESS NOTE SERVICE DATE: 12/03/2017 SERVICE TIME: 4:31 PM LOS: 3 days Admission Date: 11/30/2017 DISCHARGE ARRANGEMENT (list agency and phone number) long term facility: Was an expedited discharge program used? No Provider: Personal Style Finder CAREGIVER ASSESSMENT: Caregiver is ready, willing and [...] ED to Hosp-Admission (Current) from 11/30/2017 in [facility] Agency [facility] Rehab Needs Prior to Discharge: Ready for Discharge Patient medically cleared for discharge today to transition to [facility] in [place], [place]. Patient's sons uMnir and Greg and dtr in law Maddie are here now. They have planned to transport patient to facility. hospital coordinator, Rebeca at [facility] has been notified of 7:30pm arrival time. Bedside nurse given the report phone number. SIGNATURE: Cyndie Maria RN,BSN PATIENT NAME: Viviana Flores DATE: December 03, 2017 TIME: 4:31 PM PAGER/CONTACT #: [phone] CNDS Observed: 12/03/2017 Status: COMPLETED Source: [place] 4:15 PM CLINIC OTHER CAMPUS REPOSITORY HNO ID: [id number] Author: Rubia Licea Service: General Internal Medicine [...] PATIENT CONDITION AT DISCHARGE: Stable DISCHARGE DISPOSITION: Prison Facility DISCHARGE MEDICATION: keppra 500mg po bid Aspirin 325mg po qday wellbutrin 150mg po qday oscal 1/2tablet po qday cymbalta 30mg po qday pepcid 20mg po bid neurontin 100mg po qday Ditropan cl 5mg po qday zocor 5mg po qhs FUTURE APPOINTMENTS: Follow Up with PCP: Pinky Quinn MD Discharge Information Row Name ED to Hosp-Admission (Current) from 11/30/2017 in [facility] Agency [facility] TIME OF CARE (Use first blank if not applicable): TIME OF CARE: Discharge Management: I personally spent greater than 30 minutes involved in the discharge management of this patient. SIGNATURE: Rubia Licea MD PATIENT NAME: Viviana Flores DATE: December 03, 2017 TIME: 4:15 PM PAGER/CONTACT #: DISCHARGE SUMMARY PROGRESS Observed: 12/03/2017 Status: COMPLETED Source: [place] 4:12 PM CLINIC OTHER CAMPUS REPOSITORY O ID: [id number] Author: Rubia Licea Service: General Internal Medicine [...] tab(s) (ZOCOR) 5 mg ORAL AT BEDTIME qukordb-wfiapcwia-jbjhfae D3 500 mg(1,250mg) -200 unit 0.5 tablet [...] CASE MANAGEM Observed: 12/03/2017 Status: COMPLETED Source: [place] 11:27 AM [facility] OTHER [place] REPOSITORY HNO ID: [id number] Author: Cyndie KayRn) CHICHO Maria Service: Care Management Author Type: Registered Nurse Type: Care Mgt Progress Note Filed: 12/03/2017 11:30 AM Note Text: CARE MANAGEMENT PROGRESS NOTE SERVICE DATE: 12/03/2017 SERVICE TIME: 11:27 AM LOS: 3 days Needs Prior to Discharge: (medical clearance) Spoke to patient's son, Greg and his Maddie on phone and informed [facility] in [place]. Patient has traditional MCR and precert not needed. Family will transport when cleared for discharge. Bedside nurse updated. SIGNATURE: Cyndie Maria RN,BSN PATIENT NAME: Viviana Flores DATE: December 03, 2017 TIME: 11:27 AM PAGER/CONTACT #: [phone] NURSING PROG Observed: 12/03/2017 Status: COMPLETED Source: [place] 10:08 AM [facility] OTHER [place] REPOSITORY HNO ID: [id number] Author: Bettie KayRn) CHICHO Cantrell Service: Nursing Author Type: Registered Nurse Type: Nursing Progress Note Filed: 12/03/2017 10:21 AM Note Text: Nursing Progress Note Patient Name: Viviana Flores Patient Location: [place] [address]/[facility] Daily Note: Patient a/ox2-3. Able to state name, , and that she is in a [facility] in [place]. Pt also stated the correct year. BEM was d/britta this morning. Assessment completed, see NPR flowsheet. Pt denies pain at this time. Call light within reach. Seizure precautions in place. Will continue to monitor. This note was completed by: Bettie Cantrell RN CONSULT PROG Observed: 12/03/2017 Status: COMPLETED Source: [place] 8:47 AM [facility] OTHER CAMPUS REPOSITORY HNO ID: [id number] Author: Kiya Madison Service: Neurology Author Type: Physician Type: Consult Progress Note Filed: 12/03/2017 11:27 AM Note Text: [facility] Neurology Consult Progress Note Admitting Provider/Consulted by:Rubia [...] Alcantar MD 5 mg at 12/03/17 0843 wrenctn-erzpzdjzz-mwwgwni D3 500 mg(1,250mg) -200 unit 0.5 tablet [...] cap(s) (NEURONTIN) 100 mg ORAL DAILY Cyndie (Warp Tier) Shamhart 100 mg at 12/03/17 08 DULoxetine 30 mg cap(s) (CYMBALTA) 30 mg ORAL DAILY Cyndie (Warp Tier) Shamhart 30 mg at 12/03/17 08 ALLERGIES [...] no muscle atrophy Muscle strength medical research augustine scale MUSCLES Upper Extremity RIGHT LEFT Deltoid [...] tremor. No asterixis. Finger-to- nose-finger intact bilaterally Anph-xu-dezl intact bilaterally. Rapid Alternating Movements: Normal bilaterally [...] order to develop or modify ? treatment. [facility] Continuous video-EEG monitoring was reviewed [...] in addition to medication that may have PRINCIPAL NETWORK ARCHITECT suppression effect such as Wellbutrin, Cymbalta, and [...] consult service, please feel free to page [phone]. SIGNATURE: Kiya Madison MD PATIENT NAME: Viviana Flores DATE: December 02, 2017 TIME: 8:24 PM PAGER/CONTACT #: [phone] CBC Collected: 12/03/2017 Status: F Source: [place] 6:17 AM CLINIC OTHER CAMPUS REPOSITORY TYPE [...] 9.4 Performed By: #### ALICE, BMP #### [place] [id number] [place] [address] BASIC METABOLIC PANL Collected: 12/03/2017 Status: F Source: [place] 6:17 AM [facility] REPOSITORY TYPE CODE TESTS RESULT OUT [...] >60 Performed By: #### ALICE, BMP #### [place] [id number] [place] [address] NURSING PROG Observed: 12/02/2017 Status: COMPLETED Source: [place] 11:00 PM [facility] REPOSITORY HNO ID: [id number] Author: Savannah (Rn) CHICHO Nguyen Service: Nursing [...] CONSULT PROG Observed: 12/02/2017 Status: COMPLETED Source: [place] 8:23 PM [facility] OTHER CAMPUS REPOSITORY HNO ID: [id number] Author: Kiya Madison Service: Neurology Author Type: Physician Type: Consult Progress Note Filed: 12/02/2017 8:34 PM Note Text: [facility] Neurology Consult Progress Note Admitting Provider/Consulted by:Rubia [...] lipid microspheres 1.1 mg/mL 1.3 mL injection ([employer]) 1.3 mL INTRAVENOUS PRN(NO DISPENSE) Kiya Madison levETIRAcetam 500 mg tab(s) (KEPPRA) 500 mg ORAL BID Kiya Madison 500 mg at 12/02/172013 simvastatin 5 mg tab(s) (ZOCOR) 5 mg ORAL AT BEDTIME Fatoumata Alcantar MD 5 mg at 12/02/17 075 omskthc-pwmygbhgy-xkkkgue D3 500 mg(1,250mg) -200 unit 0.5 tablet [...] cap(s) (NEURONTIN) 100 mg ORAL DAILY Cyndie (Warp Tier) Shamhart 100 mg at 12/02/17750 DULoxetine 30 mg cap(s) (CYMBALTA) 30 mg ORAL DAILY Cyndie (Warp Tier) Shamhart 30 mg at 12/02/17749 ALLERGIES No [...] no muscle atrophy Muscle strength medical research augustine scale MUSCLES Upper Extremity RIGHT LEFT Deltoid [...] tremor. No asterixis. Finger-to- nose-finger intact bilaterally Yxkv-ep-ofli intact bilaterally. Rapid Alternating Movements: Normal bilaterally [...] order to develop or modify ? treatment. [facility] Continuous video-EEG monitoring was reviewed [...] in addition to medication that may have PRINCIPAL NETWORK ARCHITECT suppression effect such as Wellbutrin, Cymbalta, and Neurontin. Wellbutrin may trigger seizure or lower seizure threshold Plan: 1. Recommend to discontinue wellbutrin 2. May discontinue EEG tomorrow if no seizures overnight 3. Neuropsych evaluation as outpatient 4. Followup at neurology clinic Thank you for allowing us to participate in this patient's care. To contact neurology consult service, please feel free to page [phone]. SIGNATURE: Kiya Madison MD PATIENT NAME: Viviana Flores DATE: December 02, 2017 TIME: 8:24 PM PAGER/CONTACT #: [phone] PROGRESS Observed: 12/02/2017 Status: COMPLETED Source: [place] 4:57 PM CLINIC OTHER CAMPUS REPOSITORY HNO ID: [id number] Author: Rubia Licea Service: General Internal Medicine [...] tab(s) (ZOCOR) 5 mg ORAL AT BEDTIME qhvwehk-dwsdkvbbs-cuohlxb D3 500 mg(1,250mg) -200 unit 0.5 tablet [...] 5. GI prophylaxis - pepcid SIGNATURE: Rubia Licea MD PATIENT NAME: Viviana Flores DATE: December 02, 2017 TIME: 4:57 PM PAGER: CASE MANAGEM Observed: 12/02/2017 Status: COMPLETED Source: [place] 4:18 PM CLINIC OTHER CAMPUS REPOSITORY [facility] ID: [id number] Author: Cyndie (Rn) CHICHO Maria Service: Care Management Author Type: Registered Nurse Type: Care Mgt Progress Note Filed: 12/02/2017 4:20 PM Note Text: CARE MANAGEMENT PROGRESS NOTE SERVICE DATE: 12/02/2017 SERVICE TIME: 4:18 PM LOS: 2 days FREEDOM OF CHOICE GIVEN: Yes patient and patient's family Financial Disclosure Provided The patient and/or family has been given the Provider List: Yes Provider List: Prison Facility Preference: [facility] in [place], [place] Patient and patient's son Munir and Greg are requesting SNF for transtional care. Patient has traditional MCR. No precert needed. Referral sent to first choice SNF. SIGNATURE: Cyndie Maria RN,BSN PATIENT NAME: Viviana Flores DATE: December 02, 2017 TIME: 4:18 PM PAGER/CONTACT #: [phone] THERAPY NT Observed: 12/02/2017 Status: COMPLETED Source: [place] 4:18 PM CLINIC OTHER CAMPUS REPOSITORY HNO ID: [id number] Author: Essence Deal (External Relations Director) Andrew Service: Speech/Swallow Author Type: Speech Language Pathologist Type: Therapy (PT/OT/Speech/Resp) Filed: 12/02/2017 4:29 PM Note Text: Speech Therapy Speech Evaluation SERVICE DATE: 12/02/2017 SERVICE TIME: 1508 to 1535 ROOM: [place] [address] Nursing Recommendations: Reinforce use of white board [...] symbolic dysfunctions Interventions Provided: Speech Language Eval (25634) $ Speech Language Eval (27337) Billed Units: 1 unit Total Treatment Time [...] Prior Functional Level: Required Assistance Assistance Available: methods time analyst Please see discipline specific clinical documentation flowsheet for complete details for this therapy evaluation/treatment. SIGNATURE: Essence Morales AUTOMATION ENGINEERING TECHNICIAN PATIENT NAME: Viviana Flores DATE: December 02, 2017 TIME: 4:18 PM PAGER: [phone] CASE MANAGEM Observed: 12/02/2017 Status: COMPLETED Source: [place] 4:12 PM [facility] REPOSITORY HNO ID: [id number] Author: Cyndie Maria RN Service: Care Management [...] 02, 2017 TIME: 4:12 PM PAGER/CONTACT #: [phone] THERAPY NT Observed: 12/02/2017 Status: COMPLETED Source: [place] 11:52 AM [facility] OTHER [place] REPOSITORY HNO ID: [id number] Author: Jose Antonio Barrera Service: Physical Therapy Author Type: Physical Therapist Type: Therapy (PT/OT/Speech/Resp) Filed: 12/02/2017 11:55 AM Note Text: Physical Therapy Treatment SERVICE DATE: 12/02/2017 SERVICE TIME: 1045 to 1110 ROOM: [place] [address] Recommended Discharge Disposition: Home PT Anticipated Discharge [...] gait and mobility-other Interventions Provided: Therapeutic Exercise (80757);Therapeutic Activity (53318) Therapeutic Exercise (06459) Treatment Minutes: 13 1 unit Skilled Intervention(s): [...] phone near pt post treatment. Therapeutic Activity (13933) Treatment Minutes: 10 1 unit Skilled Intervention(s): [...] Environment Patient Lives With: Self/Alone Assistance Available: methods time analyst Entry To Home: Stairs;With Rail (has [employer] alert device; son and neighbors come daily) [...] NURSING PROG Observed: 12/02/2017 Status: COMPLETED Source: [place] 11:17 AM [facility] REPOSITORY HNO ID: [id number] Author: Qing KayRn) CHICHO Carvajal Service: (none) Author Type: Registered Nurse Type: Nursing Progress Note Filed: 12/02/2017 11:21 AM Note Text: Nursing Progress Note Patient Name: Viviana Flores Patient Location: /[facility] Daily Note: AANDOx3. BEM in progress. Denies pain. Safety and seizure precautions maintained, call light and possessions within reach. Will continue to monitor. This note was completed by: QING CARVAJAL RN NURSING PROG Observed: 12/01/2017 Status: COMPLETED Source: [place] 10:01 PM [facility] REPOSITORY HNO ID: [id number] Author: Bettie KayRn) CHICHO Armstrong Service: (none) Author Type: Registered Nurse Type: Nursing Progress Note Filed: 12/02/2017 6:55 AM Note Text: Nursing Progress Note Patient Name: Viviana Flores Patient Location: [facility]/ Daily Note:2144 Transfer Note: Patient transferred into [...] NURSING PROG Observed: 12/01/2017 Status: COMPLETED Source: [place] 8:34 PM [facility] REPOSITORY HNO ID: [id number] Author: Sidra KayRn) Geoffrey, RN Service: (none) [...] CONSULT PROG Observed: 12/01/2017 Status: COMPLETED Source: [place] 7:07 PM [facility] REPOSITORY HNO ID: [id number] Author: Kiya Madison Service: Neurology Author Type: Physician Type: Consult Progress Note Filed: 12/01/2017 7:09 PM Note Text: I was paged by epilepsy fellow about the frequent burst of epileptic discharges on BEM. I will give keppra 1000mg iv stat now, followed by 500mg bid po from tomorrow. Kiya Madison MD NURSING PROG Observed: 12/01/2017 Status: COMPLETED Source: [place] 6:40 PM [facility] REPOSITORY HNO ID: [id number] Author: Carissa KayRn) CHICHO Raines Service: (none) [...] CASE MANAGEM Observed: 12/01/2017 Status: COMPLETED Source: [place] 4:31 PM [facility] OTHER CAMPUS REPOSITORY HNO ID: [id number] Author: Cyndie (Rn) CHICHO Maria Service: Care [...] sent to first choice. Patient's PCP in [place] is Dr. Pinky Quinn. SIGNATURE: Cyndie Maria RN,BSN PATIENT NAME: Viviana Flores DATE: December 01, 2017 TIME: 4:31 PM PAGER/CONTACT #: [phone] MRI BRAIN WO IVCON Observed: 12/01/2017 Status: F Source: [place] 3:50 PM [facility] OTHER CAMPUS REPOSITORY * * *Final Report* [...] White matter change 3. Stable right mastoidectomy Dance Master: [facility] Transcribe Date/Time: Dec 01 2017 4:05P Dictated by : ANDREI MCCORD MD This examination was interpreted and the report reviewed and electronically signed by: ANDREI MCCORD MD on Dec 01 2017 4:11PM EST [id number] ALLIED HEALTH Observed: 12/01/2017 Status: COMPLETED Source: [place] 3:46 PM CLINIC OTHER CAMPUS REPOSITORY HNO ID: [id number] Author: Jessica Arenas (Rt) Service: Radiology Author Type: Regional Sales Coordinator Type: Allied Health Filed: 12/01/2017 3:47 PM [...] THERAPY NT Observed: 12/01/2017 Status: COMPLETED Source: [place] 3:35 PM CLINIC OTHER CAMPUS REPOSITORY HNO ID: [id number] Author: Jose Antonio (Pt) Holly Service: Physical Therapy Author Type: Physical Therapist Type: Therapy (PT/OT/Speech/Resp) Filed: 12/01/2017 3:39 PM Note Text: Physical Therapy Evaluation SERVICE DATE: 12/01/2017 SERVICE TIME: 1450 to 1505 ROOM: [place] [address] ([facility] MRI 2) Recommended Discharge Disposition: Home PT [...] on feet Interventions Provided: Evaluation $ Evaluation-Low (91514) Billed Units: 1 unit -pt exercises interrupted [...] Environment Patient Lives With: Self/Alone Assistance Available: methods time analyst Entry To Home: Stairs;With Rail (has med [...] care OBJECTIVE: Mini Cog Score: 0 (12/01/17 3396) CURRENT FUNCTIONAL STATUS: Current Functional Mobility Assist [...] THERAPY NT Observed: 12/01/2017 Status: COMPLETED Source: [place] 2:33 PM CLINIC OTHER CAMPUS REPOSITORY HNO ID: [id number] Author: Genevieve (Ot) DOUGLAS Moscoso Service: Occupational Therapy Author Type: Occupational Therapist Type: Therapy (PT/OT/Speech/Resp) Filed: 12/01/2017 2:36 PM Note Text: Occupational Therapy Evaluation SERVICE DATE: 12/01/2017 SERVICE TIME: 1357 to 1420 ROOM: [place] [address] Recommended Discharge Disposition: Home OT Recommended Discharge [...] daily living (ADL) Interventions Provided: Evaluation;Therapeutic Activity (22595) $ Evaluation-Low (07280) Billed Units: 1 unit Therapeutic Activity (25781) Treatment Minutes: 8 1 unit Skilled Intervention(s): [...] CODE: OT 6 Clicks Score: 23 (12/01/17 9332) Self Care Current Status (G8987): CI (12/01/17 535) Self Care Goal Status (G8988): CH (12/01/17 540) Based on clinical assessment and the score [...] Environment Patient Lives With: Self/Alone Assistance Available: methods time analyst Entry To Home: Stairs;With Rail (has [employer] alert device; son and neighbors come daily) [...] Commands: 1-step Commands;2-step Commands Memory Deficits: Short Term;[employer] Instructor Mini Cog Score: 0 (12/01/17 826) CURRENT FUNCTIONAL STATUS: Current Activities of Daily [...] PM CONSULT Observed: 12/01/2017 Status: COMPLETED Source: [place] 2:29 PM CLINIC OTHER CAMPUS REPOSITORY HNO ID: [id number] Author: Kiya Madison Service: Neurology Author Type: Physician Type: Consults Filed: 12/01/2017 2:45 PM Note Text: [facility] Neurology Consult Note Admitting Provider/Consulted by:Rubia Licea [...] Alcantar MD 5 mg at 12/01/17 0815 pgpahfk-miwujfpiz-ioioikn D3 500 mg(1,250mg) -200 unit 0.5 tablet [...] mg INTRAVENOUS q 10 MIN PRN Fatoumata Alacntar MD acetaminophen 650 mg tab(s) (TYLENOL) 650 mg ORAL/FEEDING TUBE q 4 H PRN Fatoumata Alcantar MD bisacodyl EC 10 mg tab(s) (DULCOLAX) 10 mg ORAL PRN Fatoumata Alcantar MD gabapentin 100 mg cap(s) (NEURONTIN) 100 mg ORAL DAILY Cyndie (Warp Tier) Shamhart 100 mg at 12/01/17814 DULoxetine 30 mg cap(s) (CYMBALTA) 30 mg ORAL DAILY Cyndie (Warp Tier) Shamhart 30 mg at 12/01/17814 PAST MEDICAL [...] RIGHT WRIST - COLONOSCOP W/ OR W/O [facility] SPEC 03/08/2002 Colonoscopy - COLONOSCOPY W/BX 07/20/06 - EGD W/O BRS SPECIMEN W/BX 05/31/09 - LIGATE FALLOPIAN TUBE - PAST SURGICAL HISTORY OF 1997 right ear canal - SIGMOIDOSCOPY FLEX DIAG 06/01/07 - VAGINAL HYSTERECTOMY Social History Marital status: Spouse name: Years of education: Number of children: 2 Occupational History Occupation Employer [employer] Social History Main Topics Smoking status: Never [...] no muscle atrophy Muscle strength medical research augustine scale MUSCLES Upper Extremity RIGHT LEFT Deltoid [...] tremor. No asterixis. Finger-to- nose-finger intact bilaterally Qgri-td-ugdt intact bilaterally. Rapid Alternating Movements: Normal bilaterally [...] MD on 11/30/2017 at 3:25 PM. CR_1 Dance Master: [facility] Transcribe Date/Time: Nov 30 2017 3:26P Dictated by : BILLY MINER MD This examination was interpreted and the report reviewed and electronically signed by: BILLY MINER MD on Nov 30 2017 3:30PM EST Cta Head Wo/w Ivcon Result Date: 11/30/2017 IMPRESSION: No evidence of arterial occlusion or significant stenosis in the head or neck. Dance Master: [facility] Transcribe Date/Time: Nov 30 2017 3:37P Dictated by : ALLI HERNANDEZ MD This examination was interpreted and the report reviewed and electronically signed by: ALLI HERNANDEZ MD on Nov 30 2017 3:41PM EST Cta Neck W Ivcon Result Date: 11/30/2017 IMPRESSION: No evidence of arterial occlusion or significant stenosis in the head or neck. Dance Master: [facility] Transcribe Date/Time: Nov 30 2017 3:37P [...] multifactorial: Underlying dementia, medication that may have PRINCIPAL NETWORK ARCHITECT suppression effect such as Wellbutrin, Cymbalta, and [...] consult service, please feel free to page [phone]. SIGNATURE: Kiya Madison MD PATIENT NAME: Viviana Flores DATE: December 01, 2017 TIME: 2:29 PM PAGER/CONTACT #: [phone] VITAMIN B12 Collected: 12/01/2017 Status: F Source: [place] 2:18 PM CLINIC OTHER CAMPUS REPOSITORY TYPE CODE TESTS RESULT OUT OF REFERENCE UNITS RANGE LAB B12 232-1245 pg/mL Vitamin B12 570 Performed By: #### B12 #### [facility] [address] [place] [address] #### PVITB1 #### [address] [place], [place] [address] [phone] VITAMIN B1, PLASMA Collected: 12/01/2017 Status: F Source: [place] 2:18 PM [facility] OTHER [place] REPOSITORY TYPE CODE TESTS RESULT OUT OF [...] stores. Test developed and characteristics determined by [facility]. See Compliance Statement B: [facility]/CS Performed by [facility], [address] [place] [id number] [email or web address], Brent Cornejo MD, Lab. Director Performed By: #### B12 #### [facility] [address] [place], [place] [address] #### PVITB1 #### [facility] [address] [place] [address] [phone] CASE MGT INIT Observed: 12/01/2017 Status: COMPLETED [facility] OTHER CAMPUS REPOSITORY HNO ID: [id number] Author: Cyndie (Rn) CHICHO Maria Service: Care Management Author Type: Registered Nurse Type: Care Mgt Initial Assessment Filed: 12/01/2017 1:46 PM Note Text: CARE MANAGEMENT: ASSESSMENT AND DISCHARGE PLAN SERVICE DATE: 12/01/2017 SERVICE TIME: 11:30AM PRIMARY CARE PHYSICIAN: Pinky Quinn MD ADMISSION STATUS: Inpatient Needs Prior to Discharge: None MEDICAL: Patient/Distribution Estimator Stated Goals: To return home to life [...] bench/chair Has the Patient Been in a Prison Facility in the Past 30 days? No [...] 0 I feel financially burdened by my dai-bt-ciuwxh expenses for my prescription medication: Disagree completely [...] lives alone in her own home in [place] near [place], [place]. She states she is independent with her IADL's and relies on her body shop supervisor 2x a week for 3 hours to assist with cleaning and meals. Both of her sons live within a mile from her home and they assist with transportation to shopping and medical appt.'s. Her son, Greg entered the room at the end of my interview and he said his , Maddie will remember the patient's PCP's name in [place]. Patient feels she is safe at home. She does not have an assistive device and feels she ambulates steady and denies falls. She has grab bars in her home. She wants to return home and declines any need for therapy or services at this time. TCC will continue to follow as needs arise. SIGNATURE: Cyndie Maria RN,BSN PATIENT NAME: Viviana Flores DATE: December 01, 2017 TIME: 1:30 PM PAGER/CONTACT #: [phone] HISTORY PHYSICAL Observed: 12/01/2017 Status: COMPLETED Source: [place] 10:15 AM [facility] OTHER CAMPUS REPOSITORY HNO ID: [id number] Author: Rubia Licea Service: General Internal Medicine Author Type: Physician Type: HANDP Filed: 12/01/2017 10:20 AM Note Text: HANDP NOTE SERVICE DATE: 12/01/2017 SERVICE TIME: 10:16am Patient seen and examined, note dictated#[id number] Assessment 1. TIA/CVA 2. Confusion 3. h/o HTN 4. Hyperlipidemia Plan Neurology eval MRI PT/OT/speech eval SIGNATURE: Rubia Licea MD PATIENT NAME: Viviana Flores DATE: December 01, 2017 TIME: 10:15 AM PAGER: CBC AND DIFFERENTIAL Collected: 12/01/2017 Status: F Source: [place] 6:53 AM [facility] OTHER CAMPUS REPOSITORY TYPE CODE TESTS RESULT [...] k/uL Abs Lymph 2.21 LAB MONOS % Rolette% 8.2 LAB AAMONO <0.87 k/uL Abs Rolette 0.51 LAB EOS % Eosin% 1.6 LAB AAEOS <0.46 k/uL Abs Eosin 0.10 LAB BASOS % Baso% 0.8 LAB AABASO <0.11 k/uL Abs Baso 0.05 LAB DTYP DTYPE Auto Diff Performed By: #### CBCDIF, CMP, MG1, TSH #### [place] [phone] #### HBA1C, LIPB #### [facility] [address] [phone] COMP METABOLIC PANEL Collected: 12/01/2017 Status: F Source: [place] 6:53 AM CLINIC OTHER CAMPUS REPOSITORY TYPE [...] By: #### CBCDIF, CMP, MG1, TSH #### [place] [address] #### HBA1C, LIPB #### [facility] [address] [phone] MAGNESIUM Collected: 12/01/2017 Status: F Source: [place] 6:53 AM [facility] OTHER [place] REPOSITORY TYPE CODE TESTS RESULT OUT OF REFERENCE UNITS RANGE LAB MG 1.7-2.6 mg/dL Magnesium 2.1 Performed By: #### CBCDIF, CMP, MG1, TSH #### [place] [phone] #### HBA1C, LIPB #### [place] [phone] TSH Collected: 12/01/2017 Status: F Source: [place] 6:53 AM [facility] OTHER CAMPUS REPOSITORY TYPE CODE TESTS RESULT OUT OF RANGE REFERENCE UNITS LAB TSH 0.400-5.500 uU/mL TSH 1.460 Performed By: #### CBCDIF, CMP, MG1, TSH #### [place] [phone] #### HBA1C, LIPB #### [place] [phone] HEMOGLOBIN A1C Collected: 12/01/2017 Status: F Source: [place] 6:53 AM [facility] REPOSITORY TYPE CODE TESTS RESULT OUT OF REFERENCE UNITS RANGE LAB HGBA1C 4.3-5.6 % High Hemoglobin A1c 5.7 LAB HBA0 mg/dL Est. Average Glucose 117 Result Comment: eAG: (Estimated average glucose) is a calculated value from HgbA1c and is school admissions representative of the average blood glucose level in the last 2-3 month period. Performed By: #### CBCDIF, CMP, MG1, TSH #### [place] [phone] #### HBA1C, LIPB #### [place] [phone] LIPID PANEL, BASIC Collected: 12/01/2017 Status: F Source: [place] 6:53 AM [facility] REPOSITORY TYPE CODE TESTS RESULT OUT [...] Desk Reference: National Heart, Lung, and Blood [place]. National Institutes of Health. 2001: NIH Publication No. 01-3305. 2. An International Atherosclerosis Society position paper: global recommendations for the management of dyslipidemia: executive summary, Atherosclerosis. 2014: 232(2):410-413. Performed By: #### CBCDIF, CMP, MG1, TSH #### [place] [address] #### HBA1C, LIPB #### [facility] [address] [place], [place] [address] TROPONIN T Collected: 11/30/2017 Status: F Source: [place] 8:57 PM CLINIC OTHER CAMPUS REPOSITORY TYPE CODE TESTS RESULT OUT OF REFERENCE UNITS RANGE LAB TROPT 0.000-0.029 ng/mL Troponin T <0.010 Performed By: #### LAKEISHA #### [place] [address] PROGRESS Observed: 11/30/2017 Status: COMPLETED Source: [place] 7:56 PM CLINIC MAIN CAMPUS REPOSITORY HNO ID: [id number] Author: Ab Ren Service: (none) Author Type: Physician Type: Progress Notes Filed: 11/30/2017 8:02 PM Note Text: TELESTROKE DOCUMENTATION Name: Viviana Flores : 1940 Site: [facility] Dr. Gerardo Last Known Well (Date/Time): 11/30/17 1045 Neurologist Evaluation (Date/Time): 11/30/17 1530 Chief Complaint: Confusion HPI: 77 year old female,Noted by family to be confused, making nonsence words this morning at 10:45 AM. She is visiting her niece here in [place]. History of UTI w/ confusion. Family took [...] treatment Disposition Thank you for contacting the [facility]. I appreciate the opportunity for allowing me to participate in Viviana Flores's care. Please feel free to contact me and/or the [facility] at any time if you have any further questions or need additional assistance. Ab Ren MD November 30, 2017 7:56 PM NURSING PROG Observed: 11/30/2017 Status: COMPLETED Source: [place] 7:42 PM [facility] OTHER CAMPUS REPOSITORY HNO ID: [id number] Author: Otis KayRn) CHICHO Witt Service: Nursing [...] NURSING PROG Observed: 11/30/2017 Status: COMPLETED Source: [place] 7:33 PM CLINIC OTHER CAMPUS REPOSITORY HNO ID: [id number] Author: Janet KayRn) CHICHO Kramer Service: (none) [...] TROPONIN T Collected: 11/30/2017 Status: F Source: [place] 6:58 PM CLINIC OTHER [place] REPOSITORY TYPE CODE TESTS RESULT OUT OF REFERENCE UNITS RANGE LAB TROPT 0.000-0.029 ng/mL Troponin T <0.010 Performed By: #### LAKEISHA #### [place] [address] URINALYSIS WITH Collected: 11/30/2017 Status: F Source: [facility] 6:45 PM CLINIC OTHER CAMPUS REPOSITORY TYPE CODE TESTS RESULT OUT OF RANGE REFERENCE UNITS LAB UCOL Yellow Color Abnormal Straw Alert LAB [facility] Clear Clarity Clear LAB UGLUC Negative mg/dL Glucose, Urine Negative LAB UBIL Negative Bilirubin, Urine Negative LAB UKET Negative Ketones, Abnormal Urine Trace Alert LAB [facility] 1.005-1.030 Specific [place], Ur 1.030 LAB UHGB Negative Abnormal Hemoglobin/Blood, [...] Epithelial Cells Performed By: #### UAWMIC #### [place] [id number] [place] [address] Observed: 11/30/2017 Status: F Source: [place] URINE CULTURE 6:45 PM [facility] REPOSITORY Sp. Request/Comment: - Specimen received in preservative Culture Result - <10,000 CFU/ml Lactose positive gram negative bacilli --> ABNORMAL ALERT Insignificant colony count. No further workup. --> ABNORMAL ALERT Performed By: #### URCUL #### [place] [address] [facility] [address] [place] [address] ED NOTE Observed: 11/30/2017 Status: COMPLETED Source: [place] 5:15 PM [facility] REPOSITORY HNO ID: [id number] Author: Leonarda Lovell (Pharmacist) Service: Pharmacy Author [...] questions. Electronic Signature: Leonarda Lovell Pharmacist Pager/Extension: [phone] [facility] Observed: 11/30/2017 Status: COMPLETED Source: [place] 3:48 PM [facility] REPOSITORY HNO ID: [id number] Author: Veronica (Rt) Jessica Schultz Service: Radiology Author Type: Regional Sales Coordinator Type: Allied Health Filed: 11/30/2017 3:48 PM [...] 1V FRONTAL Observed: 11/30/2017 Status: F Source: [facility] 3:46 PM [facility] OTHER [place] REPOSITORY * * *Final Report* * * [...] . IMPRESSION: MILD HYPERINFLATION, NO ACUTE PROCESS Dance Master: MARCO Transcribe Date/Time: Nov 30 2017 3:54P Dictated by : DAYNE CARO MD This examination was interpreted and the report reviewed and electronically signed by: DAYNE CARO MD on Nov 30 2017 3:55PM EST [id number] ED NOTE Observed: 11/30/2017 Status: COMPLETED Source: [place] 3:38 PM [facility] HNO ID: [id number] Author: Stephania (Ct) BLAINE Chicas Service: (none) Author Type: Clinical Regional Sales Coordinator Type: ED Notes Filed: 11/30/2017 3:38 PM Note Text: Glucose 80 CTA HEAD WO/W IVCON Observed: 11/30/2017 Status: F Source: [place] 3:37 PM [facility] OTHER [place] REPOSITORY * * *Final Report* * * [...] significant stenosis in the head or neck. Dance Master: MARCO Transcribe Date/Time: Nov 30 2017 3:37P Dictated by : ALLI HERNANDEZ MD This examination was interpreted and the report reviewed and electronically signed by: ALLI HERNANDEZ MD on Nov 30 2017 3:41PM EST [id number] CTA NECK W IVCON Observed: 11/30/2017 Status: F Source: [place] 3:37 PM CLINIC OTHER CAMPUS REPOSITORY * [...] significant stenosis in the head or neck. Dance Master: MARCO Transcribe Date/Time: Nov 30 2017 3:37P Dictated by : ALLI HERNANDEZ MD This examination was interpreted and the report reviewed and electronically signed by: ALLI HERNANDEZ MD on Nov 30 2017 3:41PM EST [id number] ED NOTE Observed: 11/30/2017 Status: COMPLETED Source: [place] 3:36 PM CLINIC OTHER [place] REPOSITORY HNO ID: [id number] Author: Donna (Rn) CHICHO Moreno Service: (none) Author Type: Registered Nurse Type: ED Notes Filed: 11/30/2017 3:36 PM Note Text: Pt returned to ED, Xray at bedside. [facility] Observed: 11/30/2017 Status: COMPLETED Source: [place] 3:31 PM [facility] OTHER CAMPUS REPOSITORY HNO ID: [id number] Author: BLAINE Esparza (Ct) Service: Radiology Author Type: Regional Sales Coordinator Type: Allied Health Filed: 11/30/2017 3:32 PM [...] PROV NOTE Observed: 11/30/2017 Status: COMPLETED Source: [place] 3:26 PM CLINIC OTHER CAMPUS REPOSITORY HNO ID: [id number] Author: Frank Gerardo MD Service: Emergency Medicine Author Type: Physician Type: ED Provider Notes Filed: 12/01/2017 12:44 AM Note Text: ED Provider Note Patient Name: Viviana Flores SERVICE DATE: 11/30/17 History Patient presents with: Mental Status Changes: visiting from out of town; niece took to [facility] for confusion; patient AxO 1-2 denies any complaints History provided by: Patient and relative science interpreter used: No 77-year-old female presents to ED for reported confusion. Last known well 10:45 AM. Patient visiting from [place], [place]. Has been staying with her niece [...] other components within normal limits Narrative: Meter ID:[id number] Location:ED [facility], [address] [place] [address], [phone] CBC + AUTO DIFF (AK,AV,EU,FV,HL,LAINE,MM,SP) COMPREHENSIVE METABOLIC [...] of the patient and have reviewed the PA/CASH APPLICATIONS REPRESENTATIVE note. 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 The patient received frequent neuro checks and Consultation by stroke neurology during the time that critical care was provided. Critical care time excludes separately billed procedures. MD Frank Cabrera MD 12/01/[address] BRAIN ATTACK WO Observed: 11/30/2017 Status: F Source: [place] IVCON 3:25 PM CLINIC OTHER CAMPUS REPOSITORY [...] MD on 11/30/2017 at 3:25 PM. CR_1 Dance Master: MARCO Transcribe Date/Time: Nov 30 2017 3:26P Dictated by : BILLY MINER MD This examination was interpreted and the report reviewed and electronically signed by: BILLY MINER MD on Nov 30 2017 3:30PM EST [id number] ED NOTE Observed: 11/30/2017 Status: COMPLETED Source: [place] 3:23 PM CLINIC OTHER CAMPUS REPOSITORY HNO ID: [id number] Author: Donna (Rn) Tiffanie, RN Service: (none) Author Type: Registered Nurse Type: ED Notes Filed: 11/30/2017 3:23 PM Note Text: Cr 0.5 per jessica Cat. ED NOTE Observed: 11/30/2017 Status: COMPLETED Source: [place] 3:07 PM [facility] OTHER CAMPUS REPOSITORY HNO ID: [id number] Author: Donna (Rn) Tiffanie, RN Service: (none) Author Type: Registered Nurse Type: ED Notes Filed: 11/30/2017 3:08 PM Note Text: Bedside report from CHICHO Puckett. Assumed care of pt at this time, blood work drawn and sent. CBC AND DIFFERENTIAL Collected: 11/30/2017 Status: F Source: [place] 3:02 PM [facility] OTHER CAMPUS REPOSITORY TYPE CODE TESTS RESULT [...] k/uL Abs Lymph 1.60 LAB MONOS % Rolette% 7.0 LAB AAMONO <0.87 k/uL Abs Rolette 0.49 LAB EOS % Eosin% 1.0 LAB AAEOS <0.46 k/uL Abs Eosin 0.07 LAB BASOS % Baso% 0.4 LAB AABASO <0.11 k/uL Abs Baso 0.03 LAB DTYP DTYPE Auto Diff Performed By: #### CBCFAIZA, CMP, LAKEISHA #### [place] [id number] [place] [address] COMP METABOLIC PANEL Collected: 11/30/2017 Status: F Source: [place] 3:02 PM CLINIC OTHER CAMPUS REPOSITORY TYPE [...] Performed By: #### CBCNYDIAF, CMP, LAKEISHA #### [place] [address] TROPONIN T Collected: 11/30/2017 Status: F Source: [place] 3:02 PM CLINIC OTHER CAMPUS REPOSITORY TYPE CODE TESTS RESULT OUT OF REFERENCE UNITS RANGE LAB TROPT 0.000-0.029 ng/mL Troponin T <0.010 Performed By: #### CBCDIF, CMP, LAKEISHA #### [place] [address] PROTIME Collected: 11/30/2017 Status: F Source: [place] 3:02 PM CLINIC OTHER CAMPUS REPOSITORY TYPE CODE TESTS RESULT OUT OF RANGE REFERENCE UNITS LAB PSEC 9.7-13.0 sec PT Sec 11.0 LAB INR 0.9-1.3 PT INR 1.1 Result Comment: Vitamin K Antagonist (VKA) Therapeutic Range: INR 2 to 3 (Target INR of 2.5) Note: For patients treated with VKA drugs, such as warfarin, the [place] [employer] 2012 Guideline recommends [...] Susan GH, et al. Chest 2012, 141:7S-47S Ivania RA, et al. [facility] 2017, 70: 252-289 Performed By: #### PT, PTT #### [place] [address] [place] [address] APTT Collected: 11/30/2017 Status: F Source: [place] 3:02 [facility] REPOSITORY TYPE CODE TESTS RESULT OUT [...] laboratory APTT reagent in use throughout the [facility]. Performed By: #### PT, PTT #### [place] [id number] [place] [address] EKG (AK,AV,EU,FV,HL,LAINE,MM,SP) Observed: Status: F Source: [place] 11/30/2017 2:55 PM CLINIC OTHER CAMPUS REPOSITORY NAME : VIVIANA FLORES PID : [id number] : 1940 Gender : Female Race : ORD : [id number] Procedure Date : Nov 30 2017 14:55:35 Edit Date : Nov 30 2017 23:06:53 Diagnosis:SINUS RHYTHM 1537 Normal ECG Confirmed by MD AKIN, FRANK ([id number]), image editor OTIS TAYLOR ([id number]) on 11/30/2017 11:06:46 PM Ventricular Rate : 67 BPM Atrial Rate : 67 BPM P-R Interval : 156 ms QRS Duration : 76 ms Q-T Interval : 436 ms QTC Calculation(Bezet) : 460 ms P Palmer : 0 degrees R Palmer : 46 degrees T Palmer : 38 degrees Test Reason : Chest Pain Location : 402 : FVED 55 Overread By : MD GERARDO ERIN Edited By : OTIS TAYLOR Referred By : , Acquired by : AB, ED NOTE Observed: 11/30/2017 Status: COMPLETED Source: [place] 2:44 PM [facility] OTHER CAMPUS REPOSITORY HNO ID: [id number] Author: Alli KayRn) CHICHO Scott Service: (none) Author Type: Registered Nurse Type: ED Notes Filed: 11/30/2017 2:44 PM Note Text: Bed: 55-ED Expected date: Expected time: Means of arrival: Comments: CHARITON [age]F PERIOD OF CONFUSION AT 11AM, NOW NORMAL FROM [facility], UTI WORK UP NEGATIVE 136/79, 64, 20, 100% PRENOTIFICATION PROGRESS Observed: 11/30/2017 Status: COMPLETED Source: [place] 2:28 PM [facility] MAIN CAMPUS REPOSITORY HNO ID: [id number] Author: Laila Ness) [place] Service: (none) Author Type: Nurse Practitioner Type: Progress Notes Filed: 11/30/2017 2:40 PM Note Text: [facility]. Per pt, she is here to have blood drawn to see what is going on. Pt states she is in [place] with her njvkxryd-ic-bhm and the month is either January or [...] pt's condition, EMS called and transported to [facility]. CNOV Observed: 11/30/2017 Status: COMPLETED Source: [place] 1:35 PM [facility] REPOSITORY Office Visit (EXPNOL) VIVIANA FLORES ([id number]) 1940 F Date Time Provider Department 11/30/17 [...] going on. Pt states she is in [place] with her jtmzfkww-nz-vzs and the month is either January or [...] pt's condition, EMS called and transported to [place] ED. Referring Provider: SELF [200] Allergies As of Date: 11/30/2017 (No Known Allergies) Date Reviewed: 11/30/2017 Reviewed by: Janet (Rn) CHICHO Kramer - Fully Assessed Reason for Visit: Dysuria [1085] Cmt: Occasional burning x 2 days Reason For Visit History Recorded Primary Visit Diagnosis:Confusion [R41.0] Order(s):UA DIP, URINE (POC) [6919693] Order #: [id number]. #:[id number] Prescriptions as of 11/30/2017 Sig: X DICLOFENAC [...] HISTORY PHYSICAL Observed: 11/30/2017 Status: COMPLETED Source: [place] 12:00 AM CLINIC OTHER CAMPUS REPOSITORY [facility] ID: [id number] Author: Rubia Licea Service: Nephrology Author Type: Physician Type: HANDP Filed: 12/04/2017 6:38 PM Note Text: [facility] - History and Physical VIVIANA FLORES : 1940 AGE: 77 SEX: F CSN: [id number] [facility]: [facility] LOCATION: [facility] ATTENDING PHYSICIAN: RUBIA LICEA ADMIT DATE: 11/30/2017 [...] or alcohol use. 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 ALLERGIES: No known drug allergies. FAMILY [...] and speech eval. Rubia Garza M.D. Nephrology WE:[id number] /[id number] CBC Collected: 08/04/2017 Status: F Source: [place] 10:18 AM [facility] REPOSITORY TYPE CODE TESTS RESULT OUT [...] 7.10 x10EE3/U L Neut # 4.20 LAB Rolette #(LOINC) 0.20 - 1.00 x10EE3/U L Rolette # 0.50 LAB EO #(LOINC) 0.00 - 0.50 x10EE3/U L EO # 0.10 LAB Baso #(LOINC) 0.00 - 0.10 x10EE3/U L Baso # 0.00 LAB MANUAL DIFF([facility]) MANUAL DIFF N/A LAB MORPHOLOGY([facility] ) MORPHOLOGY N/A Result Comment: {CD] Performed By: #### [id number] #### [facility],[address] [place] [address] CMP WITH EGFR Collected: 08/04/2017 Status: F Source: [facility] 10:18 AM [facility] REPOSITORY TYPE CODE TESTS RESULT OUT OF RANGE REFERENCE UNITS LAB CMP with eGFR([facility]) CMP with eGFR Result Comment: COMPREHENSIVE METABOLIC [...] OF AGE AND OLDER. Performed By: #### [id number] #### [place] [address] LIPID PROFILE Collected: 08/04/2017 Status: F Source: [facility] 10:18 [facility] REPOSITORY TYPE CODE TESTS RESULT OUT OF REFERENCE UNITS RANGE LAB LIPID PROFILE(LOIN C) LIPID PROFILE Result Comment: LIPID PROFILE LAB TRIGLYCERIDE(LOINC) 0 - 150 mg/dl TRIGLYCERIDE 71 LAB CHOLESTEROL(LOINC) 0 - 200 mg/dl CHOLESTEROL 194 LAB HDL(LOINC) 40 - 60 mg/dl HDL High 69 LAB CHOL/HDL(LOINC) 0.0 - 5.0 CHOL/HDL 2.8 LAB LDL(LOINC) 0 - 129 mg/dl LDL 111 Performed By: #### [id number] #### [place] [address] HGB A1C Collected: 08/04/2017 Status: F Source: [facility] 10:18 [facility] REPOSITORY TYPE CODE TESTS RESULT OUT OF RANGE REFERENCE UNITS LAB HGB 4.4 - 6.4 % A1C(LOINC) HGB A1C 5.8 Result Comment: {HB] {A1] Performed By: #### [id number] #### [address] [address] ALLERGIES ALLERGIES DATE TYPE / CODE NAME / CODE REACTION SEVERITY SOURCE 04/22/2018 Drug No Known Unknown Gracie Allergy/805600029(S Allergies/F0019 [facility]OM[facility]) [address](RXNORM) Hospital Repository Drug NO KNOWN [place] Class/807056803(SNO ALLERGIES Clinic Other MED CT) [place] Repository Miscellaneous No Known Drug Moderate Jun [place] Allergy/248721281(S Allergies ([facility]OM[facility]) Modifier) Hospital (Qualifier Repository Value) ENCOUNTERS ENCOUNTERS ADMIT/DISCHARGE ACCOUNT ADMITTING ENCOUNTER LOCATION SOURCE NUMBER CLASS 05/10/2018 [id number] [facility] 05/09/[id number] [facility] Repository 04/26/2018/04/29/20 [id number] Fabi, Inpatient [place] [address] [address] [facility] ing:RURoom: Repository [id number]: 1 04/26/2018 [id number] Fabi, Ambulatory BMSBuilding:Yi Siddiqi [facility] Repository 04/26/2018 [id number] Fabi, Ambulatory BMSBuilding:Yi Grier. MS.[facility] Repository 04/26/2018 [id number] Fabi, Ambulatory BMSBuilding:Yi Grier. MS.[facility] Repository 04/26/2018/04/26/20 [id number] Ambulatory [address] ing:SDCRoom: Repository AC04 04/26/2018 [id number] Ambulatory BMSBuilding:[facility] Repository 04/21/2018/04/21/20 [id number] DIANAK, Ambulatory [address] Repository 04/17/2018/04/17/20 [id number] PORFIRIO, Emergency Buildin[address] [place] [address] KATINA DO oom: ERBed: [facility] Repository 02/08/2018/05/09/20 [id number] PINKY QUINN Ambulatory [address] Repository 11/30/2017/12/04/19 [id number] FARHEEN LICEA, Inpatient [place] [address] WASSIM A Encounter [facility] Other [place] Repository 11/30/2017/12/04/19 [id number] Ambulatory [address] Main [place] Repository 08/16/2017 [id number] PINKY QUINN Ambulatory Jun Shepard [facility] Repository 08/04/2017/08/05/19 [id number] PINKY QUINN Ambulatory Jun Shepard [address] [place] [address] Repository PAYERS PAYERS ENCOUNTER GUARANTOR PAYER SUBSCRIBER SOURCE 05/10/2018 VIVIANA Engel Primary VIVIANA Shepard BOALSDOB: Insurance:MEDICARE BOALSDOB: [facility] RECURRING / REFERENCE [id number] Hospital RT 83%[place] LABPolicy Number: [id number] TR Repository [facility] [id number] [address] [place] [address] [id number]: Date:Plan Name:[facility] [id number] () 05/10/2018 Secondary VIVIANA Shepard Insurance:[employer]HE[employer] BLUE BOALSDOB: [facility] [id number] Hospital RECURRINGPolicy [address] Repository Number: [id number] [address] [place] [address], Date: [place] [id number] 05/09/2018 VIVIANA Engel Primary VIVIANA Shepard BOALSDOB: Insurance:MEDICARE BOALSDOB: [facility] RECURRING / REFERENCE [id number] Hospital RT 83%[place] LABPolicy Number: [id number] Repository [facility] [id number] [id number]: Date:Plan Name:[facility] [id number] () 05/09/2018 Secondary VIVIANA Shepard Insurance:ANTHEM BLUE BOALSDOB: [facility] [id number] Hospital RECURRINGPolicy [id number] TR Repository [facility]: [facility] [id number] Ar [id number] Date: 04/26/2018 VIVIANA Engel Primary VIVIANA Engel Isabella BOALSHOLMES Insurance:MEDICARE BOALSDOB: [place] [address] PART A BPolicy Number: [id number], [id number] Repository [place] [address]Uvz: Date:2018-04-26 () 04/26/2018 Secondary VIVIANA J Gracie Insurance:ANTHEMPolicy BOALSDOB: Community Number: [id number] Hospital [id number] Repository Date:4117-18-12NS [address] [place] [address]GA: 04/26/2018 Tertiary NOT GIVENUNK Gracie Insurance:SELF PAY [facility]: Effective Repository Date:2018-04-26 04/26/2018 VIVIANA J Primary VIVIANA J Isabella BOALSHOLMES Insurance:MEDICARE BOALSDOB: [place] [address] PART A BPolicy Number: [id number], [id number] Repository [place] [address]Tza: Date:2018-04-26 () 04/26/2018 Secondary VIVIANA Engel Gracie Insurance:ANTHEMPolicy BOALSDOB: Community Number: [id number] Hospital [id number] Repository Date:7667-98-07MH [address] [place] [address]PO: 04/26/2018 Tertiary NOT GIVENUNK Isabella Insurance:SELF PAY [facility] Hospital Number: Effective Repository Date:2018-04-26 04/26/2018 VIVIANA J Primary VIVIANA J Gracie BOALSHOLMES Insurance:MEDICARE BOALSDOB: [place] [address] PART A BPolicy Number: [id number], [id number] Repository [place] [address]Avm: Date:2018-04-26 () 04/26/2018 Secondary VIVIANA J Isabella Insurance:ANTHEMPolicy BOALSDOB: Community Number: [id number] Hospital [id number] Repository Date:3175-79-41KN [address] [place] [address]QC: 04/26/2018 Tertiary NOT GIVENUNK Gracie Insurance:SELF PAY [facility] Number: Effective Repository Date:2018-04-26 04/26/2018 VIVIANA Engel Primary VIVIANA J Isabella BOALSHOLMES Insurance:MEDICARE BOALSDOB: [place] [address] PART A BPolicy Number: [id number], [id number] [place]ository [place] [address]Luv: Date:2018-04-26 (hp) 04/26/2018 Secondary VIVIANA J Isabella Insurance:ANTHEMPolicy BOALSDOB: Community Number: [id number] Hospital [id number] Repository Date:4024-33-73PW [address] [place] [address]UD: 04/26/2018 Tertiary NOT GIVENUNK Isabella Insurance:SELF PAY [facility] Number: Effective Repository Date:2018-04-26 04/26/2018 VIVIANA Engel Primary VIVIANA Engel Isabella BOALSHOLMES Insurance:MEDICARE BOALSDOB: [place] [address] PART A BPolicy Number: [id number], [id number] Repository [place] [address]Hvn: Date:2018-04-20 (KO) 04/26/2018 Secondary VIVIANA J Isabella Insurance:ANTHEMPolicy BOALSDOB: Community Number: [id number] Hospital [id number] Repository Date:2259-96-29DH [address] [place] [address] 12[address]PJ: 04/26/2018 Tertiary NOT GIVENUNK Isabella Insurance:SELF PAY [facility] Number: Effective Repository Date:2018-04-20 04/26/2018 VIVIANA Engel Primary VIVIANA J Gracie BOALSHOLMES Insurance:MEDICARE BOALSDOB: [place] [address] PART A BPolicy Number: [id number] [address], [id number] Repository [place] [address]Rhg: Date:2018-04-20 (HP) 04/26/2018 Secondary VIVIANA Bowman Insurance:ANTHEMPolicy BOALSDOB: Pending [facility] Number: [id number] Hospital [id number] Repository Date:9168-87-53IG [address] [address]HM: 04/26/2018 Tertiary NOT GIVENUNK Isabella Insurance:SELF PAY [facility] Number: Effective Repository Date:2018-04-26 04/21/2018 VIVIANA Engel Primary Insurance:500 VIVIANA Engel Jun Angelaanjali BOALSDOB: MEDICARE BOALSDOB: [facility] [address] [facility] [id number] Hospital [id number] Number: [id number] TR Repository [address] [place] [id number] [address]Ivy: (419) Date:Plan Name:[facility] [id number] () 04/21/2018 Secondary VIVIANA Junfarheen Forbesmiatash Insurance:BLUE CROSS BOALSDOB: [address] [id number] Hospital OUTPATIENTPoly [address] Repository Number: [id number] TR [id number] [address] [place] [address], Date:Plan Name:[facility] [address] 04/17/2018 VIVIANA J Primary Insurance:500 VIVIANA Engel Junfarheen Forbesanjali BOALSDOB: MEDICARE BOALSDOB: [facility] [address] [facility] [id number] Hospital [address] Number: [id number] TR Repository [address] [place] [id number] [address]Ais: (419) Date:Plan Name:[facility] [id number] () 04/17/2018 Secondary VIVIANA J Jun Angelaanjali Insurance:BLUE CROSS BOALSDOB: [address] [id number] Hospital OUTPATIENTPolicy [address] Repository Number: 1056[facility], [id number] Ar [id number] Date:Plan Name: 02/08/2018 VIVIANA Toro Primary VIVIANA Shepard BOALSDOB: Insurance:MEDICARE BOALSDOB: [facility] [id number] ST RECURRING / REFERENCE [id number] Hospital RT 83%[place] LABPolicy Number: [id number] Repository [facility], [id number] [address] [place] [id number]: Date:Plan Name:[facility] [id number] () 02/08/2018 Secondary VIVIANA Shepard Insurance:ANTHEM BLUE BOALSDOB: [facility] COMMERCIAL [id number] Hospital RECURRINGPolicy [address] Repository Number: [id number] TR [id number] [address] [place] [address], Date: [place] [address] 08/16/2017 VIVIANA Toro Primary Insurance:S VIVIANA Shepard BOALSDOB: - BOALSDOB: [facility] TR MEDICARE-[facility] [id number] Hospital 1056 PO [id number] Number: 0 TR 1056 PO Repository TR [address] [place] [address] [id number] [facility] [address]Koc: Date:1994-00-81[place] [address] Name: () 08/16/2017 Secondary VIVIANA Shepard Insurance:ANTHEMPolicy BOALSDOB: [facility] Number: [id number] [facility] [id number] TR 1056 [address] Repository Date:Plan Name:[place] [address] 08/04/2017 VIVIANA Toro Primary Insurance:[facility] VIVIANA Arizatash BOALSDOB: MEDICARE BOALSDOB: [facility] [id number] BOX [facility] [id number] Hospital [id number] TR Number: [id number] TR Repository [address] [place] [address] [id number] 1056[facility], [address]Qse: 419) Date:Plan Name:[facility] [id number] () 08/04/2017 Secondary VIVIANA Shepard [facility] [address] [id number] Hospital OUTPATIENTKindred Healthcarey [address] Repository Number: 1056[place], [id number] Ar [id number] Date:
== END 2018-04-29 13:15 | disposition skilled nursing facility (03) | DRG 493 ==
PROVIDERS: Admitting Provider Psychiatry & Neurology Neurology; Family Provider Internal Medicine Infectious Disease; PCP Internal Medicine Infectious Disease; Referring Provider Psychiatry & Neurology Neurology; Visit Provider Internal Medicine
DX: S82.61XA Displaced fracture of lateral malleolus of right fibula, initial encounter for closed fracture (principal); F03.91 Unspecified dementia, unspecified severity, with behavioral disturbance; I10 Essential (primary) hypertension; E78.5 Hyperlipidemia, unspecified; G40.909 Epilepsy, unspecified, not intractable, without status epilepticus; F32.9 Major depressive disorder, single episode, unspecified; H35.30 Unspecified macular degeneration; Z91.81 History of falling; F03.90 Unspecified dementia, unspecified severity, without behavioral disturbance, psychotic disturbance, mood disturbance, and anxiety; Y93.9 Activity, unspecified; Y92.199 Unspecified place in other specified residential institution as the place of occurrence of the external cause; Y99.9 Unspecified external cause status; W18.30XA Fall on same level, unspecified, initial encounter; R60.0 Localized edema; E66.3 Overweight; Z68.27 Body mass index [BMI] 27.0-27.9, adult; I89.8 Other specified noninfective disorders of lymphatic vessels and lymph nodes
CPT/HCPCS: 36415; 73521; 73610; 76000; 80053; 82962; 85027; 93005; 97110; 97162; 97166; 97530; 97535; 97802; C1713; J7120